=== PATIENT | female | born 1970 | race Caucasian/White ===

== ENCOUNTER 2017-02-18 10:45 | Emergency (ER) | payer OTHER ==
[2017-02-18 10:52] VITALS: RESP 18
[2017-02-18 11:38] VITALS: BP 146/86; PULSE 81; TEMP 97.2
[2017-02-18] MEDS ORDERED: DIAZEPAM 5 MG TAB PO STA (11:53)
[2017-02-18] MEDS ORDERED: HYDROcodone/APAP 10-325MG 1 EACH TAB PO ONE (11:53)
--- NOTE | 2017-02-18 12:04 | ED ---
General Adult HPI - General Chief complaint: Back Pain/Injury Stated complaint: back pain Source: patient Mode of arrival: wheelchair Limitations: no limitations - History of Present Illness Initial comments: 46 year old female presenting for evaluation of left lower back pain. She states that 2 days ago she was lifting a coffee table and while lifting and twisting states she felt a "pull" in her back and had pain that radiated down the lateral posterior aspect of her leg to her foot and ankle. She states that the pain in her back is constant and that only with certain positions or movements will the pain radiate to her foot. She is still able to ambulate but states due to the pain she has had decreased activity. She has attempted Motrin 800s for pain relief without any improvement. She denies any saddle anesthesia, lower extremity weakness, bowel or bladder dysfunction that is abnormal for her, or midline back pain. She states she does have baseline urinary irregularities but this has been ongoing for a couple years and she attributes it to her fibromyalgia. - Related Data Home Medications Medication Instructions Recorded Confirmed Multivitamins, Thera [Multivitamin 1 tab PO DAILY 02/23/15 02/18/17 (formulary)] Ibuprofen [Motrin] 800 mg PO BID 10/13/15 02/18/17 ALPRAZolam [Xanax] 1 mg PO HS 02/18/17 02/18/17 Atorvastatin [Lipitor] 10 mg PO HS 02/18/17 02/18/17 Biotin 10,000 mcg PO DAILY 02/18/17 02/18/17 Cyanocobalamin (Vitamin B-12) 1,000 mcg PO DAILY 02/18/17 02/18/17 [Vitamin B-12] FLUoxetine HCL [FLUoxetine HCL] 40 mg PO DAILY 02/18/17 02/18/17 Garcinia Cambogia 1 tab PO BID 02/18/17 02/18/17 Phentermine HCl [Adipex-P] 37.5 mg PO QAM 02/18/17 02/18/17 Phenylephrine HCl [Sudafed PE] 10 mg PO Q6H PRN 02/18/17 02/18/17 Previous Rx's Medication Instructions Recorded Diazepam [Valium] 5 mg PO BID #6 tab 02/18/17 HYDROcodone/APAP 5-325MG [Leslie 1 - 2 tab PO Q6HR PRN #14 tab 02/18/17 5-325] Allergies Allergy/AdvReac Type Severity Reaction Status Date / Time No Known Allergies Allergy Verified 02/18/17 10:52 Review of Systems ROS Statement: Those systems with pertinent positive or pertinent negative responses have been documented in the HPI. ROS Other: All systems not noted in ROS Statement are negative. Constitutional: Denies: fever, chills Eyes: Denies: eye pain, eye discharge ENT: Denies: ear pain, throat pain Respiratory: Denies: cough, dyspnea Cardiovascular: Denies: chest pain, palpitations Endocrine: Denies: fatigue, polydipsia, polyuria Gastrointestinal: Denies: abdominal pain, nausea, vomiting, diarrhea Genitourinary: Denies: urgency, dysuria Musculoskeletal: Reports: back pain. Denies: arthralgia, myalgia Skin: Denies: rash, lesions Neurological: Reports: other (Pain radiating from her left lower back down to her foot). Denies: headache, weakness, numbness, paresthesias, confusion Psychiatric: Denies: anxiety, depression Hematological/Lymphatic: Denies: easy bleeding, easy bruising Past Medical History Past Medical History: Cancer, Diabetes Mellitus, Fibromyalgia, GERD/Reflux, Hyperlipidemia, Thyroid Disorder Additional Past Medical History / Comment(s): CERVICAL CA (1996), HX OF DIVERTICULITIS, OCCASIONAL DIARRHEA, OCCASIONAL HEARTBURN., PT STATES UNSURE OF THYROID DISORDER. History of Any Multi-Drug Resistant Organisms: None Reported Past Surgical History: Bariatric Surgery, Section, Cholecystectomy, Hysterectomy, Tubal Ligation, Uterine Ablation Additional Past Surgical History / Comment(s): LAP BAND 2000 & REMOVED 2001. Past Anesthesia/Blood Transfusion Reactions: Motion Sickness Past Psychological History: Anxiety, Depression Smoking Status: Never smoker Past Alcohol Use History: Rare Past Drug Use History: None Reported - Past Family History Father Family Medical History: Cancer, Coronary Artery Disease (CAD), CVA/TIA, Myocardial Infarction ([place]) Additional Family Medical History / Comment(s): Bone ca Mother Family Medical History: Coronary Artery Disease (CAD), CVA/TIA, Hypertension Sister(s) Family Medical History: Fibromyalgia Additional Family Medical History / Comment(s): MS General Exam Limitations: no limitations General appearance: alert, in no apparent distress Head exam: Present: atraumatic, normocephalic, normal inspection Eye exam: Present: normal appearance, PERRL, EOMI. Absent: scleral icterus, conjunctival injection, periorbital swelling ENT exam: Present: normal exam, mucous membranes moist Neck exam: Present: normal inspection. Absent: tenderness, meningismus, lymphadenopathy Respiratory exam: Present: normal lung sounds bilaterally. Absent: respiratory distress, wheezes, rales, rhonchi, stridor Cardiovascular Exam: Present: regular rate, normal rhythm, normal heart sounds. Absent: systolic murmur, diastolic murmur, rubs, gallop, clicks GI/Abdominal exam: Present: soft, normal bowel sounds. Absent: distended, tenderness, guarding, rebound, rigid Rectal exam: Present: deferred Extremities exam: Present: normal inspection, full ROM, normal capillary refill. Absent: tenderness, pedal edema, joint swelling, calf tenderness Back exam: Present: tenderness, muscle spasm, paraspinal tenderness. Absent: normal inspection, vertebral tenderness, rash noted Neurological exam: Present: alert, oriented X3, CN II-XII intact, reflexes normal, other (Lower extremity reflexes intact including patellar and achilles. First dorsal webspace sensation intact.). Absent: motor sensory deficit Psychiatric exam: Present: normal affect, normal mood Skin exam: Present: warm, dry, intact, normal color. Absent: rash Course Vital Signs 02/18/17 02/18/17 10:49 11:38 Temperature 97.1 F L 97.2 F L Pulse Rate 86 81 Respiratory 18 18 Rate Blood Pressure 130/67 146/86 O2 Sat by Pulse 96 99 Oximetry Medical Decision Making - Medical Decision Making 46-year-old female presented for evaluation of back pain that occurred while lifting and twisting a coffee table 2 days ago. She states the back pain is constant and with certain movements and positions will radiate down the posterior lateral aspect of her left leg down to the left foot. She denies any lower extremity weakness, saddle anesthesia, midline back tenderness , or bowel/bladder irregularities that deviate from her baseline. On physical examination she is neurovascularly intact with a positive straight-leg test on the left. Cranial nerves II through XII intact without focal neurologic deficits. Patient does have paraspinal muscle spasm in the left lower back. Although this is likely a lumbar radiculopathy from disc herniation there is also concerned that this could be paraspinal muscle spasm. We'll treat with Valium and Leslie here in the ED and discharged with prescriptions for each. The patient states she has Motrin 800 at home and was instructed to take this every 6-8 hours as instructed. She was further advised to make an appointment with her primary care physician for next Tuesday but to return to this facility over the weekend if her symptoms should worsen or persist. The patient acknowledged an understanding of this information and agreed with this plan of care. Disposition Clinical Impression: Back pain, Lumbar back pain with radiculopathy affecting left lower extremity Disposition: HOME SELF-CARE Condition: Stable Instructions: Acute Low Back Pain (ED) Additional Instructions: Please use medication as discussed. Please follow up with family doctor if symptoms have not improved over the next two days. Please return to the emergency room if your symptoms increase or worsen or for any other concerns. Prescriptions: Diazepam [Valium] 5 mg PO BID #6 tab HYDROcodone/APAP 5-325MG [Leslie 5-325] 1 - 2 tab PO Q6HR PRN #14 tab PRN Reason: Analgesia Time of Disposition: 12:03
== END 2017-02-18 12:22 | disposition home or self-care (01) ==
LOC: EC 10:45
DX: M54.16 Radiculopathy, lumbar region (principal); M62.830 Muscle spasm of back; E11.9 Type 2 diabetes mellitus without complications; M79.7 Fibromyalgia; E78.5 Hyperlipidemia, unspecified; F32.9 Major depressive disorder, single episode, unspecified; F41.9 Anxiety disorder, unspecified; Z79.899 Other long term (current) drug therapy
CPT/HCPCS: 99283

== ENCOUNTER → 2017-02-23 | Outpatient (CLI) | payer OTHER ==
--- NOTE | 2017-02-23 14:35 | XR ---
EXAMINATION TYPE: XR lumbar spine 2 or 3V DATE OF EXAM: 02/23/2017 1:45 PM COMPARISON: 08/25/2011 HISTORY: 46-year-old female low back pain, radiculopathy TECHNIQUE: 3 views FINDINGS: 5 lumbar type vertebral bodies. There is mild endplate spondylosis throughout the lumbar spine with s uggestion of disc bulges at multiple levels. Vertebral body heights are preserved and alignment is ma intained. The mild spondylotic change appears to have slightly progressed from 2010. IMPRESSION: Mild multilevel degenerative disc disease and endplate spondylosis. No vertebral compression collapse or malalignment.
== END ==
LOC: RADXRMAIN 13:29
PROVIDERS: ATTEND Family Medicine
DX: M51.16 Intervertebral disc disorders with radiculopathy, lumbar region (principal); M47.26 Other spondylosis with radiculopathy, lumbar region
CPT/HCPCS: 72100

== ENCOUNTER 2017-06-02 17:50 | Emergency (ER) | payer OTHER ==
[2017-06-02] MEDS ORDERED: KETOROLAC 30 MG/ML 1 ML VIAL IVP STA (19:15)
[2017-06-02] MEDS ORDERED: ORPHENADRINE 30 MG/ML 2 ML VIAL IM STA (19:15)
[2017-06-02] MEDS ORDERED: SODIUM CHLORIDE 0.9% 500 ML IV ONE (19:16)
[2017-06-02] MEDS ORDERED: METOCLOPRAMIDE 5 MG/ML 2 ML VIAL IVP STA (19:16)
--- NOTE | 2017-06-02 19:27 | ED ---
Headache HPI - General Chief Complaint: Headache Stated Complaint: headache Time Seen by Provider: 06/02/17 19:08 Source: patient, RN notes reviewed Mode of arrival: ambulatory Limitations: no limitations - History of Present Illness Initial Comments: 46-year-old female presents emergency Department chief complaint headache 1 month. Patient states that she has had headaches like this in the past and states that she had a nerve block for occipital neurology. Patient states on the left side of her head and radiates up to her forehead. Patient states that having seems to make it worse. Patient states that she seen her primary care physician twice for this. Patient states she's had CTs in the past and states that she does not want an hour at this time. Patient denies any change in vision. States that she's had some blurred vision in the past. Denies any focal weakness denies chest pain, shortness breath, fever, chills, neck stiffness. She states she does have some pain down her left side of her neck and shoulder region. - Related Data Home Medications Medication Instructions Recorded Confirmed Multivitamins, Thera [Multivitamin 1 tab PO DAILY 02/23/15 02/18/17 (formulary)] Ibuprofen [Motrin] 800 mg PO BID 10/13/15 02/18/17 ALPRAZolam [Xanax] 1 mg PO HS 02/18/17 02/18/17 Atorvastatin [Lipitor] 10 mg PO HS 02/18/17 02/18/17 Biotin 10,000 mcg PO DAILY 02/18/17 02/18/17 Cyanocobalamin (Vitamin B-12) 1,000 mcg PO DAILY 02/18/17 02/18/17 [Vitamin B-12] FLUoxetine HCL [FLUoxetine HCL] 40 mg PO DAILY 02/18/17 02/18/17 Garcinia Cambogia 1 tab PO BID 02/18/17 02/18/17 Phentermine HCl [Adipex-P] 37.5 mg PO QAM 02/18/17 02/18/17 Phenylephrine HCl [Sudafed PE] 10 mg PO Q6H PRN 02/18/17 02/18/17 Previous Rx's Medication Instructions Recorded Diazepam [Valium] 5 mg PO BID #6 tab 02/18/17 HYDROcodone/APAP 5-325MG [Mills 1 - 2 tab PO Q6HR PRN #14 tab 02/18/17 5-325] Butalb/APAP/Caff 50-325-40Mg 1 tab PO Q4H PRN #10 tablet 06/02/17 [Fioricet 50-325-40] Cyclobenzaprine [Flexeril] 10 mg PO TID PRN #15 tab 06/02/17 Allergies Allergy/AdvReac Type Severity Reaction Status Date / Time No Known Allergies Allergy Verified 06/02/17 19:01 Review of Systems ROS Statement: Those systems with pertinent positive or pertinent negative responses have been documented in the HPI. ROS Other: All systems not noted in ROS Statement are negative. Past Medical History Past Medical History: Cancer, Diabetes Mellitus, Fibromyalgia, GERD/Reflux, Hyperlipidemia, Thyroid Disorder Additional Past Medical History / Comment(s): CERVICAL CA (1996), HX OF DIVERTICULITIS, OCCASIONAL DIARRHEA, OCCASIONAL HEARTBURN., PT STATES UNSURE OF THYROID DISORDER. History of Any Multi-Drug Resistant Organisms: None Reported Past Surgical History: Bariatric Surgery, Section, Cholecystectomy, Hysterectomy, Tubal Ligation, Uterine Ablation Additional Past Surgical History / Comment(s): LAP BAND 2000 & REMOVED 2001. Past Anesthesia/Blood Transfusion Reactions: Motion Sickness Past Psychological History: Anxiety, Depression Smoking Status: Never smoker Past Alcohol Use History: Rare Past Drug Use History: None Reported - Past Family History Father Family Medical History: Cancer, Coronary Artery Disease (CAD), CVA/TIA, Myocardial Infarction ([place]) Additional Family Medical History / Comment(s): Bone ca Mother Family Medical History: Coronary Artery Disease (CAD), CVA/TIA, Hypertension Sister(s) Family Medical History: Fibromyalgia Additional Family Medical History / Comment(s): MS General Exam Limitations: no limitations General appearance: alert, in no apparent distress Head exam: Present: atraumatic, normocephalic, normal inspection Eye exam: Present: normal appearance, PERRL, EOMI. Absent: scleral icterus, conjunctival injection, periorbital swelling ENT exam: Present: normal exam, normal oropharynx, mucous membranes moist, TM's normal bilaterally, normal external ear exam Neck exam: Present: normal inspection, tenderness (Mild tenderness along the left trapezius, upper cervical paraspinal region.), full ROM. Absent: meningismus, lymphadenopathy Respiratory exam: Present: normal lung sounds bilaterally. Absent: respiratory distress, wheezes, rales, rhonchi, stridor Cardiovascular Exam: Present: regular rate, normal rhythm, normal heart sounds. Absent: systolic murmur, diastolic murmur, rubs, gallop, clicks Neurological exam: Present: alert, oriented X3, CN II-XII intact, reflexes normal. Absent: motor sensory deficit Skin exam: Present: warm, dry, intact, normal color. Absent: rash Course Vital Signs 06/02/17 06/02/17 06/02/17 18:59 19:45 21:04 Temperature 98 F 97.0 F L Pulse Rate 89 80 75 Respiratory 20 16 16 Rate Blood Pressure 137/82 130/63 107/52 O2 Sat by Pulse 98 98 97 Oximetry Medical Decision Making - Medical Decision Making 46-year-old female presented emergency department for headache previously states her headache is improvement with resolved though feels improved. Patient was offered CT though she declined. She states she's had this in the past. Patient will be referred to neurologist for possible occipital block. Patient will be given medications to help with her symptoms return parameters were discussed. Disposition Clinical Impression: Cervico-occipital neuralgia, Headache Disposition: HOME SELF-CARE Condition: Stable Instructions: Acute Headache (ED) Additional Instructions: Please return to the Emergency Department if symptoms worsen or any other concerns. Prescriptions: Butalb/APAP/Caff 50-325-40Mg [Fioricet 50-325-40] 1 tab PO Q4H PRN #10 tablet PRN Reason: Headache Cyclobenzaprine [Flexeril] 10 mg PO TID PRN #15 tab PRN Reason: Muscle Spasm Referrals: Bigg Benjamin DO [Primary Care Provider] - 1-2 days Time of Disposition: 21:11
[2017-06-02 19:48] VITALS: RESP 16
[2017-06-02] MEDS ORDERED: DIAZEPAM 5 MG/ML 2 ML SYRINGE IVP STA (20:12)
[2017-06-02] MEDS ORDERED: BUTALB/APAP/CAFF 50-325-40MG TAB PO STA (20:13)
[2017-06-02 21:06] VITALS: BP 107/52; PULSE 75; TEMP 97
== END 2017-06-02 21:21 | disposition home or self-care (01) ==
LOC: EC 17:50
DX: M54.81 Occipital neuralgia (principal); M79.7 Fibromyalgia; E78.5 Hyperlipidemia, unspecified; F41.9 Anxiety disorder, unspecified; F32.9 Major depressive disorder, single episode, unspecified; Z79.1 Long term (current) use of non-steroidal anti-inflammatories (NSAID); Z79.899 Other long term (current) drug therapy
CPT/HCPCS: 99284; 96374; 96375 ×2; 96361 ×2; 96372; J2360; J2765; J3360; J1885

== ENCOUNTER → 2017-10-28 | Outpatient (CLI) | payer OTHER ==
[2017-10-28 14:01] LABS: HGB 13.2 gm/dL (11.4-16.0); MCV 81.8 fL (80.0-100.0); Mean Platelet Volume 8.5; Platelet Count 216 k/uL (150-450); RDW 15.4 % (11.5-15.5); WBC 6.1 k/uL (3.8-10.6)
[2017-10-28 14:14] LABS: Appearance,Urine Cloudy (Clear); Bacteria,Urine Moderate /hpf; Bilirubin,Urine Negative (Negative); Blood,Urine Negative (Negative); Color,Urine Yellow; Glucose,Urine (UA) Negative (Negative); Hyaline Casts,Urine 3 /lpf (0-2); Ketones,Urine Negative (Negative); Leukocyte Esterase,Urine Negative (Negative); Mucus,Urine Rare /hpf; Nitrite,Urine Negative (Negative); Protein,Urine Negative (Negative); RBC,Urine 5 /hpf (0-5); Specific Gravity,Urine 1.019 (1.001-1.035); Squamous Epithelial Cell,Urine 14 /hpf (0-4); Urobilinogen,Urine <2.0 mg/dL (<2.0); WBC,Urine 2 /hpf (0-5)
[2017-10-28 14:43] LABS: ALT 77 U/L (9-52); AST 44 U/L (14-36); Albumin 4.6 g/dL (3.5-5.0); Alkaline Phosphatase 113 U/L (38-126); Anion Gap 10 mmol/L; Blood Urea Nitrogen 13 mg/dL (7-17); C Reactive Protein 5.7 mg/L (<10.0); Calcium 10.3 mg/dL (8.4-10.2); Carbon Dioxide 25 mmol/L (22-30); Chloride 104 mmol/L (98-107); Creatine Kinase 120 U/L (30-135); Glucose 114 mg/dL (74-99); Magnesium 1.7 mg/dL (1.6-2.3); Potassium 4.3 mmol/L (3.5-5.1); Sodium 139 mmol/L (137-145); Total Bilirubin 0.3 mg/dL (0.2-1.3); Total Protein 7.8 g/dL (6.3-8.2)
[2017-10-28 17:39] LABS: Erythrocyte Sedimentation Rate 13 mm/hr (0-20)
[2017-10-28 19:42] LABS: Vitamin D 25 Hydroxy 28.1 ng/mL (30.0-100.0)
[2017-10-28 21:20] LABS: DNA Double-Stranded NEGATIVE (NEGATIVE); RNP <0.2 AI
[2017-10-28 21:21] LABS: Cyclic Citrullinated Pep IgG NEGATIVE (NEGATIVE); Scleroderma SC-70 Ab <0.2 AI
[2017-10-28 21:38] LABS: Hemoglobin A1C 6.8 % (4.0-6.0)
[2017-10-30 07:51] LABS: Histone Antibody 0.3 Units (0.0-0.9)
[2017-11-01 04:32] LABS: Vitamin B1 49 ug/L (38-122)
[2017-11-01 06:40] LABS: Vitamin A 67 ug/dL (38-106); Vitamin E (Alpha Tocopherol) 1291 ug/dL (500-1800)
[2017-11-01 07:45] LABS: Vitamin B6 14 ug/L (5-50)
[2017-11-04 04:39] LABS: Vitamin K 606 pg/mL (80-1160)
[2017-11-04 12:12] LABS: Nicotinuric Acid None Detected
== END | disposition home or self-care (01) ==
LOC: LABWHC1 13:15
PROVIDERS: ATTEND Psychiatry & Neurology Pain Medicine
DX: M25.50 Pain in unspecified joint (principal)
CPT/HCPCS: 36415; 80053; 81001; 82306; 82550; 83036; 83516; 83519; 83735; 84207; 84425; 84446; 84590; 84591; 84597; 85027; 85652; 86038; 86140; 86200; 86225; 86235

== ENCOUNTER → 2017-11-08 | Outpatient (CLI) | payer OTHER ==
--- NOTE | 2017-11-08 12:46 | MR ---
PRE AND POSTCONTRAST ENHANCED MRI OF THE BRAIN: CLINICAL HISTORY: R51 Headache / M54.2 Cervicalgia CONTRAST: Gadavist 9 mL COMPARISON: 04/04/2013 Multiplanar and multispin-echo imaging of the brain was performed both before and after the administr ation of contrast. The ventricles, basal cisterns and sulci overlying the cerebral convexities are within normal limits. There is no evidence for midline shift or mass effect. Acute intracranial hemorrhage or extra-axial collection is not evident. 2 tiny areas of stable focal increased signal right cerebral hemisphere. Following contrast administration, there is no evidence for pathologic enhancement or enhancing mass. The paranasal sinuses and mastoid air cells are well-aerated. IMPRESSION: 1. No significant abnormality appreciated. EXAMINATION TYPE: MR brain wo/w cspine wo DATE OF EXAM: 11/08/2017 12:08 PM COMPARISON: NONE HISTORY: Headache / Cervicalgia Multiplanar MultiSpin echo imaging of the cervical spine was performed. Comparison: none C2-C3: No evidence for degenerative disc disease. No disc bulge/herniation or protrusion. No Canal stenosis. Foramina are patent bilaterally. C3-C4: No evidence for degenerative disc disease. No disc bulge/herniation or protrusion. No Canal stenosis. Foramina are patent bilaterally. C4-C5: Mild decreased signal and loss of height compatible with disc desiccation. Posterior disc bulg e with encapsulating spur resulting in disc endplate complex. Mild effacement ventral thecal sac. No evidence for herniation or central stenosis. Visualized foramina are patent. C5-C6: [id number] decreased signal and loss of height compatible with disc desiccation. Posteri or disc bulge with encapsulating spur resulting in mild to moderate effacement of the ventral thecal sac and mild central stenosis. There is evidence of left foraminal encroachment. Early compressive my elopathy difficult to exclude. C6-C7: [id number] decreased signal and loss of height compatible with disc desiccation. Posteri or disc bulge with encapsulating spur resulting in mild effacement of the ventral thecal sac and bor derline central stenosis. Mild left foraminal encroachment. C7-T1: No evidence for degenerative disc disease. No disc bulge/herniation or protrusion. No Canal stenosis. Foramina are patent bilaterally. Cervical segments are intact. There is normal alignment. Moderate ventral spondylosis identified. Cr aniovertebral junction relationships are within normal limits. IMPRESSION: 1. Multilevel degenerative disc disease. 2. Posterior disc bulge with encapsulating spur extending from C4-5 through C6-7 with mild stenosis i dentified at C5-6 and borderline stenosis at C6-7. Early compressive myelopathy difficult to exclude.
== END | disposition home or self-care (01) ==
LOC: RADMRIMAIN 11:03
PROVIDERS: ATTEND Psychiatry & Neurology Pain Medicine
DX: M48.02 Spinal stenosis, cervical region (principal); M50.221 Other cervical disc displacement at C4-C5 level; R51 Headache
CPT/HCPCS: 70553; 72141; A9581

== ENCOUNTER 2017-11-11 17:27 | Observation (INO) | payer OTHER ==
[2017-11-11] MEDS ORDERED: SODIUM CHLORIDE 0.9% 1,000 ML IV STA (17:43)
[2017-11-11 17:53] LABS: Basophils % (A) 0 %; Eosinophils # (A) 0.1 k/uL (0-0.7); Eosinophils % (A) 1 %; HCT 39.7 % (34.0-46.0); HGB 13.3 gm/dL (11.4-16.0); Lymphocytes # (A) 3.3 k/uL (1.0-4.8); Lymphocytes % (A) 33 %; MCHC 33.4 g/dL (31.0-37.0); MCV 80.6 fL (80.0-100.0); Mean Platelet Volume 8.2; Monocytes # (A) 0.9 k/uL (0-1.0); Monocytes % (A) 9 %; Neutrophils # (A) 5.5 k/uL (1.3-7.7); Neutrophils % (A) 54 %; Platelet Count 206 k/uL (150-450); RBC 4.92 m/uL (3.80-5.40); RDW 15.3 % (11.5-15.5); WBC 10.2 k/uL (3.8-10.6)
--- NOTE | 2017-11-11 18:00 | ED ---
General Adult HPI - General Chief complaint: Neuro Symptoms/Deficit Stated complaint: med reaction Time Seen by Provider: 11/11/17 17:29 Source: patient, RN notes reviewed, old records reviewed Mode of arrival: EMS Limitations: no limitations - History of Present Illness Initial comments: This is a 47-year-old female ER for evaluation of weakness. Patient as well as 6 days of weakness pain. Not feeling well. Patient has history of recent diagnosis of fibromyalgia, recent addition of new medications. Patient also complaining of right-sided numbness and tingling, T1 to mouth and tongue. No travel history no sick contacts. Patient does have history of diabetes. No high blood pressure no smoking. - Related Data Home Medications Medication Instructions Recorded Confirmed Multivitamins, Thera [Multivitamin 1 tab PO DAILY 02/23/15 11/11/17 (formulary)] Ibuprofen [Motrin] 800 mg PO BID 10/13/15 11/11/17 ALPRAZolam [Xanax] 1 mg PO HS 02/18/17 11/11/17 Biotin 10,000 mcg PO DAILY 02/18/17 11/11/17 Cyanocobalamin (Vitamin B-12) 1,000 mcg PO DAILY 02/18/17 11/11/17 [Vitamin B-12] FLUoxetine HCL [FLUoxetine HCL] 80 mg PO HS 02/18/17 11/11/17 Acetaminophen/Diphenhydramine 1 tab PO HS 11/11/17 11/11/17 [Tylenol PM 500-25mg] DULoxetine HCL [Cymbalta] 30 mg PO DAILY 11/11/17 11/11/17 Primidone [Mysoline] 50 mg PO DAILY 11/11/17 11/11/17 metFORMIN HCL [Glucophage] 500 mg PO BID 11/11/17 11/11/17 tiZANidine [Zanaflex] 4 mg PO HS 11/11/17 11/11/17 Previous Rx's Medication Instructions Recorded Aspirin EC [Ecotrin Low Dose] 81 mg PO DAILY #30 tablet. 11/12/17 Atorvastatin [Lipitor] 40 mg PO HS #30 tablet 11/12/17 Allergies Allergy/AdvReac Type Severity Reaction Status Date / Time No Known Allergies Allergy Verified 11/11/17 17:52 Review of Systems ROS Statement: Those systems with pertinent positive or pertinent negative responses have been documented in the HPI. ROS Other: All systems not noted in ROS Statement are negative. Past Medical History Past Medical History: Cancer, Diabetes Mellitus, Fibromyalgia, GERD/Reflux, Hyperlipidemia, Thyroid Disorder Additional Past Medical History / Comment(s): CERVICAL CA (1996), HX OF DIVERTICULITIS, OCCASIONAL DIARRHEA, OCCASIONAL HEARTBURN., PT STATES UNSURE OF THYROID DISORDER. History of Any Multi-Drug Resistant Organisms: None Reported Past Surgical History: Bariatric Surgery, Section, Cholecystectomy, Hysterectomy, Tubal Ligation, Uterine Ablation Additional Past Surgical History / Comment(s): LAP BAND 2000 & REMOVED 2001. Past Anesthesia/Blood Transfusion Reactions: Motion Sickness Past Psychological History: Anxiety, Depression Smoking Status: Never smoker Past Alcohol Use History: Rare Past Drug Use History: None Reported - Past Family History Father Family Medical History: Cancer, Coronary Artery Disease (CAD), CVA/TIA, Myocardial Infarction ([place]) Additional Family Medical History / Comment(s): Bone ca Mother Family Medical History: Coronary Artery Disease (CAD), CVA/TIA, Hypertension Sister(s) Family Medical History: Fibromyalgia Additional Family Medical History / Comment(s): MS General Exam - General Exam Comments Initial Comments: NIH of 1 Limitations: no limitations General appearance: alert, in no apparent distress Head exam: Present: atraumatic, normocephalic, normal inspection Eye exam: Present: normal appearance, PERRL, EOMI. Absent: scleral icterus, conjunctival injection, periorbital swelling ENT exam: Present: normal exam, mucous membranes moist Neck exam: Present: normal inspection. Absent: tenderness, meningismus, lymphadenopathy Respiratory exam: Present: normal lung sounds bilaterally. Absent: respiratory distress, wheezes, rales, rhonchi, stridor Cardiovascular Exam: Present: regular rate, normal rhythm, normal heart sounds. Absent: systolic murmur, diastolic murmur, rubs, gallop, clicks GI/Abdominal exam: Present: soft, normal bowel sounds. Absent: distended, tenderness, guarding, rebound, rigid Extremities exam: Present: normal inspection, full ROM, normal capillary refill. Absent: tenderness, pedal edema, joint swelling, calf tenderness Back exam: Present: normal inspection Neurological exam: Present: alert, oriented X3, CN II-XII intact Psychiatric exam: Present: normal affect, normal mood Skin exam: Present: warm, dry, intact, normal color. Absent: rash Course Vital Signs 11/11/17 11/11/17 11/11/17 17:30 18:25 19:05 Temperature 97.7 F 97.8 F Pulse Rate 94 87 Pulse Rate [ 83 Left Radial] Respiratory 16 16 20 Rate Blood Pressure 144/70 132/70 Blood Pressure 125/69 [Left Arm] O2 Sat by Pulse 98 96 98 Oximetry 11/11/17 20:14 Temperature Pulse Rate 90 Pulse Rate [ Left Radial] Respiratory 18 Rate Blood Pressure 128/66 Blood Pressure [Left Arm] O2 Sat by Pulse 95 Oximetry - Reevaluation(s) Reevaluation #1: Medical records thoroughly reviewed EKG Findings - EKG Comments: EKG Findings:: EKG shows normal sinus rhythm rate of 93, IA 142, QRS 70, QTC 489 Medical Decision Making - Medical Decision Making 47 female at ER for evaluation, discussed at length with patient regarding symptoms, patient does have recent concurrent neurological evaluation only symptoms are new, unable to diagnose whether patient is medication related symptoms or paresthesias from other issue. Patient does not for comfortable being discharged home and will admit for continued neurological evaluation - Lab Data Result diagrams: 11/12/17 05:29 11/12/17 05:29 Lab Results 11/11/17 11/11/17 11/11/17 Range/Units 17:38 17:38 17:38 WBC 10.2 (3.8-10.6) k/uL RBC 4.92 (3.80-5.40) m/uL Hgb 13.3 (11.4-16.0) gm/dL Hct 39.7 (34.0-46.0) % MCV 80.6 (80.0-100.0) fL MCH 27.0 (25.0-35.0) pg MCHC 33.4 (31.0-37.0) g/dL RDW 15.3 (11.5-15.5) % Plt Count 206 (150-450) k/uL Neutrophils % 54 % Lymphocytes % 33 % Monocytes % 9 % Eosinophils % 1 % Basophils % 0 % Neutrophils # 5.5 (1.3-7.7) k/uL Lymphocytes # 3.3 (1.0-4.8) k/uL Monocytes # 0.9 (0-1.0) k/uL Eosinophils # 0.1 (0-0.7) k/uL Basophils # 0.0 (0-0.2) k/uL PT (9.0-12.0) sec INR (<1.2) APTT (22.0-30.0) sec Phosphorus 3.5 (2.5-4.5) mg/dL Magnesium 1.9 (1.6-2.3) mg/dL Total Creatine Kinase 152 H (30-135) U/L CK-MB (CK-2) <0.2 (0.0-2.4) ng/mL CK-MB (CK-2) Rel Index Troponin I (0.000-0.034) ng/mL TSH 0.273 L (0.465-4.680) mIU/L 11/11/17 11/11/17 Range/Units 17:38 17:38 WBC (3.8-10.6) k/uL RBC (3.80-5.40) m/uL Hgb (11.4-16.0) gm/dL Hct (34.0-46.0) % MCV (80.0-100.0) fL MCH (25.0-35.0) pg MCHC (31.0-37.0) g/dL RDW (11.5-15.5) % Plt Count (150-450) k/uL Neutrophils % % Lymphocytes % % Monocytes % % Eosinophils % % Basophils % % Neutrophils # (1.3-7.7) k/uL Lymphocytes # (1.0-4.8) k/uL Monocytes # (0-1.0) k/uL Eosinophils # (0-0.7) k/uL Basophils # (0-0.2) k/uL PT 10.0 (9.0-12.0) sec INR 1.0 (<1.2) APTT 24.5 (22.0-30.0) sec Phosphorus (2.5-4.5) mg/dL Magnesium (1.6-2.3) mg/dL Total Creatine Kinase (30-135) U/L CK-MB (CK-2) (0.0-2.4) ng/mL CK-MB (CK-2) Rel Index Troponin I <0.012 (0.000-0.034) ng/mL TSH (0.465-4.680) mIU/L - Radiology Data Radiology results: report reviewed (CT brain is negative for acute disease), image reviewed Disposition Clinical Impression: Transient cerebral ischemia, Right hand paresthesia, Paresthesia of right arm Disposition: ADMITTED IP TO THIS HOSP Condition: Undetermined
[2017-11-11 18:10] LABS: Magnesium 1.9 mg/dL (1.6-2.3); Phosphorus 3.5 mg/dL (2.5-4.5)
[2017-11-11 18:12] LABS: Creatine Kinase 152 U/L (30-135)
[2017-11-11 18:19] LABS: Partial Thromboplastin Time 24.5 sec (22.0-30.0)
[2017-11-11 18:22] LABS: Creatine Kinase MB <0.2 ng/mL (0.0-2.4)
--- NOTE | 2017-11-11 18:46 | CT ---
EXAMINATION: CT brain wo con DATE AND TIME: 11/11/2017 6:37 PM ORDERING PROVIDER: Jim Priest DO CLINICAL INDICATION: weakness TECHNIQUE: Standard departmental protocol. DLP 1239 mGy-cm. COMPARISON: 01/26/2013 DESCRIPTION: The calvarium is intact. There is no intracranial hemorrhage. There is no mass or mass e ffect. There is no definite new attenuation defect. Remainder of the intra-axial and extra-axial comp artment examination is unremarkable. The paranasal sinuses, middle ear cavities, and mastoid sinus ai r cells are clear. The orbits are intact. IMPRESSION: NO ACUTE PROCESS.
[2017-11-11] MEDS ORDERED: ASPIRIN 325 MG TAB PO STA (19:05)
[2017-11-11] MEDS: SODIUM CHLORIDE 0.9% 1,000 ML IV SCH (19:56)
[2017-11-11 20:15] VITALS: RESP 18
[2017-11-11 21:09] LABS: Glucose,Whole Blood 115 mg/dL (75-99)
[2017-11-11] MEDS ORDERED: TEMAZEPAM 15 MG CAP PO PRN (23:05)
[2017-11-12] MEDS ORDERED: HYDROcodone/APAP 5-325MG 1 EACH TAB PO PRN (00:41)
[2017-11-12] MEDS ORDERED: ALPRAZolam 0.5 MG TAB PO SCH ×2 (00:48→21:00)
[2017-11-12 06:01] LABS: Basophils % (A) 1 %; Eosinophils # (A) 0.1 k/uL (0-0.7); Eosinophils % (A) 1 %; HCT 38.6 % (34.0-46.0); HGB 12.5 gm/dL (11.4-16.0); Lymphocytes # (A) 3.7 k/uL (1.0-4.8); Lymphocytes % (A) 42 %; MCH 26.5 pg (25.0-35.0); MCHC 32.3 g/dL (31.0-37.0); MCV 82.1 fL (80.0-100.0); Mean Platelet Volume 8.5; Monocytes # (A) 0.6 k/uL (0-1.0); Monocytes % (A) 7 %; Neutrophils # (A) 4.1 k/uL (1.3-7.7); Neutrophils % (A) 47 %; Platelet Count 191 k/uL (150-450); RDW 15.3 % (11.5-15.5); WBC 8.8 k/uL (3.8-10.6)
[2017-11-12] MEDS: SODIUM CHLORIDE 0.9% 1,000 ML IV SCH ×2 (06:07→07:07)
[2017-11-12 06:26] LABS: Anion Gap 10 mmol/L; Blood Urea Nitrogen 15 mg/dL (7-17); Calcium 9.4 mg/dL (8.4-10.2); Carbon Dioxide 28 mmol/L (22-30); Chloride 101 mmol/L (98-107); Cholesterol 164 mg/dL (<200); Glucose 104 mg/dL (74-99); HDL Cholesterol 52 mg/dL (40-60); LDL Cholesterol,Calculated 81 mg/dL (0-99); Potassium 4.5 mmol/L (3.5-5.1); Sodium 139 mmol/L (137-145); Triglycerides 153 mg/dL (<150)
[2017-11-12] MEDS: INSULIN ASPART 100 UNIT/ML 1 ML 10 ML VIAL SQ SCH ×2 (07:07→12:35)
[2017-11-12] MEDS ORDERED: metFORMIN 500 MG TAB PO SCH (07:30)
[2017-11-12 08:43] LABS: Glucose,Whole Blood 93 mg/dL (75-99)
[2017-11-12] MEDS ORDERED: PRIMIDONE 50 MG TAB PO SCH (09:00)
[2017-11-12] MEDS ORDERED: NON-FORMULARY DRUG (Biotin [Biotin] 10,000 MCG) PO SCH (09:00)
[2017-11-12] MEDS ORDERED: MULTIVITAMINS, THERA 1 EACH TAB PO SCH (09:00)
[2017-11-12] MEDS ORDERED: DULoxetine HCL 30 MG CAPSULE.DR PO SCH (09:00)
[2017-11-12] MEDS ORDERED: CYANOCOBALAMIN 500 MCG TAB PO SCH (09:00)
[2017-11-12] MEDS ORDERED: HEPARIN SODIUM,PORCINE 5,000 UNIT/ML 1 ML VIAL SQ SCH (09:00)
--- NOTE | 2017-11-12 09:02 | HP ---
HISTORY AND PHYSICAL CHIEF COMPLAINTS: Numbness and paresthesia of the left side of the body, left side of the face. HISTORY OF PRESENT ILLNESS: This 47-year-old woman with a past medical history of multiple medical problems including history of recent and fibromyalgia, diabetes, GERD, hypertension, pneumonia, being followed by Dr. Benjamin in the outpatient setting, was complaining of numbness of the right side of the body for the last 6 or 7 days. With tingling, numbness increasing, the patient came to [facility] and was admitted for further evaluation and treatment. There is no history of fever, rigors or chills. No headache, loss of conscious or seizures. The initial brain CT scan showed no acute process. PAST MEDICAL HISTORY: History of fibromyalgia, history of diabetes, GERD, history of hyperlipidemia, history of pneumonia, history of bariatric surgery. MEDICATIONS: Prior to admission include home medications are: 2. Zanaflex 4 mg q.h.s. 3. Glucophage 500 mg p.o. b.i.d. 4. Mysoline 50 mg. 5. Multivitamins one p.o. daily. 6. Motrin 800 mg p.o. b.i.d. 7. Fluoxetine 80 mg daily. 8. Cymbalta 30 mg daily. 9. Vitamin B12 1000 mcg. 10.Biotin 49329 mcg p.o. daily. 11.Lipitor 10 mg q.h.s. 12.Tylenol p.m. 1 tab p.o. q.h.s. 13.Xanax 1 mg p.o. q.h.s. ALLERGIES: None. FAMILY HISTORY: History of cancer, CAD, CVA, TIA, myocardial infarction, bone cancer in the family. SOCIAL HISTORY: History of alcohol. No history of smoking. REVIEW OF SYSTEMS: ENT: No diminished hearing or vision. CARDIOVASCULAR: No angina or palpitations. Respiration: No cough or hemoptysis. GI no nausea or vomiting. : No dysuria. NERVOUS SYSTEM: As mentioned: Musculoskeletal mentioned earlier. Hematology/ Oncology: No history of anemia. Endocrine: No history of hypothyroidism. Constitutional: As mentioned earlier. Dermatology: Negative. Rheumatology: Negative. Psychiatric : As mentioned earlier. PHYSICAL EXAMINATION: The patient is alert and oriented times three. Pulse 83, blood pressure 120/60, respiration 20, temperature 97.8, pulse ox 98% on room air. HEENT: Conjunctivae normal. NECK: No jugular venous distention. Cardiovascular : S1, S2. Respiratory: Breath sounds diminished in the bases. A few scattered rhonchi. No crackles. ABDOMEN: Soft and nontender. No mass palpable. Legs no edema. No swelling. Nervous system: Higher functions as mentioned earlier. Cranial nerves 2 thru 12 grossly intact. Lymphatics: No lymph nodes palpable in the neck, axillae or groin. No signs of cerebellar dysfunction. SKIN: No ulcer, rash, bleeding. Joints no active deforming arthropathy. LABS: TSH is 0.273. Troponins are less than 0.012. The glucose 115. ASSESSMENT: 1. Left-sided numbness and tingling, possible acute transient ischemic attack. 2. History of migraine. 3. Low TSH. 4. Diabetes type 2. 5. Fibromyalgia. 6. Gastroesophageal reflux disease. 7. Hyperlipidemia. 8. History of pneumonia. 9. History of cervical cancer. 10.History of bariatric surgery. 11.History of anxiety, depression. RECOMMENDATIONS AND DISCUSSION: This 47-year-old woman who presented with multiple complex medical issues, we will monitor the patient closely, continue the current medications, management and symptomatic treatment. Otherwise antiplatelet agents. Neurology consultation. Full neurovascular workup. I would resume the home medications. Otherwise prognosis guarded because of the multiple complex medical issues and further recommendations to follow. Discussed with the patient who agrees. Recommend close follow up with Dr. Benjamin and Neurology in the outpatient setting. MMODL / IJN: [id number] / MTDD
[2017-11-12] MEDS ORDERED: ASPIRIN 325 MG TAB PO SCH (12:00)
[2017-11-12 12:09] LABS: Glucose,Whole Blood 142 mg/dL (75-99)
--- NOTE | 2017-11-12 12:22 | P.DS ---
Providers Date of admission: 11/11/17 19:07 Attending physician: Steven Martinez Consults: 11/11/17 19:06 Consult Physician Routine Consulting Provider: Kenroy Rene Consult Reason/Comments: tia,known Do you want consulting provider notified?: Yes Primary care physician: Bigg Benjamin [facility] Course: 47-year-old female admitted for pallor seizures in the right side of the body appears to have had a stroke involving the ventral posterior lateral nucleus of thalamus on the left side, clinically. Patient will be started on aspirin 81 mg and a statin and patient will be discharged today if echocardiogram and carotid Doppler did doesn't show any significant abnormality neurology will evaluate the patient as well. Patient's pallor seizures improved on the right side still has some residual symptoms. PHYSICAL EXAMINATION: GENERAL: The patient is alert and oriented x3, not in any acute distress. Well developed, well nourished. HEENT: Pupils are round and equally reacting to light. EOMI. No scleral icterus. No conjunctival pallor. Normocephalic, atraumatic. No pharyngeal erythema. No thyromegaly. CARDIOVASCULAR: S1 and S2 present. No murmurs, rubs, or gallops. PULMONARY: Chest is clear to auscultation, no wheezing or crackles. ABDOMEN: Soft, nontender, nondistended, normoactive bowel sounds. No palpable organomegaly. MUSCULOSKELETAL: No joint swelling or deformity. EXTREMITIES: No cyanosis, clubbing, or pedal edema. NEUROLOGICAL: Gross neurological examination did not reveal any focal deficits except Paresthesias in the right side SKIN: No rashes. 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 -Type 2 diabetes mellitus -Fibromyalgia Patient Condition at Discharge: Undetermined Plan - Discharge Summary Discharge Rx Participant: No New Discharge Prescriptions: New Aspirin EC [Ecotrin Low Dose] 81 mg PO DAILY #30 tablet. Atorvastatin [Lipitor] 40 mg PO HS #30 tablet Discontinued Atorvastatin [Lipitor] 10 mg PO HS No Action Multivitamins, Thera [Multivitamin (formulary)] 1 tab PO DAILY Ibuprofen [Motrin] 800 mg PO BID ALPRAZolam [Xanax] 1 mg PO HS FLUoxetine HCL [FLUoxetine HCL] 80 mg PO HS Cyanocobalamin (Vitamin B-12) [Vitamin B-12] 1,000 mcg PO DAILY Biotin 10,000 mcg PO DAILY metFORMIN HCL [Glucophage] 500 mg PO BID Primidone [Mysoline] 50 mg PO DAILY DULoxetine HCL [Cymbalta] 30 mg PO DAILY Acetaminophen/Diphenhydramine [Tylenol PM 500-25mg] 1 tab PO HS tiZANidine [Zanaflex] 4 mg PO HS Discharge Medication List Multivitamins, Thera [Multivitamin (formulary)] 1 tab PO DAILY 02/23/15 [History ] Ibuprofen [Motrin] 800 mg PO BID 10/13/15 [History] ALPRAZolam [Xanax] 1 mg PO HS 02/18/17 [History] Biotin 10,000 mcg PO DAILY 02/18/17 [History] Cyanocobalamin (Vitamin B-12) [Vitamin B-12] 1,000 mcg PO DAILY 02/18/17 [ History] FLUoxetine HCL [FLUoxetine HCL] 80 mg PO HS 02/18/17 [History] Acetaminophen/Diphenhydramine [Tylenol PM 500-25mg] 1 tab PO HS 11/11/17 [ History] DULoxetine HCL [Cymbalta] 30 mg PO DAILY 11/11/17 [History] Primidone [Mysoline] 50 mg PO DAILY 11/11/17 [History] metFORMIN HCL [Glucophage] 500 mg PO BID 11/11/17 [History] tiZANidine [Zanaflex] 4 mg PO HS 11/11/17 [History] Aspirin EC [Ecotrin Low Dose] 81 mg PO DAILY #30 tablet. 11/12/17 [Rx] Atorvastatin [Lipitor] 40 mg PO HS #30 tablet 11/12/17 [Rx] Follow up Appointment(s)/Referral(s): Bigg Benjamin DO [Primary Care Provider] - 3 Days Kenroy Rene MD [STAFF PHYSICIAN] - 1 Week Discharge Disposition: HOME SELF-CARE
--- NOTE | 2017-11-12 13:23 | ECHOF ---
Referral Reason:TIA MEASUREMENTS -------- HEIGHT: 157.5 cm WEIGHT: 90.7 kg BP: RVIDd: 2.5 cm (< 3.3) IVSd: 1.2 cm (0.6 - 1.1) LVIDd: 4.2 cm (3.9 - 5.3) LVPWd: 1.3 cm (0.6 - 1.1) IVSs: 1.5 cm LVIDs: 3.1 cm LVPWs: 1.3 cm LA Diam: 3.3 cm (2.7 - 3.8) LAESV Index (A-L): 17.59 ml/m Ao Diam: 2.7 cm (2.0 - 3.7) AV Cusp: 1.7 cm (1.5 - 2.6) LA Diam: 3.6 cm (2.7 - 3.8) MV EXCURSION: 18.048 mm (> 18.000) MV EF SLOPE: 97 mm/s (70 - 150) EPSS: 0.7 cm MV E Navin: 1.03 m/s MV DecT: 218 ms MV A Navin: 0.84 m/s MV E/A Ratio: 1.22 RAP: 5.00 mmHg RVSP: 22.74 mmHg FINDINGS -------- Sinus rhythm. This was a technically good study. The left ventricular size is normal. There is mild concentric left ventricular hypertrophy. Overa ll left ventricular systolic function is low-normal with, an EF between 50 - 55 %. The right ventricle is normal in size. Normal LA size by volume 22+/-6 ml/m2. The right atrial size is normal. There is mild aortic valve sclerosis. There is no evidence of aortic regurgitation. Mild mitral regurgitation is present. Mild tricuspid regurgitation present. There is no evidence of pulmonary hypertension. The right v entricular systolic pressure, as measured by Doppler, is 22.74mmHg. There is no pulmonic regurgitation present. The aortic root size is normal. There is no pericardial effusion. CONCLUSIONS -------- 1. The left ventricular size is normal. 2. There is mild concentric left ventricular hypertrophy. 3. Overall left ventricular systolic function is low-normal with, an EF between 50 - 55 %. 4. There is mild aortic valve sclerosis. 5. Mild mitral regurgitation is present. 6. Mild tricuspid regurgitation present. 7. There is no evidence of pulmonary hypertension. 8. The right ventricular systolic pressure, as measured by Doppler, is 22.74mmHg. 9. There is no pulmonic regurgitation present. 10. The aortic root size is normal. 11. There is no pericardial effusion. LEAD NITRATE PROCESSOR: Jenniffer Figueroa RDCS
[2017-11-12 14:16] LABS: Hemoglobin A1C 6.7 % (4.0-6.0)
--- NOTE | 2017-11-12 14:17 | MR ---
EXAMINATION TYPE: MR brain wo con DATE OF EXAM: 11/12/2017 COMPARISON: MRI brain from [address] brain from yesterday. HISTORY: Numbness in mouth, tongue, rt arm on admission yesterday. Weakness and fatigue. TECHNIQUE: Multiplanar, multisequence imaging of the brain and brainstem is performed without IV cont rast. FINDINGS: Diffusion weighted images demonstrate no evidence of a recent infarct or other diffusion abnormality. There is no worrisome extraaxial fluid collection . The ventricular system and cisternal spaces are normal in size and appearance. The brain volume is age appropriate. There are few scattered foci T2 hyperintensity redemonstrated throughout the white bilaterally. Approximately 2-5 scattered lesions a re redemonstrated. Midline structures demonstrate normal morphology. The craniocervical junction appears within normal limits. Normal vascular flow voids are present. The visualized sinuses are clear and the globes are i ntact. IMPRESSION: No evidence of a recent infarct. Minimal nonspecific white matter changes redemonstrated otherwise unremarkable study.
--- NOTE | 2017-11-12 14:56 | US ---
EXAMINATION TYPE: US carotid duplex BILAT DATE OF EXAM: 11/12/2017 COMPARISON: NONE CLINICAL HISTORY: TIA. weakness and fatigue EXAM MEASUREMENTS: RIGHT: Peak Systolic Velocity (PSV) cm/sec ----- Right CCA: 64.8 ----- Right ICA: 80.5 ----- Right ECA: 75.3 ICA/CCA ratio: 1.2 RIGHT: End Diastole cm/sec ----- Right CCA: 22.1 ----- Right ICA: 35.2 ----- Right ECA: 16.8 LEFT: Peak Systolic Velocity (PSV) cm/sec ----- Left CCA: 80.5 ----- Left ICA: 101.8 ----- Left ECA: 74.7 ICA/CCA ratio: 1.3 LEFT: End Diastole cm/sec ----- Left CCA: 36.0 ----- Left ICA: 52.4 ----- Left ECA: 13.7 VERTEBRALS (direction of flow): Right Vertebral: Antegrade Left Vertebral: Antegrade Rhythm: Normal Grayscale images show mild plaque bilaterally. Velocity measurements remain within normal limits bila terally. IMPRESSION: No hemodynamically significant stenosis in either internal carotid artery.
--- NOTE | 2017-11-12 15:30 | P.CNNES ---
History of Present Illness Consult date: 11/12/17 Requesting physician: Jim Priest Reason for Consult: TIA, paresthesias the skin Chief complaint: Right-sided numbness tingling and weakness History of Present Illness: Neurology is consulting on a 47-year-old female for weakness and right-sided weakness with numbness and tingling in the upper and lower extremities. She is known to our practice and was being worked up for possible fibromyalgia. She was recently started on Cymbalta, 7-10 days. She presented to the ED for evaluation of the stated symptoms. Patient is actively being managed by primary care provider hyperlipidemia and hypertension. Patient denies any history of prior TIA or CVA. On contact, the patient is resting in bed comfortably, no acute distress and is alert and oriented 3. Review of Systems Systems not noted in HPI or negative Past Medical History Past Medical History: Cancer, Diabetes Mellitus, Fibromyalgia, GERD/Reflux, Hyperlipidemia, Thyroid Disorder Additional Past Medical History / Comment(s): CERVICAL CA (1996), HX OF DIVERTICULITIS, OCCASIONAL DIARRHEA, OCCASIONAL HEARTBURN., PT STATES UNSURE OF THYROID DISORDER. History of Any Multi-Drug Resistant Organisms: None Reported Past Surgical History: Bariatric Surgery, Section, Cholecystectomy, Hysterectomy, Tubal Ligation, Uterine Ablation Additional Past Surgical History / Comment(s): LAP BAND 2000 & REMOVED 2001. Past Anesthesia/Blood Transfusion Reactions: Motion Sickness Past Psychological History: Anxiety, Depression Smoking Status: Never smoker Past Alcohol Use History: Rare Past Drug Use History: None Reported - Past Family History Father Family Medical History: Cancer, Coronary Artery Disease (CAD), CVA/TIA, Myocardial Infarction ([place]) Additional Family Medical History / Comment(s): Bone ca Mother Family Medical History: Coronary Artery Disease (CAD), CVA/TIA, Hypertension Sister(s) Family Medical History: Fibromyalgia Additional Family Medical History / Comment(s): MS Medications and Allergies Home Medications Medication Instructions Recorded Confirmed Type Multivitamins, Thera [Multivitamin 1 tab PO DAILY 02/23/15 11/11/17 History (formulary)] Ibuprofen [Motrin] 800 mg PO BID 10/13/15 11/11/17 History ALPRAZolam [Xanax] 1 mg PO HS 02/18/17 11/11/17 History Biotin 10,000 mcg PO DAILY 02/18/17 11/11/17 History Cyanocobalamin (Vitamin B-12) 1,000 mcg PO DAILY 02/18/17 11/11/17 History [Vitamin B-12] FLUoxetine HCL [FLUoxetine HCL] 80 mg PO HS 02/18/17 11/11/17 History Acetaminophen/Diphenhydramine 1 tab PO HS 11/11/17 11/11/17 History [Tylenol PM 500-25mg] DULoxetine HCL [Cymbalta] 30 mg PO DAILY 11/11/17 11/11/17 History Primidone [Mysoline] 50 mg PO DAILY 11/11/17 11/11/17 History metFORMIN HCL [Glucophage] 500 mg PO BID 11/11/17 11/11/17 History tiZANidine [Zanaflex] 4 mg PO HS 11/11/17 11/11/17 History Aspirin EC [Ecotrin Low Dose] 81 mg PO DAILY #30 tablet. 11/12/17 Rx Atorvastatin [Lipitor] 40 mg PO HS #30 tablet 11/12/17 Rx Allergies Allergy/AdvReac Type Severity Reaction Status Date / Time No Known Allergies Allergy Verified 11/11/17 17:52 Physical Examination - Vital Signs Vital Signs: Vital Signs Temp Pulse Pulse Resp BP BP Pulse Ox 11/12/17 12:00 96.7 F L 86 18 110/57 99 11/12/17 08:32 97.0 F L 79 18 125/79 98 11/11/17 20:14 90 18 128/66 95 11/11/17 19:05 97.8 F 83 20 125/69 98 11/11/17 18:25 87 16 132/70 96 11/11/17 17:30 97.7 F 94 16 144/70 98 Intake and Output 11/12/17 11/12/17 11/12/17 06:59 14:59 22:59 Intake Total 800 Balance 800 Intake: Intake, IV Titration 800 Amount Sodium Chloride 0.9% 1, 800 000 ml @ 100 mls/hr IV . Q10H [facility] Rx#:[id number] Other: # Voids 1 4 Weight 92.5 kg Gen. appearance: Alert, in no apparent distress Head: Atraumatic normocephalic, normal inspection Eyes: Well appearance, PERRL, EOMI. absent: Scleral icterus, conjunctival injection, nystagmus, periorbital swelling. Ear nose and throat: Normal exam, mucous membranes moist Neck: Normal inspection. Absent tenderness, lymphadenopathy Respiratory: No increased work of breathing. Cardiovascular: Regular rate, normal rhythm, normal heart sounds. Absent systolic murmur, diastolic murmur, rubs, gallops, clicks GIabdominal: Normal bowel sounds, non distended, no tenderness, no guarding, no rebound, no rigidity. Extremities: All range of motion, normal capillary refill, no tenderness, pedal edema, joint swelling, calf tenderness Neurological: Alert and oriented 3, cranial nerves II through XII intact, no unilateral lateralizing weakness, sensation of heaviness in the right upper and lower extremities that is intermittent but persistent, no seizure activity noted on physical exam, no pronator drift and no nystagmus. Psychological: Mood and affect appropriate setting Results CT brain: Negative Carotid Doppler: No hemodynamically significant stenosis EEG: Taken MRI brain without contrast: Ordered - Laboratory Findings CBC and BMP: 11/12/17 05:29 11/12/17 05:29 Abnormal Lab Findings: Abnormal Labs 11/11/17 11/11/17 11/11/17 17:38 17:38 21:07 Glucose POC Glucose (mg/dL) 115 H Total Creatine Kinase 152 H Triglycerides TSH 0.273 L 11/12/17 11/12/17 05:29 11:46 Glucose 104 H POC Glucose (mg/dL) 142 H Total Creatine Kinase Triglycerides 153 H TSH Assessment and Plan (1) Paresthesia of right arm Current Visit: Yes Status: Acute Code(s): R20.2 - PARESTHESIA OF SKIN SNOMED Code(s): 48013933 (2) Right hand paresthesia Current Visit: Yes Status: Acute Code(s): R20.2 - PARESTHESIA OF SKIN SNOMED Code(s): 580415450 (3) Transient cerebral ischemia Current Visit: Yes Status: Acute Code(s): G45.9 - TRANSIENT CEREBRAL ISCHEMIC ATTACK, UNSPECIFIED SNOMED Code(s): 370358752 Plan: Patient is known to our practice and is currently being worked up for fibromyalgia. She does not have a definitive diagnosis at this time of fibromyalgia. Patient was started on Cymbalta approximately a week to 10 days ago during her new patient visit. Given the new onset of the symptoms, I am going to discontinue the Cymbalta at this time. We will continue further workup for possible TIA as well. As previously noted the patient's carotid Doppler noted no hemodynamically significant stenosis, CT of the brain was negative. I have ordered an EEG as well as an MRI of the brain to further investigate the etiology. Continue Lipitor and aspirin as previously prescribed. At this time, continue neurological checks every shift. Status: Neurology will continue to follow and provide updates as needed or warranted. Kirit Sarkar, [employer]-C Neurology For Dr Kenroy Rene MD I discussed the patients history, physical exam, diagnostic testing, lab work and imaging with Dr Rene prior to implementing the plan above. He agrees with the plan as implemented prior to implementation.
[2017-11-12 16:18] VITALS: BP 139/83; PULSE 85; TEMP 97
[2017-11-12] MEDS ORDERED: diphenhydrAMINE 25 MG CAP PO SCH (21:00)
[2017-11-12] MEDS ORDERED: ATORVASTATIN 10 MG TAB PO SCH (21:00)
[2017-11-12] MEDS ORDERED: FLUoxetine HCL 20 MG CAP PO SCH (21:00)
[2017-11-12] MEDS ORDERED: tiZANidine 4 MG TAB PO SCH (21:00)
[2017-11-12] MEDS ORDERED: ACETAMINOPHEN TAB 500 MG TAB PO SCH (21:00)
--- NOTE | 2017-12-12 22:45 | EEG ---
ELECTROENCEPHALOGRAM REPORT DATE OF SERVICE: 11/12/2017. REASON FOR TESTING: Transient ischemic attack. PROCEDURE: This EEG was performed using a 21 channel digital electroencephalograph, following international 10-20 system. DESCRIPTION OF THE RECORDING: From the beginning of the tracing, with patient's eyes closed, the background rhythm was mostly consisting of 9-10 Hz alpha frequency in the posterior occipital leads. No obvious asymmetry is seen. Hyperventilation was performed with a minimal buildup of amplitude seen. No pathological waves were elicited. Photic stimulation was performed with a good driving response seen. Again, no pathological waves were elicited. Rare movement artifacts are seen. The patient remains awake throughout the tracing. No epileptiform discharges were seen. Her EKG lead showed a regular rate and rhythm. INTERPRETATION: This awake EEG can be considered within normal limits. There was no asymmetry seen. No epileptiform discharges were noticed. The absence of epileptiform discharges does not rule out the diagnosis of epilepsy, therefore clinical correlation is recommended. MMAVELINOL / IJN: [id number] /
== END 2017-11-12 16:55 | disposition home or self-care (01) ==
LOC: EC 17:27 → 6SEL 19:07
PROVIDERS: ADMIT Hospitalist; ATTEND Hospitalist
DX: G45.9 Transient cerebral ischemic attack, unspecified (principal); R20.2 Paresthesia of skin; R20.0 Anesthesia of skin; R53.1 Weakness; E11.9 Type 2 diabetes mellitus without complications; E07.9 Disorder of thyroid, unspecified; F32.9 Major depressive disorder, single episode, unspecified; F41.9 Anxiety disorder, unspecified; M79.7 Fibromyalgia; K21.9 Gastro-esophageal reflux disease without esophagitis; E78.5 Hyperlipidemia, unspecified; I10 Essential (primary) hypertension; Z82.3 Family history of stroke; Z85.41 Personal history of malignant neoplasm of cervix uteri; Z90.710 Acquired absence of both cervix and uterus; Z98.51 Tubal ligation status; Z82.49 Family history of ischemic heart disease and other diseases of the circulatory system; Z79.84 Long term (current) use of oral hypoglycemic drugs; Z79.1 Long term (current) use of non-steroidal anti-inflammatories (NSAID); Z79.899 Other long term (current) drug therapy; Z80.8 Family history of malignant neoplasm of other organs or systems; Z87.01 Personal history of pneumonia (recurrent)
CPT/HCPCS: 96372; 96360; 99285; 36415; 95819; 93005; 93306; 84439; 80061; 80048; 82550; 82553; 83735; 84100; 84443; 84484; 85025 ×2; 85610; 85730; 83036; 93880; 70450; 70551; G0378 ×2; J1644; 96361

== ENCOUNTER 2018-01-18 17:44 | Emergency (ER) | payer OTHER ==
[2018-01-18 18:07] VITALS: BP 124/72; PULSE 91; RESP 20; TEMP 97.5
--- NOTE | 2018-01-18 18:15 | ED ---
General Adult HPI - General Chief complaint: Extremity Injury, Lower Stated complaint: Ankle injury Time Seen by Provider: 01/18/18 18:03 Source: patient, RN notes reviewed Mode of arrival: ambulatory Limitations: no limitations - History of Present Illness Initial comments: Patient for 47-year-old female presented to the emergency room today with a chief complaint of an injury to the right ankle that occurred 3 hours ago. 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 She states she was stepping on a chloe when he was moving quickly and she is unsure if she rolled the ankle. She states that increased pain to the lateral aspect into the right knee. Patient states she has been able to ambulate. She denies any other complaints or symptoms. Patient denies any recent fever, chills , shortness of breath, chest pain, back pain, abdominal pain, nausea or vomiting , numbness or tingling, headaches or visual changes, or any other complaints. - Related Data Home Medications Medication Instructions Recorded Confirmed Multivitamins, Thera [Multivitamin 1 tab PO DAILY 02/23/15 11/11/17 (formulary)] Ibuprofen [Motrin] 800 mg PO BID 10/13/15 11/11/17 ALPRAZolam [Xanax] 1 mg PO HS 02/18/17 11/11/17 Biotin 10,000 mcg PO DAILY 02/18/17 11/11/17 Cyanocobalamin (Vitamin B-12) 1,000 mcg PO DAILY 02/18/17 11/11/17 [Vitamin B-12] FLUoxetine HCL [FLUoxetine HCL] 80 mg PO HS 02/18/17 11/11/17 Acetaminophen/Diphenhydramine 1 tab PO HS 11/11/17 11/11/17 [Tylenol PM 500-25mg] DULoxetine HCL [Cymbalta] 30 mg PO DAILY 11/11/17 11/11/17 Primidone [Mysoline] 50 mg PO DAILY 11/11/17 11/11/17 metFORMIN HCL [Glucophage] 500 mg PO BID 11/11/17 11/11/17 tiZANidine [Zanaflex] 4 mg PO HS 11/11/17 11/11/17 Previous Rx's Medication Instructions Recorded Aspirin EC [Ecotrin Low Dose] 81 mg PO DAILY #30 tablet. 11/12/17 Atorvastatin [Lipitor] 40 mg PO HS #30 tablet 11/12/17 Ibuprofen [Motrin] 600 mg PO Q6HR PRN #40 day 01/18/18 Allergies Allergy/AdvReac Type Severity Reaction Status Date / Time No Known Allergies Allergy Verified 01/18/18 18:03 Review of Systems ROS Statement: Those systems with pertinent positive or pertinent negative responses have been documented in the HPI. ROS Other: All systems not noted in ROS Statement are negative. Past Medical History Past Medical History: Cancer, Diabetes Mellitus, Fibromyalgia, GERD/Reflux, Hyperlipidemia, Thyroid Disorder Additional Past Medical History / Comment(s): CERVICAL CA (1996), HX OF DIVERTICULITIS, OCCASIONAL DIARRHEA, OCCASIONAL HEARTBURN., PT STATES UNSURE OF THYROID DISORDER. History of Any Multi-Drug Resistant Organisms: None Reported Past Surgical History: Bariatric Surgery, Section, Cholecystectomy, Hysterectomy, Tubal Ligation, Uterine Ablation Additional Past Surgical History / Comment(s): LAP BAND 2000 & REMOVED 2001. Past Anesthesia/Blood Transfusion Reactions: Motion Sickness Past Psychological History: Anxiety, Depression Smoking Status: Never smoker Past Alcohol Use History: Rare Past Drug Use History: None Reported - Past Family History Father Family Medical History: Cancer, Coronary Artery Disease (CAD), CVA/TIA, Myocardial Infarction ([place]) Additional Family Medical History / Comment(s): Bone ca Mother Family Medical History: Coronary Artery Disease (CAD), CVA/TIA, Hypertension Sister(s) Family Medical History: Fibromyalgia Additional Family Medical History / Comment(s): MS General Exam - General Exam Comments Initial Comments: General: The patient is awake and alert, in no distress, and does not appear acutely ill. Neck: The neck is supple, there is no tenderness or JVD. Musculoskeletal: Patient has normal brans the right ankle. Mild swelling over the lateral aspect. Patient shows good range motional both plantar dorsiflexion. Mild tenderness over the fibular head. Mild tenderness over lateral malleolus. No tenderness over the medial. Tender in the ATFL area. Mild tenderness in the distal third metatarsal. Sensations intact. Pulses equal bilaterally 2+. Neurological: A&O x 3. CN II-XII intact, There are no obvious motor or sensory deficits. Coordination appears grossly intact. Speech is normal. Skin: Skin is warm and dry and no rashes or lesions are noted. Psychiatric: Normal mood and affect. Limitations: no limitations Course Vital Signs 01/18/18 18:03 Temperature 97.5 F L Pulse Rate 91 Respiratory 20 Rate Blood Pressure 124/72 O2 Sat by Pulse 94 L Oximetry Medical Decision Making - Medical Decision Making X-rays reviewed and does show distal tibia fracture. Results were discussed with the patient. Patient has been splinted in a posterior short leg OCL splint. Neurovascular rechecked and intact. Patient states she has an appointment with [facility] tomorrow morning she is also seeing Dr. Wolf in the past. Advised following up with orthopedics for further evaluation and splint in place until that time. Advised icing and elevating. Patient advised to use crutches nonweightbearing. Disposition Clinical Impression: Ankle fracture, right Disposition: HOME SELF-CARE Condition: Good Instructions: Ankle Fracture (ED) Additional Instructions: Please use Tylenol/ibuprofen for pain. Please ice elevate the affected areas 4 times daily for 20 minutes a time. Please use crutches nonweightbearing. Please leave splint in place until follow-up with orthopedics. Please return to emergency room if the symptoms increase or worsen or for any other concerns. Prescriptions: Ibuprofen [Motrin] 600 mg PO Q6HR PRN #40 day PRN Reason: Pain Referrals: Bigg Benjamin DO [Primary Care Provider] - 1-2 days Time of Disposition: 19:04
--- NOTE | 2018-01-18 18:36 | XR ---
PROCEDURE: XR tibia fibula RT, 2 views DATE AND TIME: 01/18/2018 6:32 PM REFERRING PHYSICIAN: Jerry Jarrell CLINICAL INDICATION: [facility], Pain TECHNIQUE: Department protocol. COMPARISON: None FINDINGS: There is no fracture or malalignment. The soft tissues are unremarkable. IMPRESSION: NO ACUTE PROCESS.
--- NOTE | 2018-01-18 18:43 | XR ---
PROCEDURE: XR foot complete RT, 3 views DATE AND TIME: 01/18/2018 6:32 PM REFERRING PHYSICIAN: Jerry Jarrell CLINICAL INDICATION: PH[facility], Pain TECHNIQUE: Department protocol. COMPARISON: 03/31/2012 FINDINGS: There is no fracture or malalignment. The soft tissues are unremarkable. IMPRESSION: NO ACUTE PROCESS.
--- NOTE | 2018-01-18 18:45 | XR ---
PROCEDURE: XR ankle complete RT DATE AND TIME: 01/18/2018 6:32 PM REFERRING PHYSICIAN: Jerry Jarrell CLINICAL INDICATION: PH[facility], Pain after fall TECHNIQUE: Department protocol. COMPARISON: None FINDINGS: There is an evident 2 mm diastatic fracture of the distalmost tibia laterally. This can be further ch aracterized with CT or MRI. The mortise is intact. No other fracture or malalignment. The soft tissues are unremarkable. IMPRESSION: Distal tibial fracture laterally.
== END 2018-01-18 19:13 | disposition home or self-care (01) ==
LOC: EC 17:44
DX: S82.301A Unspecified fracture of lower end of right tibia, initial encounter for closed fracture (principal); M25.561 Pain in right knee; E11.9 Type 2 diabetes mellitus without complications; M79.7 Fibromyalgia; F41.9 Anxiety disorder, unspecified; F32.9 Major depressive disorder, single episode, unspecified; Z85.41 Personal history of malignant neoplasm of cervix uteri; Z98.84 Bariatric surgery status; Z79.1 Long term (current) use of non-steroidal anti-inflammatories (NSAID); Z79.899 Other long term (current) drug therapy; X50.1XXA Overexertion from prolonged static or awkward postures, initial encounter; Y92.69 Other specified industrial and construction area as the place of occurrence of the external cause; Y99.0 Civilian activity done for income or pay
CPT/HCPCS: 29515; 99283

== ENCOUNTER 2018-01-19 07:24 | Emergency (ER) | payer OTHER ==
[2018-01-19 07:30] VITALS: BP 133/86; PULSE 94; RESP 18; TEMP 97.1
[2018-01-19] MEDS ORDERED: HYDROcodone/APAP 5-325MG 1 EACH TAB PO STA (08:12)
--- NOTE | 2018-01-19 08:19 | ED ---
Lower Extremity Injury HPI - General Chief Complaint: Extremity Injury, Lower Stated Complaint: Broken ankle Time Seen by Provider: 01/19/18 08:05 Source: patient, RN notes reviewed Mode of arrival: wheelchair Limitations: no limitations - History of Present Illness Initial Comments: This a 47-year-old female presents emergency department for recheck of her right ankle fracture. Patient was seen here last night diagnosed with a right ankle fracture she is scheduled see her Workmen's Comp. today to be referred to orthopedics. She states the pain is uncontrolled with Motrin. She states she cannot tolerate the pain. She also has felt some paresthesias to her toes. Patient denies walking on it after splinting. She was advised to keep it elevated. She denies any discoloration to her toes. - Related Data Home Medications Medication Instructions Recorded Confirmed Multivitamins, Thera [Multivitamin 1 tab PO DAILY 02/23/15 11/11/17 (formulary)] Ibuprofen [Motrin] 800 mg PO BID 10/13/15 11/11/17 ALPRAZolam [Xanax] 1 mg PO HS 02/18/17 11/11/17 Biotin 10,000 mcg PO DAILY 02/18/17 11/11/17 FLUoxetine HCL [FLUoxetine HCL] 80 mg PO HS 02/18/17 11/11/17 Acetaminophen/Diphenhydramine 1 tab PO HS 11/11/17 11/11/17 [Tylenol PM 500-25mg] Primidone [Mysoline] 50 mg PO DAILY 11/11/17 11/11/17 metFORMIN HCL [Glucophage] 500 mg PO BID 11/11/17 11/11/17 tiZANidine [Zanaflex] 4 mg PO HS 11/11/17 11/11/17 Ergocalciferol (Vitamin D2) 50,000 unit PO SAVAGE 01/19/18 01/19/18 [Vitamin D2] Gabapentin [Neurontin] 300 mg PO DAILY 01/19/18 01/19/18 Lactobacillus Acidophilus 1 tab PO DAILY 01/19/18 01/19/18 [Acidophilus] Vitamin B Complex 1 cap PO DAILY 01/19/18 01/19/18 Previous Rx's Medication Instructions Recorded Aspirin EC [Ecotrin Low Dose] 81 mg PO DAILY #30 tablet. 11/12/17 Atorvastatin [Lipitor] 40 mg PO HS #30 tablet 11/12/17 Hydrocodone/Acetaminophen [[place] 1 tab PO Q6HR PRN #15 tab 01/19/18 5-325] Allergies Allergy/AdvReac Type Severity Reaction Status Date / Time No Known Allergies Allergy Verified 01/19/18 08:17 Review of Systems ROS Statement: Those systems with pertinent positive or pertinent negative responses have been documented in the HPI. ROS Other: All systems not noted in ROS Statement are negative. Past Medical History Past Medical History: Cancer, Diabetes Mellitus, Fibromyalgia, GERD/Reflux, Hyperlipidemia, Thyroid Disorder Additional Past Medical History / Comment(s): CERVICAL CA (1996), HX OF DIVERTICULITIS, OCCASIONAL DIARRHEA, OCCASIONAL HEARTBURN., PT STATES UNSURE OF THYROID DISORDER. History of Any Multi-Drug Resistant Organisms: None Reported Past Surgical History: Bariatric Surgery, Section, Cholecystectomy, Hysterectomy, Tubal Ligation, Uterine Ablation Additional Past Surgical History / Comment(s): LAP BAND 2000 & REMOVED 2001. Past Anesthesia/Blood Transfusion Reactions: Motion Sickness Past Psychological History: Anxiety, Depression Smoking Status: Never smoker Past Alcohol Use History: Rare Past Drug Use History: None Reported - Past Family History Father Family Medical History: Cancer, Coronary Artery Disease (CAD), CVA/TIA, Myocardial Infarction ([place]) Additional Family Medical History / Comment(s): Bone ca Mother Family Medical History: Coronary Artery Disease (CAD), CVA/TIA, Hypertension Sister(s) Family Medical History: Fibromyalgia Additional Family Medical History / Comment(s): MS General Exam Limitations: no limitations General appearance: alert, in no apparent distress Respiratory exam: Present: normal lung sounds bilaterally. Absent: respiratory distress, wheezes, rales, rhonchi, stridor Cardiovascular Exam: Present: regular rate, normal rhythm, normal heart sounds. Absent: systolic murmur, diastolic murmur, rubs, gallop, clicks Extremities exam: Present: other (Right leg there was a splint noted the splint was removed patient has neurovascular intact, pedal pulses equal bilaterally Refill of all digits within normal limits less than 2 seconds., Equal color equal warmth) Skin exam: Present: warm, dry, intact, normal color. Absent: rash Course Vital Signs 01/19/18 07:26 Temperature 97.1 F L Pulse Rate 94 Respiratory 18 Rate Blood Pressure 133/86 O2 Sat by Pulse 98 Oximetry Procedures - Orthopedic Splinting/Casting Injury #1 Side: right Lower Extremity Injury Location: ankle Lower Extremity Immobilizer: posterior splint, synthetic pre-padded splint Additional Comments: Neurovascular intact before and after procedure Medical Decision Making - Medical Decision Making 47-year-old female presented for recheck of her splint. The splint was removed there is no evidence of compartment syndrome she is neurovascular intact. Patient was resplinted patient states that she feels symptoms have improved. Patient was given norco in the Emergency department. Patient will see Workmen' s Comp to today. Disposition Clinical Impression: Ankle fracture, right, Aftercare for cast or splint check or change Disposition: HOME SELF-CARE Condition: Stable Instructions: Ankle Fracture (ED) Additional Instructions: Please return to the Emergency Department if symptoms worsen or any other concerns. Prescriptions: Hydrocodone/Acetaminophen [[place] 5-325] 1 tab PO Q6HR PRN #15 tab PRN Reason: Pain Referrals: Bigg Benjamin DO [Primary Care Provider] - 1-2 days Time of Disposition: 08:19
== END 2018-01-19 08:20 | disposition home or self-care (01) ==
LOC: EC 07:24
DX: Z47.89 Encounter for other orthopedic aftercare (principal); S82.891D Other fracture of right lower leg, subsequent encounter for closed fracture with routine healing; E11.9 Type 2 diabetes mellitus without complications; M79.7 Fibromyalgia; F41.9 Anxiety disorder, unspecified; F32.9 Major depressive disorder, single episode, unspecified; Z85.41 Personal history of malignant neoplasm of cervix uteri; Z79.1 Long term (current) use of non-steroidal anti-inflammatories (NSAID); Z79.899 Other long term (current) drug therapy; Z79.84 Long term (current) use of oral hypoglycemic drugs
CPT/HCPCS: 29515; 99282

== ENCOUNTER → 2018-01-25 | Outpatient (CLI) | payer OTHER ==
--- NOTE | 2018-01-25 11:09 | CT ---
EXAMINATION TYPE: CT ankle RT wo con DATE OF EXAM: 01/25/2018 COMPARISON: Right ankle x-ray January 18, 2018 HISTORY: Patient complains of right ankle pain after fall. CT DLP: 255 mGycm Automated exposure control for dose reduction was used. FINDINGS: Correlating with recent x-ray there appears to be ossific projection felt to reflect prominent osteop hyte from the anterior aspect of the lateral malleolus seen best axial image 36 near articulation wit h distal tibia on sagittal image 20. No acute fracture or dislocation is clearly evident. Ankle morti se symmetry is preserved. There is os trigonum posterior to the talus. There are moderate to large size superior and inferior c alcaneal spurs redemonstrated. Normal sinus tarsi fat is seen. There is additional accessory ossicle near cuboid bone. Hindfoot and midfoot articulations otherwise are maintained. There is no significant soft tissue swelling. No worr isome focal fluid collection is seen. There is some thickening of the peroneal tendons at level of th e talocalcaneal joint axial image 44, correlate for tendinosis. IMPRESSION: NO ACUTE FRACTURE OR DISLOCATION IS EVIDENT.
== END | disposition home or self-care (01) ==
LOC: RADCTMAIN 08:58
PROVIDERS: ATTEND Orthopaedic Surgery
DX: M25.571 Pain in right ankle and joints of right foot (principal)

== ENCOUNTER → 2018-03-23 | Outpatient (CLI) | payer OTHER ==
--- NOTE | 2018-03-23 13:08 | XR ---
EXAMINATION TYPE: XR lumbar spine 2 or 3V DATE OF EXAM: 03/23/2018 CLINICAL HISTORY: pain TECHNIQUE: Three views of the lumbar spine are submitted. COMPARISON: None. FINDINGS: There are 5 lumbar type vertebral bodies identified. The lumbar spine shows satisfactory alignment w ithout evidence of acute fracture or dislocation. Vertebral body heights are within normal limits. Moderate degenerative narrowing and spondylosis. Facet joint arthropathy is seen. The overlying soft tissue appears unremarkable. IMPRESSION: No acute fracture or dislocation is seen in the lumbar spine. ICD 10 NO FRACTURE, INITIAL EVALUATION
== END | disposition home or self-care (01) ==
LOC: RADXRMAIN 12:50
PROVIDERS: ATTEND Emergency Medicine
DX: S39.012A Strain of muscle, fascia and tendon of lower back, initial encounter (principal)
CPT/HCPCS: 72100

== ENCOUNTER → 2018-03-24 | Outpatient (CLI) | payer OTHER ==
--- NOTE | 2018-03-24 11:41 | CT ---
EXAMINATION TYPE: CT lumbar spine wo con DATE OF EXAM: 03/24/2018 11:26 AM COMPARISON: NONE HISTORY: Low back pain/strain CT DLP: 1231.0 mGycm Automated exposure control for dose reduction was used. Unenhanced CT of the lumbar spine was performed. Bone and soft tissue window settings are submitted as well as coronal and sagittal reconstructions. There are hypertrophic spurs at all levels anteriorly. Alignment is anatomic. No spondylolisthesis or spondylolysis. No compression deformities. Previous cholecystectomy clips in the right upper quadran t noted. Surgical clips in the epigastric region. L1-L2: Normal disc space height. No disc herniation protrusion or central stenosis. No facet joint arthropathy. No evidence for foraminal encroachment. L2-L3: Normal disc space height. No disc herniation protrusion or central stenosis. No facet joint arthropathy. No evidence for foraminal encroachment. L3-L4: There is left paracentral and lateral disc bulging. Mild left-sided foraminal encroachment. L4-L5: Circumferential disc bulging. Mild effacement of thecal sac. Neural foramina are patent. L5-S1: Normal disc space height. No disc herniation protrusion or central stenosis. No facet joint arthropathy. No evidence for foraminal encroachment. IMPRESSION: 1. Left paracentral and lateral broad-based disc bulging or protrusion L3-L4 with mild left foraminal encroachment. Recommend MRI follow-up. 2. Circumferential disc bulging L4-L5 with mild effacement of thecal sac but no foraminal encroachmen t.
== END | disposition home or self-care (01) ==
LOC: RADCTMAIN 11:07
PROVIDERS: ATTEND Emergency Medicine
DX: M51.26 Other intervertebral disc displacement, lumbar region (principal); S39.012D Strain of muscle, fascia and tendon of lower back, subsequent encounter
CPT/HCPCS: 72131

== ENCOUNTER → 2018-05-08 | Outpatient (CLI) | payer OTHER ==
[2018-05-08 16:15] VITALS: BP 133/86; PULSE 86; TEMP 98.2; BMI 36.6
--- NOTE | 2018-05-08 16:46 | P.HPBAR ---
Bariatric H&P - History & Physicial H&P Date: 05/08/18 History & Physicial: Visit/CC: initial clinic visit Patient initial contact: Initial weight: Initial weight in pounds: Height: 5 ft 2 in Initial BMI: Last weight: Current weight: 90.764 kg Current weight in pounds: 200.10 Current BMI: 36.6 [place] body weight (based on NIH guidelines): 49.895 kg Excess body weight loss: The patient is a 47 year-old F who presents for Bariatric Assessment. Presents for presurgical consultation procedure gastrectomy. She has had lifetime problems obesity. Her BMI is 37. She's had a previous lap band in the past. Past Medical History Past Medical History: Cancer, Diabetes Mellitus, Fibromyalgia, GERD/Reflux, Hyperlipidemia, Thyroid Disorder Additional Past Medical History / Comment(s): CERVICAL CA (1996), HX OF DIVERTICULITIS, OCCASIONAL DIARRHEA, OCCASIONAL HEARTBURN., PT STATES UNSURE OF THYROID DISORDER. History of Any Multi-Drug Resistant Organisms: None Reported Past Surgical History: Bariatric Surgery, Section, Cholecystectomy, Hysterectomy, Tubal Ligation, Uterine Ablation Additional Past Surgical History / Comment(s): LAP BAND 2000 & REMOVED 2001. Past Anesthesia/Blood Transfusion Reactions: Motion Sickness Past Psychological History: Anxiety, Depression Smoking Status: Never smoker Past Alcohol Use History: Rare Past Drug Use History: None Reported - Past Family History Father Family Medical History: Cancer, Coronary Artery Disease (CAD), CVA/TIA, Myocardial Infarction ([place]) Additional Family Medical History / Comment(s): Bone ca Mother Family Medical History: Coronary Artery Disease (CAD), CVA/TIA, Hypertension Sister(s) Family Medical History: Fibromyalgia Additional Family Medical History / Comment(s): MS Surgical - Exam Vital Signs Temp Pulse BP 98.2 F 86 133/86 05/08/18 16:00 05/08/18 16:00 05/08/18 16:00 - General well developed, no distress - Eyes PERRL - ENT normal pinna - Neck no masses - Respiratory normal expansion - Cardiovascular Rhythm: regular - Abdomen Abdomen: soft, non tender Bariatric Assessment & Plan Plan: I held a discussion with patient regarding sleeve gastric. We went over the risks and benefits of procedure. We discussed the possibilities of gastric staple line disruption, bleeding or scarring. The patient will be scheduled for her psychiatric evaluation. Once her paperwork is completed she will undergo preauthorization for gastric sleeve surgery. Bariatric Checklist Checklist: Plan: Checklist: EGD: 1. Hiatal hernia: 2. H. Pylori: HgbA1c: Vitamin D: Smoking: Never smoker Primary care physician referral: dr rogers Psychiatry clearance: Cardiology clearance: Sleep study: Diet journal: VTE risk score: VTE risk level: Rehab needs at discharge:
== END | disposition home or self-care (01) ==
LOC: BARWHC3 14:19
PROVIDERS: ATTEND Surgery
DX: Z01.818 Encounter for other preprocedural examination (principal); E66.9 Obesity, unspecified; F41.9 Anxiety disorder, unspecified; F32.9 Major depressive disorder, single episode, unspecified; Z68.37 Body mass index [BMI] 37.0-37.9, adult; Z90.49 Acquired absence of other specified parts of digestive tract; Z90.710 Acquired absence of both cervix and uterus; Z98.890 Other specified postprocedural states; Z98.84 Bariatric surgery status
CPT/HCPCS: 99211

== ENCOUNTER 2018-05-26 10:22 | Day surgery (SDC) | payer OTHER ==
[2018-05-24 11:49] VITALS: BMI 36.6
[2018-05-26 10:44] VITALS: RESP 18; TEMP 97.8
[2018-05-26] MEDS: LACTATED RINGERS 1,000 ML IV SCH ×2 (10:57→12:34)
[2018-05-26 11:19] LABS: Glucose,Whole Blood 113 mg/dL (75-99)
[2018-05-26] MEDS ORDERED: fentaNYL (PF) 50 MCG/ML 2 ML AMP ONE (12:35)
[2018-05-26] MEDS ORDERED: PROPOFOL 10 MG/ML 20 ML VIAL IV ONE (12:35)
[2018-05-26] MEDS ORDERED: MIDAZOLAM 2 MG/2 ML VIAL ONE (12:35)
--- NOTE | 2018-05-26 12:37 | P.GSHP ---
History of Present Illness H&P Date: 05/26/18 Chief Complaint: GERD A 47-year-old female who presents today for EGD. Patient has a previous history of lap band surgery. She has complaints of GERD. Past Medical History Past Medical History: Cancer, CVA/TIA, Diabetes Mellitus, Fibromyalgia, GERD/ Reflux, Hyperlipidemia, Pneumonia, Thyroid Disorder Additional Past Medical History / Comment(s): Recent sinus infection, finishing antibiotic today. 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 Current bladder incontinence and difficulty fully empyting bladder. CERVICAL CA (1996), HX OF DIVERTICULITIS, OCCASIONAL DIARRHEA AND HEARTBURN, PT STATES UNSURE OF THYROID DISORDER. Back, neck, shoulder and bilateral hip pain. Hx Pneumonia in 1999. Thinks she has sleep anea but has had no testing done. History of Any Multi-Drug Resistant Organisms: None Reported Past Surgical History: Bariatric Surgery, Section, Cholecystectomy, Hysterectomy, Tubal Ligation, Uterine Ablation Additional Past Surgical History / Comment(s): LAP BAND 2000 & REMOVED 2001. Past Anesthesia/Blood Transfusion Reactions: Motion Sickness Past Psychological History: Anxiety, Depression Smoking Status: Never smoker Past Alcohol Use History: Rare Past Drug Use History: None Reported - Past Family History Father Family Medical History: Cancer, Coronary Artery Disease (CAD), CVA/TIA, Myocardial Infarction ([place]) Additional Family Medical History / Comment(s): Bone ca Mother Family Medical History: Coronary Artery Disease (CAD), CVA/TIA, Hypertension Sister(s) Family Medical History: Fibromyalgia Additional Family Medical History / Comment(s): MS Medications and Allergies Home Medications Medication Instructions Recorded Confirmed Type Multivitamins, Thera [Multivitamin 1 tab PO DAILY 02/23/15 05/26/18 History (formulary)] Ibuprofen [Motrin] 800 mg PO Q8H PRN 10/13/15 05/26/18 History ALPRAZolam [Xanax] 1 mg PO HS 02/18/17 05/26/18 History FLUoxetine HCL 80 mg PO HS 02/18/17 05/26/18 History Acetaminophen/Diphenhydramine 1 tab PO HS 11/11/17 05/26/18 History [Tylenol PM 500-25mg] Primidone [Mysoline] 50 mg PO HS 11/11/17 05/26/18 History metFORMIN HCL [Glucophage] 500 mg PO BID 11/11/17 05/26/18 History tiZANidine [Zanaflex] 4 mg PO HS 11/11/17 05/26/18 History Aspirin EC [Ecotrin Low Dose] 81 mg PO DAILY #30 tablet. 11/12/17 05/26/18 Rx Atorvastatin [Lipitor] 40 mg PO HS #30 tablet 11/12/17 05/26/18 Rx Ergocalciferol (Vitamin D2) 50,000 unit PO SAVAGE 01/19/18 05/26/18 History [Vitamin D2] Gabapentin [Neurontin] 300 mg PO DAILY 01/19/18 05/26/18 History Vitamin B Complex 1 cap PO DAILY 01/19/18 05/26/18 History Azithromycin 150 mg PO DAILY 05/24/18 05/26/18 History Allergies Allergy/AdvReac Type Severity Reaction Status Date / Time No Known Allergies Allergy Verified 05/26/18 10:33 Surgical - Exam Vital Signs Temp Pulse Resp BP Pulse Ox 97.8 F 88 18 140/84 96 05/26/18 10:43 05/26/18 10:43 05/26/18 10:43 05/26/18 10:43 05/26/18 10:43 - General well developed, no distress - ENT normal pinna, normal nares - Respiratory normal expansion - Cardiovascular Rhythm: regular - Abdomen Abdomen: soft, non tender Results - Labs Abnormal Lab Results - Last 24 Hours (Table) 05/26/18 Range/Units 11:17 POC Glucose (mg/dL) 113 H (75-99) mg/dL Assessment and Plan Assessment: GERD. We'll perform EGD.
--- NOTE | 2018-05-26 12:46 | P.OP ---
Date of Procedure: 05/26/18 Preoperative Diagnosis: GERD Postoperative Diagnosis: Antral gastritis Mild esophagitis No evidence of hiatal hernia Procedure(s) Performed: EGD Anesthesia: MAC Surgeon: Tenzin Mcdowell Pathology: other (Antrum, esophagus) Condition: stable Disposition: PACU Description of Procedure: The patient's placed on the endoscopy table in the lateral position. She received IV sedation. The gastroscope placed oropharynx and passed into the esophagus into the stomach. Scope was then placed through the pylorus. First and second portion of the duodenum appeared normal. Scope was then brought back the antrum this appeared mildly inflamed. A biopsies performed. The scope was then retroflexed and the remainder stomach appeared normal. There is no significant hiatal hernia. Scope was then brought back to the level of the distal esophagus and this was minimal inflamed a biopsies performed. The proximal esophagus appeared normal. Scope was withdrawn from patient.
[2018-05-26 13:12] VITALS: BP 123/76; PULSE 74
== END 2018-05-26 13:31 | disposition home or self-care (01) ==
LOC: ORWHC2ENDO 10:22
PROVIDERS: ATTEND Surgery
DX: K21.0 Gastro-esophageal reflux disease with esophagitis (principal); K29.50 Unspecified chronic gastritis without bleeding; E78.5 Hyperlipidemia, unspecified; E11.9 Type 2 diabetes mellitus without complications; E07.9 Disorder of thyroid, unspecified; M79.7 Fibromyalgia; F39 Unspecified mood [affective] disorder; F41.9 Anxiety disorder, unspecified; F32.9 Major depressive disorder, single episode, unspecified; Z79.84 Long term (current) use of oral hypoglycemic drugs; Z79.82 Long term (current) use of aspirin; Z79.899 Other long term (current) drug therapy; Z85.41 Personal history of malignant neoplasm of cervix uteri; Z86.73 Personal history of transient ischemic attack (TIA), and cerebral infarction without residual deficits; Z98.84 Bariatric surgery status; Z90.710 Acquired absence of both cervix and uterus; Z98.51 Tubal ligation status; Z80.8 Family history of malignant neoplasm of other organs or systems; Z82.49 Family history of ischemic heart disease and other diseases of the circulatory system
CPT/HCPCS: 43239; 88305; J2250; J3010; J2704

== ENCOUNTER → 2018-06-05 | Outpatient (CLI) | payer OTHER ==
[2018-06-05 14:27] VITALS: BP 114/69; PULSE 86; RESP 20; TEMP 98
[2018-06-05 14:37] VITALS: BMI 37.6
--- NOTE | 2018-06-05 17:11 | P.HPBAR ---
Bariatric H&P - History & Physicial H&P Date: 06/05/18 History & Physicial: Visit/CC: post EGD Patient initial contact: Initial weight: 90.718 kg Initial weight in pounds: 200.00 Height: 5 ft 2 in Initial BMI: 36.6 Last weight: Current weight: 93.349 kg Current weight in pounds: 205.80 Current BMI: 37.6 [place] body weight (based on NIH guidelines): 49.895 kg Excess body weight loss: The patient is a 47 year-old F who presents for Bariatric Assessment. Patient presents today for presurgical consultation. She underwent recent EGD. She's had evidence of gastritis. She's had some mild GERD. Past Medical History Past Medical History: Cancer, CVA/TIA, Diabetes Mellitus, Fibromyalgia, GERD/ Reflux, Hyperlipidemia, Pneumonia, Thyroid Disorder Additional Past Medical History / Comment(s): Recent sinus infection, finishing antibiotic today. 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 Current bladder incontinence and difficulty fully empyting bladder. CERVICAL CA (1996), HX OF DIVERTICULITIS, OCCASIONAL DIARRHEA AND HEARTBURN, PT STATES UNSURE OF THYROID DISORDER. Back, neck, shoulder and bilateral hip pain. Hx Pneumonia in 1999. Thinks she has sleep anea but has had no testing done. History of Any Multi-Drug Resistant Organisms: None Reported Past Surgical History: Bariatric Surgery, Section, Cholecystectomy, Hysterectomy, Tubal Ligation, Uterine Ablation Additional Past Surgical History / Comment(s): LAP BAND 2000 & REMOVED 2001. Past Anesthesia/Blood Transfusion Reactions: Motion Sickness Smoking Status: Never smoker - Past Family History Father Family Medical History: Cancer, Coronary Artery Disease (CAD), CVA/TIA, Myocardial Infarction ([place]) Additional Family Medical History / Comment(s): Bone ca Mother Family Medical History: Coronary Artery Disease (CAD), CVA/TIA, Hypertension Sister(s) Family Medical History: Fibromyalgia Additional Family Medical History / Comment(s): MS Surgical - Exam Vital Signs Temp Pulse Resp BP 98 F 86 20 114/69 06/05/18 14:25 06/05/18 14:25 06/05/18 14:25 06/05/18 14:25 - General well developed, no distress - Eyes PERRL - Abdomen Abdomen: soft, non tender Bariatric Assessment & Plan Plan: Morbid obesity with BMI 38. GERD. Patient will follow-up in 2 months. We will attempt to authorize her for sleeve gastrectomy once her insurance requirements have been met. Bariatric Checklist Checklist: Plan: Checklist: EGD: 1. Hiatal hernia: 2. H. Pylori: HgbA1c: Vitamin D: Smoking: Never smoker Primary care physician referral: dr rogers Psychiatry clearance: Cardiology clearance: Sleep study: Diet journal: VTE risk score: VTE risk level: Rehab needs at discharge:
== END | disposition home or self-care (01) ==
LOC: BARWHC3 14:07
PROVIDERS: ATTEND Surgery
DX: Z01.818 Encounter for other preprocedural examination (principal); E66.01 Morbid (severe) obesity due to excess calories; K29.70 Gastritis, unspecified, without bleeding; K21.9 Gastro-esophageal reflux disease without esophagitis; J32.9 Chronic sinusitis, unspecified; R32 Unspecified urinary incontinence; Z98.84 Bariatric surgery status; Z90.49 Acquired absence of other specified parts of digestive tract; Z90.710 Acquired absence of both cervix and uterus; Z98.51 Tubal ligation status; Z79.2 Long term (current) use of antibiotics; Z68.38 Body mass index [BMI] 38.0-38.9, adult; Z86.73 Personal history of transient ischemic attack (TIA), and cerebral infarction without residual deficits
CPT/HCPCS: 99211

== ENCOUNTER → 2018-06-13 | Outpatient (CLI) | payer OTHER ==
[2018-06-13 16:40] LABS: Iron Saturation 24.52 (12.00-45.00)
[2018-06-13 16:49] LABS: Vitamin D 25 Hydroxy 30.3 ng/mL (30.0-100.0)
[2018-06-13 16:50] LABS: Folate, Serum >24.0 ng/mL
[2018-06-14 13:11] LABS: Vitamin B1 61 ug/L (38-122)
== END | disposition home or self-care (01) ==
LOC: LABWHC1 08:24
PROVIDERS: ATTEND Psychiatry & Neurology Pain Medicine
DX: R53.83 Other fatigue (principal)
CPT/HCPCS: 36415; 82306; 82607; 82728; 82746; 83540; 83550; 84207; 84425; 84439; 84443; 84466; 84481; 84591

== ENCOUNTER → 2018-08-01 | Outpatient (CLI) | payer OTHER | END | disposition home or self-care (01) | LOC: LABWHC1 12:32 | PROVIDERS: ATTEND Psychiatry & Neurology Pain Medicine | DX: Z01.818 Encounter for other preprocedural examination (principal) | CPT/HCPCS: 36415; 93005 ==

== ENCOUNTER → 2018-10-02 | Outpatient (CLI) | payer OTHER ==
[2018-10-02 14:08] VITALS: BP 130/81; PULSE 96; TEMP 97.5; BMI 39.6
--- NOTE | 2018-10-06 14:38 | P.HPBAR ---
Bariatric H&P - History & Physicial H&P Date: 10/02/18 History & Physicial: Visit/CC: sleeve consult Patient initial contact: Initial weight: 90.718 kg Initial weight in pounds: 200.00 Height: 5 ft 2 in Initial BMI: 36.6 Last weight: Current weight: 98.293 kg Current weight in pounds: 216.70 Current BMI: 39.6 [place] body weight (based on NIH guidelines): 49.895 kg Excess body weight loss: The patient is a 48 year-old F who presents for Bariatric Assessment. Patient presents today for presurgical consultation for gastric sleeve. She has a previous history of LAP-BAND surgery. Patient had her band removed due to complications with dysphagia. Her current BMI is 40. Past Medical History Past Medical History: Cancer, CVA/TIA, Diabetes Mellitus, Fibromyalgia, GERD/ Reflux, Hyperlipidemia, Pneumonia, Thyroid Disorder Additional Past Medical History / Comment(s): Recent sinus infection, finishing antibiotic today. 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 Current bladder incontinence and difficulty fully empyting bladder. CERVICAL CA (1996), HX OF DIVERTICULITIS, OCCASIONAL DIARRHEA AND HEARTBURN, PT STATES UNSURE OF THYROID DISORDER. Back, neck, shoulder and bilateral hip pain. Hx Pneumonia in 1999. Thinks she has sleep anea but has had no testing done. History of Any Multi-Drug Resistant Organisms: None Reported Past Surgical History: Bariatric Surgery, Section, Cholecystectomy, Hysterectomy, Tubal Ligation, Uterine Ablation Additional Past Surgical History / Comment(s): LAP BAND 2000 & REMOVED 2001. Past Anesthesia/Blood Transfusion Reactions: Motion Sickness Smoking Status: Never smoker - Past Family History Father Family Medical History: Cancer, Coronary Artery Disease (CAD), CVA/TIA, Myocardial Infarction ([place]) Additional Family Medical History / Comment(s): Bone ca Mother Family Medical History: Coronary Artery Disease (CAD), CVA/TIA, Hypertension Sister(s) Family Medical History: Fibromyalgia Additional Family Medical History / Comment(s): MS Surgical - Exam Vital Signs Temp Pulse BP 97.5 F L 96 130/81 10/02/18 14:06 10/02/18 14:06 10/02/18 14:06 - General well developed, no distress - Eyes PERRL - ENT normal pinna - Neck no masses - Respiratory normal expansion - Cardiovascular Rhythm: regular - Abdomen Abdomen: soft, non tender Bariatric Assessment & Plan Plan: Morbid obesity. Patient will be scheduled for sleeve gastrectomy once her insurance authorization requirements have been met. Bariatric Checklist Checklist: Plan: Checklist: EGD: 1. Hiatal hernia: 2. H. Pylori: HgbA1c: Vitamin D: Smoking: Never smoker Primary care physician referral: dr Bigg Benjamin Psychiatry clearance: Cardiology clearance: Sleep study: Diet journal: VTE risk score: VTE risk level: Rehab needs at discharge:
== END | disposition home or self-care (01) ==
LOC: BARWHC3 13:40
PROVIDERS: ATTEND Surgery
DX: Z01.818 Encounter for other preprocedural examination (principal); E66.01 Morbid (severe) obesity due to excess calories; K21.9 Gastro-esophageal reflux disease without esophagitis; E78.5 Hyperlipidemia, unspecified; M79.7 Fibromyalgia; Z86.73 Personal history of transient ischemic attack (TIA), and cerebral infarction without residual deficits; Z98.84 Bariatric surgery status; Z90.89 Acquired absence of other organs; Z90.710 Acquired absence of both cervix and uterus; Z98.51 Tubal ligation status; Z98.890 Other specified postprocedural states; Z68.39 Body mass index [BMI] 39.0-39.9, adult; Z85.41 Personal history of malignant neoplasm of cervix uteri
CPT/HCPCS: 99211

== ENCOUNTER → 2018-11-06 | Outpatient (CLI) | payer OTHER ==
[2018-11-06 13:34] VITALS: BP 129/85; PULSE 95; TEMP 97.4; BMI 38.9
--- NOTE | 2018-11-06 14:40 | P.HPBAR ---
Bariatric H&P - History & Physicial H&P Date: 11/06/18 History & Physicial: Visit/CC: presurgical sleeve consult Patient initial contact: Initial weight: 90.718 kg Initial weight in pounds: 200.00 Height: 5 ft 2 in Initial BMI: 36.6 Last weight: Current weight: 96.706 kg Current weight in pounds: 213.20 Current BMI: 38.9 [place] body weight (based on NIH guidelines): 49.895 kg Excess body weight loss: The patient is a 48 year-old F who presents for Bariatric Assessment. Patient presents today for presurgical sleeve consultation. She is attempting to be authorized for gastric sleeve surgery. Apparently she has not met her insurance requirements. She has had a lap band in the past. Past Medical History Past Medical History: Cancer, CVA/TIA, Diabetes Mellitus, Fibromyalgia, GERD/ Reflux, Hyperlipidemia, Pneumonia, Thyroid Disorder Additional Past Medical History / Comment(s): Recent sinus infection, finishing antibiotic today. 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 Current bladder incontinence and difficulty fully empyting bladder. CERVICAL CA (1996), HX OF DIVERTICULITIS, OCCASIONAL DIARRHEA AND HEARTBURN, PT STATES UNSURE OF THYROID DISORDER. Back, neck, shoulder and bilateral hip pain. Hx Pneumonia in 1999. Thinks she has sleep anea but has had no testing done. History of Any Multi-Drug Resistant Organisms: None Reported Past Surgical History: Bariatric Surgery, Section, Cholecystectomy, Hysterectomy, Tubal Ligation, Uterine Ablation Additional Past Surgical History / Comment(s): LAP BAND 2000 & REMOVED 2001. Past Anesthesia/Blood Transfusion Reactions: Motion Sickness Past Psychological History: Anxiety, Depression Smoking Status: Never smoker Past Alcohol Use History: Rare Past Drug Use History: None Reported - Past Family History Father Family Medical History: Cancer, Coronary Artery Disease (CAD), CVA/TIA, Myocardial Infarction ([place]) Additional Family Medical History / Comment(s): Bone ca Mother Family Medical History: Coronary Artery Disease (CAD), CVA/TIA, Hypertension Sister(s) Family Medical History: Fibromyalgia Additional Family Medical History / Comment(s): MS Surgical - Exam Vital Signs Temp Pulse BP 97.4 F L 95 129/85 11/06/18 13:27 11/06/18 13:27 11/06/18 13:27 - General well developed, well nourished, no distress - Eyes PERRL - ENT normal pinna - Neck no masses - Respiratory normal expansion - Cardiovascular Rhythm: regular - Abdomen Abdomen: soft, non tender Bariatric Assessment & Plan Plan: Morbid obesity BMI 39. Patient will follow-up in 4 weeks. We will attempt arthritis or for gastric sleeve surgery. Bariatric Checklist Checklist: Plan: Checklist: EGD: 1. Hiatal hernia: 2. H. Pylori: HgbA1c: Vitamin D: Smoking: Never smoker Primary care physician referral: dr Bigg Benjamin Psychiatry clearance: Cardiology clearance: Sleep study: Diet journal: VTE risk score: VTE risk level: Rehab needs at discharge:
== END | disposition home or self-care (01) ==
LOC: BARWHC3 12:45
PROVIDERS: ATTEND Surgery
DX: E66.01 Morbid (severe) obesity due to excess calories (principal); Z68.39 Body mass index [BMI] 39.0-39.9, adult
CPT/HCPCS: 99211

== ENCOUNTER 2018-11-24 17:52 | Emergency (ER) | payer OTHER ==
[2018-11-24 18:05] VITALS: TEMP 98.1
--- NOTE | 2018-11-24 18:59 | XR ---
EXAMINATION TYPE: XR chest 2V DATE OF EXAM: 11/24/2018 COMPARISON: 08/01/2013 HISTORY: Cough and pain TECHNIQUE: Frontal and lateral views of the chest are obtained. FINDINGS: There is no focal air space opacity, pleural effusion, or pneumothorax seen. The cardiac silhouette size is within normal limits. The osseous structures are intact. Mild multilevel degener ative changes of the thoracic spine are seen. Cholecystectomy clips are noted. Mild acromioclavicular arthropathy is seen. IMPRESSION: No acute cardiopulmonary process.
--- NOTE | 2018-11-24 19:19 | ED ---
URI HPI - General Chief Complaint: Upper Respiratory Infection Stated Complaint: POSS BRONCHITIS OR PNEUMONIA Time Seen by Provider: 11/24/18 18:11 Source: patient, RN notes reviewed Mode of arrival: ambulatory Limitations: no limitations - History of Present Illness Initial Comments: This a 40-year-old female presents emergency Department with chief complaint of cough. Patient states she's had persistent worsening cough last 3 days. Patient reports subjective fever, body aches. Patient states that she's had mild sinus congestion which is not out of the usual for her. Denies any sore throat, difficulty swallowing. Patient denies history of smoking or COPD. Patient denies chest pain, nausea vomiting diarrhea constipation. She has tried some [id number] cough and cold medications no relief. - Related Data Home Medications Medication Instructions Recorded Confirmed Multivitamins, Thera [Multivitamin 1 tab PO DAILY 02/23/15 11/24/18 (formulary)] Ibuprofen [Motrin] 800 mg PO Q8H PRN 10/13/15 11/24/18 ALPRAZolam [Xanax] 0.5 - 1 mg PO HS 02/18/17 11/24/18 FLUoxetine HCL 80 mg PO HS 02/18/17 11/24/18 Acetaminophen/Diphenhydramine 1 tab PO HS 11/11/17 11/24/18 [Tylenol PM 500-25mg] Primidone [Mysoline] 50 mg PO DAILY 11/11/17 11/24/18 metFORMIN HCL [Glucophage] 500 mg PO BID 11/11/17 11/24/18 Gabapentin [Neurontin] 300 mg PO BID 01/19/18 11/24/18 Biotin 10,000 mcg PO DAILY 11/24/18 11/24/18 Cholecalciferol [Vitamin D3] 1,000 unit PO BID 11/24/18 11/24/18 Ketorolac [Toradol] 10 mg PO TID 11/24/18 11/24/18 Meclizine HCl 12.5 mg PO TID PRN 11/24/18 11/24/18 Previous Rx's Medication Instructions Recorded Atorvastatin [Lipitor] 40 mg PO HS #30 tablet 11/12/17 Azithromycin [Zithromax Z-pack] 0 mg PO DIRECTED #1 pack 11/24/18 predniSONE 50 mg PO DAILY #5 tab 11/24/18 Allergies Allergy/AdvReac Type Severity Reaction Status Date / Time No Known Allergies Allergy Verified 11/24/18 18:47 Review of Systems ROS Statement: Those systems with pertinent positive or pertinent negative responses have been documented in the HPI. ROS Other: All systems not noted in ROS Statement are negative. Past Medical History Past Medical History: Cancer, CVA/TIA, Diabetes Mellitus, Fibromyalgia, GERD/ Reflux, Hyperlipidemia, Pneumonia, Thyroid Disorder Additional Past Medical History / Comment(s): Recent sinus infection, finishing antibiotic today. 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 Current bladder incontinence and difficulty fully empyting bladder. CERVICAL CA (1996), HX OF DIVERTICULITIS, OCCASIONAL DIARRHEA AND HEARTBURN, PT STATES UNSURE OF THYROID DISORDER. Back, neck, shoulder and bilateral hip pain. Hx Pneumonia in 1999. Thinks she has sleep anea but has had no testing done. History of Any Multi-Drug Resistant Organisms: None Reported Past Surgical History: Bariatric Surgery, Section, Cholecystectomy, Hysterectomy, Tubal Ligation, Uterine Ablation Additional Past Surgical History / Comment(s): LAP BAND 2000 & REMOVED 2001. Past Anesthesia/Blood Transfusion Reactions: Motion Sickness Past Psychological History: Anxiety, Depression Smoking Status: Never smoker Past Alcohol Use History: Rare Past Drug Use History: None Reported - Past Family History Father Family Medical History: Cancer, Coronary Artery Disease (CAD), CVA/TIA, Myocardial Infarction ([place]) Additional Family Medical History / Comment(s): Bone ca Mother Family Medical History: Coronary Artery Disease (CAD), CVA/TIA, Hypertension Sister(s) Family Medical History: Fibromyalgia Additional Family Medical History / Comment(s): MS General Exam Limitations: no limitations General appearance: alert, in no apparent distress Head exam: Present: atraumatic, normocephalic, normal inspection Eye exam: Present: normal appearance, PERRL, EOMI. Absent: scleral icterus, conjunctival injection, periorbital swelling ENT exam: Present: normal exam, mucous membranes moist Neck exam: Present: normal inspection. Absent: tenderness, meningismus, lymphadenopathy Respiratory exam: Present: normal lung sounds bilaterally. Absent: respiratory distress, wheezes, rales, rhonchi, stridor Cardiovascular Exam: Present: regular rate, normal rhythm, normal heart sounds. Absent: systolic murmur, diastolic murmur, rubs, gallop, clicks GI/Abdominal exam: Present: soft, normal bowel sounds. Absent: distended, tenderness, guarding, rebound, rigid Back exam: Absent: CVA tenderness (R), CVA tenderness (L) Neurological exam: Present: alert, oriented X3, CN II-XII intact Skin exam: Present: warm, dry, intact, normal color. Absent: rash Course Vital Signs 11/24/18 18:03 Temperature 98.1 F Pulse Rate 94 Respiratory 20 Rate Blood Pressure 127/84 O2 Sat by Pulse 96 Oximetry Medical Decision Making - Medical Decision Making 40-year-old female presented from for cough congestion. Patient had influenza testing chest x-ray unremarkable. Patient be discharged for acute bronchitis. Return parameters were discussed. - Lab Data Lab Results 11/24/18 Range/Units 18:51 Influenza Type A RNA Not Detected (Not Detectd) Influenza Type B (PCR) Not Detected (Not Detectd) Disposition Clinical Impression: Bronchitis Disposition: HOME SELF-CARE Condition: Stable Instructions (If sedation given, give patient instructions): Acute Bronchitis ( ED) Additional Instructions: Please return to the Emergency Department if symptoms worsen or any other concerns. Prescriptions: Azithromycin [Zithromax Z-pack] 0 mg PO DIRECTED #1 pack predniSONE 50 mg PO DAILY #5 tab Is patient prescribed a controlled substance at d/c from ED?: No Referrals: Bigg Benjamin DO [Primary Care Provider] - 1-2 days Time of Disposition: 19:55
[2018-11-24 20:23] VITALS: BP 126/99; PULSE 99; RESP 16
== END 2018-11-24 20:22 | disposition home or self-care (01) ==
LOC: EC 17:52
DX: J20.9 Acute bronchitis, unspecified (principal); E11.9 Type 2 diabetes mellitus without complications; M79.7 Fibromyalgia; F41.9 Anxiety disorder, unspecified; F32.9 Major depressive disorder, single episode, unspecified; Z87.01 Personal history of pneumonia (recurrent); Z87.09 Personal history of other diseases of the respiratory system; Z86.73 Personal history of transient ischemic attack (TIA), and cerebral infarction without residual deficits; Z85.41 Personal history of malignant neoplasm of cervix uteri; Z79.84 Long term (current) use of oral hypoglycemic drugs; Z79.1 Long term (current) use of non-steroidal anti-inflammatories (NSAID); Z79.899 Other long term (current) drug therapy
CPT/HCPCS: 71046; 87502; 99283

== ENCOUNTER → 2018-12-18 | Outpatient (CLI) | payer OTHER ==
[2018-12-18 13:37] VITALS: BP 136/85; PULSE 80; RESP 16; TEMP 97.5; BMI 36.6
--- NOTE | 2018-12-18 14:51 | P.HPBAR ---
Bariatric H&P - History & Physicial H&P Date: 12/18/18 History & Physicial: Visit/CC: pre-surg Patient initial contact: Initial weight: 90.718 kg Initial weight in pounds: 200.00 Height: 5 ft 4 in Initial BMI: 34.3 Last weight: Current weight: 96.785 kg Current weight in pounds: 213.38 Current BMI: 36.6 [place] body weight (based on NIH guidelines): 54.431 kg Excess body weight loss: The patient is a 48 year-old F who presents for Bariatric Assessment. Patient presents today for presurgical consultation. Her weight is remain stable. Her BMI is 37. Past Medical History Past Medical History: Cancer, CVA/TIA, Diabetes Mellitus, Fibromyalgia, GERD/ Reflux, Hyperlipidemia, Pneumonia, Thyroid Disorder Additional Past Medical History / Comment(s): Recent sinus infection, finishing antibiotic today. 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 Current bladder incontinence and difficulty fully empyting bladder. CERVICAL CA (1996), HX OF DIVERTICULITIS, OCCASIONAL DIARRHEA AND HEARTBURN, PT STATES UNSURE OF THYROID DISORDER. Back, neck, shoulder and bilateral hip pain. Hx Pneumonia in 1999. Thinks she has sleep anea but has had no testing done. History of Any Multi-Drug Resistant Organisms: None Reported Past Surgical History: Bariatric Surgery, Section, Cholecystectomy, Hysterectomy, Tubal Ligation, Uterine Ablation Additional Past Surgical History / Comment(s): LAP BAND 2000 & REMOVED 2001. Past Anesthesia/Blood Transfusion Reactions: Motion Sickness Past Psychological History: Anxiety, Depression Smoking Status: Never smoker Past Alcohol Use History: Rare Past Drug Use History: None Reported - Past Family History Father Family Medical History: Cancer, Coronary Artery Disease (CAD), CVA/TIA, Myocardial Infarction ([place]) Additional Family Medical History / Comment(s): Bone ca Mother Family Medical History: Coronary Artery Disease (CAD), CVA/TIA, Hypertension Sister(s) Family Medical History: Fibromyalgia Additional Family Medical History / Comment(s): MS Surgical - Exam Vital Signs Temp Pulse Resp BP 97.5 F L 80 16 136/85 12/18/18 13:33 12/18/18 13:33 12/18/18 13:33 12/18/18 13:33 - General well developed, well nourished, no distress - Eyes PERRL - ENT normal pinna - Neck no masses - Respiratory normal expansion - Cardiovascular Rhythm: regular - Abdomen Abdomen: soft, non tender Bariatric Assessment & Plan Plan: Morbid obesity with BMI of 37. Patient will be scheduled for sleeve gastrectomy once her insurance authorization criteria met. She will follow-up in 4 weeks. Bariatric Checklist Checklist: Plan: Checklist: EGD: 1. Hiatal hernia: 2. H. Pylori: HgbA1c: Vitamin D: Smoking: Never smoker Primary care physician referral: dr Bigg Benjamin Psychiatry clearance: Cardiology clearance: Sleep study: Diet journal: VTE risk score: VTE risk level: Rehab needs at discharge:
== END ==
LOC: BARWHC3 12:42
PROVIDERS: ATTEND Surgery
DX: Z48.815 Encounter for surgical aftercare following surgery on the digestive system (principal); E66.01 Morbid (severe) obesity due to excess calories; Z98.84 Bariatric surgery status; Z68.37 Body mass index [BMI] 37.0-37.9, adult
CPT/HCPCS: 99211

== ENCOUNTER → 2018-12-25 | Outpatient (CLI) | payer OTHER ==
[2018-12-25 09:46] VITALS: BMI 38.4
== END | disposition home or self-care (01) ==
LOC: BARWHC3 09:03
PROVIDERS: ATTEND Surgery
DX: E66.01 Morbid (severe) obesity due to excess calories (principal); Z68.38 Body mass index [BMI] 38.0-38.9, adult
CPT/HCPCS: 97804

== ENCOUNTER → 2019-01-11 | Outpatient (CLI) | payer OTHER | END | disposition home or self-care (01) | LOC: LABWHC1 11:52 | PROVIDERS: ATTEND Psychiatry & Neurology Pain Medicine | DX: Z01.818 Encounter for other preprocedural examination (principal) | CPT/HCPCS: 36415; 93005 ==

== ENCOUNTER → 2019-04-05 | Outpatient (CLI) | payer OTHER ==
--- NOTE | 2019-04-05 19:56 | CONS ---
CONSULTATION DATE OF SERVICE: 04/05/2019. 48-year-old lady has been evaluated in [facility] for possible obstructive sleep apnea-hypopnea syndrome. HISTORY OF PRESENT ILLNESS/SLEEP WAKE EVALUATION: SLEEP SCHEDULE: Patient usual sleep schedule on working days from 8:30 or 9 p.m. to 4:00 or 5 am and on weekends from 10 p.m. to 6 a.m. FALLING ASLEEP: Sometimes he has problem with falling asleep. Has TV set in bedroom. DURING SLEEP: Sleeps in different position with snoring and witnessed episodes of stopped breathing during the sleep. She wakes up from sleep once or 2 times with nocturia. She grinding teeth. DURING THE DAY/SLEEP WAKE EVALUATION: In the morning, she wakes up tired. Has episodes of depression and anxiety. [place] Sleepiness Scale is 5. PAST MEDICAL HISTORY: Positive for diabetes mellitus, back pain, hip problems, anxiety, hyperlipidemia, fibromyalgia. PAST SURGICAL HISTORY: Cholecystectomy 2006, partial hysterectomy 2009, lap band surgery and reversing lap band in 2000. MEDICATIONS: Metformin, fluoxetine, ibuprofen, Alprazolam, atorvastatin, Primidone, Gabapentin, acetaminophen at nighttime. SOCIAL HISTORY: Negative for smoking. Alcohol consumption occasional. FAMILY HISTORY: Hypertension, heart problems, epilepsy, stroke, asthma, sinus headaches, pneumonia, headaches, cancer, thyroid problems, anemia, mental illness, restless legs. REVIEW OF SYSTEMS: Recently hot flashes. Awakenings from sleep, sometimes tiredness during the day. PHYSICAL EXAM: lady without distress. BP 113/78, HR 84, RR 16, height 5 feet 2-1/4 inches, weight 204.2, body mass index 37, temperature 98.0, oxygen saturation on room air 95%. Oropharynx extremely low position of soft palate. Mallampati 4. Slight restriction of nasal breathing. Neck 15-3/4 inches in circumference. Neck Supple, no JVD. Thyroid is not palpable. LUNGS Clear to percussion and to auscultation. Good air exchange. No wheezing or rhonchi. HEART S1, S2 regular. No murmurs, gallops, or rubs. ABDOMEN: Slightly obese. Soft and nontender. Bowel sounds are present. No organomegaly appreciated. EXTREMITIES No clubbing or cyanosis. 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 Cranial nerves 2 to 7 intact. There is no fasciculation or atrophy. noted. No focal deficits observed. IMPRESSION: 1. Snoring, witnessed episodes of stopped breathing during the sleep, extremely low position of soft palate. Awakenings from sleep with nocturia. Obstructive sleep apnea-hypopnea syndrome. 2. Mild obesity, body mass index 37. 3. History of diabetes mellitus. 4. Back pain. 5. Hip pain. 6. History of anxiety. 7. Hyperlipidemia. 8. History of fibromyalgia. 9. Status post cholecystectomy 2006. 10.Status post partial hysterectomy 2009. 11.Status post lap band surgery and reversing lap band in 2000. 12.Perimenopausal hot flashes. 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 PLAN: 1. Polysomnography for evaluation of patient's breathing during sleep. 2. CPAP/BiPAP titration if sleep study confirms obstructive sleep apnea-hypopnea syndrome. 3. Preferable position during sleep on the side. 4. No driving if patient feels any sleepiness. 5. I will see patient for follow up visit to explain results of testing and following plan. 6. Psychological techniques for treatment of insomnia should include stimulus control, paradoxical intention, worry time, no watching TV in bedroom, no watching clock in bedroom. Thank you very much for referring this patient for consultation. Sincerely, Choco Sauceda MD, PhD, FAASM Diplomat of [employer] [place] [place] Principal Military Analyst of [facility] [place] VANNESSA / MICHAEL: [id number] /
== END ==
LOC: SLEEP 11:26
PROVIDERS: ATTEND Internal Medicine
DX: G47.33 Obstructive sleep apnea (adult) (pediatric) (principal); E66.9 Obesity, unspecified; E11.9 Type 2 diabetes mellitus without complications; M54.9 Dorsalgia, unspecified; M25.559 Pain in unspecified hip; F41.9 Anxiety disorder, unspecified; E78.5 Hyperlipidemia, unspecified; M79.7 Fibromyalgia; Z90.49 Acquired absence of other specified parts of digestive tract; Z90.710 Acquired absence of both cervix and uterus; Z98.84 Bariatric surgery status; N95.1 Menopausal and female climacteric states; Z79.84 Long term (current) use of oral hypoglycemic drugs; Z79.899 Other long term (current) drug therapy; Z79.1 Long term (current) use of non-steroidal anti-inflammatories (NSAID); Z68.37 Body mass index [BMI] 37.0-37.9, adult
CPT/HCPCS: 99211

== ENCOUNTER → 2019-04-16 | Outpatient (CLI) | payer OTHER ==
[2019-04-16 13:38] VITALS: BP 149/98; PULSE 105; TEMP 97.7; BMI 36.8
--- NOTE | 2019-05-04 13:50 | P.HPBAR ---
Bariatric H&P - History & Physicial H&P Date: 04/16/19 History & Physicial: Visit/CC: review/sign consent for sleeve Patient initial contact: Initial weight: 90.718 kg Initial weight in pounds: 200.00 Height: 5 ft 2 in Initial BMI: 36.6 Last weight: Current weight: 91.535 kg Current weight in pounds: 201.80 Current BMI: 36.8 [place] body weight (based on NIH guidelines): 49.895 kg Excess body weight loss: The patient is a 48 year-old F who presents for Bariatric Assessment. Patient presents for presurgical consultation. Her BMI is 37. She has an excellent understanding of the sleeve gastrectomy. Past Medical History Past Medical History: Cancer, CVA/TIA, Diabetes Mellitus, Fibromyalgia, GERD/Reflux, Hyperlipidemia, Pneumonia, Thyroid Disorder Additional Past Medical History / Comment(s): Recent sinus infection, finishing antibiotic today. 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 Current bladder incontinence and difficulty fully empyting bladder. CERVICAL CA (1996), HX OF DIVERTICULITIS, OCCASIONAL DIARRHEA AND HEARTBURN, PT STATES UNSURE OF THYROID DISORDER. Back, neck, shoulder and bilateral hip pain. Hx Pneumonia in 1999. Thinks she has sleep anea but has had no testing done. History of Any Multi-Drug Resistant Organisms: None Reported Past Surgical History: Bariatric Surgery, Section, Cholecystectomy, Hysterectomy, Tubal Ligation, Uterine Ablation Additional Past Surgical History / Comment(s): LAP BAND 2000 & REMOVED 2001. Past Anesthesia/Blood Transfusion Reactions: Motion Sickness Past Psychological History: Anxiety, Depression Smoking Status: Never smoker Past Alcohol Use History: Rare Past Drug Use History: None Reported - Past Family History Father Family Medical History: Cancer, Coronary Artery Disease (CAD), CVA/TIA, Myocardial Infarction ([place]) Additional Family Medical History / Comment(s): Bone ca Mother Family Medical History: Coronary Artery Disease (CAD), CVA/TIA, Hypertension Sister(s) Family Medical History: Fibromyalgia Additional Family Medical History / Comment(s): MS Surgical - Exam Vital Signs Temp Pulse BP 97.7 F 105 H 149/98 04/16/19 13:22 04/16/19 13:22 04/16/19 13:22 - General well developed, well nourished, no distress - Abdomen Abdomen: soft, non tender Bariatric Assessment & Plan Plan: Morbid obesity, BMI 37. Patient will be scheduled for sleeve gastrectomy. Bariatric Checklist Checklist: Plan: Checklist: EGD: 1. Hiatal hernia: 2. H. Pylori: HgbA1c: Vitamin D: Smoking: Never smoker Primary care physician referral: dr Bigg Benjamin Psychiatry clearance: Cardiology clearance: Sleep study: Diet journal: VTE risk score: VTE risk level: Rehab needs at discharge:
== END | disposition home or self-care (01) ==
LOC: BARWHC3 13:05
PROVIDERS: ATTEND Surgery
DX: E66.01 Morbid (severe) obesity due to excess calories (principal); Z68.37 Body mass index [BMI] 37.0-37.9, adult
CPT/HCPCS: 99211

== ENCOUNTER → 2019-05-16 | Outpatient (CLI) | payer OTHER ==
--- NOTE | 2019-05-16 10:58 | XR ---
EXAMINATION TYPE: XR shoulder complete RT DATE OF EXAM: 05/16/2019 COMPARISON: NONE HISTORY: 38-year-old female right shoulder pain after injury TECHNIQUE: 3 views FINDINGS: Moderate marginal spurring with degenerative joint space narrowing at the AC joint when the patient a bducts the arm. Subacromial space is preserved. No acute fracture, subluxation, or dislocation. IMPRESSION: Moderate AC joint OA. No acute osseous abnormality seen.
== END | disposition home or self-care (01) ==
LOC: RADXRMAIN 10:10
PROVIDERS: ATTEND Family Medicine
DX: M19.011 Primary osteoarthritis, right shoulder (principal)

== ENCOUNTER → 2019-05-21 | Outpatient (CLI) | payer OTHER ==
[2019-05-21 14:38] VITALS: BP 112/83; PULSE 87; TEMP 98.2; BMI 37.6
--- NOTE | 2019-05-21 15:05 | P.HPBAR ---
Bariatric H&P - History & Physicial H&P Date: 05/21/19 History & Physicial: Visit/CC: presurgical visit sleeve gastrectomy Patient initial contact: Initial weight: 90.718 kg Initial weight in pounds: 200.00 Height: 5 ft 2 in Initial BMI: 36.6 Last weight: Current weight: 93.44 kg Current weight in pounds: 206.00 Current BMI: 37.6 [place] body weight (based on NIH guidelines): 49.895 kg Excess body weight loss: The patient is a 48 year-old F who presents for Bariatric Assessment. Patient presents today for presurgical consultation. She is scheduled for a gastric sleeve and 2 weeks. She has a very good understanding of the sleeve gastrectomy. Her BMI is 38. She's had a previous history of LAP-BAND removal. I discussed the risks of surgery including adhesions in the risk of conversion to the open procedure and injury to the stomach liver spleen and issues gastric staple line such as bleeding perforation obstruction. Past Medical History Past Medical History: Cancer, CVA/TIA, Diabetes Mellitus, Fibromyalgia, GERD/Reflux, Hyperlipidemia, Pneumonia, Thyroid Disorder Additional Past Medical History / Comment(s): Recent sinus infection, finishing antibiotic today. 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 Current bladder incontinence and difficulty fully empyting bladder. CERVICAL CA (1996), HX OF DIVERTICULITIS, OCCASIONAL DIARRHEA AND HEARTBURN, PT STATES UNSURE OF THYROID DISORDER. Back, neck, shoulder and bilateral hip pain. Hx Pneumonia in 1999. Thinks she has sleep anea but has had no testing done. History of Any Multi-Drug Resistant Organisms: None Reported Past Surgical History: Bariatric Surgery, Section, Cholecystectomy, Hysterectomy, Tubal Ligation, Uterine Ablation Additional Past Surgical History / Comment(s): LAP BAND 2000 & REMOVED 2001. Past Anesthesia/Blood Transfusion Reactions: Motion Sickness Past Psychological History: Anxiety, Depression Smoking Status: Never smoker Past Alcohol Use History: Rare Past Drug Use History: None Reported - Past Family History Father Family Medical History: Cancer, Coronary Artery Disease (CAD), CVA/TIA, Myocardial Infarction ([place]) Additional Family Medical History / Comment(s): Bone ca Mother Family Medical History: Coronary Artery Disease (CAD), CVA/TIA, Hypertension Sister(s) Family Medical History: Fibromyalgia Additional Family Medical History / Comment(s): MS Surgical - Exam Vital Signs Temp Pulse BP 98.2 F 87 112/83 05/21/19 14:33 05/21/19 14:33 05/21/19 14:33 - General well developed, well nourished, no distress - Eyes PERRL - ENT normal pinna - Neck no masses - Respiratory normal expansion - Cardiovascular Rhythm: regular - Abdomen Abdomen: soft, non tender Bariatric Assessment & Plan Plan: Obesity with BMI of 38. Patient will undergo sleeve gastrectomy in 2 weeks.. All of her questions were answered in the office. Bariatric Checklist Checklist: Plan: Checklist: EGD: 1. Hiatal hernia: 2. H. Pylori: HgbA1c: Vitamin D: Smoking: Never smoker Primary care physician referral: dr Bigg Benjamin Psychiatry clearance: Cardiology clearance: Sleep study: Diet journal: VTE risk score: VTE risk level: Rehab needs at discharge:
== END | disposition home or self-care (01) ==
LOC: BARWHC3 13:08
PROVIDERS: ATTEND Surgery
DX: E66.9 Obesity, unspecified (principal); Z68.38 Body mass index [BMI] 38.0-38.9, adult; Z98.84 Bariatric surgery status; Z90.49 Acquired absence of other specified parts of digestive tract
CPT/HCPCS: 99211

== ENCOUNTER → 2019-05-25 | Outpatient (CLI) | payer OTHER ==
[2019-05-25 13:15] LABS: ALT 71 U/L (9-52); AST 48 U/L (14-36); African American GFR (CKD) >90 (>60 ml/min/1.73 sqM); Albumin 4.7 g/dL (3.5-5.0); Alkaline Phosphatase 123 U/L (38-126); Anion Gap 11 mmol/L; Blood Urea Nitrogen 14 mg/dL (7-17); Calcium 10.1 mg/dL (8.4-10.2); Carbon Dioxide 30 mmol/L (22-30); Chloride 102 mmol/L (98-107); Glucose 118 mg/dL (74-99); Non-African American GFR(CKD) >90 (>60 ml/min/1.73 sqM); Potassium 4.3 mmol/L (3.5-5.1); Sodium 143 mmol/L (137-145); Total Bilirubin 0.4 mg/dL (0.2-1.3); Total Protein 7.8 g/dL (6.3-8.2)
[2019-05-25 13:18] LABS: Basophils % (A) 1 %; Eosinophils # (A) 0.2 k/uL (0-0.7); Eosinophils % (A) 2 %; HCT 39.8 % (34.0-46.0); HGB 13.1 gm/dL (11.4-16.0); Lymphocytes # (A) 2.7 k/uL (1.0-4.8); Lymphocytes % (A) 40 %; MCH 26.9 pg (25.0-35.0); MCHC 32.8 g/dL (31.0-37.0); MCV 82.2 fL (80.0-100.0); Monocytes # (A) 0.5 k/uL (0-1.0); Monocytes % (A) 7 %; Neutrophils # (A) 3.1 k/uL (1.3-7.7); Neutrophils % (A) 47 %; Platelet Count 201 k/uL (150-450); RBC 4.85 m/uL (3.80-5.40); RDW 14.7 % (11.5-15.5); WBC 6.6 k/uL (3.8-10.6)
== END | disposition home or self-care (01) ==
LOC: LABPAT 12:35
PROVIDERS: ATTEND Surgery
DX: Z01.812 Encounter for preprocedural laboratory examination (principal)
CPT/HCPCS: 36415; 80053; 85025; 93005

== ENCOUNTER 2019-06-05 09:29 | Inpatient (IN) | payer OTHER ==
[~2019-06-05 09:29] MED LIST: DEXAMETHASONE SOD PHOSPHATE 10 MG/ML 1 ML VIAL IV ONE; ENOXAPARIN 40 MG/0.4 ML SYRINGE SQ ONE; LIDOCAINE 1% 20 ML VIAL (10MG/ML) FOR IV START INTRADERMA PRN; MIDAZOLAM 2 MG/2 ML VIAL IV PRN; SCOPOLAMINE 1.5MG/72HR PATCH TRANSDERM ONE
[2019-06-05] MEDS: LACTATED RINGERS 1,000 ML IV SCH (10:20)
[2019-06-05] MEDS: ONDANSETRON 4 MG/2 ML VIAL IVP ONE ×2 (10:20→14:41)
[2019-06-05 10:21] LABS: Glucose,Whole Blood 142 mg/dL (75-99)
--- NOTE | 2019-06-05 12:00 | P.GSHP ---
History of Present Illness H&P Date: 06/05/19 Chief Complaint: Morbid obesity, BMI 38 This a 48-year-old female who presents today for laparoscopic sleeve gastrectomy. Her BMI is 38. Patient has previous history of LAP-BAND surgery. She had her LAP-BAND removed many years ago. Past Medical History Past Medical History: Cancer, CVA/TIA, Diabetes Mellitus, Fibromyalgia, GERD/Reflux, Hyperlipidemia, Pneumonia, Sleep Apnea/CPAP/BIPAP Additional Past Medical History / Comment(s): TIA Oct 2017- no residual effects. Current bladder incontinence and difficulty fully empyting bladder. CERVICAL CA (1996), HX OF DIVERTICULITIS, Back, neck, shoulder and bilateral hip pain. migraines, History of Any Multi-Drug Resistant Organisms: None Reported Past Surgical History: Bariatric Surgery, Section, Cholecystectomy, Hysterectomy, Tubal Ligation, Uterine Ablation Additional Past Surgical History / Comment(s): LAP BAND 2000 & REMOVED 2001. Past Anesthesia/Blood Transfusion Reactions: Motion Sickness Smoking Status: Never smoker - Past Family History Father Family Medical History: Cancer, Coronary Artery Disease (CAD), CVA/TIA, Myocardial Infarction ([place]) Additional Family Medical History / Comment(s): Bone ca Mother Family Medical History: Coronary Artery Disease (CAD), CVA/TIA, Hypertension Sister(s) Family Medical History: Fibromyalgia Additional Family Medical History / Comment(s): MS Medications and Allergies Home Medications Medication Instructions Recorded Confirmed Type Multivitamins, Thera [Multivitamin 1 tab PO DAILY 02/23/15 06/05/19 History (formulary)] Ibuprofen [Motrin] 800 mg PO Q8H PRN 10/13/15 06/05/19 History ALPRAZolam [Xanax] 0.5 - 1 mg PO HS 02/18/17 06/05/19 History FLUoxetine HCL 80 mg PO HS 02/18/17 06/05/19 History Acetaminophen/Diphenhydramine 1 tab PO HS 11/11/17 06/05/19 History [Tylenol PM 500-25mg] Primidone [Mysoline] 50 mg PO HS 11/11/17 06/05/19 History metFORMIN HCL [Glucophage] 500 mg PO BID 11/11/17 06/05/19 History Atorvastatin [Lipitor] 40 mg PO HS #30 tablet 11/12/17 06/05/19 Rx Gabapentin [Neurontin] 300 mg PO HS 01/19/18 06/05/19 History Biotin 10,000 mcg PO DAILY 11/24/18 06/05/19 History Cholecalciferol [Vitamin D3] 1,000 unit PO BID 11/24/18 06/05/19 History Allergies Allergy/AdvReac Type Severity Reaction Status Date / Time No Known Allergies Allergy Verified 06/05/19 10:07 Surgical - Exam Vital Signs Temp Pulse Resp BP Pulse Ox 97.4 F L 82 16 103/62 96 06/05/19 10:09 06/05/19 10:09 06/05/19 10:09 06/05/19 10:09 06/05/19 10:09 - General well developed, well nourished, no distress - Eyes PERRL - ENT normal pinna - Neck no masses - Respiratory normal expansion - Cardiovascular Rhythm: regular - Abdomen Abdomen: soft, non tender Results - Labs Abnormal Lab Results - Last 24 Hours (Table) 06/05/19 Range/Units 10:19 POC Glucose (mg/dL) 142 H (75-99) mg/dL Assessment and Plan Assessment: Morbid obesity, BMI 38. Patient will undergo laparoscopic sleeve gastrectomy. Patient is aware the risks of surgery due to the adhesions. She is also aware of risk of gastric staple line disruption, bleeding or scarring.
[2019-06-05] MEDS ORDERED: PROPOFOL 10 MG/ML 20 ML VIAL IV ONE (12:28)
[2019-06-05] MEDS ORDERED: KETOROLAC 30 MG/ML 1 ML VIAL ONE (12:28)
[2019-06-05] MEDS ORDERED: MIDAZOLAM 2 MG/2 ML VIAL ONE (12:28)
[2019-06-05] MEDS ORDERED: ESMOLOL 100 MG/10 ML VIAL ONE (12:28)
[2019-06-05] MEDS ORDERED: LIDOCAINE 1% INJ 10MG/ML (20 ML MDV) ONE (12:28)
[2019-06-05] MEDS ORDERED: fentaNYL (PF) 50 MCG/ML 2 ML AMP ONE (12:28)
[2019-06-05] MEDS ORDERED: NEOSTIGMINE 1 MG/ML 10 ML VIAL ONE (12:28)
[2019-06-05] MEDS ORDERED: ROCURONIUM BROMIDE 10 MG/ML 10 ML VIAL IV ONE (12:28)
[2019-06-05] MEDS ORDERED: GLYCOPYRROLATE 0.2 MG/ML 2 ML VIAL ONE (12:28)
[2019-06-05] MEDS ORDERED: BUPIVACAIN-EPI 0.25%-1:200,000 30 ML VIAL SQ ONE (13:05)
[2019-06-05] MEDS ORDERED: LACTATED RINGERS 1,000 ML IV ONE ×3 (13:15→14:50)
[2019-06-05] MEDS ORDERED: HYDROmorphone 1 MG/ML 1 ML SYRINGE IVP PRN (13:58)
[2019-06-05] MEDS ORDERED: diphenhydrAMINE 50 MG/ML 1 ML VIAL IVP PRN (13:58)
[2019-06-05] MEDS ORDERED: NALOXONE 0.4 MG/ML 1 ML VIAL IV PRN (13:58)
--- NOTE | 2019-06-05 13:58 | P.OP ---
Date of Procedure: 06/05/19 Preoperative Diagnosis: Morbid obesity, BMI 38 Postoperative Diagnosis: Morbid obesity, BMI 38 Adhesions Procedure(s) Performed: Laparoscopic sleeve gastrectomy Laparoscopic lysis of adhesions Anesthesia: LYNNE Surgeon: Tenzin Mcdowell Estimated Blood Loss (ml): 10 Pathology: other (Gastric remnant) Condition: stable Disposition: PACU Description of Procedure: The patient was placed on the operating room table in the supine position. She received general anesthesia and then was placed in dorsal lithotomy position. Her abdomen was prepped and draped in sterile fashion. The skin incision sites were anesthetized 1% local Xylocaine. And then the skin was incised with an 11 blade in the left lateral position. Using a blade less trocar under direct visualization the peritoneal cavity was entered. The abdomen was insufflated and then a 5 mm laparoscope was placed into the peritoneal cavity. A 5 mm trocar was placed in the right epigastric, and right lateral position. A 15 mm trocar was placed in the supra-umbilical position and another 5 mm trocar was placed in the left lateral position. The left lateral lobe of the liver was retracted. The stomach was visualized. There adhesions from the patient's previous LAP-BAND device. The lysed using the Harmonic scissors and sharp dissection. Present 15 minutes of operative time used to lyse adhesions. The greater curvature of the stomach was then dissected using the Harmonic scissors. The dissection occurred approximately 5 cm from the pylorus to the level of the left grace. There was no hiatal hernia seen. At this point a 40- Arabic bougie dilator was placed the oropharynx and passed into the esophagus and into the stomach by the MANAGER TELEMETRY. The sleeve gastrectomy was performed by using the powered echelon stapler with a seam guard buttress material. Sequential firings of the stapler were performed. The gastric remnant was then brought out through the 15 mm trocar site. The dilator was withdrawn. And a orogastric tube was replaced into the stomach. The stomach was insufflated with 200 mL of methylene blue normal saline. There was no evidence of extravasation. The abdomen was irrigated there is no bleeding seen. The Tyson-Jami device was used to close the 15 mm trocar with 0 Vicryl. Skin was closed with interrupted 3-0 Monocryl sutures once the trochars withdrawn. Dermabond dressing was applied. Patient was sent to recovery in stable condition.
[2019-06-05 14:33] LABS: Glucose,Whole Blood 238 mg/dL (75-99)
[2019-06-05] MEDS ORDERED: PROMETHAZINE INJ 25 MG/ML 1 ML VIAL IVPB ONE (14:52)
[2019-06-05] MEDS: HYDROmorphone 0.5 MG/0.5 ML SYRINGE IVP PRN ×2 (15:15→15:55)
[2019-06-05] MEDS ORDERED: INSULIN ASPART (NovoLOG) 100 UNIT/ML VIAL SQ ONE (15:25)
[2019-06-05 16:35] VITALS: BMI 36.9
[2019-06-05] MEDS: ALBUTEROL NEBULIZED 2.5 MG/3 ML INHALATION SCH ×2 (17:09→20:18)
[2019-06-05] MEDS: 0.9% NACL WITH KCL 20 MEQ/L 1,000 ML IV SCH (17:47)
[2019-06-05] MEDS: KETOROLAC 30 MG/ML 1 ML VIAL IVP SCH (17:52)
[2019-06-05] MEDS: INSULIN ASPART (NovoLOG) 100 UNIT/ML VIAL SQ SCH (18:33)
[2019-06-06] MEDS: 0.9% NACL WITH KCL 20 MEQ/L 1,000 ML IV SCH ×2 (00:40→08:20)
[2019-06-06] MEDS: INSULIN ASPART (NovoLOG) 100 UNIT/ML VIAL SQ SCH ×5 (00:40→20:39)
[2019-06-06] MEDS: KETOROLAC 30 MG/ML 1 ML VIAL IVP SCH ×5 (00:41→23:19)
[2019-06-06 00:47] LABS: Glucose,Whole Blood 173 mg/dL (75-99)
[2019-06-06] MEDS: ENOXAPARIN 40 MG/0.4 ML SYRINGE SQ SCH ×2 (01:00→15:46)
[2019-06-06] MEDS: HYOSCYAMINE ORAL DROPS 1.875 MG/15 ML BOTTLE PO PRN ×3 (01:00→15:46)
[2019-06-06] MEDS: SIMETHICONE 40 MG/0.6 ML DROPS 2,000 MG/30 ML BOTTLE PO PRN ×3 (01:01→15:46)
[2019-06-06] MEDS: LACTATED RINGERS 1,000 ML IV SCH (05:30)
[2019-06-06 06:08] LABS: Glucose,Whole Blood 143 mg/dL (75-99)
[2019-06-06 07:13] LABS: Basophils % (A) 0 %; Eosinophils % (A) 0 %; HCT 31.6 % (34.0-46.0); HGB 10.3 gm/dL (11.4-16.0); Lymphocytes # (A) 1.8 k/uL (1.0-4.8); Lymphocytes % (A) 20 %; MCH 26.9 pg (25.0-35.0); MCHC 32.5 g/dL (31.0-37.0); MCV 82.8 fL (80.0-100.0); Mean Platelet Volume 7.9; Monocytes # (A) 0.7 k/uL (0-1.0); Monocytes % (A) 8 %; Neutrophils # (A) 6.2 k/uL (1.3-7.7); Neutrophils % (A) 70 %; Platelet Count 206 k/uL (150-450); RBC 3.81 m/uL (3.80-5.40); RDW 15.2 % (11.5-15.5); WBC 8.9 k/uL (3.8-10.6)
[2019-06-06 07:24] LABS: African American GFR (CKD) >90 (>60 ml/min/1.73 sqM); Anion Gap 9 mmol/L; Blood Urea Nitrogen 12 mg/dL (7-17); Calcium 9.1 mg/dL (8.4-10.2); Carbon Dioxide 26 mmol/L (22-30); Chloride 103 mmol/L (98-107); Magnesium 1.7 mg/dL (1.6-2.3); Phosphorus 4.2 mg/dL (2.5-4.5); Potassium 4.4 mmol/L (3.5-5.1); Sodium 138 mmol/L (137-145)
[2019-06-06] MEDS: PANTOPRAZOLE 40 MG/10 ML VIAL IV SCH (08:20)
[2019-06-06] MEDS: ALBUTEROL NEBULIZED 2.5 MG/3 ML INHALATION SCH ×4 (08:24→20:28)
[2019-06-06] MEDS ORDERED: METOCLOPRAMIDE 5 MG/ML 2 ML VIAL IVP STA (09:27)
[2019-06-06] MEDS ORDERED: ONDANSETRON 4 MG/2 ML VIAL IVP PRN (09:27)
[2019-06-06] MEDS ORDERED: ACETAMINOPHEN TAB 325 MG TAB PO PRN (09:34)
[2019-06-06] MEDS ORDERED: HYDROcodone/APAP 5-325MG 1 EACH TAB PO PRN (09:35)
[2019-06-06] MEDS ORDERED: 0.9% NACL WITH KCL 20 MEQ/L 1,000 ML IV SCH (09:45)
[2019-06-06] MEDS: 1: MVI, ADULT NO.4 WITH VIT K 10 ML, THIAMINE 100 MG, FOLIC ACID 1 MG, POTASSIUM CHLORID IV SCH ×18 (11:00→22:15)
--- NOTE | 2019-06-06 11:16 | [place] ---
EXAMINATION TYPE: [place] UGI DATE OF EXAM: 06/06/2019 COMPARISON: None HISTORY: Post gastric sleeve TECHNIQUE: A single contrast UGI study is performed. FINDINGS: Contrast passes from the distal esophagus through the gastric sleeve with moderate hesitanc y. No extravasation of contrast is evident. No free air is noted during this examination. Overhead radiographs were obtained which are unremarkable. IMPRESSIONS: 1. Normal post gastric sleeve without obstruction or hesitancy. No extravasation.
[2019-06-06 11:27] LABS: Glucose,Whole Blood 162 mg/dL (75-99)
--- NOTE | 2019-06-06 11:27 | P.CONS ---
History of Present Illness - Reason for Consult Consult date: 06/06/19 Medical management diabetes mellitus, hyperlipidemia, sleep apnea, anxiety, Requesting physician: Tenzin Mcdowell - Chief Complaint Gastroesophageal reflux disease - History of Present Illness This a 48-year-old female with past medical history of cancer, CVA/TIA, diabetes mellitus, fibromyalgia, gastroesophageal reflux disease, hyperlipidemia, sleep apnea, anxiety, depression, prior lap band removed years ago and multiple other medical issues, status post laparoscopic sleeve gastrectomy. Tolerated procedure well. Complains of nausea, bloating. No emesis. No flatus, no bowel movement. Passed esophogram, bariatric clear liquid diet initiated. Blood sugars controlled. Vital signs stable, mild tachycardia. Afebrile, normal WBC. Review of Systems ROS Statement: Those systems with pertinent positive or pertinent negative responses have been documented in the HPI. ROS Other: All systems not noted in ROS Statement are negative. Past Medical History Past Medical History: Cancer, CVA/TIA, Diabetes Mellitus, Fibromyalgia, GERD/Reflux, Hyperlipidemia, Pneumonia, Sleep Apnea/CPAP/BIPAP Additional Past Medical History / Comment(s): TIA Oct 2017- no residual effects. Current bladder incontinence and difficulty fully empyting bladder. CERVICAL CA (1996), HX OF DIVERTICULITIS, Back, neck, shoulder and bilateral hip pain. migr aines, History of Any Multi-Drug Resistant Organisms: None Reported Past Surgical History: Bariatric Surgery, Section, Cholecystectomy, Hysterectomy, Tubal Ligation, Uterine Ablation Additional Past Surgical History / Comment(s): LAP BAND 2000 & REMOVED 2001., gastric sleeve 06/05/2019 Past Anesthesia/Blood Transfusion Reactions: Motion Sickness Past Psychological History: Anxiety, Depression Smoking Status: Never smoker Past Alcohol Use History: Rare Past Drug Use History: None Reported - Past Family History Father Family Medical History: Cancer, Coronary Artery Disease (CAD), CVA/TIA, Myocardial Infarction ([place]) Additional Family Medical History / Comment(s): Bone ca Mother Family Medical History: Coronary Artery Disease (CAD), CVA/TIA, Hypertension Sister(s) Family Medical History: Fibromyalgia Additional Family Medical History / Comment(s): MS Medications and Allergies Home Medications Medication Instructions Recorded Confirmed Type Multivitamins, Thera [Multivitamin 1 tab PO DAILY 02/23/15 06/05/19 History (formulary)] Ibuprofen [Motrin] 800 mg PO Q8H PRN 10/13/15 06/05/19 History ALPRAZolam [Xanax] 0.5 - 1 mg PO HS 02/18/17 06/05/19 History FLUoxetine HCL 80 mg PO HS 02/18/17 06/05/19 History Acetaminophen/Diphenhydramine 1 tab PO HS 11/11/17 06/05/19 History [Tylenol PM 500-25mg] Primidone [Mysoline] 50 mg PO HS 11/11/17 06/05/19 History metFORMIN HCL [Glucophage] 500 mg PO BID 11/11/17 06/05/19 History Atorvastatin [Lipitor] 40 mg PO HS #30 tablet 11/12/17 06/05/19 Rx Gabapentin [Neurontin] 300 mg PO HS 01/19/18 06/05/19 History Biotin 10,000 mcg PO DAILY 11/24/18 06/05/19 History Cholecalciferol [Vitamin D3] 1,000 unit PO BID 11/24/18 06/05/19 History Allergies Allergy/AdvReac Type Severity Reaction Status Date / Time No Known Allergies Allergy Verified 06/05/19 15:52 Physical Exam Vitals: Vital Signs Temp Pulse Pulse Pulse Resp BP Pulse Ox 06/06/19 08:36 104 H 06/06/19 08:24 100 06/06/19 07:00 98.7 F 104 H 16 125/85 98 06/06/19 01:30 93 L 06/06/19 00:37 98.3 F 89 18 124/85 97 06/05/19 18:47 97.4 F L 90 18 145/80 98 06/05/19 18:36 91 151/89 06/05/19 18:35 87 153/93 06/05/19 18:34 90 149/87 06/05/19 17:35 98 154/82 06/05/19 17:05 87 155/93 06/05/19 17:04 96 06/05/19 16:50 87 148/90 94 L 06/05/19 16:35 98.1 F 88 16 149/86 94 L 06/05/19 16:05 88 16 158/79 97 06/05/19 15:45 89 16 161/80 95 06/05/19 15:15 88 16 156/82 96 06/05/19 15:00 89 16 152/79 97 06/05/19 14:46 88 16 151/80 99 06/05/19 14:32 93 16 138/74 97 06/05/19 14:20 98.3 F 102 H 18 148/75 99 06/05/19 10:09 97.4 F L 82 16 103/62 96 Intake and Output 06/05/19 06/06/19 06/06/19 22:59 06:59 14:59 Intake Total 600 1500 Output Total 50 Balance 550 1500 Intake: IV 600 Intake, IV Titration 1500 Amount 0.9% NaCl with KCl 20 Meq 1500 /l 1,000 ml @ 150 mls/hr IV .Q6H40M STACY Rx#: [id number] Output: Urine 50 Other: Voiding Method Toilet # Voids 1 3 PHYSICAL EXAM: VITAL SIGNS: As above GENERAL: Sitting up in bed, no acute distress HEENT: Conjunctivae normal. eyes normal. NECK: No JVD. No thyroid enlargement. No LNs CARDIOVASCULAR: S1, S2 regular.. No murmur RESPIRATION: Breath sounds diminished in the bases. No rhonchi or crackles. No bronchial breathing. ABDOMEN: Soft, nontender . Status post surgery .No guarding.Bowel sounds heard. LEGS: No edema. no swelling PSYCHIATRY: Alert and oriented X3, mood and affect normal. NERVOUS SYSTEM: Cranial N 2-12 grossly normal. Moves all 4 limbs. Diffuse weakness, No focal deficits. Strength and sensation grossly intact.. Skin: no lesions, no rash Lymphatic system. No LN neck axilla or groin. Results CBC & Chem 7: 06/06/19 06:32 06/06/19 06:32 Labs: Abnormal Lab Results - Last 24 Hours (Table) 06/05/19 06/05/19 06/06/19 Range/Units 10:19 14:31 00:36 Hgb (11.4-16.0) gm/dL Hct (34.0-46.0) % POC Glucose (mg/dL) 142 H 238 H 173 H (75-99) mg/dL 06/06/19 06/06/19 Range/Units 05:55 06:32 Hgb 10.3 L (11.4-16.0) gm/dL Hct 31.6 L (34.0-46.0) % POC Glucose (mg/dL) 143 H (75-99) mg/dL Assessment and Plan Assessment: -Obesity, BMI 38, status post laparoscopic sleeve gastrectomy, in a patient with history of lap band removed years ago. -Gastroesophageal reflux disease -Diabetes mellitus -Anxiety -Depression -Fibromyalgia -Hyperlipidemia -Sleep apnea -History of cancer -History of CVA/TIA Plan: Continue on current medication regime ,monitoring and symptomatic treat ment. Passed esophogram. Home meds have been reviewed and resumed. Reglan added to med regime. Blood sugars stable, close monitoring of Accu-Cheks. Increase ambulation as tolerated. Follow closely with surgery. Thank you Dr. Mcdowell for allowing us to participate in the care of this pleasant young lady. The impression and plan of care has been dictated as directed. : I performed a history and examination of this patient, discussed the same with the dictator. I agree with the dictator's note ,documented as a scribe. Any additional findings or plans will be noted.
--- NOTE | 2019-06-06 13:37 | P.PN ---
Subjective Progress Note Date: 06/06/19 CHIEF COMPLAINT: Morbid obesity HISTORY OF PRESENT ILLNESS: 48-year-old female who underwent laparoscopic sleeve gastrectomy. POD #1. Patient examined this morning at the bedside. She complains of pain 7/10. Tolerating ice chips. Mild nausea. Esophagram completed this morning negative for leak or obstruction. Patient states she feels weak and shaky. PHYSICAL EXAM: VITAL SIGNS: Reviewed. GENERAL: Well-developed in no acute distress. HEENT: No sclera icterus. Extraocular movements grossly intact. Moist buccal mucosa. Head is atraumatic, normocephalic. ABDOMEN: Soft. Nondistended. Appropriate surgical tenderness. Laparoscopic surgical incision sites clean dry and intact without drainage or signs of infection. NEUROLOGIC: Alert and oriented. Cranial nerves II through XII grossly intact. ASSESSMENT: 1. Morbid obesity, status post laparoscopic sleeve gastrectomy PLAN: 1. Begin bariatric clear liquid diet. No straws or carbonated beverages. 2. Zofran as needed for nausea. Reglan 10 mg 1 dose 3. Encouraged ambulation in hallway to relieve gas pains. Continue simethico ne. 4. Pain control 5. Incentive spirometry 6. Anticipate discharge home tomorrow Nurse practitioner note has been reviewed by physician. Signing provider agrees with the documented findings, assessment, and plan of care. Objective - Vital Signs Vital signs: Vital Signs Temp 98.7 F 06/06/19 07:00 Pulse 96 06/06/19 11:47 Resp 16 06/06/19 08:25 BP 125/85 06/06/19 07:00 Pulse Ox 93 L 06/06/19 11:37 Intake & Output 06/05/19 06/06/19 06/06/19 18:59 06:59 18:59 Intake Total 2650 1500 340 Output Total 100 Balance 2550 1500 340 Intake: IV 2650 Intake, IV Titration 1500 Amount 0.9% NaCl with KCl 20 Meq 1500 /l 1,000 ml @ 150 mls/hr IV .Q6H40M STACY Rx#: [id number] Oral 340 Output: Urine 50 Estimated Blood Loss 50 Other: Voiding Method Toilet Toilet # Voids 3 - Labs CBC & Chem 7: 06/06/19 06:32 06/06/19 06:32 Labs: Abnormal Lab Results - Last 24 Hours (Table) 06/05/19 06/06/1906/06/19 Range/Units 14:31 00:36 05:55 Hgb (11.4-16.0) gm/dL Hct (34.0-46.0) % POC Glucose (mg/dL) 238 H 173 H 143 H (75-99) mg/dL 06/06/19 06/06/19 Range/Units 06:32 11:16 Hgb 10.3 L (11.4-16.0) gm/dL Hct 31.6 L (34.0-46.0) % POC Glucose (mg/dL) 162 H (75-99) mg/dL
[2019-06-06] MEDS: MAGNESIUM SULFATE-D5W PMX 1 GM in DEXTROSE/WATER 1 100ML.BAG IVPB SCH ×2 (15:52→17:13)
[2019-06-06 16:44] LABS: Glucose,Whole Blood 154 mg/dL (75-99)
[2019-06-06 20:22] LABS: Glucose,Whole Blood 133 mg/dL (75-99)
[2019-06-06] MEDS ORDERED: GABAPENTIN 300 MG CAP PO SCH (21:00)
[2019-06-06] MEDS ORDERED: PRIMIDONE 50 MG TAB PO SCH (21:00)
[2019-06-06] MEDS ORDERED: ALPRAZolam 0.5 MG TAB PO SCH (21:00)
[2019-06-06] MEDS ORDERED: FLUoxetine HCL 20 MG CAP PO SCH (21:00)
[2019-06-06] MEDS ORDERED: ATORVASTATIN 40 MG TAB PO SCH (21:00)
[2019-06-07] MEDS: ENOXAPARIN 40 MG/0.4 ML SYRINGE SQ SCH (00:55)
[2019-06-07 02:37] VITALS: TEMP 99.9
[2019-06-07] MEDS: LACTATED RINGERS 1,000 ML IV SCH (05:47)
[2019-06-07] MEDS: 1: MVI, ADULT NO.4 WITH VIT K 10 ML, THIAMINE 100 MG, FOLIC ACID 1 MG, POTASSIUM CHLORID IV SCH ×12 (05:47→08:57)
[2019-06-07] MEDS: KETOROLAC 30 MG/ML 1 ML VIAL IVP SCH (05:48)
[2019-06-07 07:40] LABS: Glucose,Whole Blood 153 mg/dL (75-99)
[2019-06-07] MEDS: ALBUTEROL NEBULIZED 2.5 MG/3 ML INHALATION SCH ×2 (07:57→10:42)
[2019-06-07] MEDS: PANTOPRAZOLE 40 MG/10 ML VIAL IV SCH (07:58)
[2019-06-07] MEDS: SIMETHICONE 40 MG/0.6 ML DROPS 2,000 MG/30 ML BOTTLE PO PRN (07:59)
[2019-06-07] MEDS: INSULIN ASPART (NovoLOG) 100 UNIT/ML VIAL SQ SCH ×2 (07:59→12:38)
[2019-06-07] MEDS: HYOSCYAMINE ORAL DROPS 1.875 MG/15 ML BOTTLE PO PRN (07:59)
[2019-06-07 08:27] VITALS: BP 98/59; PULSE 97; RESP 15
[2019-06-07] MEDS ORDERED: MULTIVITAMINS, THERA 1 EACH TAB PO SCH (09:00)
[2019-06-07 11:48] LABS: Glucose,Whole Blood 170 mg/dL (75-99)
--- NOTE | 2019-06-07 13:00 | XR ---
EXAMINATION TYPE: XR chest 2V DATE OF EXAM: 06/07/2019 COMPARISON: Chest x-ray November 24, 2018. HISTORY: Cough and fever. TECHNIQUE: Frontal and lateral views of the chest are obtained. FINDINGS: There is patchy left basilar opacity. Right lung is clear. No large pleural effusion or p neumothorax. The cardiac silhouette size remains within normal limits. Multilevel spurring in thoraci c spine. Cholecystectomy clips are redemonstrated. IMPRESSION: New patchy left basilar acute infiltrate and/or atelectasis.
--- NOTE | 2019-06-07 13:15 | P.DS ---
Providers Date of admission: 06/05/19 09:29 Expected date of discharge: 06/07/19 Attending physician: Tenzin Mcdowell Consults: 06/05/19 13:58 Consult Physician Routine Consulting Provider: Bigg Benjamin Consult Reason/Comments: Medical management Do you want consulting provider notified?: Yes Primary care physician: Bigg Benjamin Hospital Course: 48-year-old female who underwent laparoscopic sleeve gastrectomy. Esophagram completed postoperatively negative for leak or obstruction. patient is tolerating diet. Denies nausea or vomiting. Pain is controlled on oral med ications. Vital signs are stable. She is stable for discharge home today. Please see EMR for further hospital course details. Discharge Diagnosis: 1. Morbid obesity, status post laparoscopic sleeve gastrectomy Nurse practitioner note has been reviewed by physician. Signing provider agrees with the documented findings, assessment, and plan of care. Plan - Discharge Summary Discharge Rx Participant: Yes New Discharge Prescriptions: New Sucralfate [Carafate] 1 gm PO BID #500 ml Bisacodyl [Dulcolax] 5 mg PO DAILY PRN #10 tablet. PRN Reason: Constipation Simethicone 40 mg/0.6 ml Drops [Mylicon Drops] 40 mg PO PCHS PRN #30 ml PRN Reason: gas Hydrocodone/Acetaminophen [[place] 5-325] 1 tab PO Q4HR PRN 3 Days #18 tab PRN Reason: Pain Omeprazole 40 mg PO DAILY #30 cap Ondansetron Odt [Zofran Odt] 4 mg PO Q8HR PRN #9 tab PRN Reason: Nausea Continue Multivitamins, Thera [Multivitamin (formulary)] 1 tab PO DAILY ALPRAZolam [Xanax] 0.5 - 1 mg PO HS FLUoxetine HCL 80 mg PO HS metFORMIN HCL [Glucophage] 500 mg PO BID Primidone [Mysoline] 50 mg PO HS Acetaminophen/Diphenhydramine [Tylenol PM 500-25mg] 1 tab PO HS Atorvastatin [Lipitor] 40 mg PO HS #30 tablet Gabapentin [Neurontin] 300 mg PO HS Cholecalciferol [Vitamin D3] 1,000 unit PO BID Biotin 10,000 mcg PO DAILY Discontinued Ibuprofen [Motrin] 800 mg PO Q8H PRN PRN Reason: Pain Discharge Medication List Multivitamins, Thera [Multivitamin (formulary)] 1 tab PO DAILY 02/23/15 [History] ALPRAZolam [Xanax] 0.5 - 1 mg PO HS 02/18/17 [History] FLUoxetine HCL 80 mg PO HS 02/18/17 [History] Acetaminophen/Diphenhydramine [Tylenol PM 500-25mg] 1 tab PO HS 11/11/17 [History] Primidone [Mysoline] 50 mg PO HS 11/11/17 [History] metFORMIN HCL [Glucophage] 500 mg PO BID 11/11/17 [History] Atorvastatin [Lipitor] 40 mg PO HS #30 tablet 11/12/17 [Rx] Gabapentin [Neurontin] 300 mg PO HS 01/19/18 [History] Biotin 10,000 mcg PO DAILY 11/24/18 [History] Cholecalciferol [Vitamin D3] 1,000 unit PO BID 11/24/18 [History] Bisacodyl [Dulcolax] 5 mg PO DAILY PRN #10 tablet. 06/07/19 [Rx] Hydrocodone/Acetaminophen [[place] 5-325] 1 tab PO Q4HR PRN 3 Days #18 tab 06/07/19 [Rx] Omeprazole 40 mg PO DAILY #30 cap 06/07/19 [Rx] Ondansetron Odt [Zofran Odt] 4 mg PO Q8HR PRN #9 tab 06/07/19 [Rx] Simethicone 40 mg/0.6 ml Drops [Mylicon Drops] 40 mg PO PCHS PRN #30 ml 06/07/19 [Rx] Sucralfate [Carafate] 1 gm PO BID #500 ml 06/07/19 [Rx] Follow up Appointment(s)/Referral(s): Bigg Benajmin DO [Primary Care Provider] - 06/14/19 10:20 am [facility] [NON-STAFF] - 06/11/19 1:00 pm Patient Instructions/Handouts: Nutrition after Bariatric Surgery (DC), Laparoscopic Sleeve Gastrectomy (DC) Activity/Diet/Wound Care/Special Instructions: No driving while taking [place] No lifting over 10 pounds You may shower. No soaking or tub baths Very light activity until you are reevaluated at your follow up appointment with your surgeon
[2019-06-07 13:29] LABS: Appearance,Urine Clear (Clear); Bilirubin,Urine Negative (Negative); Blood,Urine Negative (Negative); Color,Urine Yellow; Glucose,Urine (UA) Negative (Negative); Ketones,Urine Negative (Negative); Leukocyte Esterase,Urine Negative (Negative); Nitrite,Urine Negative (Negative); Protein,Urine Negative (Negative); Specific Gravity,Urine 1.017 (1.001-1.035); Urobilinogen,Urine <2.0 mg/dL (<2.0)
--- NOTE | 2019-06-08 15:58 | P.PN ---
Subjective Progress Note Date: 06/07/19 This a 48-year-old female with past medical history of cancer, CVA/TIA, diabetes mellitus, fibromyalgia, gastroesophageal reflux disease, hyperlipidemia, sleep apnea, anxiety, depression, prior lap band removed years ago and multiple other medical issues, status post laparoscopic sleeve gastrectomy. Tolerated procedure well. Complains of nausea, bloating. No emesis. No flatus, no bowel movement. Passed esophogram, bariatric clear liquid diet initiated. Blood sugars controlled. Vital signs stable, mild tachycardia. Afebrile, normal WBC. 06/07/2019 tolerating diet, no nausea, no vomiting. Pain controlled. Vital signs stable. Mild asymptomatic fever, T-max 99.9. Chest x-ray and UA ordered. Ambulating, tolerating exertion well. Denies lightheadedness dizziness or focal deficits. Denies chest pain, palpitations or shortness of breath. Denies cough. Patient eager for discharge. Objective - Vital Signs Vital signs: Vital Signs Temp 99.9 F H 06/07/19 07:00 Pulse 97 06/07/19 07:00 Resp 15 06/07/19 07:00 BP 98/59 06/07/19 07:00 Pulse Ox 92 L 06/07/19 07:00 Intake & Output 06/06/19 06/07/19 06/07/19 18:59 06:59 18:59 Intake Total 1989 1021.2 Balance 1989 1021.2 Intake: Intake, IV Titration 1100 1021.2 Amount 0.9% NaCl with KCl 20 Meq 600 /l 1,000 ml @ 150 mls/hr IV .Q6H40M STACY Rx#: [id number] Magnesium Sulfate-D5w Pmx 100 1 gm In Dextrose/Water 1 100ml.bag @ 100 mls/hr IVPB Q1H STACY Rx#: [id number] Mvi, Adult No.4 with Vit 400 1021.2 K 10 ml Thiamine 100 mg Folic Acid 1 mg Potassium Chloride 20 meq In Sodium Chloride 0.9% 1, 000 ml @ 100 mls/hr IV . BY DURATION STACY Rx#: [id number] Oral 890 Other: Voiding Method Toilet Toilet # Voids 3 - Exam VITAL SIGNS: As above GENERAL: Sitting up in bed, no acute distress HEENT: Conjunctivae normal. eyes normal. NECK: No JVD. No thyroid enlargement. No LNs CARDIOVASCULAR: S1, S2 regular.. No murmur RESPIRATION: Breath sounds diminished in the bases. No rhonchi or crackles. No wheezing ,No bronchial breathing. ABDOMEN: Soft, nontender . Status post surgery .No guarding.Bowel sounds heard. LEGS: No edema. no swelling PSYCHIATRY: Alert and oriented X3, mood and affect normal. NERVOUS SYSTEM: Cranial N 2-12 grossly normal. Moves all 4 limbs. Diffuse weakness, No focal deficits. Strength and sensation grossly intact.. Skin: no lesions, no rash Lymphatic system. No LN neck axilla or groin. - Labs CBC & Chem 7: 06/06/19 06:32 06/06/19 06:32 Labs: Abnormal Lab Results - Last 24 Hours (Table) 06/06/19 06/06/19 06/06/19 Range/Units 11:16 16:43 20:19 POC Glucose (mg/dL) 162 H 154 H 133 H (75-99) mg/dL 06/07/19 Range/Units 07:08 POC Glucose (mg/dL) 153 H (75-99) mg/dL Assessment and Plan Assessment: -Obesity, BMI 38, status post laparoscopic sleeve gastrectomy, in a patient with history of lap band removed years ago. -Gastroesophageal reflux disease -Diabetes mellitus -Anxiety -Depression -Fibromyalgia -Hyperlipidemia -Sleep apnea -History of cancer -History of CVA/TIA -Atelectasis Plan: Continue on current medication regime ,monitoring and symptomatic treatment. Mild fever, asymptomatic. Chest x-ray, UA ordered. Aggressive pulmonary toileting with patient instructed to maintain incentive spirometry every hour while awake 10 minimally 2 weeks outpatient .significant clinical improvement. Discharge planning in progress for today as per surgery. Fax final urine culture results to PCP . Follow-up with PCP in one week .Thank you Dr. Mcdowell for allowing us to participate in the care of this pleasant young lady. The impression and plan of care has been dictated as directed. : I performed a history and examination of this patient, discussed the same with the dictator. I agree with the dictator's note ,documented as a scribe. Any additional findings or plans will be noted.
== END 2019-06-07 13:17 | disposition home or self-care (01) | DRG 621 ==
LOC: 2ORMAIN 09:29 → 4SSUR 15:51
PROVIDERS: ADMIT Surgery; ATTEND Surgery
PROC: 0DB64Z3 Excision of Stomach, Percutaneous Endoscopic Approach, Vertical (ICD-10-PCS; principal; 2019-06-05 11:40)
DX: E66.01 Morbid (severe) obesity due to excess calories (principal); Z68.37 Body mass index [BMI] 37.0-37.9, adult; E11.9 Type 2 diabetes mellitus without complications; E78.5 Hyperlipidemia, unspecified; R32 Unspecified urinary incontinence; R33.9 Retention of urine, unspecified; K66.0 Peritoneal adhesions (postprocedural) (postinfection); F32.9 Major depressive disorder, single episode, unspecified; F41.9 Anxiety disorder, unspecified; M79.7 Fibromyalgia; G43.909 Migraine, unspecified, not intractable, without status migrainosus; K21.9 Gastro-esophageal reflux disease without esophagitis; M25.551 Pain in right hip; M25.552 Pain in left hip; G47.30 Sleep apnea, unspecified; Z79.84 Long term (current) use of oral hypoglycemic drugs; Z79.899 Other long term (current) drug therapy; Z85.41 Personal history of malignant neoplasm of cervix uteri; Z90.710 Acquired absence of both cervix and uterus; Z90.49 Acquired absence of other specified parts of digestive tract; Z98.51 Tubal ligation status; Z86.73 Personal history of transient ischemic attack (TIA), and cerebral infarction without residual deficits; Z87.19 Personal history of other diseases of the digestive system; Z87.01 Personal history of pneumonia (recurrent); Z82.49 Family history of ischemic heart disease and other diseases of the circulatory system; Z82.3 Family history of stroke; Z82.69 Family history of other diseases of the musculoskeletal system and connective tissue; Z80.8 Family history of malignant neoplasm of other organs or systems; Z82.0 Family history of epilepsy and other diseases of the nervous system
CPT/HCPCS: 71046; 74240; 80051; 81003; 82310; 82565; 83735; 84100; 84520; 85025; 88307; 94640; 94760; 94762

== ENCOUNTER → 2019-06-11 | Outpatient (CLI) | payer OTHER ==
[2019-06-11 13:57] VITALS: BP 126/85; PULSE 77; RESP 16; TEMP 97.9; BMI 35.6
--- NOTE | 2019-06-11 15:57 | P.HPBAR ---
Bariatric H&P - History & Physicial H&P Date: 06/11/19 History & Physicial: Visit/CC: POST SURG Patient initial contact: Initial weight: 90.718 kg Initial weight in pounds: 200.00 Height: 5 ft 2 in Initial BMI: 36.6 Last weight: Current weight: 88.451 kg Current weight in pounds: 195.00 Current BMI: 35.6 [place] body weight (based on NIH guidelines): 49.895 kg Excess body weight loss: 5.5% The patient is a 48 year-old F who presents for Bariatric Assessment. Patient status post sleeve gastrectomy. He is doing quite well. She has no complaints. She's had some minimal incisional pain and GERD. Past Medical History Past Medical History: Cancer, CVA/TIA, Diabetes Mellitus, Fibromyalgia, GERD/Reflux, Hyperlipidemia, Pneumonia, Thyroid Disorder Additional Past Medical History / Comment(s): Recent sinus infection, finishing antibiotic today. 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 Current bladder incontinence and difficulty fully empyting bladder. CERVICAL CA (1996), HX OF DIVERTICULITIS, OCCASIONAL DIARRHEA AND HEARTBURN, PT STATES UNSURE OF THYROID DISORDER. Back, neck, shoulder and bilateral hip pain. Hx Pneumonia in 1999. Thinks she has sleep anea but has had no testing done. History of Any Multi-Drug Resistant Organisms: None Reported Past Surgical History: Bariatric Surgery, Section, Cholecystectomy, Hysterectomy, Tubal Ligation, Uterine Ablation Additional Past Surgical History / Comment(s): LAP BAND 2000 & REMOVED 2001., gastric sleeve 06/05/2019 Past Anesthesia/Blood Transfusion Reactions: Motion Sickness Past Psychological History: Anxiety, Depression Smoking Status: Never smoker Past Alcohol Use History: Rare Past Drug Use History: None Reported - Past Family History Father Family Medical History: Cancer, Coronary Artery Disease (CAD), CVA/TIA, Myocardial Infarction ([place]) Additional Family Medical History / Comment(s): Bone ca Mother Family Medical History: Coronary Artery Disease (CAD), CVA/TIA, Hypertension Sister(s) Family Medical History: Fibromyalgia Additional Family Medical History / Comment(s): MS Surgical - Exam Vital Signs Temp Pulse Resp BP 97.9 F 77 16 126/85 06/11/19 13:53 06/11/19 13:53 06/11/19 13:53 06/11/19 13:53 - General well developed, well nourished, no distress - Abdomen Abdomen: soft, non tender Bariatric Assessment & Plan Plan: Status post sleeve gastrectomy. Patient still quite well. Her incision sites are clean and intact. She'll follow-up in 2 weeks. Bariatric Checklist Checklist: Plan: Checklist: EGD: 1. Hiatal hernia: 2. H. Pylori: HgbA1c: Vitamin D: Smoking: Never smoker Primary care physician referral: dr Bigg Benjamin Psychiatry clearance: Cardiology clearance: Sleep study: Diet journal: VTE risk score: VTE risk level: Rehab needs at discharge:
== END | disposition home or self-care (01) ==
LOC: BARWHC3 13:28
PROVIDERS: ATTEND Surgery
DX: Z48.815 Encounter for surgical aftercare following surgery on the digestive system (principal); E66.01 Morbid (severe) obesity due to excess calories; Z68.35 Body mass index [BMI] 35.0-35.9, adult; Z90.3 Acquired absence of stomach [part of]; Z98.84 Bariatric surgery status
CPT/HCPCS: 97803; G0463; 99211

== ENCOUNTER → 2019-06-13 | Outpatient (CLI) | payer OTHER ==
[2019-06-13] MEDS: SODIUM CHLORIDE 0.9% 1,000 ML IV SCH ×2 (10:55→12:05)
[2019-06-13 11:00] VITALS: BP 120/81; PULSE 80; RESP 16; TEMP 97.8
== END | disposition home or self-care (01) ==
LOC: PROCWHC3 10:35
PROVIDERS: ATTEND Surgery
DX: E86.0 Dehydration (principal)
CPT/HCPCS: 96360; 96361

== ENCOUNTER → 2019-06-20 | Outpatient (CLI) | payer OTHER ==
[2019-06-20 11:27] LABS: HCT 35.8 % (34.0-46.0); HGB 11.4 gm/dL (11.4-16.0); Hypochromasia Slight; MCH 25.9 pg (25.0-35.0); MCHC 31.8 g/dL (31.0-37.0); MCV 81.6 fL (80.0-100.0); Mean Platelet Volume 9.4; Platelet Count 306 k/uL (150-450); Poikilocytosis Slight; RBC 4.39 m/uL (3.80-5.40); RDW 15.6 % (11.5-15.5); WBC 8.2 k/uL (3.8-10.6)
[2019-06-20 12:40] LABS: Appearance,Urine Clear (Clear); Bilirubin,Urine Negative (Negative); Blood,Urine Negative (Negative); Color,Urine Yellow; Glucose,Urine (UA) Negative (Negative); Ketones,Urine Negative (Negative); Leukocyte Esterase,Urine Negative (Negative); Nitrite,Urine Negative (Negative); PH, Urine 6.5 (5.0-8.0); Protein,Urine Trace (Negative); Specific Gravity,Urine 1.034 (1.001-1.035)
[2019-06-20 17:06] LABS: Albumin 4.4 g/dL (3.80-4.90); Albumin/Globulin Ratio 1.91 (1.60-3.17); Anion Gap 8.7 mmol/L (4.00-12.00); BUN/Creat Ratio 22.5 Ratio (12.00-20.00); Calcium 9.6 mg/dL (8.7-10.3); Carbon Dioxide 29.3 mmol/L (21.6-31.8); Globulin 2.3 g/dL (1.6-3.3); Potassium 3.7 mmol/L (3.5-5.5); Total Bilirubin 0.4 mg/dL (0.3-1.2); Total Protein 6.7 g/dL (6.2-8.2)
== END ==
LOC: LABWHC1 10:30
PROVIDERS: ATTEND Surgery
DX: R82.90 Unspecified abnormal findings in urine (principal)
CPT/HCPCS: 36415; 80053; 81003; 85027

== ENCOUNTER → 2019-06-20 | Outpatient (CLI) | payer OTHER ==
[~2019-06-20] MED LIST changes: -DEXAMETHASONE SOD PHOSPHATE 10 MG/ML 1 ML VIAL IV ONE; -ENOXAPARIN 40 MG/0.4 ML SYRINGE SQ ONE; -LIDOCAINE 1% 20 ML VIAL (10MG/ML) FOR IV START INTRADERMA PRN; -MIDAZOLAM 2 MG/2 ML VIAL IV PRN; -SCOPOLAMINE 1.5MG/72HR PATCH TRANSDERM ONE; +SODIUM CHLORIDE 0.9% 1,000 ML IV ONE
[2019-06-20 11:58] VITALS: BP 111/58; PULSE 75; RESP 16; TEMP 97.7
== END | disposition home or self-care (01) ==
LOC: PROCWHC3 11:32
PROVIDERS: ATTEND Surgery
DX: E86.0 Dehydration (principal)
CPT/HCPCS: 96360

== ENCOUNTER → 2019-06-25 | Outpatient (CLI) | payer OTHER ==
[2019-06-25 15:07] VITALS: BP 119/83; PULSE 83; RESP 16; TEMP 97.8; BMI 34.4
--- NOTE | 2019-06-25 16:34 | P.HPBAR ---
Bariatric H&P - History & Physicial H&P Date: 06/25/19 History & Physicial: Visit/CC: Post surg Patient initial contact: Initial weight: 90.718 kg Initial weight in pounds: 200.00 Height: 5 ft 2 in Initial BMI: 36.6 Last weight: Current weight: 85.275 kg Current weight in pounds: 188.00 Current BMI: 34.4 [place] body weight (based on NIH guidelines): 49.895 kg Excess body weight loss: 13.3% The patient is a 48 year-old F who presents for Bariatric Assessment. Patient presents today for sleeve gastric a fall. She's had some minimal complaints of some vague abdominal pain and some minor GERD. Overall she feels well. Past Medical History Past Medical History: Cancer, CVA/TIA, Diabetes Mellitus, Fibromyalgia, GERD/Reflux, Hyperlipidemia, Pneumonia, Thyroid Disorder Additional Past Medical History / Comment(s): Recent sinus infection, finishing antibiotic today. 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 Current bladder incontinence and difficulty fully empyting bladder. CERVICAL CA (1996), HX OF DIVERTICULITIS, OCCASIONAL DIARRHEA AND HEARTBURN, PT STATES UNSURE OF THYROID DISORDER. Back, neck, shoulder and bilateral hip pain. Hx Pneumonia in 1999. Thinks she has sleep anea but has had no testing done. History of Any Multi-Drug Resistant Organisms: None Reported Past Surgical History: Bariatric Surgery, Section, Cholecystectomy, Hysterectomy, Tubal Ligation, Uterine Ablation Additional Past Surgical History / Comment(s): LAP BAND 2000 & REMOVED 2001., gastric sleeve 06/05/2019 Past Anesthesia/Blood Transfusion Reactions: Motion Sickness Past Psychological History: Anxiety, Depression Smoking Status: Never smoker Past Alcohol Use History: Rare Past Drug Use History: None Reported - Past Family History Father Family Medical History: Cancer, Coronary Artery Disease (CAD), CVA/TIA, Myocardial Infarction ([place]) Additional Family Medical History / Comment(s): Bone ca Mother Family Medical History: Coronary Artery Disease (CAD), CVA/TIA, Hypertension Sister(s) Family Medical History: Fibromyalgia Additional Family Medical History / Comment(s): MS Surgical - Exam Vital Signs Temp Pulse Resp BP 97.8 F 83 16 119/83 06/25/19 15:04 06/25/19 15:04 06/25/19 15:04 06/25/19 15:04 - General well developed, well nourished, no distress - Eyes PERRL - Abdomen Abdomen: soft, non tender Bariatric Assessment & Plan Plan: Status post sleeve gastrectomy. Patient's creatinine is minimal observed. She'll follow-up in 4 weeks. Bariatric Checklist Checklist: Plan: Checklist: EGD: 1. Hiatal hernia: 2. H. Pylori: HgbA1c: Vitamin D: Smoking: Never smoker Primary care physician referral: DR. MACIEL Psychiatry clearance: Cardiology clearance: Sleep study: Diet journal: VTE risk score: VTE risk level: Rehab needs at discharge:
== END | disposition home or self-care (01) ==
LOC: BARWHC3 14:01
PROVIDERS: ATTEND Surgery
DX: Z48.815 Encounter for surgical aftercare following surgery on the digestive system (principal); K21.9 Gastro-esophageal reflux disease without esophagitis; E66.01 Morbid (severe) obesity due to excess calories; Z68.34 Body mass index [BMI] 34.0-34.9, adult; Z98.84 Bariatric surgery status; Z98.51 Tubal ligation status; Z90.49 Acquired absence of other specified parts of digestive tract; Z90.710 Acquired absence of both cervix and uterus; Z98.890 Other specified postprocedural states
CPT/HCPCS: 97803; G0463; 99211

== ENCOUNTER → 2019-07-12 | Outpatient (CLI) | payer OTHER ==
--- NOTE | 2019-07-12 12:15 | SFUN ---
SLEEP CENTER FOLLOW UP NOTE DATE OF SERVICE: 07/12/2019 This 48-year-old lady has been followed in sleep center for treatment of obstructive sleep apnea-hypopnea syndrome. During the diagnostic sleep study, which was done on is 04/10/2019, it was documented severe sleep apnea with apnea-hypopnea index 32.5 and oxygen desaturation to 76.7%. Subsequently, patient had CPAP titration during titration her respiration fully normalized to apnea-hypopnea index of 0. The patient received his CPAP unit, started to use it, but with the CPAP she experiencing pressure in the sinuses. CPAP pressure is 9 and at that pressure apnea-hypopnea index was 0 during the titration. Patient lost by our reading 20 pounds and by patient information about 36 pounds since we did the sleep studies. According to patient in a few nights when she did not use her CPAP equipment, she slept well and did not snore. I checked his CPAP unit for the last month she used it every night 29 out of 30 nights for more than 4 hours with average usage is 6.8 hours. CPAP pressure is 9 cm of water. Leak is 14 L/minutes. Apnea-hypopnea index 0.9, which is absolutely normal. MEDICATIONS: Metformin, fluoxetine, ibuprofen, alprazolam, atorvastatin, Primidone, Gabapentin, acetaminophen. PHYSICAL EXAMINATION: During physical exam, the patient in no distress. VITAL SIGNS: BP 115/78, HR 82, RR 16, weight 184, temp 97.8, oxygen saturation at room air 96%. HEENT: PERRLA, EOMI. Oropharynx low position of soft palate, Mallampati 3. NECK: Supple, no JVD. Thyroid is not palpable. LUNGS: Clear to percussion and to auscultation. Good air exchange. No wheezing or rhonchi. HEART: S1, S2 regular. No murmurs, gallops, or rubs. ABDOMEN: Soft and nontender. Bowel sounds are present. No organomegaly appreciated. EXTREMITIES: No clubbing or cyanosis. 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 Cranial nerves 2 to 7 intact. There is no fasciculation or atrophy. noted. No focal deficits observed. IMPRESSION: 1. Severe obstructive sleep apnea-hypopnea syndrome by results of sleep study 3 months ago. The patient demonstrated good compliance with treatment. Respiration is normal on treatment with CPAP. She experiencing a feeling of pressure in her sinuses. 2. Patient lost about 30 pounds since the sleep study. Feels that she sleeps better after that even without machine. No snoring without machine according to patient presently. 3. Diabetes mellitus. 4. Back problems. 5. Hip problems. 6. History of anxiety. 7. Hyperlipidemia. 8. History of fibromyalgia. 9. Status post cholecystectomy. 10.Status post lap band surgery in 2000. 11.Gastric sleeve at the present time, which was done on June 05, 2019. 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 PLAN: 1. I will decrease pressure in CPAP unit down to 6 cm of water. 2. We will repeat polysomnogram for evaluation of patient's breathing during sleep at the present time after she lost weight. 3. Presently, patient should continue to use her CPAP equipment every night for the whole night. 4. Precautions related to driving. No driving if feeling any sleepiness. Patient is aware about civil and criminal liability for unsafe driving. 5. I discussed all the test issues with the patient because she is a high school professional. 6. Continue losing weight. 7. Follow-up visit after sleep study will be done to discuss results of the sleep study and also to check patient condition while she is on treatment with CPAP with decreased pressure and to check apnea-hypopnea index on that pressure. Thank you very much for allowing me to participate in management of your patient. Sincerely, Choco Sauceda MD, PhD, FAASM Diplomat of [place] [employer] [place] [employer] of [facility] [place] MMODL / FATOUN: [id number] /
== END ==
LOC: SLEEP 10:56
PROVIDERS: ATTEND Internal Medicine
DX: G47.33 Obstructive sleep apnea (adult) (pediatric) (principal); E11.9 Type 2 diabetes mellitus without complications; E78.5 Hyperlipidemia, unspecified; R29.898 Other symptoms and signs involving the musculoskeletal system; Z87.39 Personal history of other diseases of the musculoskeletal system and connective tissue; Z90.49 Acquired absence of other specified parts of digestive tract; Z86.59 Personal history of other mental and behavioral disorders; Z98.84 Bariatric surgery status; Z99.89 Dependence on other enabling machines and devices; Z79.899 Other long term (current) drug therapy; Z79.1 Long term (current) use of non-steroidal anti-inflammatories (NSAID); Z79.84 Long term (current) use of oral hypoglycemic drugs

== ENCOUNTER → 2019-07-23 | Outpatient (CLI) | payer OTHER ==
[2019-07-23 14:03] VITALS: BP 127/85; PULSE 91; TEMP 97.7; BMI 32.9
--- NOTE | 2019-07-23 17:11 | P.HPBAR ---
Bariatric H&P - History & Physicial H&P Date: 07/23/19 History & Physicial: Visit/CC: 6 week sleeve f/u Patient initial contact: Initial weight: 90.718 kg Initial weight in pounds: 200.00 Height: 5 ft 2 in Initial BMI: 36.6 Last weight: Current weight: 81.647 kg Current weight in pounds: 180.00 Current BMI: 32.9 [place] body weight (based on NIH guidelines): 49.895 kg Excess body weight loss: 22.2% The patient is a 48 year-old F who presents for Bariatric Assessment. Patient presents today for sleeve gastric follow-up. She's doing quite well. She's had some minimal GERD. She's had excellent weight loss. Past Medical History Past Medical History: Cancer, CVA/TIA, Diabetes Mellitus, Fibromyalgia, GERD/Reflux, Hyperlipidemia, Pneumonia, Thyroid Disorder Additional Past Medical History / Comment(s): Recent sinus infection, finishing antibiotic today. 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 Current bladder incontinence and difficulty fully empyting bladder. CERVICAL CA (1996), HX OF DIVERTICULITIS, OCCASIONAL DIARRHEA AND HEARTBURN, PT STATES UNSURE OF THYROID DISORDER. Back, neck, shoulder and bilateral hip pain. Hx Pneumonia in 1999. Thinks she has sleep anea but has had no testing done. History of Any Multi-Drug Resistant Organisms: None Reported Past Surgical History: Bariatric Surgery, Section, Cholecystectomy, Hysterectomy, Tubal Ligation, Uterine Ablation Additional Past Surgical History / Comment(s): LAP BAND 2000 & REMOVED 2001., gastric sleeve 06/05/2019 Past Anesthesia/Blood Transfusion Reactions: Motion Sickness Past Psychological History: Anxiety, Depression Smoking Status: Never smoker Past Alcohol Use History: Rare Past Drug Use History: None Reported - Past Family History Father Family Medical History: Cancer, Coronary Artery Disease (CAD), CVA/TIA, Myocardial Infarction ([place]) Additional Family Medical History / Comment(s): Bone ca Mother Family Medical History: Coronary Artery Disease (CAD), CVA/TIA, Hypertension Sister(s) Family Medical History: Fibromyalgia Additional Family Medical History / Comment(s): MS Surgical - Exam Vital Signs Temp Pulse BP 97.7 F 91 127/85 07/23/19 13:36 07/23/19 13:36 07/23/19 13:36 - General well developed, well nourished, no distress - Eyes PERRL - Abdomen Abdomen: soft, non tender Bariatric Assessment & Plan Plan: Status post sleeve gastrectomy. Patient is doing quite well. Her crit is minimal will be observed. She'll follow-up in weeks. Bariatric Checklist Checklist: Plan: Checklist: EGD: 1. Hiatal hernia: 2. H. Pylori: HgbA1c: Vitamin D: Smoking: Never smoker Primary care physician referral: DR. MACIEL Psychiatry clearance: Cardiology clearance: Sleep study: Diet journal: VTE risk score: VTE risk level: Rehab needs at discharge:
== END ==
LOC: BARWHC3 12:44
PROVIDERS: ATTEND Surgery
DX: Z48.815 Encounter for surgical aftercare following surgery on the digestive system (principal); K21.9 Gastro-esophageal reflux disease without esophagitis; Z98.84 Bariatric surgery status; Z90.49 Acquired absence of other specified parts of digestive tract
CPT/HCPCS: 99211

== ENCOUNTER → 2019-08-20 | Outpatient (CLI) | payer OTHER ==
[2019-08-20 14:48] VITALS: BMI 32.3
[2019-08-20 14:52] VITALS: BP 116/75; TEMP 97.7
--- NOTE | 2019-08-20 15:51 | P.HPBAR ---
Bariatric H&P - History & Physicial H&P Date: 08/20/19 History & Physicial: Visit/CC: sleeve follow up Patient initial contact: Initial weight: 90.718 kg Initial weight in pounds: 200.00 Height: 5 ft 2 in Initial BMI: 36.6 Last weight: Current weight: 80.286 kg Current weight in pounds: 177.00 Current BMI: 32.3 [place] body weight (based on NIH guidelines): 49.895 kg Excess body weight loss: 25.5% The patient is a 48 year-old F who presents for Bariatric Assessment. Patient presents today for sleeve gastrectomy fall. She is less 3 pounds her last visit. She has minimal GERD. She denies any significant dysphagia. Past Medical History Past Medical History: Cancer, CVA/TIA, Diabetes Mellitus, Fibromyalgia, GERD/Reflux, Hyperlipidemia, Pneumonia, Thyroid Disorder Additional Past Medical History / Comment(s): Recent sinus infection, finishing antibiotic today. 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 Current bladder incontinence and difficulty fully empyting bladder. CERVICAL CA (1996), HX OF DIVERTICULITIS, OCCASIONAL DIARRHEA AND HEARTBURN, PT STATES UNSURE OF THYROID DISORDER. Back, neck, shoulder and bilateral hip pain. Hx Pneumonia in 1999. Thinks she has sleep anea but has had no testing done. History of Any Multi-Drug Resistant Organisms: None Reported Past Surgical History: Bariatric Surgery, Section, Cholecystectomy, Hysterectomy, Tubal Ligation, Uterine Ablation Additional Past Surgical History / Comment(s): LAP BAND 2000 & REMOVED 2001., gastric sleeve 06/05/2019 Past Anesthesia/Blood Transfusion Reactions: Motion Sickness Past Psychological History: Anxiety, Depression Smoking Status: Never smoker Past Alcohol Use History: Rare Past Drug Use History: None Reported - Past Family History Father Family Medical History: Cancer, Coronary Artery Disease (CAD), CVA/TIA, Myocardial Infarction ([place]) Additional Family Medical History / Comment(s): Bone ca Mother Family Medical History: Coronary Artery Disease (CAD), CVA/TIA, Hypertension Sister(s) Family Medical History: Fibromyalgia Additional Family Medical History / Comment(s): MS Surgical - Exam Vital Signs Temp BP 97.7 F 116/75 08/20/19 14:47 08/20/19 14:47 - General well developed, well nourished, no distress - Eyes PERRL - Abdomen Abdomen: soft, non tender Bariatric Assessment & Plan Plan: Status post sleeve gastrectomy. Patient is doing quite well. She'll follow-up in 4 weeks. Her GERD is minimal only observed. Bariatric Checklist Checklist: Plan: Checklist: EGD: 1. Hiatal hernia: 2. H. Pylori: HgbA1c: Vitamin D: Smoking: Never smoker Primary care physician referral: DR. MACIEL Psychiatry clearance: Cardiology clearance: Sleep study: Diet journal: VTE risk score: VTE risk level: Rehab needs at discharge:
== END | disposition home or self-care (01) ==
LOC: BARWHC3 12:41
PROVIDERS: ATTEND Surgery
DX: Z48.815 Encounter for surgical aftercare following surgery on the digestive system (principal); E66.01 Morbid (severe) obesity due to excess calories; K21.9 Gastro-esophageal reflux disease without esophagitis; Z68.32 Body mass index [BMI] 32.0-32.9, adult; Z98.84 Bariatric surgery status; Z90.49 Acquired absence of other specified parts of digestive tract; Z98.51 Tubal ligation status; Z90.710 Acquired absence of both cervix and uterus; Z98.890 Other specified postprocedural states
CPT/HCPCS: 97803; G0463; 99211

== ENCOUNTER → 2019-09-17 | Outpatient (CLI) | payer OTHER ==
[2019-09-17 13:13] VITALS: BP 116/59; PULSE 77; TEMP 98.2; BMI 31.4
--- NOTE | 2019-11-04 13:00 | P.HPBAR ---
Bariatric H&P - History & Physicial H&P Date: 09/17/19 History & Physicial: Visit/CC: four month follow up Patient initial contact: Initial weight: 90.718 kg Initial weight in pounds: 200.00 Height: 5 ft 2 in Initial BMI: 36.6 Last weight: Current weight: 78.018 kg Current weight in pounds: 172.00 Current BMI: 31.4 [place] body weight (based on NIH guidelines): 49.895 kg Excess body weight loss: 31.1% The patient is a 49 year-old F who presents for Bariatric Assessment. Patient presents today for sleeve gastric and follow-up. She is doing quite well. Her weight loss and excellent. She has some mild points of GERD. Past Medical History Past Medical History: Cancer, CVA/TIA, Diabetes Mellitus, Fibromyalgia, GERD/Reflux, Hyperlipidemia, Pneumonia, Thyroid Disorder Additional Past Medical History / Comment(s): Recent sinus infection, finishing antibiotic today. 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 Current bladder incontinence and difficulty fully empyting bladder. CERVICAL CA (1996), HX OF DIVERTICULITIS, OCCASIONAL DIARRHEA AND HEARTBURN, PT STATES UNSURE OF THYROID DISORDER. Back, neck, shoulder and bilateral hip pain. Hx Pneumonia in 1999. Thinks she has sleep anea but has had no testing done. History of Any Multi-Drug Resistant Organisms: None Reported Past Surgical History: Bariatric Surgery, Section, Cholecystectomy, Hysterectomy, Tubal Ligation, Uterine Ablation Additional Past Surgical History / Comment(s): LAP BAND 2000 & REMOVED 2001., gastric sleeve 06/05/2019 Past Anesthesia/Blood Transfusion Reactions: Motion Sickness Past Psychological History: Anxiety, Depression Smoking Status: Never smoker Past Alcohol Use History: Rare Past Drug Use History: None Reported - Past Family History Father Family Medical History: Cancer, Coronary Artery Disease (CAD), CVA/TIA, Myocardial Infarction ([place]) Additional Family Medical History / Comment(s): Bone ca Mother Family Medical History: Coronary Artery Disease (CAD), CVA/TIA, Hypertension Sister(s) Family Medical History: Fibromyalgia Additional Family Medical History / Comment(s): MS Surgical - Exam Vital Signs Temp Pulse BP 98.2 F 77 116/59 09/17/19 13:03 09/17/19 13:03 09/17/19 13:03 - General well developed, well nourished, no distress - Eyes PERRL - Abdomen Abdomen: soft, non tender Bariatric Assessment & Plan Plan: Status post sleeve itching. Patient's girth is minimal old observed. She'll follow-up in 4 weeks. Bariatric Checklist Checklist: Plan: Checklist: EGD: 1. Hiatal hernia: 2. H. Pylori: HgbA1c: Vitamin D: Smoking: Never smoker Primary care physician referral: DR. MACIEL Psychiatry clearance: Cardiology clearance: Sleep study: Diet journal: VTE risk score: VTE risk level: Rehab needs at discharge:
== END | disposition home or self-care (01) ==
LOC: BARWHC3 12:37
PROVIDERS: ATTEND Surgery
DX: Z48.815 Encounter for surgical aftercare following surgery on the digestive system (principal); K95.89 Other complications of other bariatric procedure; L29.8 Other pruritus; Z98.84 Bariatric surgery status; Z90.49 Acquired absence of other specified parts of digestive tract
CPT/HCPCS: 99211

== ENCOUNTER → 2019-10-04 | Outpatient (CLI) | payer OTHER ==
--- NOTE | 2019-10-04 11:36 | SFUN ---
SLEEP CENTER FOLLOW UP NOTE DATE OF SERVICE: 10/04/2019 A 49-year-old lady who had been followed in sleep center for treatment of obstructive sleep apnea-hypopnea syndrome. Recently, we repeated polysomnogram for re-evaluation of patient's breathing during the sleep because she lost around 20 pounds of weight. Previously, patient had severe sleep apnea with apnea-hypopnea index around 32. During recent test, apnea-hypopnea index decreased to 13.6 with oxygen desaturation to 80.9%, and total oxygen level was below normal for 1.6 minutes. Patient continued to use her CPAP equipment every night for the whole night and the test was done without any stop using CPAP equipment. [place] Sleepiness Scale today is 3. Patient continued to use her CPAP equipment every night. Patient is 49-year-old, had history of partial hysterectomy, presently has episodes of hot flashes. MEDICATIONS: Metformin, fluoxetine, ibuprofen, alprazolam, atorvastatin, primidone, gabapentin acetaminophen. PHYSICAL EXAMINATION: During physical exam, patient in no distress. VITAL SIGNS: BP 117/77, HR 65, RR 16, weight 171.6, which is 13 pounds less than during the previous visit, temperature 97.8, oxygen saturation on room air 98%. HEENT: PERRLA, EOMI. The oropharynx low position of soft palate, Mallampati 3-4. NECK: Supple, no JVD. Thyroid is not palpable. LUNGS: Clear to percussion and to auscultation. Good air exchange. No wheezing or rhonchi. HEART: S1, S2 regular. No murmurs, gallops, or rubs. ABDOMEN: Soft and nontender. Bowel sounds are present. No organomegaly appreciated. EXTREMITIES: No clubbing or cyanosis. NECK SKEWER: Awake, alert, and oriented X3. Cranial nerves 2 to 7 intact. There is no fasciculation or atrophy. noted. No focal deficits observed. IMPRESSION: 1. Obstructive sleep apnea-hypopnea syndrome. Patient continued to use CPAP equipment, benefitting from treatment. 2. Diabetes mellitus. 3. Back problems. 4. Hip problems. 5. History of anxiety. 6. Hyperlipidemia. 7. History of fibromyalgia. 8. Status post cholecystectomy. 9. Status post lap band surgery in 2000. 10.Gastric sleeve at the present time. 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 PLAN: 1. Patient will continue to use CPAP equipment every night for the whole night. 2. Patient probably in perimenopause now menopause may increase the risk of obstructive sleep apnea for females. 3. Test was done without any an interruption of using CPAP equipment, which also may be the reason for some under estimation of abnormalities of respiration. 4. Precautions related to driving. No driving if feeling any sleepiness. Patient is aware about civil and criminal liability for unsafe driving. 5. I will maintain prescriptions for all necessary CPAP supplies including mask, tube, filters. Thank you very much for allowing me to participate in management of your patient. Sincerely, Choco Sauceda MD, PhD, FAASM Diplomat of [place] [employer] [place] [employer] Liner of [facility] [place] MMODL / FATOUN: [id number] /
== END | disposition home or self-care (01) ==
LOC: SLEEP 10:03
PROVIDERS: ATTEND Internal Medicine
DX: G47.33 Obstructive sleep apnea (adult) (pediatric) (principal); E11.9 Type 2 diabetes mellitus without complications; M53.9 Dorsopathy, unspecified; M25.859 Other specified joint disorders, unspecified hip; M25.9 Joint disorder, unspecified; E78.5 Hyperlipidemia, unspecified; Z90.49 Acquired absence of other specified parts of digestive tract; Z99.89 Dependence on other enabling machines and devices; Z86.59 Personal history of other mental and behavioral disorders; Z87.39 Personal history of other diseases of the musculoskeletal system and connective tissue; Z98.84 Bariatric surgery status

== ENCOUNTER → 2019-11-26 | Outpatient (CLI) | payer OTHER ==
[2019-11-26 13:18] VITALS: BP 121/69; PULSE 67; RESP 16; TEMP 97.4; BMI 29.8
--- NOTE | 2019-12-03 15:54 | P.HPBAR ---
Bariatric H&P - History & Physicial H&P Date: 11/26/19 History & Physicial: Visit/CC: f/u Patient initial contact: Initial weight: 90.718 kg Initial weight in pounds: 200.00 Height: 5 ft 2 in Initial BMI: 36.6 Last weight: Current weight: 73.936 kg Current weight in pounds: 163.00 Current BMI: 29.8 [place] body weight (based on NIH guidelines): 49.895 kg Excess body weight loss: 41.1% The patient is a 49 year-old F who presents for Bariatric Assessment. Patient presents today for sleeve gastrectomy follow-up. She is doing quite well. She's had no complaints. She's had some mild GERD. Past Medical History Past Medical History: Cancer, CVA/TIA, Diabetes Mellitus, Fibromyalgia, GERD/Reflux, Hyperlipidemia, Pneumonia, Thyroid Disorder Additional Past Medical History / Comment(s): Recent sinus infection, finishing antibiotic today. 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 Current bladder incontinence and difficulty fully empyting bladder. CERVICAL CA (1996), HX OF DIVERTICULITIS, OCCASIONAL DIARRHEA AND HEARTBURN, PT STATES UNSURE OF THYROID DISORDER. Back, neck, shoulder and bilateral hip pain. Hx Pneumonia in 1999. Thinks she has sleep anea but has had no testing done. History of Any Multi-Drug Resistant Organisms: None Reported Past Surgical History: Bariatric Surgery, Section, Cholecystectomy, Hysterectomy, Tubal Ligation, Uterine Ablation Additional Past Surgical History / Comment(s): LAP BAND 2000 & REMOVED 2001., gastric sleeve 06/05/2019 Past Anesthesia/Blood Transfusion Reactions: Motion Sickness Past Psychological History: Anxiety, Depression Smoking Status: Never smoker Past Alcohol Use History: Rare Past Drug Use History: None Reported - Past Family History Father Family Medical History: Cancer, Coronary Artery Disease (CAD), CVA/TIA, Myocardial Infarction ([place]) Additional Family Medical History / Comment(s): Bone ca Mother Family Medical History: Coronary Artery Disease (CAD), CVA/TIA, Hypertension Sister(s) Family Medical History: Fibromyalgia Additional Family Medical History / Comment(s): MS Surgical - Exam Vital Signs Temp Pulse Resp BP 97.4 F L 67 16 121/69 11/26/19 13:16 11/26/19 13:16 11/26/19 13:16 11/26/19 13:16 - General well developed, well nourished, no distress - Eyes PERRL - ENT normal pinna - Neck no masses - Respiratory normal expansion - Cardiovascular Rhythm: regular - Abdomen Abdomen: soft, non tender Bariatric Assessment & Plan Plan: Status post sleeve gastrectomy. Patient still quite well. She'll follow-up in 4 weeks. Bariatric Checklist Checklist: Plan: Checklist: EGD: 1. Hiatal hernia: 2. H. Pylori: HgbA1c: Vitamin D: Smoking: Never smoker Primary care physician referral: DR. MACIEL Psychiatry clearance: Cardiology clearance: Sleep study: Diet journal: VTE risk score: VTE risk level: Rehab needs at discharge:
== END | disposition home or self-care (01) ==
LOC: BARWHC3 12:43
PROVIDERS: ATTEND Surgery
DX: Z48.815 Encounter for surgical aftercare following surgery on the digestive system (principal); Z98.84 Bariatric surgery status; Z90.49 Acquired absence of other specified parts of digestive tract
CPT/HCPCS: 99211

== ENCOUNTER 2019-12-20 10:12 | Emergency (ER) | payer OTHER ==
[2019-12-20 10:17] VITALS: RESP 16; TEMP 97.8
[2019-12-20] MEDS ORDERED: KETOROLAC 30 MG/ML 1 ML VIAL IVP STA (11:01)
--- NOTE | 2019-12-20 11:09 | XR ---
EXAMINATION TYPE: XR chest 2V DATE OF EXAM: 12/20/2019 COMPARISON: 06/07/2019 TECHNIQUE: PA and lateral views submitted. HISTORY: Chest pain FINDINGS: The lungs are clear and there is no pneumothorax, pleural effusion, or focal pneumonia. Heart size within normal limits. No overt failure. Arthropathy of the shoulders. Surgical clips in the abdomen. Degenerative change of the spine. IMPRESSION: 1. No acute process.
[2019-12-20 11:12] LABS: Basophils % (A) 0 %; Eosinophils # (A) 0.1 k/uL (0-0.7); Eosinophils % (A) 2 %; HCT 37.1 % (34.0-46.0); HGB 12.2 gm/dL (11.4-16.0); Lymphocytes # (A) 2.2 k/uL (1.0-4.8); Lymphocytes % (A) 41 %; MCH 27.8 pg (25.0-35.0); MCHC 32.8 g/dL (31.0-37.0); MCV 84.9 fL (80.0-100.0); Mean Platelet Volume 9.5; Monocytes # (A) 0.3 k/uL (0-1.0); Monocytes % (A) 6 %; Neutrophils # (A) 2.6 k/uL (1.3-7.7); Neutrophils % (A) 49 %; Platelet Count 142 k/uL (150-450); RBC 4.37 m/uL (3.80-5.40); RDW 14.7 % (11.5-15.5); WBC 5.3 k/uL (3.8-10.6)
[2019-12-20 11:15] LABS: ALT 30 U/L (4-34); AST 35 U/L (14-36); African American GFR (CKD) >90 (>60 ml/min/1.73 sqM); Albumin 3.4 g/dL (3.5-5.0); Alkaline Phosphatase 69 U/L (38-126); Anion Gap 7 mmol/L; Blood Urea Nitrogen 15 mg/dL (7-17); Calcium 8.8 mg/dL (8.4-10.2); Carbon Dioxide 25 mmol/L (22-30); Chloride 107 mmol/L (98-107); Creatine Kinase 126 U/L (30-135); Glucose 166 mg/dL (74-99); Magnesium 1.8 mg/dL (1.6-2.3); Non-African American GFR(CKD) >90 (>60 ml/min/1.73 sqM); Potassium 3.8 mmol/L (3.5-5.1); Sodium 139 mmol/L (137-145); Total Bilirubin 0.2 mg/dL (0.2-1.3); Total Protein 5.7 g/dL (6.3-8.2)
[2019-12-20 11:25] LABS: Partial Thromboplastin Time 23.3 sec (22.0-30.0); Prothrombin Time 10.5 sec (9.0-12.0)
[2019-12-20 11:49] LABS: Anisocytosis (M) Present
--- NOTE | 2019-12-20 12:00 | ED ---
Chest Pain HPI - General Chief Complaint: Chest Pain Stated Complaint: chest pain Time Seen by Provider: 12/20/19 10:30 Source: patient, RN notes reviewed Mode of arrival: ambulatory Limitations: no limitations - History of Present Illness Initial Comments: This is a 49-year-old female who states she has chest pain mostly in the right side sharp in nature started this morning she states been somewhat dull for last week week and a half but he got sharp this morning very severe. Increases with movement is deep breathing. Not associated with any shortness breath fevers chills nausea vomiting sweats she has had a history of TIA in the past with no residual no known history of heart or lung disease. 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 She is not recall any particular incident. MD Complaint: chest pain - Related Data Home Medications Medication Instructions Recorded Confirmed ALPRAZolam [Xanax] 0.5 - 1 mg PO HS 02/18/17 11/26/19 Gabapentin [Neurontin] 300 mg PO HS 01/19/18 11/26/19 Calcium Citrate 400 mg PO TID 08/21/19 11/26/19 Multivitamins, Thera [Multivitamin 1 tab PO DAILY 08/21/19 11/26/19 (formulary)] FLUoxetine HCL [PROzac] 20 mg PO DAILY 11/26/19 11/26/19 Previous Rx's Medication Instructions Recorded Omeprazole 40 mg PO DAILY #30 cap 06/07/19 Allergies Allergy/AdvReac Type Severity Reaction Status Date / Time No Known Allergies Allergy Verified 12/20/19 10:17 Review of Systems ROS Statement: Those systems with pertinent positive or pertinent negative responses have been documented in the HPI. ROS Other: All systems not noted in ROS Statement are negative. EKG Findings - EKG Results: EKG: interpreted by ERMD, WNL, sinus rhythm, normal axis, normal QRS, normal ST/T, no acute changes (Normal sinus rhythm of 70 ID interval 146 QRS duration 78 QT since QTC 460/[address]-T wave changes) Past Medical History Past Medical History: Cancer, CVA/TIA, Diabetes Mellitus, Fibromyalgia, GERD/Reflux, Hyperlipidemia, Pneumonia, Thyroid Disorder Additional Past Medical History / Comment(s): Recent sinus infection, finishing antibiotic today. 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 Current bladder incontinence and difficulty fully empyting bladder. CERVICAL CA (1996), HX OF DIVERTICULITIS, OCCASIONAL DIARRHEA AND HEARTBURN, PT STATES UNSURE OF THYROID DISORDER. Back, neck, shoulder and bilateral hip pain. Hx Pneumonia in 1999. Thinks she has sleep anea but has had no testing done. History of Any Multi-Drug Resistant Organisms: None Reported Past Surgical History: Bariatric Surgery, Section, Cholecystectomy, Hysterectomy, Tubal Ligation, Uterine Ablation Additional Past Surgical History / Comment(s): LAP BAND 2000 & REMOVED 2001., gastric sleeve 06/05/2019 Past Anesthesia/Blood Transfusion Reactions: Motion Sickness Past Psychological History: Anxiety, Depression Smoking Status: Never smoker Past Alcohol Use History: Rare Past Drug Use History: None Reported - Past Family History Father Family Medical History: Cancer, Coronary Artery Disease (CAD), CVA/TIA, Myocardial Infarction ([place]) Additional Family Medical History / Comment(s): Bone ca Mother Family Medical History: Coronary Artery Disease (CAD), CVA/TIA, Hypertension Sister(s) Family Medical History: Fibromyalgia Additional Family Medical History / Comment(s): MS General Exam - General Exam Comments Initial Comments: This is a well-developed well-nourished awake alert oriented 3 female Limitations: no limitations General appearance: alert, in no apparent distress Head exam: Present: atraumatic, normocephalic, normal inspection Eye exam: Present: normal appearance, PERRL, EOMI. Absent: scleral icterus, conjunctival injection, periorbital swelling ENT exam: Present: normal exam, mucous membranes moist Neck exam: Present: normal inspection, full ROM, other (No stridor JVD or bruits). Absent: tenderness, meningismus, lymphadenopathy Respiratory exam: Present: normal lung sounds bilaterally, chest wall tenderness (Reviews full tenderness palpation on the right costal chondral and costosternal margins. No step-off or crepitation this does reproduce the pain on palpation). Absent: respiratory distress, wheezes, rales, rhonchi, stridor Cardiovascular Exam: Present: regular rate, normal rhythm, normal heart sounds. Absent: systolic murmur, diastolic murmur, rubs, gallop, clicks GI/Abdominal exam: Present: soft, normal bowel sounds. Absent: distended, tenderness, guarding, rebound, rigid Extremities exam: Present: normal inspection, full ROM, normal capillary refill. Absent: tenderness, pedal edema, joint swelling, calf tenderness Back exam: Present: normal inspection Neurological exam: Present: alert, oriented X3, CN II-XII intact Psychiatric exam: Present: normal affect, normal mood Skin exam: Present: warm, dry, intact, normal color. 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 Patient is feeling improved after the medication was given. The presentation is consistent with costochondritis/chest wall pain I did a long discussion with her and her family member was present. Patient be discharged she does use ibuprofen at home already continue with this and apply warm compresses as needed she is to follow- up with her doctor and return when necessary Disposition Clinical Impression: Costochondritis, Chest wall syndrome Disposition: HOME SELF-CARE Condition: Good Instructions (If sedation given, give patient instructions): Costochondritis (ED) Is patient prescribed a controlled substance at d/c from ED?: No Referrals: Bigg Benjamin DO [Primary Care Provider] - 1-2 days
[2019-12-20 12:28] VITALS: BP 125/78; PULSE 63
== END 2019-12-20 12:38 | disposition home or self-care (01) ==
LOC: EC 10:12
DX: M94.0 Chondrocostal junction syndrome [Tietze] (principal); F41.9 Anxiety disorder, unspecified; F32.9 Major depressive disorder, single episode, unspecified; E11.9 Type 2 diabetes mellitus without complications; M79.7 Fibromyalgia; Z79.899 Other long term (current) drug therapy; Z85.41 Personal history of malignant neoplasm of cervix uteri; Z86.73 Personal history of transient ischemic attack (TIA), and cerebral infarction without residual deficits; Z82.49 Family history of ischemic heart disease and other diseases of the circulatory system
CPT/HCPCS: 36415; 93005; 80053; 82550; 83690; 83735; 84484; 85025; 85610; 85730; 71046; 99284; 96374; J1885

== ENCOUNTER → 2019-12-24 | Outpatient (CLI) | payer OTHER ==
[2019-12-24 15:54] VITALS: BP 121/69; PULSE 67; RESP 16; TEMP 97.4; BMI 30.2
--- NOTE | 2019-12-25 12:48 | P.HPBAR ---
Bariatric H&P - History & Physicial H&P Date: 12/24/19 History & Physicial: Visit/CC: sleeve f/u Patient initial contact: Initial weight: 90.718 kg Initial weight in pounds: 200.00 Height: 5 ft 2 in Initial BMI: 36.6 Last weight: Current weight: 74.843 kg Current weight in pounds: 165.00 Current BMI: 30.2 [place] body weight (based on NIH guidelines): 49.895 kg Excess body weight loss: 38.8% The patient is a 49 year-old F who presents for Bariatric Assessment. Patient resents today for sleeve yesterday follow-up. She's had some elements of GERD. She denies any dysphagia. She has she had a weight gain. Past Medical History Past Medical History: Cancer, CVA/TIA, Diabetes Mellitus, Fibromyalgia, GERD/Reflux, Hyperlipidemia, Pneumonia, Thyroid Disorder Additional Past Medical History / Comment(s): Recent sinus infection, finishing antibiotic today. 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 Current bladder incontinence and difficulty fully empyting bladder. CERVICAL CA (1996), HX OF DIVERTICULITIS, OCCASIONAL DIARRHEA AND HEARTBURN, PT STATES UNSURE OF THYROID DISORDER. Back, neck, shoulder and bilateral hip pain. Hx Pneumonia in 1999. Thinks she has sleep anea but has had no testing done. History of Any Multi-Drug Resistant Organisms: None Reported Past Surgical History: Bariatric Surgery, Section, Cholecystectomy, Hysterectomy, Tubal Ligation, Uterine Ablation Additional Past Surgical History / Comment(s): LAP BAND 2000 & REMOVED 2001., gastric sleeve 06/05/2019 Past Anesthesia/Blood Transfusion Reactions: Motion Sickness Past Psychological History: Anxiety, Depression Smoking Status: Never smoker Past Alcohol Use History: Rare Past Drug Use History: None Reported - Past Family History Father Family Medical History: Cancer, Coronary Artery Disease (CAD), CVA/TIA, Myocardial Infarction ([place]) Additional Family Medical History / Comment(s): Bone ca Mother Family Medical History: Coronary Artery Disease (CAD), CVA/TIA, Hypertension Sister(s) Family Medical History: Fibromyalgia Additional Family Medical History / Comment(s): MS Surgical - Exam Vital Signs Temp Pulse Resp BP 97.4 F L 67 16 121/69 12/24/19 15:51 12/24/19 15:51 12/24/19 15:51 12/24/19 15:51 - General well developed, well nourished - Eyes PERRL - Abdomen Abdomen: soft, non tender Bariatric Assessment & Plan Plan: Resolving morbid obesity. Her BMI is 30. Patient is minimal WAS repaired she'll follow-up in 4 weeks. Bariatric Checklist Checklist: Plan: Checklist: EGD: 1. Hiatal hernia: 2. H. Pylori: HgbA1c: Vitamin D: Smoking: Never smoker Primary care physician referral: DR. MACIEL Psychiatry clearance: Cardiology clearance: Sleep study: Diet journal: VTE risk score: VTE risk level: Rehab needs at discharge:
== END | disposition home or self-care (01) ==
LOC: BARWHC3 12:57
PROVIDERS: ATTEND Surgery
DX: Z48.815 Encounter for surgical aftercare following surgery on the digestive system (principal); Z98.84 Bariatric surgery status
CPT/HCPCS: 99211

== ENCOUNTER → 2020-03-03 | Outpatient (CLI) | payer OTHER ==
[2020-03-03 14:12] VITALS: BP 108/79; PULSE 79; TEMP 98.1; BMI 29.4
--- NOTE | 2020-03-03 14:21 | P.HPBAR ---
Bariatric H&P - History & Physicial H&P Date: 03/03/20 History & Physicial: Visit/CC: nine month follow up Patient initial contact: Initial weight: 90.718 kg Initial weight in pounds: 200.00 Height: 5 ft 2 in Initial BMI: 36.6 Last weight: Current weight: 73.028 kg Current weight in pounds: 161.00 Current BMI: 29.4 [place] body weight (based on NIH guidelines): 49.895 kg Excess body weight loss: 43.3% The patient is a 49 year-old F who presents for Bariatric Assessment. Patient presents today for sleeve gastrectomy fall. She has complaints of left lower quadrant pain. She's had some minimal GERD. She states her pain has been left lower quadrant approximately 1 week. He reminds her of her diverticulitis. Past Medical History Past Medical History: Cancer, CVA/TIA, Diabetes Mellitus, Fibromyalgia, GERD/Reflux, Hyperlipidemia, Pneumonia, Thyroid Disorder Additional Past Medical History / Comment(s): Recent sinus infection, finishing antibiotic today. 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 Current bladder in continence and difficulty fully empyting bladder. CERVICAL CA (1996), HX OF DIVERTICULITIS, OCCASIONAL DIARRHEA AND HEARTBURN, PT STATES UNSURE OF THYROID DISORDER. Back, neck, shoulder and bilateral hip pain. Hx Pneumonia in 1999. Thinks she has sleep anea but has had no testing done. History of Any Multi-Drug Resistant Organisms: None Reported Past Surgical History: Bariatric Surgery, Section, Cholecystectomy, Hysterectomy, Tubal Ligation, Uterine Ablation Additional Past Surgical History / Comment(s): LAP BAND 2000 & REMOVED 2001., gastric sleeve 06/05/2019 Past Anesthesia/Blood Transfusion Reactions: Motion Sickness Smoking Status: Never smoker - Past Family History Father Family Medical History: Cancer, Coronary Artery Disease (CAD), CVA/TIA, Myocardial Infarction ([place]) Additional Family Medical History / Comment(s): Bone ca Mother Family Medical History: Coronary Artery Disease (CAD), CVA/TIA, Hypertension Sister(s) Family Medical History: Fibromyalgia Additional Family Medical History / Comment(s): MS Surgical - Exam Vital Signs Temp Pulse BP 98.1 F 79 108/79 03/03/20 14:09 03/03/20 14:09 03/03/20 14:09 - General well developed, well nourished, no distress - Eyes PERRL - ENT normal pinna - Neck no masses - Respiratory normal expansion - Cardiovascular Rhythm: regular - Abdomen Moderate left-sided abdominal pain and left lower quadrant. Abdomen: soft Bariatric Assessment & Plan Plan: Left lower quadrant pain suggestive of diverticulitis. Patient be placed on Levaquin 500 milligrams by mouth daily. She'll follow-up in my office in 2 days. Patient is minimal will be observed. She'll follow-up in the bariatric clinic in 4 weeks. Bariatric Checklist Checklist: Plan: Checklist: EGD: 1. Hiatal hernia: 2. H. Pylori: HgbA1c: Vitamin D: Smoking: Never smoker Primary care physician referral: DR. MACIEL Psychiatry clearance: Cardiology clearance: Sleep study: Diet journal: VTE risk score: VTE risk level: Rehab needs at discharge:
== END | disposition home or self-care (01) ==
LOC: BARWHC3 13:30
PROVIDERS: ATTEND Surgery
DX: Z48.815 Encounter for surgical aftercare following surgery on the digestive system (principal); R10.32 Left lower quadrant pain; Z98.84 Bariatric surgery status; Z79.2 Long term (current) use of antibiotics
CPT/HCPCS: 97803; G0463; 99211

== ENCOUNTER → 2020-03-13 | Outpatient (CLI) | payer OTHER ==
[2020-03-13 10:43] LABS: HCT 37.9 % (34.0-46.0); HGB 11.9 gm/dL (11.4-16.0); MCH 26.6 pg (25.0-35.0); MCHC 31.4 g/dL (31.0-37.0); MCV 84.6 fL (80.0-100.0); Platelet Count 149 k/uL (150-450); RBC 4.48 m/uL (3.80-5.40); RDW 14.1 % (11.5-15.5); WBC 4.8 k/uL (3.8-10.6)
[2020-03-13 19:32] LABS: ALT 28 U/L (8-44); AST 31 U/L (13-35); African American GFR (CKD) 117.9 (60.0-200.0); Albumin/Globulin Ratio 2.16 (1.60-3.17); Alkaline Phosphatase 111 U/L (41-126); BUN/Creat Ratio 14.29 Ratio (12.00-20.00); Calcium 9.2 mg/dL (8.7-10.3); Carbon Dioxide 28.2 mmol/L (21.6-31.8); Chloride 105 mmol/L (96-109); Globulin 1.9 g/dL (1.6-3.3); Glucose 105 mg/dL (70-110); Non-African American GFR(CKD) 101.7 (60.0-200.0); Potassium 3.5 mmol/L (3.5-5.5); Sodium 142 mmol/L (135-145); Total Bilirubin 0.5 mg/dL (0.2-1.2)
[2020-03-13 19:48] LABS: Folate, Serum >24.0 ng/mL
[2020-03-13 20:37] LABS: Vitamin B12 >4000.0 pg/mL (211-911)
[2020-03-13 20:45] LABS: Anti-DNA, DS unit <1.0 IU/mL; Anti-Smith Ab Interp NEGATIVE (NEGATIVE); Cyclic Citrull Pep IgG Unit <0.5 U/mL; Cyclic Citrullinated Pep IgG NEGATIVE (NEGATIVE); DNA Double-Stranded NEGATIVE (NEGATIVE); JO-1 IgG Antibody <0.2 AI; Scleroderma SC-70 Ab <0.2 AI
[2020-03-14 15:48] LABS: Vitamin D, 1, 25-Dihydroxy 59 pg/mL (20 - 79)
== END | disposition home or self-care (01) ==
LOC: LABWHC1 09:38
PROVIDERS: ATTEND Psychiatry & Neurology Pain Medicine
DX: M25.50 Pain in unspecified joint (principal); R53.83 Other fatigue; R90.82 White matter disease, unspecified; E66.01 Morbid (severe) obesity due to excess calories; E44.0 Moderate protein-calorie malnutrition; E55.9 Vitamin D deficiency, unspecified
CPT/HCPCS: 36415; 80053; 82306; 82607; 82652; 82746; 83516; 84425; 84439; 84443; 84481; 85027; 86038; 86200; 86225; 86235

== ENCOUNTER → 2020-04-21 | Outpatient (CLI) | payer OTHER ==
--- NOTE | 2020-04-21 13:53 | P.HPBAR ---
Bariatric H&P - History & Physicial H&P Date: 04/21/20 History & Physicial: Visit/CC: Patient initial contact: Initial weight: 90.718 kg Initial weight in pounds: Height: Initial BMI: Last weight: 161 Current weight: 159 Current weight in pounds: Current BMI: [place] body weight (based on NIH guidelines): Excess body weight loss: The patient is a 49 year-old F who presents for Bariatric Assessment. Patient rents today for sleeve gastrectomy follow-up.. She's had complaints of diarrhea and some minimal GERD. Past Medical History Past Medical History: Cancer, CVA/TIA, Diabetes Mellitus, Fibromyalgia, GERD/Reflux, Hyperlipidemia, Pneumonia, Thyroid Disorder Additional Past Medical History / Comment(s): Recent sinus infection, finishing antibiotic today. 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 Current bladder incontinence and difficulty fully empyting bladder. CERVICAL CA (1996), HX OF DIVERTICULITIS, OCCASIONAL DIARRHEA AND HEARTBURN, PT STATES UNSURE OF THYROID DISORDER. Back, neck, shoulder and bilateral hip pain. Hx Pneumonia in 1999. Thinks she has sleep anea but has had no testing done. History of Any Multi-Drug Resistant Organisms: None Reported Past Surgical History: Bariatric Surgery, Section, Cholecystectomy, Hysterectomy, Tubal Ligation, Uterine Ablation Additional Past Surgical History / Comment(s): LAP BAND 2000 & REMOVED 2001., gastric sleeve 06/05/2019 Past Anesthesia/Blood Transfusion Reactions: Motion Sickness Smoking Status: Never smoker - Past Family History Father Family Medical History: Cancer, Coronary Artery Disease (CAD), CVA/TIA, Myocardial Infarction ([place]) Additional Family Medical History / Comment(s): Bone ca Mother Family Medical History: Coronary Artery Disease (CAD), CVA/TIA, Hypertension Sister(s) Family Medical History: Fibromyalgia Additional Family Medical History / Comment(s): MS Surgical - Exam - General well developed, well nourished, no distress - Eyes PERRL - ENT normal pinna - Neck no masses - Respiratory normal expansion - Cardiovascular Rhythm: regular - Abdomen Abdomen: soft, non tender Bariatric Assessment & Plan Plan: Status post sleeve yesterday. Patient is minimal will be observed. Patient will follow-up in 4 weeks. If her diarrhea persists. We will perform colonoscopy that time. Bariatric Checklist Checklist: Plan: Checklist: EGD: 1. Hiatal hernia: 2. H. Pylori: HgbA1c: Vitamin D: Smoking: Never smoker Primary care physician referral: DR. MACIEL Psychiatry clearance: Cardiology clearance: Sleep study: Diet journal: VTE risk score: VTE risk level: Rehab needs at discharge:
[2020-04-21 13:56] VITALS: PULSE 71; RESP 16; TEMP 98.4; BMI 29.1
== END | disposition home or self-care (01) ==
LOC: BARWHC3 13:36
PROVIDERS: ATTEND Surgery
DX: Z48.815 Encounter for surgical aftercare following surgery on the digestive system (principal); K21.9 Gastro-esophageal reflux disease without esophagitis; R19.7 Diarrhea, unspecified; Z98.84 Bariatric surgery status; Z90.49 Acquired absence of other specified parts of digestive tract; Z90.710 Acquired absence of both cervix and uterus; Z98.51 Tubal ligation status; Z98.890 Other specified postprocedural states
CPT/HCPCS: 99211

== ENCOUNTER 2020-10-02 14:39 | Observation (INO) | payer OTHER ==
[2020-10-02] MEDS ORDERED: ASPIRIN 81 MG PO STA (14:54)
[2020-10-02] MEDS ORDERED: NITROGLYCERIN SL TABS 0.4 MG TAB SUBLINGUAL STA ×3 (14:54)
--- NOTE | 2020-10-02 14:57 | ED ---
General Adult HPI - General Chief complaint: Chest Pain Stated complaint: Chest Pain Time Seen by Provider: 10/02/20 14:48 Source: patient, family, RN notes reviewed Mode of arrival: wheelchair Limitations: no limitations - History of Present Illness Initial comments: Patient is a pleasant 50-year-old female presenting to the emergency department chest discomfort. Patient had symptoms this morning that resolved. Symptoms returned around an hour and a half ago. Discomfort feels a pressure with some radiation to the shoulder and neck. Patient does have some associated dyspnea, nausea, and diaphoresis. No history of similar symptoms previously. Discomfort is currently rated 5/10. No leg pain or leg swelling. - Related Data Home Medications Medication Instructions Recorded Confirmed ALPRAZolam [Xanax] 0.5 - 1 mg PO HS 02/18/17 04/22/20 Gabapentin [Neurontin] 300 mg PO HS 01/19/18 04/22/20 Calcium Citrate 400 mg PO TID 08/21/19 04/22/20 Multivitamins, Thera [Multivitamin 1 tab PO DAILY 08/21/19 04/22/20 (formulary)] FLUoxetine HCL [PROzac] 20 mg PO DAILY 11/26/19 04/22/20 Biotin 5 mg PO DAILY 04/22/20 04/22/20 Cyanocobalamin (Vitamin B-12) 10,000 mg PO DAILY 04/22/20 04/22/20 [Vitamin B-12] Primidone [Mysoline] 50 mg PO BID 04/22/20 04/22/20 Previous Rx's Medication Instructions Recorded Omeprazole 40 mg PO DAILY #30 cap 06/07/19 Allergies Allergy/AdvReac Type Severity Reaction Status Date / Time No Known Allergies Allergy Verified 10/02/20 14:42 Review of Systems ROS Statement: Those systems with pertinent positive or pertinent negative responses have been documented in the HPI. ROS Other: All systems not noted in ROS Statement are negative. Constitutional: Denies: fever Eyes: Denies: eye pain ENT: Denies: ear pain Respiratory: Reports: as per HPI. Denies: cough Cardiovascular: Reports: as per HPI, chest pain Endocrine: Denies: fatigue Gastrointestinal: Reports: nausea. Denies: abdominal pain Genitourinary: Denies: dysuria Musculoskeletal: Denies: back pain Skin: Denies: rash Neurological: Denies: weakness Past Medical History Past Medical History: Cancer, CVA/TIA, Fibromyalgia, GERD/Reflux, Hyperl ipidemia, Pneumonia, Thyroid Disorder Additional Past Medical History / Comment(s): Recent sinus infection, finishing antibiotic today. 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 Current bladder incontinence and difficulty fully empyting bladder. CERVICAL CA (1996), HX OF DIVERTICULITIS, OCCASIONAL DIARRHEA AND HEARTBURN, PT STATES UNSURE OF THYROID DISORDER. Back, neck, shoulder and bilateral hip pain. Hx Pneumonia in 1999. Thinks she has sleep anea but has had no testing done. History of Any Multi-Drug Resistant Organisms: None Reported Past Surgical History: Bariatric Surgery, Section, Cholecystectomy, Hysterectomy, Tubal Ligation, Uterine Ablation Additional Past Surgical History / Comment(s): LAP BAND 2000 & REMOVED 2001., gastric sleeve 06/05/2019 Past Anesthesia/Blood Transfusion Reactions: Motion Sickness Past Psychological History: Anxiety, Depression Smoking Status: Never smoker Past Alcohol Use History: None Reported, Rare Past Drug Use History: None Reported - Past Family History Father Family Medical History: Cancer, Coronary Artery Disease (CAD), CVA/TIA, Myocardial Infarction ([place]) Additional Family Medical History / Comment(s): Bone ca Mother Family Medical History: Coronary Artery Disease (CAD), CVA/TIA, Hypertension Sister(s) Family Medical History: Fibromyalgia Additional Family Medical History / Comment(s): MS General Exam Limitations: no limitations General appearance: alert, in no apparent distress Head exam: Present: normocephalic Eye exam: Present: normal appearance Respiratory exam: Present: normal lung sounds bilaterally. Absent: chest wall tenderness Cardiovascular Exam: Present: regular rate, normal rhythm Expanded Peripheral pulses: 2+: Radial (R), Radial (L), Posterior Tibialis (R), Posterior Tibialis (L) GI/Abdominal exam: Present: soft. Absent: tenderness Extremities exam: Present: normal inspection. Absent: pedal edema, calf tenderness Neurological exam: Present: alert Psychiatric exam: Present: normal affect, normal mood Skin exam: Present: normal color Course Vital Signs 10/02/20 10/02/20 14:42 15:38 Temperature 97.8 F Pulse Rate 83 71 Respiratory 16 18 Rate Blood Pressure 145/83 132/77 O2 Sat by Pulse 99 98 Oximetry EKG Findings - EKG Comments: EKG Findings:: Normal sinus rhythm 74. [place] 142. QRS 76. QT 408. QTC or 52. Normal axis. LVH criteria. No acute ST change. Medical Decision Making - Medical Decision Making Patient reevaluated and resting comfortably in bed. Patient and family updated on results and plan. Dr. Benjamin has been paged for admission of his patient. - Lab Data Result diagrams: 10/02/20 15:10 10/02/20 15:10 Lab Results 10/02/20 10/02/20 10/02/20 Range/Units 15:10 15:10 15:10 WBC 4.3 (3.8-10.6) k/uL RBC 4.73 (3.80-5.40) m/uL Hgb 13.3 (11.4-16.0) gm/dL Hct 38.4 (34.0-46.0) % MCV 81.3 (80.0-100.0) fL MCH 28.2 (25.0-35.0) pg MCHC 34.6 (31.0-37.0) g/dL RDW 13.7 (11.5-15.5) % Plt Count 167 (150-450) k/uL MPV 8.3 Neutrophils % 43 % Lymphocytes % 46 % Monocytes % 7 % Eosinophils % 2 % Basophils % 1 % Neutrophils # 1.8 (1.3-7.7) k/uL Lymphocytes # 2.0 (1.0-4.8) k/uL Monocytes # 0.3 (0-1.0) k/uL Eosinophils # 0.1 (0-0.7) k/uL Basophils # 0.0 (0-0.2) k/uL PT 11.0 (9.0-12.0) sec INR 1.1 (<1.2) APTT 26.0 (22.0-30.0) sec D-Dimer 0.19 (<0.60) mg/L FEU Sodium 140 (137-145) mmol/L Potassium 3.6 (3.5-5.1) mmol/L Chloride 106 (98-107) mmol/L Carbon Dioxide 26 (22-30) mmol/L Anion Gap 8 mmol/L BUN 9 (7-17) mg/dL Creatinine 0.57 (0.52-1.04) mg/dL Est GFR (CKD-EPI)AfAm >90 (>60 ml/min/1.73 sqM) Est GFR (CKD-EPI)NonAf >90 (>60 ml/min/1.73 sqM) Glucose 124 H (74-99) mg/dL Calcium 9.4 (8.4-10.2) mg/dL Magnesium 1.8 (1.6-2.3) mg/dL Total Bilirubin 0.4 (0.2-1.3) mg/dL AST 32 (14-36) U/L ALT 21 (4-34) U/L Alkaline Phosphatase 78 (38-126) U/L Troponin I (0.000-0.034) ng/mL Total Protein 6.8 (6.3-8.2) g/dL Albumin 4.3 (3.5-5.0) g/dL 10/02/20 Range/Units 15:10 WBC (3.8-10.6) k/uL RBC (3.80-5.40) m/uL Hgb (11.4-16.0) gm/dL Hct (34.0-46.0) % MCV (80.0-100.0) fL MCH (25.0-35.0) pg MCHC (31.0-37.0) g/dL RDW (11.5-15.5) % Plt Count (150-450) k/uL MPV Neutrophils % % Lymphocytes % % Monocytes % % Eosinophils % % Basophils % % Neutrophils # (1.3-7.7) k/uL Lymphocytes # (1.0-4.8) k/uL Monocytes # (0-1.0) k/uL Eosinophils # (0-0.7) k/uL Basophils # (0-0.2) k/uL PT (9.0-12.0) sec INR (<1.2) APTT (22.0-30.0) sec D-Dimer (<0.60) mg/L FEU Sodium (137-145) mmol/L Potassium (3.5-5.1) mmol/L Chloride (98-107) mmol/L Carbon Dioxide (22-30) mmol/L Anion Gap mmol/L BUN (7-17) mg/dL Creatinine (0.52-1.04) mg/dL Est GFR (CKD-EPI)AfAm (>60 ml/min/1.73 sqM) Est GFR (CKD-EPI)NonAf (>60 ml/min/1.73 sqM) Glucose (74-99) mg/dL Calcium (8.4-10.2) mg/dL Magnesium (1.6-2.3) mg/dL Total Bilirubin (0.2-1.3) mg/dL AST (14-36) U/L ALT (4-34) U/L Alkaline Phosphatase (38-126) U/L Troponin I <0.012 (0.000-0.034) ng/mL Total Protein (6.3-8.2) g/dL Albumin (3.5-5.0) g/dL - Radiology Data Radiology results: image reviewed (Chest x-ray shows no acute process) Disposition Clinical Impression: Chest pain Disposition: ADMITTED IP TO THIS HOSP Is patient prescribed a controlled substance at d/c from ED?: No Referrals: Bigg Benjamin DO [Primary Care Provider] - 1-2 days Decision Time: 15:52
[2020-10-02 15:19] LABS: Basophils % (A) 1 %; Eosinophils # (A) 0.1 k/uL (0-0.7); Eosinophils % (A) 2 %; HCT 38.4 % (34.0-46.0); HGB 13.3 gm/dL (11.4-16.0); Lymphocytes % (A) 46 %; MCH 28.2 pg (25.0-35.0); MCHC 34.6 g/dL (31.0-37.0); MCV 81.3 fL (80.0-100.0); Mean Platelet Volume 8.3; Monocytes # (A) 0.3 k/uL (0-1.0); Monocytes % (A) 7 %; Neutrophils # (A) 1.8 k/uL (1.3-7.7); Neutrophils % (A) 43 %; Platelet Count 167 k/uL (150-450); RBC 4.73 m/uL (3.80-5.40); RDW 13.7 % (11.5-15.5); WBC 4.3 k/uL (3.8-10.6)
--- NOTE | 2020-10-02 15:22 | XR ---
EXAMINATION TYPE: XR chest 2V DATE OF EXAM: 10/02/2020 COMPARISON: 12/20/2019 INDICATION: Chest pain TECHNIQUE: Frontal and lateral views of the chest are obtained. FINDINGS: The heart size is normal. The pulmonary vasculature is normal. The lungs are clear. IMPRESSION: 1. No acute pulmonary process.
[2020-10-02 15:28] LABS: ALT 21 U/L (4-34); AST 32 U/L (14-36); African American GFR (CKD) >90 (>60 ml/min/1.73 sqM); Albumin 4.3 g/dL (3.5-5.0); Alkaline Phosphatase 78 U/L (38-126); Anion Gap 8 mmol/L; Blood Urea Nitrogen 9 mg/dL (7-17); Calcium 9.4 mg/dL (8.4-10.2); Carbon Dioxide 26 mmol/L (22-30); Chloride 106 mmol/L (98-107); Glucose 124 mg/dL (74-99); Magnesium 1.8 mg/dL (1.6-2.3); Non-African American GFR(CKD) >90 (>60 ml/min/1.73 sqM); Potassium 3.6 mmol/L (3.5-5.1); Sodium 140 mmol/L (137-145); Total Bilirubin 0.4 mg/dL (0.2-1.3); Total Protein 6.8 g/dL (6.3-8.2)
[2020-10-02 15:31] LABS: D-Dimer 0.19 mg/L FEU (<0.60); INR 1.1 (<1.2)
[2020-10-02] MEDS ORDERED: NITROGLYCERIN SL TABS 0.4 MG TAB SUBLINGUAL PRN (15:52)
[2020-10-02] MEDS: NITROGLYCERIN OINT 1 INCH/GM PACKET TOPICAL SCH (18:36)
[2020-10-02] MEDS ORDERED: PRIMIDONE 50 MG TAB PO PRN (18:50)
[2020-10-02] MEDS: ATORVASTATIN 40 MG TAB PO SCH (20:32)
[2020-10-02] MEDS: IBUPROFEN 800 MG TAB PO PRN (20:32)
[2020-10-02] MEDS: PANTOPRAZOLE 40 MG TABLET PO SCH (20:33)
[2020-10-02] MEDS: GABAPENTIN 300 MG CAP PO SCH (20:33)
[2020-10-02] MEDS: FLUoxetine HCL 20 MG CAP PO SCH (20:33)
[2020-10-02] MEDS: ALPRAZolam 1 MG TAB PO SCH (20:33)
[2020-10-03] MEDS: NITROGLYCERIN OINT 1 INCH/GM PACKET TOPICAL SCH ×2 (00:37→05:24)
[2020-10-03 02:26] LABS: Cholesterol 151 mg/dL (<200); HDL Cholesterol 81 mg/dL (40-60); LDL Cholesterol,Calculated 60 mg/dL (0-99); Triglycerides 49 mg/dL (<150)
[2020-10-03 08:04] VITALS: RESP 16
[2020-10-03] MEDS ORDERED: ASPIRIN 325 MG TAB PO SCH (09:00)
--- NOTE | 2020-10-03 10:07 | P.CRDCN ---
History of Present Illness History of present illness: HISTORY OF PRESENTING ILLNESS This is a pleasant 50-year-old female past medical history significant for TIA, fibromyalgia, gastric sleeve 2019 which resolved her hypertension and diabetes mellitus. She denies prior history of coronary artery disease and does not follow with a barn boss for any reason. She has significant family history of premature coronary artery disease. Mother father and her sister had a myocardial infarction at the age of 42 We have been asked to see in consultation for chest pain. 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 Yesterday morning while she was at work she had an acute onset of chest discomfort that radiated to the left shoulder and left jaw. She described the discomfort in her shoulder as feeling like an air bubble in her jaw felt very achy. This was associated with shortness of breath, nausea, diaphoresis and dizziness. She went to sit down at work to see if the symptoms would subside however they did not improve. She was driven home by a coworker and slept from 10 until 1:00. When she woke up initially she felt okay and then shortly thereafter she had a recurrence of her symptoms. Her daughter brought her to the emergency department where she was having ongoing chest discomfort. She states that she was walking into the emergency department she felt as though she may pass out. She was given aspirin and sublingual nitroglycerin. Her symptoms did subside. She is seen and examined sitting up in bed in no acute distress. She has had no further symptoms of chest discomfort however intermittently through the night s he feels an ache in her jaw. EKG on arrival revealed sinus mechanism heart rate of 74 with no acute ischemic changes noted. Telemetry tracings have been unremarkable for an acute arrhythmia. Chest x-ray negative for an acute cardiopulmonary process. Laboratory data reviewed, CBC unremarkable, d-dimer negative, sodium 140, potassium 3.6, creatinine 0.57, magnesium 1.8, cardiac enzymes negative 3, NT proBNP 158, LDL 60 and HDL 81. Current daily cardiac medications include atorvastatin 40 mg daily. REVIEW OF SYSTEMS At the time of my exam: CONSTITUTIONAL: Denies fever or chills. CARDIOVASCULAR: Denies chest pain, shortness of breath, orthopnea, PND or palpitations. RESPIRATORY: Denies cough. GASTROINTESTINAL: Denies abdominal pain, diarrhea, constipation, nausea or vomiting. MUSCULOSKELETAL: Complains of intermittent left jaw ache. NEUROLOGIC: Denies numbness, tingling or weakness. ENDOCRINE: Denies fatigue, weight change, polydipsia or polyurina. GENITOURINARY: Denies burning, hematuria or urgency with micturation. HEMATOLOGIC: Denies history of anemia or bleeding. PHYSICAL EXAMINATION Blood pressure 138/83 heart rate 62 afebrile and maintaining oxygen saturation on room air. CONSTITUTIONAL: No apparent distress. HEENT: Head is normocephalic. Pupils are equal, round. Sclerae anicteric. Mucous membranes of the mouth are moist. No JVD. No carotid bruit. CHEST EXAMINATION: Lungs are clear to auscultation. No chest wall tenderness is noted on palpation or with deep breathing. HEART EXAMINATION: Regular rate and rhythm. S1, S2 heard. No murmurs, gallops or rub. ABDOMEN: Soft, nontender. Positive bowel sounds. EXTREMITIES: 2+ peripheral pulses, no lower extremity edema and no calf tenderness. NEUROLOGIC EXAMINATION: Patient is awake, alert and oriented x3. ASSESSMENT Chest pain Dyslipidemia, well controlled on current regimen History of TIA Fibromyalgia Gastric sleeve 2019 Family history of premature coronary artery disease PLAN An acute coronary event ruled out. Obtain 2-D echocardiogram and Doppler study to assess cardiac structure and function. Discussed with the patient the option of proceeding with stress test versus cardiac catheterization. Given the fact that she has done significant risk factor modification and is no longer treated for diabetes or hypertension with a well-controlled lipid panel she would prefer to undergo stress testing. This is a reasonable decision. We will pursue Cardiolite exercise stress test. If any reversibility or abnormality is noted we will consider cardiac catheterization. Thank you kindly for this consultation. Nurse Practitioner note has been reviewed, I agree with a documented findings and plan of care. Patient was seen and examined. Past Medical History Past Medical History: Cancer, CVA/TIA, Fibromyalgia, GERD/Reflux, Hyperlipidemia, Pneumonia, Thyroid Disorder Additional Past Medical History / Comment(s): sinus infection TIA Oct 2017, no residual effects. CERVICAL CA (1996), HX OF DIVERTICULITIS, OCCASIONAL DIARRHEA AND HEARTBURN, PT STATES UNSURE OF THYROID DISORDER. Back, neck, shoulder and bilateral hip pain. Hx Pneumonia in 1999. Thinks she has sleep anea but has had no testing done. History of Any Multi-Drug Resistant Organisms: None Reported Past Surgical History: Bariatric Surgery, Section, Cholecystectomy, Hysterectomy, Tubal Ligation, Uterine Ablation Additional Past Surgical History / Comment(s): LAP BAND 2001 & REMOVED 2001., gastric sleeve 06/05/2019 Past Anesthesia/Blood Transfusion Reactions: Motion Sickness Past Psychological History: Anxiety, Depression Smoking Status: Never smoker Past Alcohol Use History: None Reported, Rare Past Drug Use History: None Reported - Past Family History Father Family Medical History: Cancer, Coronary Artery Disease (CAD), CVA/TIA, Myocardial Infarction ([place]) Additional Family Medical History / Comment(s): Bone ca Mother Family Medical History: Myocardial Infarction ([place]), Thyroid Disorder Sister(s) Family Medical History: Fibromyalgia Additional Family Medical History / Comment(s): MS Medications and Allergies Home Medications Medication Instructions Recorded Confirmed Type ALPRAZolam [Xanax] 1 mg PO HS 02/18/17 10/02/20 History Gabapentin [Neurontin] 300 mg PO HS 01/19/18 10/02/20 History Multivitamins, Thera [Multivitamin 1 tab PO DAILY 08/21/19 10/02/20 History (formulary)] Biotin 5 mg PO DAILY 04/22/20 10/02/20 History Primidone [Mysoline] 50 mg PO HS 04/22/20 10/02/20 History Atorvastatin [Lipitor] 40 mg PO HS 10/02/20 10/02/20 History Calcium Citrate/Vitamin D3 1 tab PO DAILY 10/02/20 10/02/20 History [Citracal + D Maximum Caplet] FLUoxetine HCL 80 mg PO HS 10/02/20 10/02/20 History Ibuprofen [Motrin] 800 mg PO TID PRN 10/02/20 10/02/20 History Omeprazole 40 mg PO HS 10/02/20 10/02/20 History Phenylephrine HCl [Sudafed PE] 10 mg PO Q6H PRN 10/02/20 10/02/20 History Primidone [Mysoline] 50 mg PO DAILY PRN 10/02/20 10/02/20 History tiZANidine [Zanaflex] 4 mg PO BID PRN 10/02/20 10/02/20 History Allergies Allergy/AdvReac Type Severity Reaction Status Date / Time No Known Allergies Allergy Verified 10/02/20 16:07 Physical Exam Vitals: Vital Signs Temp Pulse Pulse Resp BP BP Pulse Ox 10/03/20 07:51 96.7 F L 62 16 138/83 99 10/03/20 03:00 97.7 F 64 18 124/73 97 10/02/20 21:00 96.8 F L 69 16 137/70 97 10/02/20 17:10 98.4 F 59 L 16 161/89 98 10/02/20 16:48 97.8 F 66 18 133/72 99 10/02/20 16:00 66 18 133/72 99 10/02/20 15:38 71 18 132/77 98 10/02/20 14:42 97.8 F 83 16 145/83 99 Intake and Output 10/02/20 10/03/20 10/03/20 22:59 06:59 14:59 Intake Total 200 Balance 200 Intake: Oral 200 Other: # Voids 2 1 Weight 68.946 kg Results 10/02/20 15:10 10/02/20 15:10 Cardiac Enzymes 10/02/20 10/02/20 10/02/20 Range/Units 15:10 15:10 17:42 AST 32 (14-36) U/L Troponin I <0.012 <0.012 (0.000-0.034) ng/mL 10/02/20 Range/Units 21:13 AST (14-36) U/L Troponin I <0.012 (0.000-0.034) ng/mL Coagulation 10/02/20 Range/Units 15:10 PT 11.0 (9.0-12.0) sec APTT 26.0 (22.0-30.0) sec Lipids 10/02/20 Range/Units 15:10 Triglycerides 49 (<150) mg/dL Cholesterol 151 (<200) mg/dL HDL Cholesterol 81 H (40-60) mg/dL CBC 10/02/20 Range/Units 15:10 WBC 4.3 (3.8-10.6) k/uL RBC 4.73 (3.80-5.40) m/uL Hgb 13.3 (11.4-16.0) gm/dL Hct 38.4 (34.0-46.0) % Plt Count 167 (150-450) k/uL Comprehensive Metabolic Panel 10/02/20 Range/Units 15:10 Sodium 140 (137-145) mmol/L Potassium 3.6 (3.5-5.1) mmol/L Chloride 106 (98-107) mmol/L Carbon Dioxide 26 (22-30) mmol/L BUN 9 (7-17) mg/dL Creatinine 0.57 (0.52-1.04) mg/dL Glucose 124 H (74-99) mg/dL Calcium 9.4 (8.4-10.2) mg/dL AST 32 (14-36) U/L ALT 21 (4-34) U/L Alkaline Phosphatase 78 (38-126) U/L Total Protein 6.8 (6.3-8.2) g/dL Albumin 4.3 (3.5-5.0) g/dL Current Medications Generic Name Dose Route Start Last Admin Trade Name Freq PRN Reason Stop Dose Admin Alprazolam 1 mg 10/02/20 21:00 10/02/20 20:33 Alprazolam 1 Mg Tab PO 1 mg HS STACY Administration Aspirin 325 mg 10/03/20 09:00 10/03/20 09:10 Aspirin 325 Mg Tab PO 325 mg DAILY STACY Administration Atorvastatin Calcium 40 mg 10/02/20 21:00 10/02/20 20:32 Atorvastatin 40 Mg Tab PO 40 mg HS STACY Administration Fluoxetine HCl 80 mg 10/02/20 21:00 10/02/20 20:33 Fluoxetine Hcl 20 Mg Cap PO 80 mg HS STACY Administration Gabapentin 300 mg 10/02/20 21:00 10/02/20 20:33 Gabapentin 300 Mg Cap PO 300 mg HS STACY Administration Ibuprofen 800 mg 10/02/20 18:50 10/02/20 20:32 Ibuprofen 800 Mg Tab PO 800 mg TID PRN Administration Pain Nitroglycerin 0.4 mg 10/02/20 15:52 Nitroglycerin Sl Tabs 0.4 Mg Tab SUBLINGUAL Q5M PRN Chest Pain Pantoprazole Sodium 40 mg 10/02/20 21:00 10/02/20 20:33 Pantoprazole 40 Mg Tablet PO 40 mg HS STACY Administration Primidone 50 mg 10/02/20 18:50 Primidone 50 Mg Tab PO DAILY PRN tremors Sodium Chloride 10 ml 10/02/20 21:00 10/03/20 09:10 Sodium Chloride 0.9% Flush 10 Ml Syringe IV 10 ml BID STACY Administration Intake and Output 10/02/20 10/03/20 10/03/20 22:59 06:59 14:59 Intake Total 200 Balance 200 Intake: Oral 200 Other: # Voids 2 1 Weight 68.946 kg 10/02/20 15:10 10/02/20 15:10
--- NOTE | 2020-10-03 11:48 | P.HPIM ---
History of Present Illness H&P Date: 10/03/20 Chief Complaint: Chest pain This is a 50-year-old female with past medical history of CVA/TIA, fibromyalgia, gastroesophageal reflux disease, hyperlipidemia, hypothyroidism, anxiety, depression, panic attacks, gastric sleeve in 2018 with subsequent loss of 75 pounds, strong family history of CAD, both parents and sister in her 40s, and multiple other medical issues presented to the ER with complaints of chest pain. 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 Denies fever or chills, no cough or congestion. Reports some nausea,no vomiting or diarrhea. Denies abdominal pain. Denies excessive caffeine intake. Proceeded to break room and sat down for [address] hours[address] Symptoms persisted.Cowork[address] drive patient home where she slept for 3 hours. Upon awakening symptoms persisted and she presented to the ER. Reports similar presentations with prior panic attacks. Received aspirin, nitroglycerin and symptoms subsided with no reoccurrence. Not reproducible. EKG reported normal sinus rhythm. Troponins negative 3. Hematology, coagulation and chemistry unremarkable.Chest x-ray reported no acute pulmonary process. Vital signs stable, maintaining O2 sats in the 90s on room air afebrile, normal WBC. Review of Systems ROS Statement: Those systems with pertinent positive or pertinent negative responses have been documented in the HPI. ROS Other: All systems not noted in ROS Statement are negative. Past Medical History Past Medical History: Cancer, CVA/TIA, Fibromyalgia, GERD/Reflux, Hyperlipidemia, Pneumonia, Thyroid Disorder Additional Past Medical History / Comment(s): sinus infection TIA Oct 2017, no residual effects. CERVICAL CA (1996), HX OF DIVERTICULITIS, OCCASIONAL DIARRHEA AND HEARTBURN, PT STATES UNSURE OF THYROID DISORDER. Back, neck, shoulder and bilateral hip pain. Hx Pneumonia in 1999. Thinks she has sleep anea but has had no testing done. History of Any Multi-Drug Resistant Organisms: None Reported Past Surgical History: Bariatric Surgery, Section, Cholecystectomy, Hysterectomy, Tubal Ligation, Uterine Ablation Additional Past Surgical History / Comment(s): LAP BAND 2000 & REMOVED 2001., gastric sleeve 06/05/2019 Past Anesthesia/Blood Transfusion Reactions: Motion Sickness Past Psychological History: Anxiety, Depression Smoking Status: Never smoker Past Alcohol Use History: None Reported, Rare Past Drug Use History: None Reported - Past Family History Father Family Medical History: Cancer, Coronary Artery Disease (CAD), CVA/TIA, Myocardial Infarction ([place]) Additional Family Medical History / Comment(s): Bone ca Mother Family Medical History: Myocardial Infarction ([place]), Thyroid Disorder Sister(s) Family Medical History: Fibromyalgia Additional Family Medical History / Comment(s): MS Medications and Allergies Home Medications Medication Instructions Recorded Confirmed Type ALPRAZolam [Xanax] 1 mg PO HS 02/18/17 10/02/20 History Gabapentin [Neurontin] 300 mg PO HS 01/19/18 10/02/20 History Multivitamins, Thera [Multivitamin 1 tab PO DAILY 08/21/19 10/02/20 History (formulary)] Biotin 5 mg PO DAILY 04/22/20 10/02/20 History Primidone [Mysoline] 50 mg PO HS 04/22/20 10/02/20 History Atorvastatin [Lipitor] 40 mg PO HS 10/02/20 10/02/20 History Calcium Citrate/Vitamin D3 1 tab PO DAILY 10/02/20 10/02/20 History [Citracal + D Maximum Caplet] FLUoxetine HCL 80 mg PO HS 10/02/20 10/02/20 History Ibuprofen [Motrin] 800 mg PO TID PRN 10/02/20 10/02/20 History Omeprazole 40 mg PO HS 10/02/20 10/02/20 History Phenylephrine HCl [Sudafed PE] 10 mg PO Q6H PRN 10/02/20 10/02/20 History Primidone [Mysoline] 50 mg PO DAILY PRN 10/02/20 10/02/20 History tiZANidine [Zanaflex] 4 mg PO BID PRN 10/02/20 10/02/20 History Allergies Allergy/AdvReac Type Severity Reaction Status Date / Time No Known Allergies Allergy Verified 10/02/20 16:07 Physical Exam Vitals: Vital Signs Temp Pulse Pulse Resp BP BP Pulse Ox 10/03/20 07:51 96.7 F L 62 16 138/83 99 10/03/20 03:00 97.7 F 64 18 124/73 97 10/02/20 21:00 96.8 F L 69 16 137/70 97 10/02/20 17:10 98.4 F 59 L 16 161/89 98 10/02/20 16:48 97.8 F 66 18 133/72 99 10/02/20 16:00 66 18 133/72 99 10/02/20 15:38 71 18 132/77 98 10/02/20 14:42 97.8 F 83 16 145/83 99 Intake and Output 10/02/20 10/03/20 10/03/20 22:59 06:59 14:59 Intake Total 200 Balance 200 Intake: Oral 200 Other: # Voids 2 1 Weight 68.946 kg PHYSICAL EXAM: VITAL SIGNS: As above GENERAL: Sitting up in bed, no acute distress HEENT: Conjunctivae normal. eyes normal. NECK: No JVD. No thyroid enlargement. No LNs CARDIOVASCULAR: S1, S2 regular..No murmur RESPIRATION: Breath sounds diminished in the bases. No rhonchi or crackles. No bronchial breathing. ABDOMEN: Soft, nontender . No guarding. no masses palpable. No ascites, No hepatosplenomegaly.Bowel sounds heard. LEGS: No edema. no swelling PSYCHIATRY: Alert and oriented X3, mood and affect normal. NERVOUS SYSTEM: Cranial N 2-12 grossly normal. Moves all 4 limbs. No focal deficits. Strength and sensation grossly intact.. Skin: Warm and dry, no rash Lymphatic system. No LN neck axilla. Results CBC & Chem 7: 10/02/20 15:10 10/02/20 15:10 Labs: Abnormal Lab Results - Last 24 Hours (Table) 10/02/20 10/02/20 Range/Units 15:10 15:10 Glucose 124 H (74-99) mg/dL HDL Cholesterol 81 H (40-60) mg/dL Thrombosis Risk Factor Assmnt - Choose All That Apply Any of the Below Risk Factors Present?: Yes Each Factor Represents 1 point: Age 41-60 years, Obesity (BMI >25) Other Risk Factors: No Other congenital or acquired thrombophilia - If yes, enter type in comment: No Thrombosis Risk Factor Assessment Total Risk Factor Score: 2 Thrombosis Risk Factor Assessment Level: Low Risk Assessment and Plan Assessment: Acute chest pain, stress test pending Family history of premature CAD Dyslipidemia Gastroesophageal reflux disease Hypothyroidism History of CVA,TIA History of gastric sleeve 2019 with 75 pound weight loss Fibromyalgia History of Anxiety, depression, panic attacks Plan: Continue on current medication regime ,monitoring and symptomatic treatment. Evaluated by cardiology, 2-D echo, Cardiolite stress test ordered. Pending stress test results, cardiology clearance, patient could possibly be discharged home later today. The impression and plan of care has been dictated as directed. : I performed a history and examination of this patient, discussed the same with the dictator. I agree with the dictator's note ,documented as a scribe. Any additional findings or plans will be noted.
--- NOTE | 2020-10-03 12:00 | ECHOF ---
Referral Reason:cp sob MEASUREMENTS -------- HEIGHT: 157.5 cm WEIGHT: 68.9 kg BP: IVSd: 1.1 cm (0.6 - 1.1) LVIDd: 4.9 cm (3.9 - 5.3) LVPWd: 1.2 cm (0.6 - 1.1) IVSs: 1.8 cm LVIDs: 3.1 cm LVPWs: 1.7 cm LAESV Index (A-L): 28.96 ml/m Ao Diam: 2.7 cm (2.0 - 3.7) AV Cusp: 1.9 cm (1.5 - 2.6) LA Diam: 3.1 cm (2.7 - 3.8) MV EXCURSION: 17.701 mm (> 18.000) MV EF SLOPE: 87 mm/s (70 - 150) EPSS: 1.0 cm MV E Navin: 1.15 m/s MV DecT: 225 ms MV A Navin: 0.83 m/s MV E/A Ratio: 1.38 RAP: 5.00 mmHg RVSP: 31.05 mmHg TAPSE: 18.39 mm FINDINGS -------- This was a technically good study. The left ventricular size is normal. There is mild concentric left ventricular hypertrophy. Overa ll left ventricular systolic function is normal with, an EF between 55 - 60 %. Diastolic filling pa ttern is indeterminate. The right ventricle is normal in size. The left atrial size is normal. Normal LA size by volume 22+/-6 ml/m2. The right atrial size is normal. The aortic valve is trileaflet and appears structurally normal. The mitral valve is normal. Mild mitral regurgitation is present. The tricuspid valve appears structurally normal. Mild tricuspid regurgitation present. Right vent ricular systolic pressure is normal at < 35 mmHg. There is no pulmonic regurgitation present. The aortic root size is normal. Normal inferior vena cava with normal inspiratory collapse consistent with estimated right atrial pre ssure of 5 mmHg. There is no pericardial effusion. CONCLUSIONS -------- 1. The left ventricular size is normal. 2. There is mild concentric left ventricular hypertrophy. 3. Overall left ventricular systolic function is normal with, an EF between 55 - 60 %. 4. Diastolic filling pattern is indeterminate. 5. Mild mitral regurgitation is present. 6. Mild tricuspid regurgitation present. 7. There is no pericardial effusion. BEHAVIORAL SPECIALIST: Doris Alves RDCS
--- NOTE | 2020-10-03 12:08 | NM ---
EXAMINATION TYPE: NM stress cardiolite complete DATE OF EXAM: 10/03/2020 COMPARISON: NONE HISTORY: Precordial chest pain TECHNIQUE: After the intravenous administration of 10.3 mCi Tc 99m Sestamibi - Rest images obtained 50 minutes post injection. The patient exercised using a WHITNEY protocol and 1 minute prior to peak exercise was injected with 26.9 mCi Tc 99m Sestamibi - Stress images obtained 5 minutes post injectio n. FINDINGS: Targeted heart rate was achieved during performance of the study. Review of stress and rest SPECT alana ges decreased perfusion involving the anterior wall as well as the lateral wall on stress images. Str ess-induced ischemia is not excluded. Gated analysis shows normal wall motion with an estimated left ventricular ejection fraction of 52 %. IMPRESSION: I cannot exclude stress-induced ischemia involving the anterior wall as well as the lateral wall. Cor relate clinically.
[2020-10-03] MEDS ORDERED: SODIUM CHLORIDE 0.9% 1,000 ML in EMPTY BAG 1 BAG IV ONE (12:18)
--- NOTE | 2020-10-03 12:30 | P.STRESS ---
- Stress Test Note Stress Test Results/Findings: Exam Performed: NM stress cardiolite complete Exam Date: 10/03/20 Reason for Exam: CP Height: 5 ft 2 in Weight: 68.95 kg Protocol: CARDIOLITE STRESS TEST Stage: 3 Duration of Exercise: 9:00 Resting Heart Rate: 58 Resting Blood Pressure: 143/95 Maximum Achieved Heart Rate: 150 Maximum Achieved Blood Pressure: 187/88 85% PMHR: 145 100% PMHR: 170 METS: 10.3 Technologist Comment: Stress Test Results/Findings: Patient underwent exercise stress Cardiolite with a [place] protocol treadmill stress test. Patient exercised into Stage 3 for a total of 9 minutes reaching a total of and 10.3 METS. Patient's maximum heart rate was 150 which represented 88% age-predicted maximum heart rate. Stress EKG findings: At baseline patient's EKG showed normal sinus rhythm, normal axis, no significant ST or T-wave abnormalities. At peak exercise, EKG showed occasional PVCs, mild nonspecific 0.[address] depressions inferiorly. Conclusions: 1. Normal EKG response to exercise without evidence of inducible ischemia. 2. Good exercise capacity. 3. Cardiolite portion to be reported separately.
--- NOTE | 2020-10-03 12:33 | P.PN ---
Progress Note - Text Stress test results reviewed with the patient. Recommend proceeding with cardiac catheterization for definitive diagnosis. I have discussed the risks, benefits and alternative therapies for the above-mentioned procedure and for both sedation/analgesia as well as necessary blood product administration, if indicated, as they pertain to this patient. The patient has indicated understanding and acceptance of the risks and procedures discussed. Questions have been answered appropriately and she is agreeable to move forward with the above stated procedure.
[2020-10-03] MEDS ORDERED: LIDOCAINE 1% INJ 10MG/ML (20 ML MDV) ONE (12:37)
[2020-10-03] MEDS ORDERED: VERAPAMIL 2.5 MG/ML 2 ML AMP ONE (12:37)
[2020-10-03] MEDS ORDERED: SODIUM CHLORIDE 0.9% 1,000 ML IV ONE (12:55)
[2020-10-03] MEDS: MIDAZOLAM 2 MG/2 ML VIAL IVP ONE ×2 (13:03→13:07)
[2020-10-03] MEDS ORDERED: fentaNYL (PF) 50 MCG/ML 2 ML AMP ONE (13:03)
[2020-10-03] MEDS ORDERED: fentaNYL (PF) 50 MCG/ML 2 ML AMP IVP ONE (13:03)
[2020-10-03] MEDS ORDERED: LIDOCAINE 1% INJ 10MG/ML (20 ML MDV) SQ ONE (13:04)
[2020-10-03] MEDS ORDERED: VERAPAMIL SYRINGE (5 MG/10 ML) INTRAARTER ONE (13:07)
[2020-10-03] MEDS ORDERED: HEPARIN SODIUM 1,000 UN/ML (10ML VL) IV ONE (13:09)
[2020-10-03] MEDS ORDERED: HEPARIN SODIUM 1,000 UN/ML (10ML VL) ONE (13:09)
[2020-10-03] MEDS ORDERED: NITROGLYCERIN 1000MCG/10ML SYRINGE INTRACORON ONE (13:18)
[2020-10-03] MEDS ORDERED: CLOPIDOGREL 75 MG TAB ONE (13:26)
[2020-10-03] MEDS ORDERED: CLOPIDOGREL 75 MG TAB PO ONE (13:27)
[2020-10-03] MEDS ORDERED: IOPAMIDOL-370 125ML BTL INJ ONE (13:28)
[2020-10-03] MEDS ORDERED: RX INFO: IV CONTRAST WAS GIVEN 1 EACH MISC MISCELLANE PRN (13:44)
[2020-10-03] MEDS: LORATADINE 10 MG TAB PO SCH (14:37)
[2020-10-03] MEDS: METOPROLOL SUCCINATE (ER) 25 MG TAB.ER.24H PO SCH (14:37)
--- NOTE | 2020-10-03 16:22 | P.CARDCATH ---
Description of Procedure: PROCEDURES PERFORMED: Left heart catheterization, bilateral coronary angiography INDICATION: Unstable angina, abnormal stress test HISTORY: Patient is a pleasant 50 year old female with history of previous diabetes and hypertension (since improved s/p gastric bypass), hyperlipidemia, who presented with classic feeling of chest pain, jaw pain, SOB, nausea, diaphoresis which occurred approximately 1 hour after taking Sudafed/ phenylephrine for her headache. She does have a strong family history of CAD and had a Cardiolite stress test where she went 9 minutes however had an abnormal nuclear portion with possible anterior and lateral ischemia. Therefore heart catheterization was recommended. CONSENT:I have discussed the risks, benefits and alternative therapies for the above-mentioned procedure and for both sedation/analgesia as well as necessary blood product administration, if indicated, as they pertain to this patient. The patient has indicated understanding and acceptance of the risks and procedures discussed. PROCEDURE: After the risks, benefits and alternatives of the above mentioned procedure explained in detail with the patient, informed consent was obtained. Patient was taken to the catheterization lab and prepped and draped in usual fashion. 1% lidocaine was used to anesthetize the right radial artery. A 6- [place] sheath was placed in the right radial artery using modified Seldinger technique. Left coronary angiography was performed with a 5-[place] JL 3.5 catheter and right coronary angiography was performed with a 5-[place] JR5 catheter in various views. Intracoronary nitroglycerin was given into the FL 3.5 without any change in the diagonal lesion. The 5-[place] FR 5 catheter was inserted into the left ventricle and pressure measurements were obtained. The right radial sheath was removed and a TR band was placed with hemostasis achieved. The patient tolerated the procedure well. Patient was transported back to the post catheterization holding area in stable condition. Conscious Sedation: Patient was monitored under the direct supervision of vision of myself for conscious sedation using Versed and fentanyl for a total duration of [] minutes HEMODYNAMICS: Ao: 167/84 LV: 163/6, LVEDP 12mmHg SELECTIVE CORONARY ARTERIOGRAPHY: LEFT MAIN: The left main is a large caliber vessel which bifurcates into the LAD and circumflex. There is no significant stenosis. LEFT ANTERIOR DESCENDING CORONARY ARTERY: LAD is a large caliber vessel which wraps around to the apex. There is a proximal LAD 30% stenosis. Diagonal 1 is a small caliber vessel measuring approximately 1.75-2.0mm. There is an ostial 60-70% diagonal 1 stenosis which has somewhat of an ulcerated plaque appearance. LEFT CIRCUMFLEX CORONARY ARTERY: Left circumflex is a moderate caliber vessel. The circumflex gives off a moderate caliber OM1 and then becomes a small caliber vessel giving off a small caliber OM2. There is a 50% stenosis of the mid circumflex, after giving off OM1. RIGHT CORONARY ARTERY: The right coronary artery is a moderate caliber vessel which gives off a PDA and PLV branch and is the dominant vessel. There is a mid 40% RCA stenosis. FINAL IMPRESSION: 1. CAD as described above including RCA 40%, circumflex 50%, LAD 30% and ostial diagonal 60-70% stenosis. 2. Ulcerated plaque appearance of diagonal 1 branch with suspected acute coronary syndrome, unstable angina with typical symptoms on presentation. May have been precipitated by phenylephrine use. 3. Normal left sided filling pressures. PLAN: 1. Aggressive risk factor modification per most recent ACC/AHA guidelines. 2. Would treat patient as acute coronary syndrome with 12 months of dual antiplatelets. Patient performed well on exercise stress test without any angina up to 9 minutes and would treat 60-70% diagonal stenosis medically. Suspect plaque rupture with partial recanalization. Plauqe rupture may have been precipitated by phenylephrine use and would recommend avoidance of phenylephrine in the future.
[2020-10-03] MEDS: ATORVASTATIN 40 MG TAB PO SCH (21:00)
[2020-10-03] MEDS: ALPRAZolam 1 MG TAB PO SCH (21:00)
[2020-10-03] MEDS: FLUoxetine HCL 20 MG CAP PO SCH (21:00)
[2020-10-03] MEDS: PANTOPRAZOLE 40 MG TABLET PO SCH (21:01)
[2020-10-03] MEDS: GABAPENTIN 300 MG CAP PO SCH (21:01)
[2020-10-03] MEDS: IBUPROFEN 800 MG TAB PO PRN (21:01)
[2020-10-04] MEDS: LORATADINE 10 MG TAB PO SCH (08:31)
[2020-10-04] MEDS: METOPROLOL SUCCINATE (ER) 25 MG TAB.ER.24H PO SCH (08:31)
[2020-10-04 08:37] VITALS: TEMP 98
[2020-10-04] MEDS ORDERED: ASPIRIN 81 MG PO SCH (09:00)
[2020-10-04] MEDS ORDERED: CLOPIDOGREL 75 MG TAB PO SCH (09:00)
[2020-10-04] MEDS ORDERED: ISOSORBIDE MONONITRATE ER 30 MG TAB.ER.24H PO SCH (10:30)
[2020-10-04 11:59] VITALS: BP 139/76; PULSE 70
--- NOTE | 2020-10-04 12:26 | P.PN ---
Subjective Progress Note Date: 10/04/20 The patient is a 50-year-old female with past medical history diabetes, hypertension, dyslipidemia, and obesity status post gastric bypass, who presented to the hospital with new onset of chest discomfort, jaw pain and shortness of breath. She subsequently underwent stress testing which came out to be abnormal. Yesterday she underwent left heart catheterization with Dr. Gold. She was found to have moderate disease in her RCA, left circumflex, and LAD. Ostial diagonal branch had a 60-70% stenosis. Ulcerated plaque noted in the diagonal branch with suspected acute coronary syndrome. The patient was interviewed and examined this morning. She states she has not had any additional symptoms of chest discomfort, jaw pain, or shortness of breath. She states she has gotten up and ambulated around her room. She also denies any palpitations, dizziness, or lightheadedness. GENERAL: Well-appearing, well-nourished and in no acute distress. NECK: Supple without JVD or thyromegaly. LUNGS: Breath sounds clear to auscultation bilaterally. Respiration equal and unlabored. No wheezes, rales or rhonchi. HEART: Regular rate and rhythm without murmurs, rubs or gallops. S1 and S2 heard. EXTREMITIES: Normal range of motion, no edema. No clubbing or cyanosis. Peripheral pulses intact and strong. Right radial Site is clean, dry, and intact. +2 radial pulse. Vitals: Blood pressure 139/76, pulse rate 70, respiratory rate 16, SpO2 97% on room air No recent laboratory data. Assessment: #1 acute coronary syndrome, involving the diagonal branch #2 multivessel coronary artery disease #3 hypertension #4 dyslipidemia, LDL goal less than 50 #5 diabetes mellitus Plan: Maximize medical treatment including dual antiplatelet therapy, beta blockers, and statin therapy Increase atorvastatin 80 mg daily Start isosorbide 30 mg daily Recommend heart healthy diet Patient may be discharged from the cardiac standpoint and follow up with primary script editor in 1-2 weeks Objective - Vital Signs Vital signs: Vital Signs Temp 98.0 F 10/04/20 08:36 Pulse 70 10/04/20 10:00 Resp 16 10/04/20 10:00 BP 139/76 10/04/20 10:00 Pulse Ox 97 10/04/20 10:00 Intake & Output 10/03/20 10/04/20 10/04/20 18:59 06:59 18:59 Intake Total 865 480 Balance 865 480 Weight 68.95 kg Intake: IV 175 Intake, IV Titration 210 Amount Sodium Chloride 0.9% 1, 210 000 ml In Empty Bag 1 bag @ 1 ML/KG/HR 68.95 mls/ hr IV .[id number] ONE Rx#: [id number] Oral 480 480 Other: Voiding Method Toilet Toilet # Voids 2 1 1 - Labs CBC & Chem 7: 10/02/20 15:10 10/02/20 15:10
--- NOTE | 2020-10-04 13:17 | P.DS ---
Providers Date of admission: 10/03/20 13:33 Attending physician: Bigg Benjamin Consults: 10/02/20 15:53 Consult Physician Urgent Consulting Provider: Diego Benson Consult Reason/Comments: cp Do you want consulting provider notified?: Yes Primary care physician: Bigg Benjamin [facility] Course: 50-year-old pleasant female came in with compensative chest pain found to have positive stress test underwent cardiac catheterization which showed RCA stenosis of 40% circumflex 50% LAD 30% and ostial LAD diagonal 60-70%. There is an ulcerated plaque in the diagonal branch 1. Cardiology is recommending aggressive medical therapy and avoidance of medications like phenylephrine. Patient will be discharged today and patient will continue with dual antiplatelet therapy for about any or as recommended by cardiology. Patient is otherwise clinically doing well. Denied any chest pain at this time. PHYSICAL EXAMINATION: GENERAL: The patient is alert and oriented x3, not in any acute distress. Well developed, well nourished. HEENT: Pupils are round and equally reacting to light. EOMI. No scleral icterus. No conjunctival pallor. Normocephalic, atraumatic. No pharyngeal erythema. No thyromegaly. CARDIOVASCULAR: S1 and S2 present. No murmurs, rubs, or gallops. PULMONARY: Chest is clear to auscultation, no wheezing or crackles. ABDOMEN: Soft, nontender, nondistended, normoactive bowel sounds. No palpable organomegaly. MUSCULOSKELETAL: No joint swelling or deformity. EXTREMITIES: No cyanosis, clubbing, or pedal edema. NEUROLOGICAL: Gross neurological examination did not reveal any focal deficits. SKIN: No rashes. Assessment medical problems hospice physician course please refer to H&P from Dr. Benjamin from yesterday Plan - Discharge Summary New Discharge Prescriptions: New Aspirin 81 mg PO DAILY #30 chew Isosorbide Mononitrate ER [Imdur] 30 mg PO DAILY #30 tab.er.24h Nitroglycerin Sl Tabs [Nitrostat] 0.4 mg SUBLINGUAL Q5M PRN #30 tab PRN Reason: Chest Pain Clopidogrel [Plavix] 75 mg PO DAILY #30 tab Metoprolol Succinate (ER) [Toprol XL] 25 mg PO DAILY #30 tab.er.24h Continue ALPRAZolam [Xanax] 1 mg PO HS Gabapentin [Neurontin] 300 mg PO HS Multivitamins, Thera [Multivitamin (formulary)] 1 tab PO DAILY Biotin 5 mg PO DAILY Primidone [Mysoline] 50 mg PO HS tiZANidine [Zanaflex] 4 mg PO BID PRN PRN Reason: Muscle Spasm Primidone [Mysoline] 50 mg PO DAILY PRN PRN Reason: tremors Omeprazole 40 mg PO HS Calcium Citrate/Vitamin D3 [Citracal + D Maximum Caplet] 1 tab PO DAILY Atorvastatin [Lipitor] 40 mg PO HS FLUoxetine HCL 80 mg PO HS Ibuprofen [Motrin] 800 mg PO TID PRN PRN Reason: Pain Discontinued Phenylephrine HCl [Sudafed PE] 10 mg PO Q6H PRN PRN Reason: Congestion Discharge Medication List ALPRAZolam [Xanax] 1 mg PO HS 02/18/17 [History] Gabapentin [Neurontin] 300 mg PO HS 01/19/18 [History] Multivitamins, Thera [Multivitamin (formulary)] 1 tab PO DAILY 08/21/19 [History] Biotin 5 mg PO DAILY 04/22/20 [History] Primidone [Mysoline] 50 mg PO HS 04/22/20 [History] Atorvastatin [Lipitor] 40 mg PO HS 10/02/20 [History] Calcium Citrate/Vitamin D3 [Citracal + D Maximum Caplet] 1 tab PO DAILY 10/02/20 [History] FLUoxetine HCL 80 mg PO HS 10/02/20 [History] Ibuprofen [Motrin] 800 mg PO TID PRN 10/02/20 [History] Omeprazole 40 mg PO HS 10/02/20 [History] Primidone [Mysoline] 50 mg PO DAILY PRN 10/02/20 [History] tiZANidine [Zanaflex] 4 mg PO BID PRN 10/02/20 [History] Aspirin 81 mg PO DAILY #30 chew 10/04/20 [Rx] Clopidogrel [Plavix] 75 mg PO DAILY #30 tab 10/04/20 [Rx] Isosorbide Mononitrate ER [Imdur] 30 mg PO DAILY #30 tab.er.24h 10/04/20 [Rx] Metoprolol Succinate (ER) [Toprol XL] 25 mg PO DAILY #30 tab.er.24h 10/04/20 [Rx] Nitroglycerin Sl Tabs [Nitrostat] 0.4 mg SUBLINGUAL Q5M PRN #30 tab 10/04/20 [Rx] Follow up Appointment(s)/Referral(s): Gallito Gold DO [STAFF PHYSICIAN] - 2 Weeks Bigg Benjamin DO [Primary Care Provider] - 3 Days Discharge Disposition: HOME SELF-CARE
[2020-10-05] MEDS ORDERED: ATORVASTATIN 80 MG TAB PO SCH (09:00)
== END 2020-10-04 14:50 | disposition home or self-care (01) ==
LOC: EC 14:39 → 1SOBS 15:53 → OBSVTOIN 10-03 13:33 → INTOOBSV 10-03 13:33 → UNDODISIN 10-04 14:50
PROVIDERS: ADMIT Family Medicine; ATTEND Family Medicine
DX: I25.110 Atherosclerotic heart disease of native coronary artery with unstable angina pectoris (principal); I10 Essential (primary) hypertension; E78.5 Hyperlipidemia, unspecified; Z86.73 Personal history of transient ischemic attack (TIA), and cerebral infarction without residual deficits; E11.8 Type 2 diabetes mellitus with unspecified complications; E66.9 Obesity, unspecified; Z68.27 Body mass index [BMI] 27.0-27.9, adult; K21.9 Gastro-esophageal reflux disease without esophagitis; J32.9 Chronic sinusitis, unspecified; M79.7 Fibromyalgia; Z98.84 Bariatric surgery status; F41.0 Panic disorder [episodic paroxysmal anxiety]; Z87.01 Personal history of pneumonia (recurrent); E03.9 Hypothyroidism, unspecified; F41.9 Anxiety disorder, unspecified; F32.9 Major depressive disorder, single episode, unspecified; R32 Unspecified urinary incontinence; Z85.41 Personal history of malignant neoplasm of cervix uteri; Z87.19 Personal history of other diseases of the digestive system; M54.9 Dorsalgia, unspecified; M54.2 Cervicalgia; M25.519 Pain in unspecified shoulder; M25.552 Pain in left hip; M25.551 Pain in right hip; Z98.891 History of uterine scar from previous surgery; Z90.49 Acquired absence of other specified parts of digestive tract; Z90.710 Acquired absence of both cervix and uterus; Z98.51 Tubal ligation status; Z98.890 Other specified postprocedural states; Z82.49 Family history of ischemic heart disease and other diseases of the circulatory system; Z80.8 Family history of malignant neoplasm of other organs or systems; Z82.0 Family history of epilepsy and other diseases of the nervous system; Z79.899 Other long term (current) drug therapy
CPT/HCPCS: 93005 ×2; 99285; 36415; 93017; 93306; 93458; 85379; 83880; 80061; 80053; 83735; 84484; 85025; 85610; 85730; 71046; 78452; G0378 ×3; C1769; C1894; A9500; J2250; J2001; J3010; J1644; Q9967

== ENCOUNTER → 2020-10-22 | Outpatient (CLI) | payer OTHER ==
--- NOTE | 2020-10-22 21:29 | CT ---
EXAMINATION TYPE: CT abdomen pelvis w con DATE OF EXAM: 10/22/2020 COMPARISON: 07/23/2016 INDICATION: Pelvic pain, history of diverticulitis, changes in bowel habits, and dysuria. DLP: 592.2 mGycm, Automated exposure control for dose reduction was used. CONTRAST: 100 mL of Isovue M300. Study performed with Oral Contrast TECHNIQUE: Axial images were obtained from above the diaphragm to the pubic rami in the axial plane a t 5 mm thick sections. Reconstructed images are reviewed on the computer in the coronal plane. FINDINGS: Limited CT sections are obtained the lung bases. The lung bases are clear. CT ABDOMEN: Liver: Normal Spleen: Normal Pancreas: Normal Adrenal glands: The adrenal glands are normal. Gallbladder: Surgically absent Kidneys: No masses are evident. No hydronephrosis is present. No cysts are present. Delayed images were obtained through the kidneys, which remain unremarkable. Aorta: Normal Inferior vena cava: Normal. CT PELVIS: Loops of bowel within the abdomen and pelvis are normal. There are loops of bowel which are incom pletely distended or lack oral contrast limiting their evaluation. Appendix: Visualized. No dilated tubular structures or inflammatory changes are evident. Urinary bladder: Normal. Genitourinary structures: Uterus is not identified. Adnexal regions are normal. Osseous structures: No suspicious lytic or sclerotic lesions. Sacroiliac joint degenerative changes a re present. IMPRESSIONS: 1. No suspicious acute diverticulitis. 2. Diverticulosis to the sigmoid colon.
== END | disposition home or self-care (01) ==
LOC: RADCTMAIN 12:50
PROVIDERS: ATTEND Surgery
DX: K57.30 Diverticulosis of large intestine without perforation or abscess without bleeding (principal)
CPT/HCPCS: 74177; Q9967 ×2

== ENCOUNTER 2021-04-22 | Emergency (ER) | payer OTHER | END 2021-04-22 12:08 | disposition home or self-care (01) | CPT/HCPCS: 36415; 74177; 80053; 81003; 82150; 83605; 83690; 85025; 85610; 85730; 96374; 96375; 99284 ==

== ENCOUNTER 2021-04-22 12:31 | Observation (INO) | payer OTHER ==
[2021-04-22] MEDS ORDERED: NITROGLYCERIN SL TABS 0.4 MG TAB SUBLINGUAL STA (13:01)
[2021-04-22] MEDS ORDERED: ASPIRIN 81 MG PO STA (13:01)
--- NOTE | 2021-04-22 13:06 | ED ---
General Adult HPI - General Chief complaint: Chest Pain Stated complaint: Chest Pain/Revisit Time Seen by Provider: 04/22/21 12:46 Source: patient Mode of arrival: wheelchair Limitations: no limitations - History of Present Illness Initial comments: Dictation was produced using [employer] dictation software. please excuse any grammatical, word or spelling errors. Chief Complaint: 50-year-old female presents with chest pain History of Present Illness: 50-year-old female she has past medical history coronary artery disease. Patient states she has also coronary artery blockages estimated around 50% blockage. She does not have any coronary artery stents. Patient was just here in emergency department for abdominal pain. She was found to have diverticulitis patient turn around because as soon as she left she began having chest pain. She states the pressure. Denies any radiation of symptoms. No diaphoresis. No nausea. The ROS documented in this emergency department record has been reviewed and confirmed by me. Those systems with pertinent positive or negative responses have been documented in the HPI. All other systems are other negative and/or noncontributory. PHYSICAL EXAM: General Impression: Alert and oriented x3, not in acute distress HEENT: Normocephalic atraumatic, extra-ocular movements intact, pupils equal and reactive to light bilaterally, mucous membranes moist. Cardiovascular: Heart regular rate and rhythm Chest: Able to complete full sentences, no retractions, no tachypnea Abdomen: abdomen soft, non-tender, non-distended, no organomegaly Musculoskeletal: Pulses present and equal in all extremities, no peripheral edema Motor: no focal deficits noted Neurological: CN II-XII grossly intact, no focal motor or sensory deficits noted Skin: Intact with no visualized rashes Psych: Anxious, hysterical ED course: 50-year-old female presents to the emergency department for chest pain. She has known coronary artery disease. No signs upon arrival are within acceptable limits. EKG does not show any signs of myocardial ischemia or infarction. Chart review shows that patient had cardiac cath in September of last year showing multiple coronary artery disease vessels. Laboratory evaluation obtained. CBC, coag panel, metabolic panel is unremarkable. Troponin is negative. Chest x-ray is nonacute. Patient reevaluated after given nitro and aspirin feeling improved. Given patient's history of coronary artery disease patient will be admitted for serial troponins, cardiac monitoring and cardiology consultation. She is agreeable to plan. Patient be admitted to Dr. Raza her PCP. EKG interpretation: Ventricular rate 72, normal sinus rhythm,. Interval 144, QRS 74, QTC 459. No RI prolongation, no QTC prolongation, no ST or T-wave changes noted. EKG compared to 10/02/2020 showing no changes. Overall, this EKG is unremarkable - Related Data Home Medications Medication Instructions Recorded Confirmed ALPRAZolam [Xanax] 1 mg PO HS PRN 02/18/17 04/22/21 Multivitamins, Thera [Multivitamin 1 tab PO DAILY 08/21/19 04/22/21 (formulary)] Atorvastatin [Lipitor] 40 mg PO HS 10/02/20 04/22/21 FLUoxetine HCL 80 mg PO DAILY 10/02/20 04/22/21 Omeprazole 40 mg PO HS 10/02/20 04/22/21 Primidone [Mysoline] 50 mg PO BID 10/02/20 04/22/21 Biotin 10,000 mcg PO DAILY 04/22/21 04/22/21 Cetirizine HCl [Zyrtec] 10 mg PO DAILY 04/22/21 04/22/21 traMADol HCl [Ultram] 50 mg PO TID PRN 04/22/21 04/22/21 Previous Rx's Medication Instructions Recorded Aspirin 81 mg PO DAILY #30 chew 10/04/20 Clopidogrel [Plavix] 75 mg PO DAILY #30 tab 10/04/20 Isosorbide Mononitrate ER [Imdur] 30 mg PO DAILY #30 tab.er.24h 10/04/20 Metoprolol Succinate (ER) [Toprol 25 mg PO DAILY #30 tab.er.24h 10/04/20 XL] Nitroglycerin Sl Tabs [Nitrostat] 0.4 mg SUBLINGUAL Q5M PRN #30 tab 10/04/20 Amoxicillin/Potassium Clav 1 tab PO BID 7 Days #14 tab 04/22/21 [Augmentin 875-125 Tablet] Allergies Allergy/AdvReac Type Severity Reaction Status Date / Time No Known Allergies Allergy Verified 04/22/21 13:11 Review of Systems ROS Statement: Those systems with pertinent positive or pertinent negative responses have been documented in the HPI. ROS Other: All systems not noted in ROS Statement are negative. Past Medical History Past Medical History: Cancer, CVA/TIA, Fibromyalgia, GERD/Reflux, Hyperlipidemia, Pneumonia, Thyroid Disorder Additional Past Medical History / Comment(s): sinus infection TIA Oct 2017, no residual effects. CERVICAL CA (1996), HX OF DIVERTICULITIS, OCCASIONAL DIARRHEA AND HEARTBURN, PT STATES UNSURE OF THYROID DISORDER. Back, neck, shoulder and bilateral hip pain. Hx Pneumonia in 1999. Thinks she has sleep anea but has had no testing done. History of Any Multi-Drug Resistant Organisms: None Reported Past Surgical History: Bariatric Surgery, Section, Cholecystectomy, Hysterectomy, Tubal Ligation, Uterine Ablation Additional Past Surgical History / Comment(s): LAP BAND 2000 & REMOVED 2001., gastric sleeve 06/05/2019 Past Anesthesia/Blood Transfusion Reactions: Motion Sickness Past Psychological History: Anxiety, Depression Smoking Status: Never smoker Past Alcohol Use History: None Reported Past Drug Use History: None Reported - Past Family History Father Family Medical History: Cancer, Coronary Artery Disease (CAD), CVA/TIA, Myocardial Infarction ([place]) Additional Family Medical History / Comment(s): Bone ca Mother Family Medical History: Myocardial Infarction ([place]), Thyroid Disorder Sister(s) Family Medical History: Fibromyalgia Additional Family Medical History / Comment(s): MS General Exam Limitations: no limitations Course Vital Signs 04/22/21 04/22/21 04/22/21 12:39 13:00 13:10 Temperature 97.6 F Pulse Rate 83 80 Respiratory 22 16 Rate Blood Pressure 142/72 150/93 110/98 O2 Sat by Pulse 98 98 Oximetry Medical Decision Making - Lab Data Result diagrams: 04/22/21 13:04 04/22/21 13:03 Lab Results 04/22/21 04/22/21 04/22/21 Range/Units 13:03 13:03 13:04 WBC 10.7 H (3.8-10.6) k/uL RBC 4.99 (3.80-5.40) m/uL Hgb 13.7 (11.4-16.0) gm/dL Hct 41.4 (34.0-46.0) % MCV 82.9 (80.0-100.0) fL MCH 27.4 (25.0-35.0) pg MCHC 33.0 (31.0-37.0) g/dL RDW 14.0 (11.5-15.5) % Plt Count 170 (150-450) k/uL MPV 9.5 Neutrophils % 58 % Lymphocytes % 33 % Monocytes % 6 % Eosinophils % 1 % Basophils % 1 % Neutrophils # 6.2 (1.3-7.7) k/uL Lymphocytes # 3.6 (1.0-4.8) k/uL Monocytes # 0.6 (0-1.0) k/uL Eosinophils # 0.1 (0-0.7) k/uL Basophils # 0.1 (0-0.2) k/uL PT (9.0-12.0) sec INR (<1.2) APTT (22.0-30.0) sec Sodium 139 (137-145) mmol/L Potassium 3.9 (3.5-5.1) mmol/L Chloride 103 (98-107) mmol/L Carbon Dioxide 24 (22-30) mmol/L Anion Gap 12 mmol/L BUN 10 (7-17) mg/dL Creatinine 0.56 (0.52-1.04) mg/dL Est GFR (CKD-EPI)AfAm >90 (>60 ml/min/1.73 sqM) Est GFR (CKD-EPI)NonAf >90 (>60 ml/min/1.73 sqM) Glucose 114 H (74-99) mg/dL Calcium 9.6 (8.4-10.2) mg/dL Magnesium 1.8 (1.6-2.3) mg/dL Total Bilirubin 0.4 (0.2-1.3) mg/dL AST 103 H (14-36) U/L ALT 38 H (4-34) U/L Alkaline Phosphatase 129 H (38-126) U/L Troponin I <0.012 (0.000-0.034) ng/mL Total Protein 7.0 (6.3-8.2) g/dL Albumin 4.4 (3.5-5.0) g/dL 04/22/21 Range/Units 13:04 WBC (3.8-10.6) k/uL RBC (3.80-5.40) m/uL Hgb (11.4-16.0) gm/dL Hct (34.0-46.0) % MCV (80.0-100.0) fL MCH (25.0-35.0) pg MCHC (31.0-37.0) g/dL RDW (11.5-15.5) % Plt Count (150-450) k/uL MPV Neutrophils % % Lymphocytes % % Monocytes % % Eosinophils % % Basophils % % Neutrophils # (1.3-7.7) k/uL Lymphocytes # (1.0-4.8) k/uL Monocytes # (0-1.0) k/uL Eosinophils # (0-0.7) k/uL Basophils # (0-0.2) k/uL PT 10.4 (9.0-12.0) sec INR 1.0 (<1.2) APTT 21.5 L (22.0-30.0) sec Sodium (137-145) mmol/L Potassium (3.5-5.1) mmol/L Chloride (98-107) mmol/L Carbon Dioxide (22-30) mmol/L Anion Gap mmol/L BUN (7-17) mg/dL Creatinine (0.52-1.04) mg/dL Est GFR (CKD-EPI)AfAm (>60 ml/min/1.73 sqM) Est GFR (CKD-EPI)NonAf (>60 ml/min/1.73 sqM) Glucose (74-99) mg/dL Calcium (8.4-10.2) mg/dL Magnesium (1.6-2.3) mg/dL Total Bilirubin (0.2-1.3) mg/dL AST (14-36) U/L ALT (4-34) U/L Alkaline Phosphatase (38-126) U/L Troponin I (0.000-0.034) ng/mL Total Protein (6.3-8.2) g/dL Albumin (3.5-5.0) g/dL Disposition Clinical Impression: Chest pain Disposition: ADMITTED IP TO THIS HOSP Condition: Fair Referrals: Johnathan Raza MD [Primary Care Provider] - 1-2 days
[2021-04-22 13:09] VITALS: RESP 16
[2021-04-22 13:41] LABS: ALT 38 U/L (4-34); AST 103 U/L (14-36); African American GFR (CKD) >90 (>60 ml/min/1.73 sqM); Albumin 4.4 g/dL (3.5-5.0); Alkaline Phosphatase 129 U/L (38-126); Anion Gap 12 mmol/L; Blood Urea Nitrogen 10 mg/dL (7-17); Calcium 9.6 mg/dL (8.4-10.2); Carbon Dioxide 24 mmol/L (22-30); Chloride 103 mmol/L (98-107); Glucose 114 mg/dL (74-99); Magnesium 1.8 mg/dL (1.6-2.3); Non-African American GFR(CKD) >90 (>60 ml/min/1.73 sqM); Potassium 3.9 mmol/L (3.5-5.1); Sodium 139 mmol/L (137-145); Total Bilirubin 0.4 mg/dL (0.2-1.3)
[2021-04-22 13:42] LABS: Prothrombin Time 10.4 sec (9.0-12.0)
[2021-04-22 13:43] LABS: Partial Thromboplastin Time 21.5 sec (22.0-30.0)
--- NOTE | 2021-04-22 13:49 | XR ---
EXAMINATION TYPE: XR chest 2V DATE OF EXAM: 04/22/2021 COMPARISON: NONE HISTORY: Shortness of breath TECHNIQUE: Frontal and lateral views of the chest are obtained. FINDINGS: Scattered senescent parenchymal changes noted. Hyperinflation compatible with COPD. No evidence for infiltrate. No evidence for atelectasis. Heart size is stable. Mediastinal structures are stable and grossly unremarkable. No evidence for hilar prominence. Degenerative changes dorsal spine. IMPRESSION: 1. No evidence for acute pulmonary disease.
[2021-04-22 13:58] LABS: Basophils # (A) 0.1 k/uL (0-0.2); Basophils % (A) 1 %; Eosinophils # (A) 0.1 k/uL (0-0.7); Eosinophils % (A) 1 %; HCT 41.4 % (34.0-46.0); HGB 13.7 gm/dL (11.4-16.0); Lymphocytes # (A) 3.6 k/uL (1.0-4.8); Lymphocytes % (A) 33 %; MCH 27.4 pg (25.0-35.0); MCV 82.9 fL (80.0-100.0); Mean Platelet Volume 9.5; Monocytes # (A) 0.6 k/uL (0-1.0); Monocytes % (A) 6 %; Neutrophils # (A) 6.2 k/uL (1.3-7.7); Neutrophils % (A) 58 %; Platelet Count 170 k/uL (150-450); RBC 4.99 m/uL (3.80-5.40); WBC 10.7 k/uL (3.8-10.6)
[2021-04-22] MEDS ORDERED: NITROGLYCERIN SL TABS 0.4 MG TAB SUBLINGUAL PRN (14:05)
[2021-04-22] MEDS ORDERED: ALPRAZolam 1 MG TAB PO PRN (18:18)
--- NOTE | 2021-04-22 18:54 | P.HPIM ---
History of Present Illness H&P Date: 04/22/21 Chief Complaint: Chest discomfort 50-year-old female with significant past medical history of coronary artery disease, hyperlipidemia, hypertension, mixed anxiety and depression, reflux/GERD, tremors, fibromyalgia, history of CVA/TIA, and history of myocardial infarction. Patient presented to the emergency department this a.m. with the complaint of abdominal pain, CT abdomen and pelvis was found to have mild uncomplicated acute diverticulitis of the sigmoid colon; 20 minutes after discharge from the emergency department patient developed midsternal chest pressure with associated sweatiness. Patient seen and examined at bedside. She is resting comfortably. She endorses intermittent chest pressure, epigastric pain, left lower quadrant pain upon light palpation and generalized malaise. Patient denies fever, chills, shortness of breath, nausea, or diarrhea. Review diagnostic testing from emergency department, chest x-ray no acute cardiopulmonary processes, 12-lead EKG normal sinus rhythm, CT abdomen and pelvis, found to have mild uncomplicated acute diverticulitis of the sigmoid colon. Cardiology consult at for recommendations and treatment plan regarding chest pressure with significant history of coronary artery disease and myocardial infarction. Review of Systems Constitutional: Reports chills Cardiovascular: Reports chest pain Gastrointestinal: Reports abdominal pain Genitourinary: Reports as per HPI Musculoskeletal: Reports low back pain, Reports neck pain Psychiatric: Reports anxiety Endocrine: Reports as per HPI Hematologic/Lymphatic: Reports as per HPI Allergic/Immunologic: Reports as per HPI Past Medical History Past Medical History: Cancer, CVA/TIA, Fibromyalgia, GERD/Reflux, Hyperlipidemia, Pneumonia, Thyroid Disorder Additional Past Medical History / Comment(s): sinus infection TIA Oct 2017, no residual effects. CERVICAL CA (1996), HX OF DIVERTICULITIS, OCCASIONAL DIARRHEA AND HEARTBURN, PT STATES UNSURE OF THYROID DISORDER. Back, neck, shoulder and bilateral hip pain. Hx Pneumonia in 1999. Thinks she has sleep anea but has had no testing done. History of Any Multi-Drug Resistant Organisms: None Reported Past Surgical History: Bariatric Surgery, Section, Cholecystectomy, Hysterectomy, Tubal Ligation, Uterine Ablation Additional Past Surgical History / Comment(s): LAP BAND 2000 & REMOVED 2001., gastric sleeve 06/05/2019 Past Anesthesia/Blood Transfusion Reactions: Motion Sickness Past Psychological History: Anxiety, Depression Smoking Status: Never smoker Past Alcohol Use History: None Reported Past Drug Use History: None Reported - Past Family History Father Family Medical History: Cancer, Coronary Artery Disease (CAD), CVA/TIA, Myocardial Infarction ([place]) Additional Family Medical History / Comment(s): Bone ca Mother Family Medical History: Myocardial Infarction ([place]), Thyroid Disorder Sister(s) Family Medical History: Fibromyalgia Additional Family Medical History / Comment(s): MS Medications and Allergies Home Medications and Allergies Comment(s): Medications and ALLERGIES reviewed Home Medications Medication Instructions Recorded Confirmed Type ALPRAZolam [Xanax] 1 mg PO HS PRN 02/18/17 04/22/21 History Multivitamins, Thera [Multivitamin 1 tab PO DAILY 08/21/19 04/22/21 History (formulary)] Atorvastatin [Lipitor] 40 mg PO HS 10/02/20 04/22/21 History FLUoxetine HCL 80 mg PO DAILY 10/02/20 04/22/21 History Omeprazole 40 mg PO HS 10/02/20 04/22/21 History Primidone [Mysoline] 50 mg PO BID 10/02/20 04/22/21 History Aspirin 81 mg PO DAILY #30 chew 10/04/20 04/22/21 Rx Clopidogrel [Plavix] 75 mg PO DAILY #30 tab 10/04/20 04/22/21 Rx Isosorbide Mononitrate ER [Imdur] 30 mg PO DAILY #30 tab.er.24h 10/04/20 04/22/21 Rx Metoprolol Succinate (ER) [Toprol 25 mg PO DAILY #30 tab.er.24h 10/04/20 04/22/21 Rx XL] Nitroglycerin Sl Tabs [Nitrostat] 0.4 mg SUBLINGUAL Q5M PRN #30 tab 10/04/20 04/22/21 Rx Amoxicillin/Potassium Clav 1 tab PO BID 7 Days #14 tab 04/22/21 04/22/21 Rx [Augmentin 875-125 Tablet] Biotin 10,000 mcg PO DAILY 04/22/21 04/22/21 History Cetirizine HCl [Zyrtec] 10 mg PO DAILY 04/22/21 04/22/21 History traMADol HCl [Ultram] 50 mg PO TID PRN 04/22/21 04/22/21 History Allergies Allergy/AdvReac Type Severity Reaction Status Date / Time No Known Allergies Allergy Verified 04/22/21 13:11 Physical Exam Vitals: Vital Signs Temp Pulse Pulse Resp BP BP Pulse Ox 04/22/21 15:19 98.0 F 74 16 123/73 98 04/22/21 14:21 66 16 123/79 98 04/22/21 14:10 97.9 F 80 18 105/65 97 04/22/21 13:10 110/98 04/22/21 13:00 80 16 150/93 98 04/22/21 12:39 97.6 F 83 22 142/72 98 Intake and Output 04/22/21 04/22/21 04/22/21 06:59 14:59 22:59 Other: Weight 71.214 kg - Constitutional General appearance: cooperative - EENT Eyes: EOMI, PERRLA, normal appearance ENT: normal oropharynx - Neck Neck: normal ROM Carotids: bilateral: upstroke normal - Respiratory Respiratory: bilateral: CTA (Anterior and posterior lung nails) - Cardiovascular Normal sinus rhythm Heart rate: 74 Rhythm: regular Heart sounds: normal: S1, S2 radial pulse Peripheral Pulses: bilateral: Normal dorsalis pedis Peripheral Pulses: bilateral: Normal - Gastrointestinal General gastrointestinal: tenderness Localized gastrointestinal: tender: LLQ - Integumentary Integumentary: normal turgor - Neurologic Neurologic: CNII-XII intact - Musculoskeletal Musculoskeletal: gait normal - Psychiatric Psychiatric: A&O x's 3, appropriate affect, intact judgment & insight Results CBC & Chem 7: 04/22/21 13:04 04/22/21 13:03 Labs: Abnormal Lab Results - Last 24 Hours (Table) 04/22/21 04/22/21 04/22/21 Range/Units 13:03 13:04 13:04 WBC 10.7 H (3.8-10.6) k/uL APTT 21.5 L (22.0-30.0) sec Glucose 114 H (74-99) mg/dL AST 103 H (14-36) U/L ALT 38 H (4-34) U/L Alkaline Phosphatase 129 H (38-126) U/L Chest x-ray: report reviewed CT scan - pelvis: report reviewed Thrombosis Risk Factor Assmnt - Choose All That Apply Each Factor Represents 1 point: Age 41-60 years Other Risk Factors: No Other congenital or acquired thrombophilia - If yes, enter type in comment: No Thrombosis Risk Factor Assessment Total Risk Factor Score: 1 Thrombosis Risk Factor Assessment Level: Low Risk Assessment and Plan Assessment: Chest pain Mild acute diverticulitis of the sigmoid colon Coronary artery disease Hypertension Hyperlipidemia Fibromyalgia GERD/reflux Chronic back pain Mixed anxiety and depression Essential tremors History of myocardial infarction History of cervical cancer with hysterectomy History of bariatric surgery, gastric sleeve placed 06/05/2019 History of cholecystectomy Full code Plan: Chest discomfort, continue to trend troponins; continue consultation with cardiology for recommendations and treatment plan Acute mild diverticulitis of the sigmoid colon, initiate Cipro and Flagyl for coverage Continue home medications Continue medical management Continue to monitor vital signs and diagnostic testing Further recommendations to come based on patient's clinical condition Time with Patient: Greater than 30
[2021-04-22] MEDS: PRIMIDONE 50 MG TAB PO SCH (20:30)
[2021-04-22] MEDS: traMADol 50 MG TAB PO PRN (20:30)
[2021-04-22] MEDS: metroNIDAZOLE-NS PMX 500 MG in SALINE 1 100ML.BAG IVPB SCH (20:30)
[2021-04-22] MEDS ORDERED: PANTOPRAZOLE 40 MG TABLET PO SCH (21:00)
[2021-04-22] MEDS ORDERED: ATORVASTATIN 40 MG TAB PO SCH (21:00)
[2021-04-22] MEDS: CIPROFLOXACIN/DEXTROSE PMX 400 MG in DEXTROSE/WATER 1 200ML.BAG IVPB SCH (21:44)
[2021-04-23] MEDS: metroNIDAZOLE-NS PMX 500 MG in SALINE 1 100ML.BAG IVPB SCH ×2 (01:31→08:16)
[2021-04-23] MEDS: traMADol 50 MG TAB PO PRN (03:32)
[2021-04-23 07:59] VITALS: BP 111/76; PULSE 67; TEMP 98.4
[2021-04-23] MEDS: PRIMIDONE 50 MG TAB PO SCH (08:20)
[2021-04-23] MEDS ORDERED: ASPIRIN 81 MG PO SCH (09:00)
[2021-04-23] MEDS ORDERED: ASPIRIN 325 MG TAB PO SCH (09:00)
[2021-04-23] MEDS ORDERED: ISOSORBIDE MONONITRATE ER 30 MG TAB.ER.24H PO SCH (09:00)
[2021-04-23] MEDS ORDERED: CLOPIDOGREL 75 MG TAB PO SCH (09:00)
[2021-04-23] MEDS ORDERED: MULTIVITAMINS, THERA 1 EACH TAB PO SCH (09:00)
[2021-04-23] MEDS ORDERED: LORATADINE 10 MG TAB PO SCH (09:00)
[2021-04-23] MEDS ORDERED: FLUoxetine HCL 20 MG CAP PO SCH (09:00)
[2021-04-23] MEDS ORDERED: METOPROLOL SUCCINATE (ER) 25 MG TAB.ER.24H PO SCH (09:00)
[2021-04-23] MEDS ORDERED: NON FORMULARY DRUG (Biotin [Biotin] 10,000 MCG Capsule) PO SCH (09:00)
[2021-04-23] MEDS: CIPROFLOXACIN/DEXTROSE PMX 400 MG in DEXTROSE/WATER 1 200ML.BAG IVPB SCH (09:21)
[2021-04-23 09:23] LABS: Basophils # (A) 0.02 X 10*3/uL (0.00-0.10); Basophils % (A) 0.3 %; Eosinophils # (A) 0.14 X 10*3/uL (0.04-0.35); Eosinophils % (A) 2.3 %; HCT 37.9 % (37.2-46.3); HGB 12.1 g/dL (12.0-15.0); Lymphocytes # (A) 1.99 X 10*3/uL (0.90-5.00); Lymphocytes % (A) 33.2 %; MCH 27.2 pg (27.0-32.0); MCHC 31.9 g/dL (32.0-37.0); MCV 85.2 fL (80.0-97.0); Mean Platelet Volume 12.7 fL (9.5-12.2); Monocytes # (A) 0.62 X 10*3/uL (0.20-1.00); Monocytes % (A) 10.3 %; Neutrophils # (A) 3.22 X 10*3/uL (1.80-7.70); Neutrophils % (A) 53.7 %; Platelet Count 165 X 10*3/uL (140-440); RBC 4.45 X 10*6/uL (4.10-5.20); RDW 13.8 % (11.5-14.5)
[2021-04-23 09:43] LABS: ALT 86 U/L (8-44); AST 77 U/L (13-35); African American GFR (CKD) 117.1 (60.0-200.0); Alkaline Phosphatase 147 U/L (41-126); BUN/Creat Ratio 14.29 Ratio (12.00-20.00); Calcium 8.8 mg/dL (8.7-10.3); Chloride 104 mmol/L (96-109); Chol/HDL Ratio 2.46; Cholesterol 150 mg/dL (0-200); Globulin 2.1 g/dL (1.6-3.3); Glucose 102 mg/dL (70-110); Potassium 3.9 mmol/L (3.5-5.5); Sodium 139 mmol/L (135-145); Total Bilirubin 0.4 mg/dL (0.3-1.2); Total Protein 6.1 g/dL (6.2-8.2); Triglycerides <50.0 mg/dL (0.0-149.0)
--- NOTE | 2021-04-23 13:17 | CONS ---
CONSULTATION CONSULTATION: This is a 50-year-old lady with a known history of CAD of a moderate stenosis involving a major diagonal branch, based on a cardiac cath that was performed sometime in September of 2020. She was found to have a 40% RCA, 50% circumflex and 30% LAD stenosis with a diagonal narrowing of 60-70% with ulceration and she was treated medically for this, has done well. She walked for over 9 minutes on the treadmill as well. She came into the hospital mostly with an abdominal discomfort on this hospitalization and as she was going home, she got into the car and then complained of really sharp chest pain that took her breath away and therefore she came back into the hospital. She has normal troponins, unremarkable EKG. No further recurrence of chest pain. Quality of pain seems very atypical and she is virtually asymptomatic at the time of my evaluation. Since September, after her cardiac cath, she has not had any episodes of chest pain and has seen Dr. Gold, who is her regular intellectual property counsel. At the time of my evaluation, she is asymptomatic. PAST MEDICAL HISTORY: Remarkable for an acute ischemic syndrome with no troponin elevation in September. Cardiac cath revealed moderate disease for which she was advised medical therapy. She also has gastroesophageal reflux disease, hypercholesterolemia. MEDICATIONS: Medications at home include aspirin 81 mg daily, Plavix 75 mg daily, Lipitor 40 mg daily, omeprazole 40 mg daily. She also takes some tramadol. ALLERGIES: None. REVIEW OF SYSTEMS: Unremarkable other than above mentioned facts. She also has some history of some bariatric surgery, cholecystectomy, hysterectomy, tubal ligation, uterine ablation, and fibromyalgia. PHYSICAL EXAMINATION: On examination, blood pressure is 124/70, pulse rate is 70 per minute, regular. HEENT: Unremarkable. Fundus was not examined by me. NECK: Is supple. No JVD. I do not hear a carotid bruit. There is no thyromegaly. HEART: Exam reveals S1, S2 heard normally. No rub, murmur or gallop. LUNGS: Lungs are clear. ABDOMEN: Soft, nontender. LOWER EXTREMITIES: Reveal normal pulses. No edema. CENTRAL NERVOUS SYSTEM: Normal. EKG revealed sinus mechanism, no acute changes. IMPRESSION: 1. Atypical chest pain. 2. Diverticulitis, for which she has been placed on antibiotics. 3. History of acute ischemic syndrome with moderate diagonal disease in September 2020. RECOMMENDATIONS: I am recommending a stress test to be performed, but patient is reluctant. She wishes to have it done as an outpatient. I also feel it is not absolutely necessary given her atypical presentation, negative troponins, and normal EKG. She will be discharged. Will see Dr. Gold in a week or so and stress test can be done as an outpatient if clinically she has any further symptoms. Thank you very much for the consult. MMMARCELINO / FATOUN: [id number] /
--- NOTE | 2021-04-28 06:59 | P.DS ---
Providers Date of admission: 04/22/21 14:05 Expected date of discharge: 04/23/21 Attending physician: Johnathan Raza Consults: 04/22/21 14:05 Consult Physician Urgent Consulting Provider: Portia Fenton Consult Reason/Comments: chest pain, hx of CAD Do you want consulting provider notified?: Yes Primary care physician: Johnathan Raza Hospital Course: 50-year-old female with significant past medical history of coronary artery disease, hyperlipidemia, hypertension, mixed anxiety and depression, reflux/GERD, tremors, fibromyalgia, history of CVA/TIA, and history of myocardial infarction. Patient presented to the emergency department this a.m. with the complaint of abdominal pain, CT abdomen and pelvis was found to have mild uncomplicated acute diverticulitis of the sigmoid colon; 20 minutes after discharge from the emergency department patient developed midsternal chest pressure with associated sweatiness. Patient was evaluated by cardiology for atypical chest pain, troponins negative 3, no acute abnormalities on 12-lead EKG. Cardiology recommendations for outpatient echo and stress tests. Patient will continue with Flagyl and Cipro for acute diverticulitis of the sigmoid colon. Patient to follow-up with primary care in 1 week and cardiology within 1-2 weeks Assessment: Chest pain, atypical chest pain follow-up with cardiology for stress and echo Mild acute diverticulitis of the sigmoid colon, continue Cipro and Flagyl Coronary artery disease Hypertension Hyperlipidemia Fibromyalgia GERD/reflux Chronic back pain Mixed anxiety and depression Essential tremors History of myocardial infarction History of cervical cancer with hysterectomy History of bariatric surgery, gastric sleeve placed 06/05/2019 History of cholecystectomy Health Concerns: None noted Pertinent Studies: CT of abdomen and pelvis with contrast noted acute diverticulitis of sigmoid colon Procedures: None performed during hospital stay Patient Condition at Discharge: Fair Plan - Discharge Summary Discharge Rx Participant: No New Discharge Prescriptions: New Ciprofloxacin HCl [Cipro] 500 mg PO Q12H 7 Days #14 tab metroNIDAZOLE [Flagyl] 500 mg PO TID 7 Days #21 tab Continue ALPRAZolam [Xanax] 1 mg PO HS PRN PRN Reason: Insomnia Multivitamins, Thera [Multivitamin (formulary)] 1 tab PO DAILY Primidone [Mysoline] 50 mg PO BID Omeprazole 40 mg PO HS Atorvastatin [Lipitor] 40 mg PO HS FLUoxetine HCL 80 mg PO DAILY Aspirin 81 mg PO DAILY #30 chew Isosorbide Mononitrate ER [Imdur] 30 mg PO DAILY #30 tab.er.24h Nitroglycerin Sl Tabs [Nitrostat] 0.4 mg SUBLINGUAL Q5M PRN #30 tab PRN Reason: Chest Pain Clopidogrel [Plavix] 75 mg PO DAILY #30 tab Metoprolol Succinate (ER) [Toprol XL] 25 mg PO DAILY #30 tab.er.24h Cetirizine HCl [Zyrtec] 10 mg PO DAILY traMADol HCl [Ultram] 50 mg PO TID PRN PRN Reason: Pain Biotin 10,000 mcg PO DAILY Discontinued Amoxicillin/Potassium Clav [Augmentin 875-125 Tablet] 1 tab PO BID 7 Days #14 tab Discharge Medication List ALPRAZolam [Xanax] 1 mg PO HS PRN 02/18/17 [History] Multivitamins, Thera [Multivitamin (formulary)] 1 tab PO DAILY 08/21/19 [History] Atorvastatin [Lipitor] 40 mg PO HS 10/02/20 [History] FLUoxetine HCL 80 mg PO DAILY 10/02/20 [History] Omeprazole 40 mg PO HS 10/02/20 [History] Primidone [Mysoline] 50 mg PO BID 10/02/20 [History] Aspirin 81 mg PO DAILY #30 chew 10/04/20 [Rx] Clopidogrel [Plavix] 75 mg PO DAILY #30 tab 10/04/20 [Rx] Isosorbide Mononitrate ER [Imdur] 30 mg PO DAILY #30 tab.er.24h 10/04/20 [Rx] Metoprolol Succinate (ER) [Toprol XL] 25 mg PO DAILY #30 tab.er.24h 10/04/20 [Rx] Nitroglycerin Sl Tabs [Nitrostat] 0.4 mg SUBLINGUAL Q5M PRN #30 tab 10/04/20 [Rx ] Biotin 10,000 mcg PO DAILY 04/22/21 [History] Cetirizine HCl [Zyrtec] 10 mg PO DAILY 04/22/21 [History] traMADol HCl [Ultram] 50 mg PO TID PRN 04/22/21 [History] Ciprofloxacin HCl [Cipro] 500 mg PO Q12H 7 Days #14 tab 04/23/21 [Rx] metroNIDAZOLE [Flagyl] 500 mg PO TID 7 Days #21 tab 04/23/21 [Rx] Follow up Appointment(s)/Referral(s): Johnathan Raza MD [Primary Care Provider] - 1-2 days Gallito Gold DO [STAFF PHYSICIAN] - 1 Week (Stress test outpatient) Patient Instructions/Handouts: Chest Pain (DC), Diverticulitis (DC) Discharge Disposition: HOME SELF-CARE
== END 2021-04-23 10:45 | disposition home or self-care (01) ==
LOC: EC 12:31 → 6NMEDSUR 14:05
PROVIDERS: ADMIT Family Medicine; ATTEND Family Medicine
DX: R07.89 Other chest pain (principal); K57.32 Diverticulitis of large intestine without perforation or abscess without bleeding; I25.10 Atherosclerotic heart disease of native coronary artery without angina pectoris; E78.5 Hyperlipidemia, unspecified; K21.9 Gastro-esophageal reflux disease without esophagitis; M79.7 Fibromyalgia; I10 Essential (primary) hypertension; E78.00 Pure hypercholesterolemia, unspecified; G89.29 Other chronic pain; M54.9 Dorsalgia, unspecified; G25.0 Essential tremor; I25.2 Old myocardial infarction; F41.3 Other mixed anxiety disorders; F32.9 Major depressive disorder, single episode, unspecified; Z79.82 Long term (current) use of aspirin; Z79.02 Long term (current) use of antithrombotics/antiplatelets; Z79.899 Other long term (current) drug therapy; Z86.73 Personal history of transient ischemic attack (TIA), and cerebral infarction without residual deficits; Z87.01 Personal history of pneumonia (recurrent); Z98.84 Bariatric surgery status; Z90.49 Acquired absence of other specified parts of digestive tract; Z85.41 Personal history of malignant neoplasm of cervix uteri; Z98.891 History of uterine scar from previous surgery; Z90.710 Acquired absence of both cervix and uterus; Z98.51 Tubal ligation status; Z98.890 Other specified postprocedural states; Z82.49 Family history of ischemic heart disease and other diseases of the circulatory system; Z83.49 Family history of other endocrine, nutritional and metabolic diseases; Z82.3 Family history of stroke; Z82.0 Family history of epilepsy and other diseases of the nervous system; Z82.69 Family history of other diseases of the musculoskeletal system and connective tissue; Z80.8 Family history of malignant neoplasm of other organs or systems
CPT/HCPCS: 96365; 96366; 96367; 93005 ×2; 99285; 36415; 80061; 80053 ×2; 83735; 84484; 85025 ×2; 85610; 85730; 71046; G0378 ×2; J0744 ×2

== ENCOUNTER → 2021-05-19 | Outpatient (CLI) | payer OTHER ==
--- NOTE | 2021-05-21 07:08 | NM ---
EXAMINATION TYPE: NM DatScan Brain SPECT DATE OF EXAM: 05/19/2021 COMPARISON: NONE HISTORY: Tremors. TECHNIQUE: 10 drops of Lugol's solution was administered 1 hour prior to injection as a thyroid bloc linnette agent. After the administration of 4.51 mCi I-123 Ioflupane DaTscan. Images obtained 3 hours p ost injection. SPECT images of the brain were acquired with axial and coronal reconstructions. FINDINGS: The DaTSCAN demonstrates normal uptake of tracer throughout the striata. Consequently there is no evidence of loss of the pre-synaptic dopaminergic terminals on this investigation. IMPRESSION: This normal appearance is against a diagnosis of idiopathic Parkinson?s disease (PD) or a Parkinsonian syndrome (PS) and is seen in healthy individuals and also patients with essential tremor (ET), drug induced parkinsonism, and vascular pseudo-parkinsonism.
== END | disposition home or self-care (01) ==
LOC: RADNMMAIN 10:52
PROVIDERS: ATTEND Psychiatry & Neurology Neurology
DX: G21.19 Other drug induced secondary parkinsonism (principal); G25.0 Essential tremor
CPT/HCPCS: 78803; A9584

== ENCOUNTER → 2021-10-26 | Outpatient (CLI) | payer OTHER | END | disposition home or self-care (01) | LOC: LABWHC1 11:55 | PROVIDERS: ATTEND Family Medicine | DX: Z20.822 Contact with and (suspected) exposure to COVID-19 (principal); J06.9 Acute upper respiratory infection, unspecified | CPT/HCPCS: 87502; U0003; C9803 ==

== ENCOUNTER → 2021-12-07 | Outpatient (CLI) | payer OTHER ==
[2021-12-07 13:55] VITALS: BP 125/78; PULSE 78; TEMP 98; BMI 29.8
--- NOTE | 2021-12-07 15:25 | P.HPBAR ---
Bariatric H&P - History & Physicial H&P Date: 12/07/21 History & Physicial: Visit/CC: annual follow up Patient initial contact: Initial weight: 90.718 kg Initial weight in pounds: 200.00 Height: 5 ft 2 in Initial BMI: 36.6 Last weight: Current weight: 73.936 kg Current weight in pounds: 163.00 Current BMI: 29.8 Campus body weight (based on NIH guidelines): 49.895 kg Excess body weight loss: 41.1% The patient is a 51 year-old F who presents for Bariatric Assessment. Patient resents today for [place] fall. She's been seen several years. She's had some mild GERD. She's also had trouble with panniculitis. Past Medical History Past Medical History: Cancer, CVA/TIA, Fibromyalgia, GERD/Reflux, Hyperlipidemia, Pneumonia, Thyroid Disorder Additional Past Medical History / Comment(s): sinus infection TIA Oct 2017, no residual effects. CERVICAL CA (1996), HX OF DIVERTICULITIS, OCCASIONAL DIARRHEA AND HEARTBURN, PT STATES UNSURE OF THYROID DISORDER. Back, neck, shoulder and bilateral hip pain. Hx Pneumonia in 1999. Thinks she has sleep anea but has had no testing done. History of Any Multi-Drug Resistant Organisms: None Reported Past Surgical History: Bariatric Surgery, Section, Cholecystectomy, Hysterectomy, Tubal Ligation, Uterine Ablation Additional Past Surgical History / Comment(s): LAP BAND 2000 & REMOVED 2001., g astric sleeve 06/05/2019 Past Anesthesia/Blood Transfusion Reactions: Motion Sickness Smoking Status: Never smoker - Past Family History Father Family Medical History: Cancer, Coronary Artery Disease (CAD), CVA/TIA, Myocardial Infarction ([place]) Additional Family Medical History / Comment(s): Bone ca Mother Family Medical History: Myocardial Infarction ([place]), Thyroid Disorder Sister(s) Family Medical History: Fibromyalgia Additional Family Medical History / Comment(s): MS Surgical - Exam Vital Signs Temp Pulse BP 98 F 78 125/78 12/07/21 13:53 12/07/21 13:53 12/07/21 13:53 - General well developed, well nourished, no distress - Eyes PERRL - ENT normal pinna - Neck no masses - Respiratory normal expansion - Cardiovascular Rhythm: regular - Abdomen Abdomen: soft, non tender - Integumentary Well-formed panniculus is evidence of skin irritations Bariatric Assessment & Plan Plan: Patient has done fairly well from weight loss standpoint. Her GERD is minimal and will be observed. Patient was given information on panniculectomy. She will be attempted to obtain insurance authorization for panniculectomy. She's had issues with chronic skin irritation. She'll follow-up in 1 month. Bariatric Checklist Checklist: Plan: Checklist: EGD: 1. Hiatal hernia: 2. H. Pylori: HgbA1c: Vitamin D: Smoking: Never smoker Primary care physician referral: DR. MACIEL Psychiatry clearance: Cardiology clearance: Sleep study: Diet journal: VTE risk score: VTE risk level: Rehab needs at discharge:
== END ==
LOC: BARWHC3 12:49
PROVIDERS: ATTEND Surgery
DX: Z09 Encounter for follow-up examination after completed treatment for conditions other than malignant neoplasm (principal); M79.3 Panniculitis, unspecified; K21.9 Gastro-esophageal reflux disease without esophagitis; E78.5 Hyperlipidemia, unspecified; Z86.73 Personal history of transient ischemic attack (TIA), and cerebral infarction without residual deficits; Z98.84 Bariatric surgery status
CPT/HCPCS: 99211

== ENCOUNTER 2021-12-24 06:59 | Day surgery (SDC) | payer OTHER ==
[2021-12-22 14:05] VITALS: BMI 29.2
[2021-12-24 07:27] VITALS: TEMP 97.6
[2021-12-24] MEDS ORDERED: LIDOCAINE 1% (10MG/ML) FOR IV START INTRADERMA ONE (07:30)
[2021-12-24] MEDS ORDERED: LACTATED RINGERS 1,000 ML IV ONE (07:30)
[2021-12-24 07:40] LABS: Glucose,Whole Blood 98 mg/dL (75-99)
[2021-12-24] MEDS ORDERED: LACTATED RINGERS 1,000 ML IV SCH (07:44)
[2021-12-24] MEDS ORDERED: PROPOFOL 10 MG/ML 20 ML VIAL IV ONE (07:46)
--- NOTE | 2021-12-24 08:08 | P.GSHP ---
History of Present Illness H&P Date: 12/24/21 Chief Complaint: Screening colonoscopy This is a 51-year-old female presents today for screening colonoscopy. Patient denies any significant GI complaints. Past Medical History Past Medical History: Cancer, Chest Pain / Angina, CVA/TIA, Fibromyalgia, GERD/Reflux, Hyperlipidemia, Pneumonia, Thyroid Disorder Additional Past Medical History / Comment(s): TIA Oct 2017, no residual effects. CERVICAL CA (1996). HX OF DIVERTICULITIS. Back, neck, shoulder and bilateral hip pain. Possibly some sleep apnea. Past hx of diabetes-currently just being monitored. Tremors. History of Any Multi-Drug Resistant Organisms: None Reported Past Surgical History: Bariatric Surgery, Section, Cholecystectomy, Hysterectomy, Tubal Ligation, Uterine Ablation Additional Past Surgical History / Comment(s): LAP BAND 2000 & REMOVED 2001., gastric sleeve 06/05/2019 Past Anesthesia/Blood Transfusion Reactions: Motion Sickness Past Psychological History: Anxiety, Depression Smoking Status: Never smoker Past Alcohol Use History: None Reported Past Drug Use History: None Reported - Past Family History Father Family Medical History: Cancer, Coronary Artery Disease (CAD), CVA/TIA, Myocardial Infarction ([place]) Additional Family Medical History / Comment(s): Bone ca Mother Family Medical History: Myocardial Infarction ([place]), Thyroid Disorder Sister(s) Family Medical History: Fibromyalgia Additional Family Medical History / Comment(s): MS Medications and Allergies Home Medications Medication Instructions Recorded Confirmed Type ALPRAZolam [Xanax] 1 mg PO HS PRN 02/18/17 12/24/21 History Multivitamins, Thera [Multivitamin 1 tab PO DAILY 08/21/19 12/24/21 History (formulary)] Atorvastatin [Lipitor] 40 mg PO HS 10/02/20 12/24/21 History FLUoxetine HCL 80 mg PO DAILY 10/02/20 12/24/21 History Omeprazole 40 mg PO HS 10/02/20 12/24/21 History Primidone [Mysoline] 50 mg PO BID 10/02/20 12/24/21 History Aspirin 81 mg PO DAILY #30 chew 10/04/20 12/24/21 Rx Isosorbide Mononitrate ER [Imdur] 30 mg PO DAILY #30 tab.er.24h 10/04/20 12/24/21 Rx Metoprolol Succinate (ER) [Toprol 25 mg PO DAILY #30 tab.er.24h 10/04/20 12/24/21 Rx XL] Nitroglycerin Sl Tabs [Nitrostat] 0.4 mg SUBLINGUAL Q5M PRN #30 tab 10/04/20 12/24/21 Rx Biotin 10,000 mcg PO DAILY 04/22/21 12/24/21 History Cetirizine HCl [Zyrtec] 10 mg PO DAILY 04/22/21 12/24/21 History traMADol HCl [Ultram] 50 mg PO TID PRN 04/22/21 12/24/21 History Allergies Allergy/AdvReac Type Severity Reaction Status Date / Time No Known Allergies Allergy Verified 12/24/21 07:28 Surgical - Exam Vital Signs Temp Pulse Resp BP Pulse Ox 97.6 F 62 16 114/61 96 12/24/21 07:26 12/24/21 07:26 12/24/21 07:26 12/24/21 07:26 12/24/21 07:26 - General well developed, well nourished, no distress - Eyes PERRL - ENT normal pinna - Neck no masses - Respiratory normal expansion - Cardiovascular Rhythm: regular - Abdomen Abdomen: soft, non tender Assessment and Plan Assessment: We'll perform screening colonoscopy
--- NOTE | 2021-12-24 08:09 | P.OP ---
Date of Procedure: 12/24/21 Preoperative Diagnosis: Screening colonoscopy Postoperative Diagnosis: Normal colonoscopy Procedure(s) Performed: Colonoscopy Anesthesia: MAC Surgeon: Tenzin Mcdowell Pathology: none sent Condition: stable Disposition: PACU Description of Procedure: Patient's placed on the endoscopy table in the lateral position. She received IV sedation. Digital rectal exam was performed which revealed no abnormalities. The flexible colonoscope was then placed patient anus passed throughout the entire colon. Ileocecal valve was visualized. There was a large amount liquid stool in the cecum which limited the view of the cecum. No significant findings were seen. The cecum, ascending and transverse colon appeared normal. The descending and sigmoid colon appeared normal. Scope was brought back the rectum this appeared normal. Scope withdrawn for patient
[2021-12-24 08:32] VITALS: RESP 16
[2021-12-24 08:45] VITALS: BP 135/75; PULSE 59
== END 2021-12-24 09:02 | disposition home or self-care (01) ==
LOC: ORWHC2ENDO 06:59
PROVIDERS: ATTEND Surgery
DX: Z12.11 Encounter for screening for malignant neoplasm of colon (principal); I20.9 Angina pectoris, unspecified; M79.7 Fibromyalgia; K21.9 Gastro-esophageal reflux disease without esophagitis; E78.5 Hyperlipidemia, unspecified; E07.9 Disorder of thyroid, unspecified; I25.2 Old myocardial infarction; G47.33 Obstructive sleep apnea (adult) (pediatric); E11.9 Type 2 diabetes mellitus without complications; M25.552 Pain in left hip; M25.551 Pain in right hip; M54.9 Dorsalgia, unspecified; M54.2 Cervicalgia; M25.519 Pain in unspecified shoulder; F41.9 Anxiety disorder, unspecified; F32.A Depression, unspecified; Z86.73 Personal history of transient ischemic attack (TIA), and cerebral infarction without residual deficits; Z87.01 Personal history of pneumonia (recurrent); Z85.41 Personal history of malignant neoplasm of cervix uteri; Z98.84 Bariatric surgery status; Z98.890 Other specified postprocedural states; Z87.19 Personal history of other diseases of the digestive system; Z98.891 History of uterine scar from previous surgery; Z90.49 Acquired absence of other specified parts of digestive tract; Z90.710 Acquired absence of both cervix and uterus; Z98.51 Tubal ligation status; Z86.39 Personal history of other endocrine, nutritional and metabolic disease; Z79.899 Other long term (current) drug therapy; Z82.49 Family history of ischemic heart disease and other diseases of the circulatory system; Z82.3 Family history of stroke
CPT/HCPCS: J2704; G0121; 45378

== ENCOUNTER 2022-01-21 16:48 | Observation (INO) | payer OTHER ==
[2022-01-21 16:59] LABS: Glucose,Whole Blood 148 mg/dL (75-99)
[2022-01-21 17:12] LABS: Basophils % (A) 0 %; Eosinophils # (A) 0.1 k/uL (0-0.7); Eosinophils % (A) 2 %; HCT 37.3 % (34.0-46.0); HGB 12.5 gm/dL (11.4-16.0); Lymphocytes # (A) 2.3 k/uL (1.0-4.8); Lymphocytes % (A) 41 %; MCH 28.1 pg (25.0-35.0); MCHC 33.5 g/dL (31.0-37.0); MCV 83.7 fL (80.0-100.0); Mean Platelet Volume 8.5; Monocytes # (A) 0.5 k/uL (0-1.0); Monocytes % (A) 8 %; Neutrophils # (A) 2.6 k/uL (1.3-7.7); Neutrophils % (A) 47 %; Platelet Count 179 k/uL (150-450); RBC 4.45 m/uL (3.80-5.40); RDW 14.5 % (11.5-15.5); WBC 5.6 k/uL (3.8-10.6)
--- NOTE | 2022-01-21 17:12 | ED ---
General Adult HPI - General Chief complaint: Neuro Symptoms/Deficit Stated complaint: stroke symptoms Time Seen by Provider: 01/21/22 16:48 Source: patient Mode of arrival: EMS Limitations: no limitations - History of Present Illness Initial comments: 51-year-old female past history of TIA, hyperlipidemia, NM presents to the emergency department with possible strokelike symptoms. States around 3 PM she had sudden onset of speech difficulties as well as numbness and tingling in the right side of her face and right arm. She does have a history of a TIA in 2018 without residual deficits. She denies any weakness in the right upper and lower extremity. Head trauma. No visual changes. Patient is not on any blood thinners. No chest pain. No other alleviating, precipitating modifying factors - Related Data Home Medications Medication Instructions Recorded Confirmed ALPRAZolam [Xanax] 1 mg PO HS PRN 02/18/17 01/21/22 Multivitamins, Thera [Multivitamin 1 tab PO DAILY 08/21/19 01/21/22 (formulary)] Atorvastatin [Lipitor] 40 mg PO HS 10/02/20 01/21/22 FLUoxetine HCL 80 mg PO DAILY 10/02/20 01/21/22 Omeprazole 40 mg PO HS PRN 10/02/20 01/21/22 Primidone [Mysoline] 50 mg PO BID 10/02/20 01/21/22 Biotin 10,000 mcg PO DAILY 04/22/21 01/21/22 Cetirizine HCl [Zyrtec] 10 mg PO DAILY 04/22/21 01/21/22 Cholecalciferol [Vitamin D3 (25 50 mcg PO DAILY 01/21/22 01/21/22 Mcg = 1000 Iu)] DULoxetine HCL [Cymbalta] 20 mg PO BID 01/21/22 01/21/22 Fluticasone Nasal [place] [Flonase 1 spray EA NOSTRIL DAILY 01/21/22 01/21/22 Nasal [place]] Gabapentin 300 mg PO BID 01/21/22 01/21/22 Previous Rx's Medication Instructions Recorded Aspirin 81 mg PO DAILY #30 chew 10/04/20 Isosorbide Mononitrate ER [Imdur] 30 mg PO DAILY #30 tab.er.24h 10/04/20 Metoprolol Succinate (ER) [Toprol 25 mg PO DAILY #30 tab.er.24h 10/04/20 XL] Nitroglycerin Sl Tabs [Nitrostat] 0.4 mg SUBLINGUAL Q5M PRN #30 tab 10/04/20 Clopidogrel [Plavix] 75 mg PO DAILY 20 Days #20 tab 01/22/22 Allergies Allergy/AdvReac Type Severity Reaction Status Date / Time No Known Allergies Allergy Verified 01/21/22 18:21 Review of Systems ROS Statement: Those systems with pertinent positive or pertinent negative responses have been documented in the HPI. ROS Other: All systems not noted in ROS Statement are negative. Past Medical History Past Medical History: Cancer, Chest Pain / Angina, CVA/TIA, Fibromyalgia, GERD/Reflux, Hyperlipidemia, Pneumonia, Thyroid Disorder Additional Past Medical History / Comment(s): TIA Oct 2017, no residual effects. CERVICAL CA (1996). HX OF DIVERTICULITIS. Back, neck, shoulder and bilateral hip pain. Possibly some sleep apnea. Past hx of diabetes-currently just being monitored. Tremors. History of Any Multi-Drug Resistant Organisms: None Reported Past Surgical History: Bariatric Surgery, Section, Cholecystectomy, Hysterectomy, Tubal Ligation, Uterine Ablation Additional Past Surgical History / Comment(s): LAP BAND 2000 & REMOVED 2001., gastric sleeve 06/05/2019 Past Anesthesia/Blood Transfusion Reactions: Motion Sickness Past Psychological History: Anxiety, Depression Smoking Status: Never smoker Past Alcohol Use History: None Reported Past Drug Use History: None Reported - Past Family History Father Family Medical History: Cancer, Coronary Artery Disease (CAD), CVA/TIA, Myocardial Infarction (NM) Additional Family Medical History / Comment(s): Bone ca Mother Family Medical History: Myocardial Infarction (NM), Thyroid Disorder Sister(s) Family Medical History: Fibromyalgia Additional Family Medical History / Comment(s): MS General Exam Limitations: no limitations General appearance: alert, in no apparent distress Head exam: Present: atraumatic, normocephalic, normal inspection Eye exam: Present: normal appearance, PERRL, EOMI. Absent: scleral icterus, co njunctival injection, periorbital swelling ENT exam: Present: normal exam, mucous membranes moist Neck exam: Present: normal inspection. Absent: tenderness, meningismus, lymphadenopathy Respiratory exam: Present: normal lung sounds bilaterally. Absent: respiratory distress, wheezes, rales, rhonchi, stridor Cardiovascular Exam: Present: regular rate, normal rhythm, normal heart sounds. Absent: systolic murmur, diastolic murmur, rubs, gallop, clicks GI/Abdominal exam: Present: soft, normal bowel sounds. Absent: distended, tenderness, guarding, rebound, rigid Extremities exam: Present: normal inspection, full ROM, normal capillary refill. Absent: tenderness, pedal edema, joint swelling, calf tenderness Back exam: Present: normal inspection Neurological exam: Present: alert, oriented X3, CN II-XII intact, other (mild dysarthria. ) Psychiatric exam: Present: normal affect, normal mood Skin exam: Present: warm, dry, intact, normal color. Absent: rash Course Vital Signs 01/21/22 01/21/22 01/21/22 16:48 17:02 17:13 Temperature 97.8 F Pulse Rate 78 67 Pulse Rate [ Right Sitting Pulse Oximetery ] Respiratory 16 16 Rate Blood Pressure 141/68 141/68 136/80 Blood Pressure [Right Arm Sitting] O2 Sat by Pulse 99 97 Oximetry 01/21/22 01/21/22 01/21/22 17:26 17:30 18:00 Temperature Pulse Rate 69 67 64 Pulse Rate [ Right Sitting Pulse Oximetery ] Respiratory 15 7 L Rate Blood Pressure 119/81 119/81 117/78 Blood Pressure [Right Arm Sitting] O2 Sat by Pulse 95 95 96 Oximetry 01/21/22 01/21/22 01/21/22 18:30 19:00 19:20 Temperature 97.6 F Pulse Rate 61 Pulse Rate [ 66 Right Sitting Pulse Oximetery ] Respiratory 8 L 18 Rate Blood Pressure 109/74 114/80 Blood Pressure 117/70 [Right Arm Sitting] O2 Sat by Pulse 97 96 97 Oximetry 01/21/22 01/21/22 01/21/22 19:30 20:00 20:30 Temperature Pulse Rate 64 61 66 Pulse Rate [ 66 Right Sitting Pulse Oximetery ] Respiratory Rate Blood Pressure 115/68 102/62 117/70 Blood Pressure [Right Arm Sitting] O2 Sat by Pulse 94 L 95 94 L Oximetry - Reevaluation(s) Reevaluation #1: Spoke with Dr. Brandt - jacob SAPP due to risk vs benefit. NIH 2 with minimal deficits 01/21/22 17:11 EKG Findings - EKG Comments: EKG Findings:: EKG demonstrates sinus rhythm with a rate of 61. [place] interval 152. QRS 85. QTC 419. Some baseline artifact but no acute ST segment elevations or depressions Medical Decision Making - Medical Decision Making Upon arrival the patient is placed into room 1. A thorough history and physical exam was performed. NIH is assessed and the patient does score a 2 for sensory deficits of the right face and mild dysarthria. Code alteplase activated. Patient was over for CT. Laboratory studies conducted and reviewed. Patient has a negative CT at this time. I spoke with Dr. Brandt who does not recommend TPA at this time due to low NIH. This is discussed with the patient who additionally refuses tPA due to high risk versus benefit. Patient does have resolution of her symptoms without intervention. She is given an aspirin and a dose of atorvastatin. Recommended admission for neurology consultation. Spoke with Dr. Raza who agreed to admit the patient. Patient remained in stable condition and was transferred to the floor - Lab Data Result diagrams: 01/21/22 17:06 01/22/22 08:49 Lab Results 01/21/22 01/21/22 01/21/22 Range/Units 16:52 17:06 17:06 WBC 5.6 (3.8-10.6) k/uL RBC 4.45 (3.80-5.40) m/uL Hgb 12.5 (11.4-16.0) gm/dL Hct 37.3 (34.0-46.0) % MCV 83.7 (80.0-100.0) fL MCH 28.1 (25.0-35.0) pg MCHC 33.5 (31.0-37.0) g/dL RDW 14.5 (11.5-15.5) % Plt Count 179 (150-450) k/uL MPV 8.5 Neutrophils % 47 % Lymphocytes % 41 % Monocytes % 8 % Eosinophils % 2 % Basophils % 0 % Neutrophils # 2.6 (1.3-7.7) k/uL Lymphocytes # 2.3 (1.0-4.8) k/uL Monocytes # 0.5 (0-1.0) k/uL Eosinophils # 0.1 (0-0.7) k/uL Basophils # 0.0 (0-0.2) k/uL PT 11.1 (9.0-12.0) sec INR 1.0 (<1.2) APTT 25.4 (22.0-30.0) sec Sodium (137-145) mmol/L Potassium (3.5-5.1) mmol/L Chloride (98-107) mmol/L Carbon Dioxide (22-30) mmol/L Anion Gap mmol/L BUN (7-17) mg/dL Creatinine (0.52-1.04) mg/dL Est GFR (CKD-EPI)AfAm (>60 ml/min/1.73 sqM) Est GFR (CKD-EPI)NonAf (>60 ml/min/1.73 sqM) Glucose (74-99) mg/dL POC Glucose (mg/dL) 148 H (75-99) mg/dL POC Glu [employer] [address] Glu mg/dL Hemoglobin A1c (0.0-6.0) % Calcium (8.4-10.2) mg/dL Total Bilirubin (0.2-1.3) mg/dL AST (14-36) U/L ALT (4-34) U/L Alkaline Phosphatase (38-126) U/L Troponin I (0.000-0.034) ng/mL Total Protein (6.3-8.2) g/dL Albumin (3.5-5.0) g/dL 01/21/22 01/21/22 01/21/22 Range/Units 17:06 17:06 17:06 WBC (3.8-10.6) k/uL RBC (3.80-5.40) m/uL Hgb (11.4-16.0) gm/dL Hct (34.0-46.0) % MCV (80.0-100.0) fL MCH (25.0-35.0) pg MCHC (31.0-37.0) g/dL RDW (11.5-15.5) % Plt Count (150-450) k/uL MPV Neutrophils % % Lymphocytes % % Monocytes % % Eosinophils % % Basophils % % Neutrophils # (1.3-7.7) k/uL Lymphocytes # (1.0-4.8) k/uL Monocytes # (0-1.0) k/uL Eosinophils # (0-0.7) k/uL Basophils # (0-0.2) k/uL PT (9.0-12.0) sec INR (<1.2) APTT (22.0-30.0) sec Sodium 137 (137-145) mmol/L Potassium 3.4 L (3.5-5.1) mmol/L Chloride 105 (98-107) mmol/L Carbon Dioxide 26 (22-30) mmol/L Anion Gap 6 mmol/L BUN 23 H (7-17) mg/dL Creatinine 0.59 (0.52-1.04) mg/dL Est GFR (CKD-EPI)AfAm >90 (>60 ml/min/1.73 sqM) Est GFR (CKD-EPI)NonAf >90 (>60 ml/min/1.73 sqM) Glucose 136 H (74-99) mg/dL POC Glucose (mg/dL) (75-99) mg/dL POC Glu [employer] Teacher [place] [address] Glu mg/dL 143 Hemoglobin A1c 6.6 H (0.0-6.0) % Calcium 8.8 (8.4-10.2) mg/dL Total Bilirubin 0.4 (0.2-1.3) mg/dL AST 39 H (14-36) U/L ALT 22 (4-34) U/L Alkaline Phosphatase 76 (38-126) U/L Troponin I <0.012 (0.000-0.034) ng/mL Total Protein 7.0 (6.3-8.2) g/dL Albumin 4.2 (3.5-5.0) g/dL Critical Care Time Critical Care Time: Yes Critical Care Time: 35 minutes Disposition Clinical Impression: Dysarthria, Transient cerebral ischemia Disposition: ADMITTED IP TO THIS [facility] Condition: Stable Is patient prescribed a controlled substance at d/c from ED?: No Decision to Admit Reason: Admit from EC Decision Date: 01/21/22 Decision Time: 18:56
--- NOTE | 2022-01-21 17:19 | CT ---
EXAMINATION TYPE: CT brain wo con for TPA DATE OF EXAM: 01/21/2022 HISTORY: Neuro deficit, stroke suspected. Code alteplase. CT DLP: 1161.8 mGycm. Automated Exposure Control for Dose Reduction was Utilized. TECHNIQUE: CT scan of the head is performed without contrast. COMPARISON: None. FINDINGS: There is no acute intracranial hemorrhage or midline shift identified. There is diffuse v entricular and sulcal prominence consistent with diffuse age-related cerebral atrophy. There is low- attenuation in the periventricular white matter consistent with chronic small vessel ischemic change. The globes are intact and the visualized sinuses are clear. IMPRESSION: No acute intracranial hemorrhage or midline shift. There is diffuse age-related cerebra l atrophy and chronic small vessel ischemic change noted. Results discussed verbally with the andriy sesar physician 5:17 pm.
[2022-01-21 17:21] LABS: ALT 22 U/L (4-34); AST 39 U/L (14-36); African American GFR (CKD) >90 (>60 ml/min/1.73 sqM); Albumin 4.2 g/dL (3.5-5.0); Alkaline Phosphatase 76 U/L (38-126); Anion Gap 6 mmol/L; Blood Urea Nitrogen 23 mg/dL (7-17); Calcium 8.8 mg/dL (8.4-10.2); Carbon Dioxide 26 mmol/L (22-30); Chloride 105 mmol/L (98-107); Glucose 136 mg/dL (74-99); Non-African American GFR(CKD) >90 (>60 ml/min/1.73 sqM); Potassium 3.4 mmol/L (3.5-5.1); Sodium 137 mmol/L (137-145); Total Bilirubin 0.4 mg/dL (0.2-1.3)
[2022-01-21 17:37] LABS: Partial Thromboplastin Time 25.4 sec (22.0-30.0); Prothrombin Time 11.1 sec (9.0-12.0)
--- NOTE | 2022-01-21 17:48 | CT ---
EXAMINATION TYPE: CT angio head neck with contrast and with 3-D reconstruction renderings DATE OF EXAM: 01/21/2022 HISTORY: Neuro deficits, code alteplase called. COMPARISON: Same day brain CT without contrast CT DLP: 510.6 mGycm. Automated Exposure Control for Dose Reduction was Utilized. TECHNIQUE: CTA scan of the neck is performed with IV Contrast, patient injected with 65 mL of Isovue 370, axial images are obtained, coronal and sagittal reformatted images are reviewed. 3D reconstruct ed images are created on an independent workstation and reviewed. FINDINGS: CTA neck: Carotid/vertebral structures: The bilateral carotid and vertebral arterial systems are wide ly patent without evidence of filling defect or dissection or significant atherosclerotic stenosis. T he venous structures are unremarkable. The visualized extravascular structures are unremarkable. CT brain: The anterior and posterior arterial circulation is unremarkable, other than scattered nonhe modynamically significant atherosclerotic intimal calcifications. Specifically, there are no arterial filling defects. The dural venous sinuses are unremarkable. No incidental extravascular intracranial findings. IMPRESSION: No significant abnormality is seen. NASCET criteria was used in interpretation of this exam?
--- NOTE | 2022-01-21 17:59 | XR ---
EXAMINATION: XR chest 2V DATE AND TIME: 01/21/2022 5:26 PM CLINICAL INDICATION: PHH; altered mental status TECHNIQUE: Departmental protocol COMPARISON: 04/22/2021 FINDINGS: The lungs are clear. The pleural spaces are negative. The cardiac silhouette is not enlarged. The remainder of the mediastinal silhouette is unremarkable. The skeletal structures and soft tissues are negative for acute findings. IMPRESSION: NO ACUTE PROCESS.
[2022-01-21] MEDS ORDERED: ASPIRIN 325 MG TAB PO STA (18:54)
[2022-01-21] MEDS: ATORVASTATIN 40 MG TAB PO SCH (20:34)
[2022-01-21] MEDS: traMADol 50 MG TAB PO SCH (23:18)
[2022-01-21] MEDS: ALPRAZolam 1 MG TAB PO SCH (23:19)
[2022-01-21] MEDS ORDERED: ALPRAZolam 1 MG TAB PO PRN (23:32)
[2022-01-21] MEDS ORDERED: PANTOPRAZOLE 40 MG TABLET PO PRN (23:32)
[2022-01-22] MEDS: DULoxetine HCL 20 MG CAPSULE.DR PO SCH ×3 (06:29→21:17)
[2022-01-22] MEDS: GABAPENTIN 300 MG CAP PO SCH ×3 (06:30→21:16)
[2022-01-22] MEDS: PRIMIDONE 50 MG TAB PO SCH ×3 (06:30→21:17)
[2022-01-22] MEDS: METOPROLOL SUCCINATE (ER) 25 MG TAB.ER.24H PO SCH (08:18)
[2022-01-22] MEDS: CHOLECALCIFEROL 25 MCG (1000 IU) TABLET PO SCH (08:18)
[2022-01-22] MEDS: LORATADINE 10 MG TAB PO SCH (08:20)
[2022-01-22] MEDS: FLUTICASONE 50MCG/SPRAY NASAL 16GM EA NOSTRIL SCH (08:20)
[2022-01-22] MEDS: ATORVASTATIN 40 MG TAB PO SCH (08:20)
[2022-01-22] MEDS: ISOSORBIDE MONONITRATE ER 30 MG TAB.ER.24H PO SCH (08:20)
[2022-01-22] MEDS: MULTIVITAMINS, THERA 1 EACH TAB PO SCH (08:20)
[2022-01-22] MEDS: ALPRAZolam 1 MG TAB PO SCH (08:28)
[2022-01-22] MEDS ORDERED: FLUoxetine HCL 20 MG CAP PO SCH ×2 (09:00→21:00)
[2022-01-22] MEDS ORDERED: ASPIRIN 325 MG TAB PO SCH (09:00)
[2022-01-22] MEDS ORDERED: NON FORMULARY DRUG (Biotin [Biotin] 10,000 MCG Capsule) PO SCH (09:00)
[2022-01-22 09:37] LABS: African American GFR (CKD) >90 (>60 ml/min/1.73 sqM); Anion Gap 7 mmol/L; Blood Urea Nitrogen 13 mg/dL (7-17); Calcium 8.8 mg/dL (8.4-10.2); Carbon Dioxide 28 mmol/L (22-30); Chloride 104 mmol/L (98-107); Glucose 173 mg/dL (74-99); Non-African American GFR(CKD) >90 (>60 ml/min/1.73 sqM); Potassium 3.8 mmol/L (3.5-5.1); Sodium 139 mmol/L (137-145)
--- NOTE | 2022-01-22 10:34 | ECHOF ---
Referral Reason:Thrombus MEASUREMENTS -------- HEIGHT: 157.5 cm WEIGHT: 75.8 kg BP: RVIDd: 2.8 cm (< 3.3) IVSd: 1.1 cm (0.6 - 1.1) LVIDd: 4.4 cm (3.9 - 5.3) LVPWd: 1.4 cm (0.6 - 1.1) IVSs: 1.4 cm LVIDs: 3.5 cm LVPWs: 1.7 cm LA Diam: 3.6 cm (2.7 - 3.8) LAESV Index (A-L): 35.91 ml/m Ao Diam: 2.8 cm (2.0 - 3.7) AV Cusp: 1.6 cm (1.5 - 2.6) LA Diam: 4.1 cm (2.7 - 3.8) MV EXCURSION: 18.048 mm (> 18.000) MV EF SLOPE: 79 mm/s (70 - 150) EPSS: 0.6 cm MV E Navin: 0.82 m/s MV DecT: 194 ms MV A Navin: 0.82 m/s MV E/A Ratio: 1.00 RAP: 5.00 mmHg RVSP: 18.10 mmHg FINDINGS -------- Sinus rhythm. This was a technically adequate study. LV size, wall thickness and systolic function are normal, with an EF greater than 55%. The left shar tricular size is normal. The right ventricle is normal in size. LA is moderately dilated 34-39 ml/m2 The right atrial size is normal. Contrast study was performed with 2 iv injections of 8 ccs of agitated normal saline, at rest, and wi th cough. The aortic valve is trileaflet, and appears structurally normal. No aortic stenosis or regurgitation. The mitral valve is normal. Mild mitral regurgitation is present. The tricuspid valve appears structurally normal. Mild tricuspid regurgitation present. Right vent ricular systolic pressure is normal at < 35 mmHg. There is no pulmonic regurgitation present. The aortic root size is normal. There is no pericardial effusion. CONCLUSIONS -------- 1. LV size, wall thickness and systolic function are normal, with an EF greater than 55%. 2. LA is moderately dilated 34-39 ml/m2 3. Contrast study was performed with 2 iv injections of 8 ccs of agitated normal saline, at rest, and with cough. 4. The aortic valve is trileaflet, and appears structurally normal. No aortic stenosis or regurgitati on. 5. Mild mitral regurgitation is present. 6. Mild tricuspid regurgitation present. 7. There is no pericardial effusion. [employer] MANAGER: Jenniffer Figueroa RDCS
--- NOTE | 2022-01-22 11:08 | P.CNNES ---
History of Present Illness Consult date: 01/22/22 Requesting physician: Paula Babin Reason for Consult: Acute dysarthria, suspected CVA History of Present Illness: Patient is a 51-year-old right-handed female came to the hospital by ambulance yesterday at 4:48 PM for possible TIA. Patient states that yesterday at around 3 PM she was doing her usual housework, when she felt dizzy, weird feeling. Shortly after she noticed tip of the tongue became tingling and then became numb. Shortly after she notices tingling on her lips bilaterally, but the lower lip was more affected than the upper. The symptoms then extended to the right side of the chin and right lower jaw region. Then she noticed some tingling in the right arm, pointing to the upper forearm region and elbow, and certain spots in the right leg. She also had trouble speaking, difficulty getting words out. Patient denied any focal weakness, facial droop or problem with the vision. She did have a mild headache pointing to the occipital region. Patient has history of TIA in 2018 which affected also the right side of the body with similar symptoms, but was much more severe at that time. Patient also had an acute VA on 10/02/2020. She did not require any stenting, as the blockage was involving forward different places, but was not critical. Patient was placed on aspirin and Plavix which she continued until Plavix was discontinued a month ago because patient was planning for SI joint injection by her neurologist for chronic back pain. Patient also stopped her aspirin 81 mg daily 2 days prior to this event, as she was scheduled for SI joint injection on next Tuesday. As per EMS flow sheet when they arrived, patient's stroke scale was negative. Patient's blood glucose was 173. Patient's blood pressure at the scene was 126/76, pulse of 71, respirations 20, saturation 98%. CT head showed no acute intracranial hemorrhage or midline shift. There is diffuse age-related cerebral atrophy and chronic small vessel ischemic change. I personally reviewed computed tomography scan of the head and agree with the findings. CTA of head and neck reported no significant abnormality. EKG shows sinus rhythm, minimal voltage criteria for LVH. Chest x-ray showed no acute process. Blood test shows normal CBC, PT/PTT, sodium is normal potassium 3.4, BUN 23, creatinine 0.59. AST mildly elevated at 39, ALT 22. Troponin negative. Patient's last hemoglobin A1c 6.3 on 10/15/2020. B12 was normal more than 4000, B1 65, B6 17 and folate more than 24. Patient states her slurred speech and right sided paresthesias resolved by 7 PM yesterday and the last symptom to resolve was numbness of the lower lip, which resolved by 11 PM. At present she is completely symptom free. Patient's home medications include aspirin 81 mg (on hold for last 2 days), omeprazole, Prozac 80 mg, Lipitor 40 mg, primidone 50 mg twice a day, multivitamins, Xanax 0.5 mg at bedtime when necessary metoprolol 25 mg daily, biotin, gabapentin 300 mg twice a day Cymbalta 20 mg twice a day. Patient was given aspirin 325 mg in the ER. Patient denies any history of tobacco use or alcohol. She has borderline diabetes, but she is losing weight. He denies hypertension. She had TIA and MRI as described above. She has chronic back pain. Review of Systems As mentioned above in detail. All other 14 points of review of systems reviewed and unremarkable. No chest pain or shortness of breath. Past Medical History Past Medical History: Cancer, Chest Pain / Angina, CVA/TIA, Fibromyalgia, GERD/Reflux, Hyperlipidemia, Pneumonia, Thyroid Disorder Additional Past Medical History / Comment(s): TIA Oct 2017, no residual effects. CERVICAL CA (1996). HX OF DIVERTICULITIS. Back, neck, shoulder and bilateral hip pain. Possibly some sleep apnea. Past hx of diabetes-currently just being monitored. Tremors. Last Myocardial Infarction Date:: 2019 History of Any Multi-Drug Resistant Organisms: None Reported Past Surgical History: Bariatric Surgery, Section, Cholecystectomy, Hysterectomy, Tubal Ligation, Uterine Ablation Additional Past Surgical History / Comment(s): LAP BAND 2000 & REMOVED 2001., gastric sleeve 06/05/2019 Past Anesthesia/Blood Transfusion Reactions: Motion Sickness Past Psychological History: Anxiety, Depression Smoking Status: Never smoker Past Alcohol Use History: None Reported Past Drug Use History: None Reported - Past Family History Father Family Medical History: Cancer, Coronary Artery Disease (CAD), CVA/TIA, Myocardial Infarction ([place]) Additional Family Medical History / Comment(s): Bone ca Mother Family Medical History: Myocardial Infarction ([place]), Thyroid Disorder Sister(s) Family Medical History: Fibromyalgia Additional Family Medical History / Comment(s): MS Medications and Allergies Home Medications Medication Instructions Recorded Confirmed Type ALPRAZolam [Xanax] 1 mg PO HS PRN 02/18/17 01/21/22 History Multivitamins, Thera [Multivitamin 1 tab PO DAILY 08/21/19 01/21/22 History (formulary)] Atorvastatin [Lipitor] 40 mg PO HS 10/02/20 01/21/22 History FLUoxetine HCL 80 mg PO DAILY 10/02/20 01/21/22 History Omeprazole 40 mg PO HS PRN 10/02/20 01/21/22 History Primidone [Mysoline] 50 mg PO BID 10/02/20 01/21/22 History Aspirin 81 mg PO DAILY #30 chew 10/04/20 01/21/22 Rx Isosorbide Mononitrate ER [Imdur] 30 mg PO DAILY #30 tab.er.24h 10/04/20 01/21/22 Rx Metoprolol Succinate (ER) [Toprol 25 mg PO DAILY #30 tab.er.24h 10/04/20 01/21/22 Rx XL] Nitroglycerin Sl Tabs [Nitrostat] 0.4 mg SUBLINGUAL Q5M PRN #30 tab 10/04/20 01/21/22 Rx Biotin 10,000 mcg PO DAILY 04/22/21 01/21/22 History Cetirizine HCl [Zyrtec] 10 mg PO DAILY 04/22/21 01/21/22 History Cholecalciferol [Vitamin D3 (25 50 mcg PO DAILY 01/21/22 01/21/22 History Mcg = 1000 Iu)] DULoxetine HCL [Cymbalta] 20 mg PO BID 01/21/22 01/21/22 History Fluticasone Nasal [place] [Flonase 1 spray EA NOSTRIL DAILY 01/21/22 01/21/22 History Nasal [place]] Gabapentin 300 mg PO BID 01/21/22 01/21/22 History Allergies Allergy/AdvReac Type Severity Reaction Status Date / Time No Known Allergies Allergy Verified 01/21/22 18:21 Physical Examination - Vital Signs Vital Signs: Vital Signs Temp Pulse Pulse Resp BP BP Pulse Ox 01/22/22 08:20 98 F 73 16 114/74 96 01/22/22 04:00 97.7 F 64 18 133/69 98 01/22/22 02:00 77 18 01/22/22 00:00 98.1 F 77 18 139/83 98 01/21/22 20:30 66 117/70 94 L 01/21/22 20:00 61 66 102/62 95 01/21/22 19:30 64 115/68 94 L 01/21/22 19:20 97.6 F 66 18 117/70 97 01/21/22 19:00 114/80 96 01/21/22 18:30 61 8 L 109/74 97 01/21/22 18:00 64 117/78 96 01/21/22 17:30 67 7 L 119/81 95 01/21/22 17:26 69 15 119/81 95 01/21/22 17:13 67 16 136/80 97 01/21/22 17:02 141/68 01/21/22 16:48 97.8 F 78 16 141/68 99 Intake and Output 01/21/22 01/22/22 01/22/22 22:59 06:59 14:59 Intake Total 180 Balance 180 Intake: Oral 180 Other: Weight 76 kg Patient is a middle aged female, in no acute distress. Patient is alert awake oriented to time place and person. Speech and language functions are normal. Attention, concentration and fund of knowledge is adequ ate. On cranial examination, pupils are equal, round and reacting to light, visual nails are full on confrontation, with no neglect on double simultaneous stimulation. Her extraocular muscles are intact with no nystagmus. Face is symmetric, tongue protrudes to the midline. Palatal elevation and sensation normal, hearing and shoulder shrug normal, facial sensation normal. Shoulder shrug normal. On muscle strength testing, there is no pronator drift and the strength is normal in arms and legs distally and proximally. Right deltoid not checked because she has chronic pain in it. Deep tendon reflexes are 1+ in the upper limbs, 2+ at the knees, 2 ankles and plantars downgoing bilaterally. Sensory to touch is equal with no neglect. Cerebellar function showed no ataxia for [id number] testing. No dysdiadochokinesia. Tone and bulk of muscles normal. She does have mild tremors for phlgmm-[id number]-icty testing. Gait deferred. On general examination, there is no carotid bruit or murmur, S1-S2 audible. Abdomen is soft nontender. No organomegaly, bowel sounds present. Chest is claudia ar. Peripheral pulses are present. No edema. Results - Laboratory Findings CBC and BMP: 01/21/22 17:06 01/22/22 08:49 Abnormal Lab Findings: Abnormal Labs 01/21/22 01/21/22 16:52 17:06 Potassium 3.4 L BUN 23 H Glucose 136 H POC Glucose (mg/dL) 148 H AST 39 H Assessment and Plan Assessment: * TIA manifesting with transient speech difficulty, and right-sided paresthesias, which now has completely resolved. Current NIH stroke scale is 0. * History of TIA with similar symptoms in 2018 * Coronary artery disease, history of VA in 2019 * Diabetes * chronic back pain Plan: * Patient had a TIA, likely because of stopping her antiplatelet medications. She stopped Plavix a month ago and aspirin 2-3 days prior to this TIA. Patient will be resumed on dual antiplatelet medication for 21 days, then stop Plavix and continue aspirin 81 mg indefinitely. * Await lipid panel and hemoglobin A1c. Continue Lipitor 40 mg. * CTA of head and neck showed no significant stenosis. * 2-D echo revealed normal left-ventricular size, wall thickness and systolic function with EF greater than 55%. Left atrium is moderately dilated. Aortic valve is trileaflet and appears structurally normal. No aortic stenosis. Mild MR. Bubble study was negative for PFO. * Telemetric monitoring since admission showing sinus rhythm, with no other arrhythmia. * Neurologically clear for discharge. Recommend follow-up with her neurologist in 2-3 weeks.
[2022-01-22] MEDS: traMADol 50 MG TAB PO SCH ×2 (12:24→16:48)
[2022-01-22] MEDS: CLOPIDOGREL 75 MG TAB PO SCH (12:24)
[2022-01-22 12:28] LABS: Glucose,Whole Blood 90 mg/dL (75-99)
--- NOTE | 2022-01-22 12:36 | P.HPIM ---
History of Present Illness H&P Date: 01/22/22 Chief Complaint: paresthesia, dysarthia Patient is a very pleasant 51-year-old female that presented to the emergency room with TIA symptoms. Patient reports lip numbness and tingling, tongue numbness, paresthesia starting a chin up into neck, and difficulty with speech. Symptoms were present in the ER but resolved within a few hours. Patient has a pertinent medical history of previous TIA in 2018, [place], cervical cancer, diverticulitis, hypothyroidism, fibromyalgia, GERD, hyperlipidemia, chronic back and hip pain, anxiety and depression. Patient was scheduled to have injections with Dr. Rene in a week and was off aspirin and Plavix after being cleared by cardiology. Last dose of aspirin was [address] was negative for acute findings. Brain CTA was negative for stroke. Chest x-ray was negative for acute findings. Echo found normal wall thickness and systolic function with the ejection fraction greater than 55%. EKG showed sinus rhythm with a rate of 61 bpm. Troponin was negative, potassium was low at 3.4. Neurology was consulted. Review of Systems Patient denies all symptoms. Endorses resolution of all TIA symptoms, including lip and tongue numbness and paresthesia. Past Medical History Past Medical History: Cancer, Chest Pain / Angina, CVA/TIA, Fibromyalgia, BALDEMAR D/Reflux, Hyperlipidemia, Pneumonia, Thyroid Disorder Additional Past Medical History / Comment(s): TIA Oct 2017, no residual effects. CERVICAL CA (1996). HX OF DIVERTICULITIS. Back, neck, shoulder and bilateral hip pain. Possibly some sleep apnea. Past hx of diabetes-currently just being monitored. Tremors. Last Myocardial Infarction Date:: 2019 History of Any Multi-Drug Resistant Organisms: None Reported Past Surgical History: Bariatric Surgery, Section, Cholecystectomy, Hysterectomy, Tubal Ligation, Uterine Ablation Additional Past Surgical History / Comment(s): LAP BAND 2000 & REMOVED 2001., gastric sleeve 06/05/2019 Past Anesthesia/Blood Transfusion Reactions: Motion Sickness Past Psychological History: Anxiety, Depression Smoking Status: Never smoker Past Alcohol Use History: None Reported Past Drug Use History: None Reported - Past Family History Father Family Medical History: Cancer, Coronary Artery Disease (CAD), CVA/TIA, Myocardial Infarction ([place]) Additional Family Medical History / Comment(s): Bone ca Mother Family Medical History: Myocardial Infarction ([place]), Thyroid Disorder Sister(s) Family Medical History: Fibromyalgia Additional Family Medical History / Comment(s): MS Medications and Allergies Home Medications Medication Instructions Recorded Confirmed Type ALPRAZolam [Xanax] 1 mg PO HS PRN 02/18/17 01/21/22 History Multivitamins, Thera [Multivitamin 1 tab PO DAILY 08/21/19 01/21/22 History (formulary)] Atorvastatin [Lipitor] 40 mg PO HS 10/02/20 01/21/22 History FLUoxetine HCL 80 mg PO DAILY 10/02/20 01/21/22 History Omeprazole 40 mg PO HS PRN 10/02/20 01/21/22 History Primidone [Mysoline] 50 mg PO BID 10/02/20 01/21/22 History Aspirin 81 mg PO DAILY #30 chew 10/04/20 01/21/22 Rx Isosorbide Mononitrate ER [Imdur] 30 mg PO DAILY #30 tab.er.24h 10/04/2005/07 Rx Metoprolol Succinate (ER) [Toprol 25 mg PO DAILY #30 tab.er.24h 10/04/20 01/21/22 Rx XL] Nitroglycerin Sl Tabs [Nitrostat] 0.4 mg SUBLINGUAL Q5M PRN #30 tab 10/04/20 01/21/22 Rx Biotin 10,000 mcg PO DAILY 04/22/21 01/21/22 History Cetirizine HCl [Zyrtec] 10 mg PO DAILY 04/22/21 01/21/22 History Cholecalciferol [Vitamin D3 (25 50 mcg PO DAILY 01/21/22 01/21/22 History Mcg = 1000 Iu)] DULoxetine HCL [Cymbalta] 20 mg PO BID 01/21/22 01/21/22 History Fluticasone Nasal [place] [Flonase 1 spray EA NOSTRIL DAILY 01/21/22 01/21/22 History Nasal [place]] Gabapentin 300 mg PO BID 01/21/22 01/21/22 History Clopidogrel [Plavix] 75 mg PO DAILY 20 Days #20 tab 01/22/22 Rx Allergies Allergy/AdvReac Type Severity Reaction Status Date / Time No Known Allergies Allergy Verified 01/21/22 18:21 Physical Exam Vitals: Vital Signs Temp Pulse Pulse Resp BP BP Pulse Ox 01/22/22 08:20 98 F 73 16 114/74 96 01/22/22 04:00 97.7 F 64 18 133/69 98 01/22/22 02:00 77 18 01/22/22 00:00 98.1 F 77 18 139/83 98 01/21/22 20:30 66 117/70 94 L 01/21/22 20:00 61 66 102/62 95 01/21/22 19:30 64 115/68 94 L 01/21/22 19:20 97.6 F 66 18 117/70 97 01/21/22 19:00 114/80 96 01/21/22 18:30 61 8 L 109/74 97 01/21/22 18:00 64 117/78 96 01/21/22 17:30 67 7 L 119/81 95 01/21/22 17:26 69 15 119/81 95 01/21/22 17:13 67 16 136/80 97 01/21/22 17:02 141/68 01/21/22 16:48 97.8 F 78 16 141/68 99 Intake and Output 01/21/22 01/22/22 01/22/22 22:59 06:59 14:59 Intake Total 180 Balance 180 Intake: Oral 180 Other: Weight 76 kg - Constitutional General appearance: no acute distress, obese - EENT Eyes: EOMI, PERRLA ENT: normal oropharynx Ears: bilateral: normal - Respiratory Respiratory: bilateral: CTA - Cardiovascular Heart rate: 70 Rhythm: regular Heart sounds: normal: S1, S2 radial pulse Peripheral Pulses: bilateral: Normal - Gastrointestinal General gastrointestinal: normal bowel sounds, soft - Integumentary Integumentary: normal, normal turgor - Neurologic Neurologic: CNII-XII intact - Musculoskeletal Musculoskeletal: gait normal, strength equal bilaterally - Psychiatric Psychiatric: A&O x's 3, appropriate affect, intact judgment & insight Results CBC & Chem 7: 01/21/22 17:06 01/22/22 08:49 Labs: Abnormal Lab Results - Last 24 Hours (Table) 01/21/22 01/21/22 01/22/22 Range/Units 16:52 17:06 08:49 Potassium 3.4 L (3.5-5.1) mmol/L BUN 23 H (7-17) mg/dL Glucose 136 H 173 H (74-99) mg/dL POC Glucose (mg/dL) 148 H (75-99) mg/dL AST 39 H (14-36) U/L CT Scan - head: report reviewed Thrombosis Risk Factor Assmnt - DVT/VTE Prophylaxis DVT/VTE Prophylaxis: Low risk, early ambulation encouraged - Choose All That Apply Any of the Below Risk Factors Present?: Yes Each Factor Represents 1 point: Age 41-60 years Thrombosis Risk Factor Assessment Total Risk Factor Score: 1 Thrombosis Risk Factor Assessment Level: Low Risk Assessment and Plan Assessment: Transient ischemic attack, symptoms resolved Hypokalemia Coronary artery disease Hyperlipidemia fibromyalgia Anxiety Depression History of cervical cancer History of diverticulitis Plan: Follow up with neurology recommendations for TIA Monitor for changes in neurological symptoms Repeat potassium Continue monitoring vital signs Further recommendations to come based on patient's clinical course Time with Patient: Greater than 30
--- NOTE | 2022-01-22 12:42 | P.DS ---
Providers Date of admission: 01/21/22 18:15 Expected date of discharge: 01/22/22 Attending physician: Johnathan Raza Consults: 01/21/22 18:54 Consult Physician Urgent Consulting Provider: Betty Reed Consult Reason/Comments: acute dysarthria, suspected cva Do you want consulting provider notified?: Yes Primary care physician: Johnathan Raza Hospital Course: Patient is a very pleasant 51-year-old female that presented to the emergency room with TIA symptoms. Patient reports lip numbness and tingling, tongue numbness, paresthesia starting a chin up into neck, and difficulty with speech. Symptoms were present in the ER but resolved within a few hours. Patient has a pertinent medical history of previous TIA in 2018, [place], cervical cancer, diverticulitis, hypothyroidism, fibromyalgia, GERD, hyperlipidemia, chronic back and hip pain, anxiety and depression. Patient was scheduled to have injections with Dr. Rene in a week and was off aspirin and Plavix after being cleared by cardiology. Last dose of aspirin was [address] was negative for acute findings. Brain CTA was negative for stroke. Chest x-ray was negative for acute findings. Echo found normal wall thickness and systolic function with the ejection fraction greater than 55%. EKG showed sinus rhythm with a rate of 61 bpm. Troponin was negative, potassium was low at 3.4. Neurology was con sulted. Repeat potassium was 3.8. Spoke with neurology about recommendations for patient. Advised to use restart Plavix for 21 days and 81 mg aspirin indefinitely. Patient was cleared for discharge. Patient will follow-up with Dr. Rene in the office. Assessment: Transient ischemic attack, symptoms resolved Hypokalemia Coronary artery disease Hyperlipidemia fibromyalgia Anxiety Depression History of cervical cancer History of diverticulitis Health Concerns: Multiple comorbidities Pertinent Studies: Brain CT was negative Brain CTA was negative Chest x-ray was negative Echocardiogram found normal wall thickness and systolic function with an ejection fraction greater than 55% Patient Condition at Discharge: Stable Plan - Discharge Summary Discharge Rx Participant: No New Discharge Prescriptions: New Clopidogrel [Plavix] 75 mg PO DAILY 20 Days #20 tab Continue ALPRAZolam [Xanax] 1 mg PO HS PRN PRN Reason: Insomnia Multivitamins, Thera [Multivitamin (formulary)] 1 tab PO DAILY Primidone [Mysoline] 50 mg PO BID Omeprazole 40 mg PO HS PRN PRN Reason: ACID REFLUX Atorvastatin [Lipitor] 40 mg PO HS FLUoxetine HCL 80 mg PO DAILY Aspirin 81 mg PO DAILY #30 chew Isosorbide Mononitrate ER [Imdur] 30 mg PO DAILY #30 tab.er.24h Nitroglycerin Sl Tabs [Nitrostat] 0.4 mg SUBLINGUAL Q5M PRN #30 tab PRN Reason: Chest Pain Metoprolol Succinate (ER) [Toprol XL] 25 mg PO DAILY #30 tab.er.24h Cetirizine HCl [Zyrtec] 10 mg PO DAILY Gabapentin 300 mg PO BID Cholecalciferol [Vitamin D3 (25 Mcg = 1000 Iu)] 50 mcg PO DAILY Biotin 10,000 mcg PO DAILY Fluticasone Nasal [place] [Flonase Nasal [place]] 1 spray EA NOSTRIL DAILY DULoxetine HCL [Cymbalta] 20 mg PO BID Discharge Medication List ALPRAZolam [Xanax] 1 mg PO HS PRN 02/18/17 [History] Multivitamins, Thera [Multivitamin (formulary)] 1 tab PO DAILY 08/21/19 [History] Atorvastatin [Lipitor] 40 mg PO HS 10/02/20 [History] FLUoxetine HCL 80 mg PO DAILY 10/02/20 [History] Omeprazole 40 mg PO HS PRN 10/02/20 [History] Primidone [Mysoline] 50 mg PO BID 10/02/20 [History] Aspirin 81 mg PO DAILY #30 chew 10/04/20 [Rx] Isosorbide Mononitrate ER [Imdur] 30 mg PO DAILY #30 tab.er.24h 10/04/20 [Rx] Metoprolol Succinate (ER) [Toprol XL] 25 mg PO DAILY #30 tab.er.24h 10/04/20 [Rx] Nitroglycerin Sl Tabs [Nitrostat] 0.4 mg SUBLINGUAL Q5M PRN #30 tab 10/04/20 [R x] Biotin 10,000 mcg PO DAILY 04/22/21 [History] Cetirizine HCl [Zyrtec] 10 mg PO DAILY 04/22/21 [History] Cholecalciferol [Vitamin D3 (25 Mcg = 1000 Iu)] 50 mcg PO DAILY 01/21/22 [History] DULoxetine HCL [Cymbalta] 20 mg PO BID 01/21/22 [History] Fluticasone Nasal [place] [Flonase Nasal [place]] 1 spray EA NOSTRIL DAILY 01/21/22 [History] Gabapentin 300 mg PO BID 01/21/22 [History] Clopidogrel [Plavix] 75 mg PO DAILY 20 Days #20 tab 01/22/22 [Rx] Follow up Appointment(s)/Referral(s): Johnathan Raza MD [Primary Care Provider] - 1-2 days Kenroy Rnee MD [Medical Doctor] - 1 Week Patient Instructions/Handouts: Transient Ischemic Attack ([place]) Discharge Disposition: HOME SELF-CARE
[2022-01-22 15:04] LABS: Chol/HDL Ratio 2.11 Ratio; LDL Cholesterol,Calculated 65.9 mg/dL (0.0-131.0); VLDL Calculation 11.36 mg/dL (5.00-40.00)
[2022-01-22] MEDS ORDERED: CLOPIDOGREL 75 MG TAB PO STA (16:22)
--- NOTE | 2022-01-22 19:07 | MR ---
INDICATION: Patient age:Female; 51 years old; Reason for study: Recurrent TIA, rule out CVA; COMPARISON: CT head 01/21/2022. TECHNIQUE: Multi planar, multi sequence imaging was performed through the brain including: T1, T2, In version recovery, Diffusion weighted imaging, and gradient echo imaging. No gadolinium was given. FINDINGS: The nix-white junctions, ventricular system, and cisterns appear unremarkable. Scattered foci of hi gh T2 signal intensity are seen within the periventricular white matter. Midline structures show no a bnormality. Diffusion-weighted imaging shows no evidence of restricted diffusion. The susceptibility weighted images do not reveal any evidence for micro-hemorrhage. The bone marrow signal is within normal limits. The paranasal sinuses and globes are unremarkable. IMPRESSION: 1. No evidence of intracranial mass or acute/subacute infarct. 2. Nonspecific white matter changes, likely secondary to small vessel ischemic disease.
[2022-01-22] MEDS ORDERED: ALPRAZolam 1 MG TAB PO SCH (21:00)
[2022-01-23] MEDS: traMADol 50 MG TAB PO SCH ×2 (00:58→09:08)
[2022-01-23] MEDS ORDERED: ASPIRIN 81 MG PO SCH (09:00)
[2022-01-23 09:02] VITALS: RESP 17
[2022-01-23] MEDS: CHOLECALCIFEROL 25 MCG (1000 IU) TABLET PO SCH (09:06)
[2022-01-23] MEDS: CLOPIDOGREL 75 MG TAB PO SCH (09:06)
[2022-01-23] MEDS: ATORVASTATIN 40 MG TAB PO SCH (09:06)
[2022-01-23] MEDS: METOPROLOL SUCCINATE (ER) 25 MG TAB.ER.24H PO SCH (09:07)
[2022-01-23] MEDS: LORATADINE 10 MG TAB PO SCH (09:07)
[2022-01-23] MEDS: ISOSORBIDE MONONITRATE ER 30 MG TAB.ER.24H PO SCH (09:07)
[2022-01-23] MEDS: GABAPENTIN 300 MG CAP PO SCH (09:07)
[2022-01-23] MEDS: MULTIVITAMINS, THERA 1 EACH TAB PO SCH (09:08)
[2022-01-23] MEDS: PRIMIDONE 50 MG TAB PO SCH (09:08)
[2022-01-23] MEDS: FLUTICASONE 50MCG/SPRAY NASAL 16GM EA NOSTRIL SCH (12:21)
[2022-01-23] MEDS: DULoxetine HCL 20 MG CAPSULE.DR PO SCH (12:21)
--- NOTE | 2022-01-23 14:30 | P.DS ---
Providers Date of admission: 01/21/22 18:15 Expected date of discharge: 01/23/22 Attending physician: Johnathan Raza Consults: 01/21/22 18:54 Consult Physician Urgent Consulting Provider: Betty Reed Consult Reason/Comments: acute dysarthria, suspected cva Do you want consulting provider notified?: Yes Primary care physician: Johnathan Raza Hospital Course: 51-year-old female that presented to the emergency room with TIA symptoms. Patient reports lip numbness and tingling, tongue numbness, paresthesia starting a chin up into neck, and difficulty with speech. Symptoms were present in the ER but resolved within a few hours. Patient has a pertinent medical history of previous TIA in 2018, [place], cervical cancer, diverticulitis, hypothyroidism, fibromyalgia, GERD, hyperlipidemia, chronic back and hip pain, anxiety and depression. Patient was scheduled to have injections with Dr. Rene in a week and was off aspirin and Plavix after being cleared by cardiology. Last dose of aspirin was [address] was negative for acute findings. Brain CTA was negative for stroke. Chest x-ray was negative for acute findings. Echo found normal wall thickness and systolic function with the ejection fraction greater than 55%. EKG showed sinus rhythm with a rate of 61 bpm. Troponin was negative, potassium was low at 3.4. Neurology was consulted. Repeat potassium was 3.8. Spoke with neurology about recommendations for patient. Advised to use restart Plavix for 21 days and 81 mg aspirin indefinitely. Patient was cleared for discharge. Patient will follow-up with Dr. Rene in the office. Patient developed recurrent of symptoms in the mid afternoon; she suddenly felt dizzy, paresthesias involving her right facial region particularly involving the lower lip; numbness of the tip of the tongue. Patient was re-evaluated by Neuro and given extra tablet of Plavix 75 mg (as a loading dose), perform MRI of the brain. Patient was observed overnight. MRI is normal and symptoms resolved patient is stable for dc per Neuro Assessment: Transient ischemic attack, symptoms resolved Hypokalemia Coronary artery disease Hyperlipidemia fibromyalgia Anxiety Depression History of cervical cancer History of diverticulitis Health Concerns: Multiple comorbidities Patient Condition at Discharge: Stable Plan - Discharge Summary Discharge Rx Participant: No New Discharge Prescriptions: New Clopidogrel [Plavix] 75 mg PO DAILY 20 Days #20 tab Continue ALPRAZolam [Xanax] 1 mg PO HS PRN PRN Reason: Insomnia Multivitamins, Thera [Multivitamin (formulary)] 1 tab PO DAILY Primidone [Mysoline] 50 mg PO BID Omeprazole 40 mg PO HS PRN PRN Reason: ACID REFLUX Atorvastatin [Lipitor] 40 mg PO HS FLUoxetine HCL 80 mg PO DAILY Aspirin 81 mg PO DAILY #30 chew Isosorbide Mononitrate ER [Imdur] 30 mg PO DAILY #30 tab.er.24h Nitroglycerin Sl Tabs [Nitrostat] 0.4 mg SUBLINGUAL Q5M PRN #30 tab PRN Reason: Chest Pain Metoprolol Succinate (ER) [Toprol XL] 25 mg PO DAILY #30 tab.er.24h Cetirizine HCl [Zyrtec] 10 mg PO DAILY Gabapentin 300 mg PO BID Cholecalciferol [Vitamin D3 (25 Mcg = 1000 Iu)] 50 mcg PO DAILY Biotin 10,000 mcg PO DAILY Fluticasone Nasal [place]comb [Flonase Nasal Newcomb] 1 spray EA NOSTRIL DAILY DULoxetine HCL [Cymbalta] 20 mg PO BID Discharge Medication List ALPRAZolam [Xanax] 1 mg PO HS PRN 02/18/17 [History] Multivitamins, Thera [Multivitamin (formulary)] 1 tab PO DAILY 08/21/19 [History] Atorvastatin [Lipitor] 40 mg PO HS 10/02/20 [History] FLUoxetine HCL 80 mg PO DAILY 10/02/20 [History] Omeprazole 40 mg PO HS PRN 10/02/20 [History] Primidone [Mysoline] 50 mg PO BID 10/02/20 [History] Aspirin 81 mg PO DAILY #30 chew 10/04/20 [Rx] Isosorbide Mononitrate ER [Imdur] 30 mg PO DAILY #30 tab.er.24h 10/04/20 [Rx] Metoprolol Succinate (ER) [Toprol XL] 25 mg PO DAILY #30 tab.er.24h 10/04/20 [Rx] Nitroglycerin Sl Tabs [Nitrostat] 0.4 mg SUBLINGUAL Q5M PRN #30 tab 10/04/20 [Rx] Biotin 10,000 mcg PO DAILY 04/22/21 [History] Cetirizine HCl [Zyrtec] 10 mg PO DAILY 04/22/21 [History] Cholecalciferol [Vitamin D3 (25 Mcg = 1000 Iu)] 50 mcg PO DAILY 01/21/22 [History] DULoxetine HCL [Cymbalta] 20 mg PO BID 01/21/22 [History] Fluticasone Nasal [place]comb [Flonase Nasal Newcomb] 1 spray EA NOSTRIL DAILY 01/21/22 [History] Gabapentin 300 mg PO BID 01/21/22 [History] Clopidogrel [Plavix] 75 mg PO DAILY 20 Days #20 tab 01/22/22 [Rx] Follow up Appointment(s)/Referral(s): Johnathan Raza MD [Primary Care Provider] - 01/25/22 11:00 am Kenroy Rene MD [Medical Doctor] - 1 Week (Pt to schedule as the office was closed at time of discharge. Please ensure the office is aware this is an appointment following a hospital stay.) Patient Instructions/Handouts: Transient Ischemic Attack (DC) Discharge Disposition: HOME SELF-CARE
[2022-01-23 16:08] VITALS: BP 130/79; PULSE 74; TEMP 98.3
--- NOTE | 2022-01-24 09:14 | P.PN ---
Subjective Progress Note Date: 01/23/22 Patient was seen for a follow-up. Patient doing well. No further neurological symptoms. The numbness has resolved. Objective - Vital Signs Vital signs: Vital Signs Temp 98.3 F 01/23/22 12:00 Pulse 74 01/23/22 14:00 Resp 17 01/23/22 14:00 BP 130/79 01/23/22 12:00 Pulse Ox 97 01/23/22 12:00 Intake & Output 01/23/22 01/24/22 01/24/22 18:59 06:59 18:59 Other: # Voids 2 - Exam Nonfocal. Mental status normal. Speech and language functions normal. - Labs CBC & Chem 7: 01/21/22 17:06 01/22/22 08:49 Assessment and Plan Assessment: * Recurrent TIA TIA manifesting with transient speech difficulty, and right- sided paresthesias, which now has completely resolved. Current NIH stroke scale is 0. * History of TIA with similar symptoms in 2018 * Coronary artery disease, history of MT in 2019 * Diabetes * chronic back pain Plan: * MRI of the brain was normal. I personally reviewed MRI and agree with the findings. Her symptoms have resolved. * Patient had a TIA, likely because of stopping her antiplatelet medications. She stopped Plavix a month ago and aspirin 2-3 days prior to this TIA. Patient will be resumed on dual antiplatelet medication for 21 days, then stop Plavix and continue aspirin 81 mg indefinitely. * Await lipid panel and hemoglobin A1c. Continue Lipitor 40 mg. * CTA of head and neck showed no significant stenosis. * 2-D echo revealed normal left-ventricular size, wall thickness and systolic function with EF greater than 55%. Left atrium is moderately dilated. Aortic valve is trileaflet and appears structurally normal. No aortic stenosis. Mild MR. Bubble study was negative for PFO. * Telemetric monitoring since admission showing sinus rhythm, with no other arrhythmia. * Neurologically clear for discharge. Recommend follow-up with her neurologist in 2-3 weeks.
== END 2022-01-23 16:05 | disposition home or self-care (01) ==
LOC: EC 16:48 → 3SCARD 18:15
PROVIDERS: ADMIT Family Medicine; ATTEND Family Medicine
DX: G45.9 Transient cerebral ischemic attack, unspecified (principal); E87.6 Hypokalemia; I25.10 Atherosclerotic heart disease of native coronary artery without angina pectoris; I67.82 Cerebral ischemia; I08.1 Rheumatic disorders of both mitral and tricuspid valves; E78.5 Hyperlipidemia, unspecified; E03.9 Hypothyroidism, unspecified; I25.2 Old myocardial infarction; E11.9 Type 2 diabetes mellitus without complications; K57.90 Diverticulosis of intestine, part unspecified, without perforation or abscess without bleeding; K21.9 Gastro-esophageal reflux disease without esophagitis; G89.29 Other chronic pain; M54.9 Dorsalgia, unspecified; M79.7 Fibromyalgia; F41.9 Anxiety disorder, unspecified; F32.A Depression, unspecified; R25.1 Tremor, unspecified; M25.552 Pain in left hip; M25.551 Pain in right hip; Z79.82 Long term (current) use of aspirin; Z79.02 Long term (current) use of antithrombotics/antiplatelets; Z79.899 Other long term (current) drug therapy; Z85.41 Personal history of malignant neoplasm of cervix uteri; Z86.73 Personal history of transient ischemic attack (TIA), and cerebral infarction without residual deficits; Z87.01 Personal history of pneumonia (recurrent); Z98.84 Bariatric surgery status; Z98.891 History of uterine scar from previous surgery; Z90.49 Acquired absence of other specified parts of digestive tract; Z90.710 Acquired absence of both cervix and uterus; Z98.51 Tubal ligation status; Z86.39 Personal history of other endocrine, nutritional and metabolic disease; Z98.890 Other specified postprocedural states; Z82.49 Family history of ischemic heart disease and other diseases of the circulatory system; Z82.69 Family history of other diseases of the musculoskeletal system and connective tissue; Z82.0 Family history of epilepsy and other diseases of the nervous system; Z83.49 Family history of other endocrine, nutritional and metabolic diseases; Z82.3 Family history of stroke; Z80.8 Family history of malignant neoplasm of other organs or systems; E66.9 Obesity, unspecified; Z68.30 Body mass index [BMI] 30.0-30.9, adult
CPT/HCPCS: 99291; 36415; 93005; 93306; 80061; 80053; 80048; 84484; 85025; 85610; 85730; 83036; 71046; 70496; 70450; 70498; 70551; G0378 ×3; Q9967

== ENCOUNTER → 2022-03-29 | Outpatient (CLI) | payer OTHER ==
[2022-03-29 15:04] VITALS: BP 144/88; PULSE 73; TEMP 98; BMI 30.2
--- NOTE | 2022-03-29 15:26 | P.HPBAR ---
Bariatric H&P - History & Physicial H&P Date: 03/29/22 History & Physicial: Visit/CC: sleeve f/u Patient initial contact: Initial weight: 90.718 kg Initial weight in pounds: 200.00 Height: 5 ft 2 in Initial BMI: 36.6 Last weight: Current weight: 74.843 kg Current weight in pounds: 165.00 Current BMI: 30.2 [place] body weight (based on NIH guidelines): 49.895 kg Excess body weight loss: 38.8% The patient is a 51 year-old F who presents for Bariatric Assessment. Patient resents today for bariatric follow-up. She currently weighs 105 pounds. She has a well-formed panniculus. She's lost in excess of 80 pounds. She's had trouble with chronic skin irritation. Past Medical History Past Medical History: Cancer, Chest Pain / Angina, CVA/TIA, Fibromyalgia, GERD/Reflux, Hyperlipidemia, Pneumonia, Thyroid Disorder Additional Past Medical History / Comment(s): TIA Oct 2017, no residual effects. CERVICAL CA (1996). HX OF DIVERTICULITIS. Back, neck, shoulder and bilateral hip pain. Possibly some sleep apnea. Past hx of diabetes-currently just being monitored. Tremors. Last Myocardial Infarction Date:: 2019 History of Any Multi-Drug Resistant Organisms: None Reported Past Surgical History: Bariatric Surgery, Section, Cholecystectomy, Hysterectomy, Tubal Ligation, Uterine Ablation Additional Past Surgical History / Comment(s): LAP BAND 2000 & REMOVED 2001., gastric sleeve 06/05/2019 Past Anesthesia/Blood Transfusion Reactions: Motion Sickness Past Psychological History: Anxiety, Depression Smoking Status: Never smoker Past Alcohol Use History: None Reported Past Drug Use History: None Reported - Past Family History Father Family Medical History: Cancer, Coronary Artery Disease (CAD), CVA/TIA, Myocardial Infarction ([place]) Additional Family Medical History / Comment(s): Bone ca Mother Family Medical History: Myocardial Infarction ([place]), Thyroid Disorder Sister(s) Family Medical History: Fibromyalgia Additional Family Medical History / Comment(s): MS Surgical - Exam Vital Signs Temp Pulse BP 98 F 73 144/88 03/29/22 15:02 03/29/22 15:02 03/29/22 15:02 - General well developed, well nourished, no distress - Eyes PERRL - ENT normal pinna - Neck no masses - Respiratory normal expansion - Cardiovascular Rhythm: regular - Abdomen Well-formed panniculus Abdomen: soft, non tender Bariatric Assessment & Plan Plan: Patient has a well-formed panniculus. We will attempt to obtain insurance authorization for the panniculectomy. Bariatric Checklist Checklist: Plan: Checklist: EGD: 1. Hiatal hernia: 2. H. Pylori: HgbA1c: Vitamin D: Smoking: Never smoker Primary care physician referral: DR. MACIEL Psychiatry clearance: Cardiology clearance: Sleep study: Diet journal: VTE risk score: VTE risk level: Rehab needs at discharge:
== END ==
LOC: BARWHC3 14:35
PROVIDERS: ATTEND Surgery
DX: E65 Localized adiposity (principal); E78.5 Hyperlipidemia, unspecified; E11.9 Type 2 diabetes mellitus without complications; Z86.73 Personal history of transient ischemic attack (TIA), and cerebral infarction without residual deficits; Z98.84 Bariatric surgery status; F41.9 Anxiety disorder, unspecified; F32.A Depression, unspecified
CPT/HCPCS: 99211

== ENCOUNTER → 2023-01-20 | Outpatient (CLI) | payer OTHER ==
--- NOTE | 2023-01-21 07:54 | MM ---
Reason for Exam: Screening (asymptomatic). Last screening mammogram was performed 12 month(s) ago. Patient History: Menarche at age 14. First Full-Term at age 21. Hysterectomy at age 40. Postmenopausal. Endometrial cancer, age 27. Patient used Hormonal Contraceptives for 12 years. Risk Values: Nahomy 5 year model risk: 0.9%. NCI Lifetime model risk: 7.1%. Prior Study Comparison: 01/22/2008 Bilateral Screening Mammogram, [facility]. 06/29/2016 Bilateral Diagnostic Mammogram, [facility]. 01/19/2022 Bilateral Screening Mammogram, [facility]. Tissue Density: There are scattered fibroglandular densities. Findings: Analyzed By CAD. There is no suspicious group of microcalcifications or new suspicious mass in either breast. Overall Assessment: Negative, BI-RAD 1 Management: Screening Mammogram of both breasts in 1 year. A clinical breast exam by your physician is recommended on an annual basis and results should be correlated with mammographic findings. Electronically signed and approved by: Daryl Benedict D.O.
== END | disposition home or self-care (01) ==
LOC: RADMAMWWP 07:52
PROVIDERS: ATTEND Family Medicine
DX: Z12.31 Encounter for screening mammogram for malignant neoplasm of breast (principal); Z78.0 Asymptomatic menopausal state
CPT/HCPCS: 77063; 77067

== ENCOUNTER 2023-07-04 10:34 | Observation (INO) | payer MEDICARE, OTHER ==
--- NOTE | 2023-07-04 10:41 | ED ---
General Adult HPI - General Source: patient <Nayana White - Last Filed: 07/04/23 10:37> <Jim Aviles - Last Filed: 07/04/23 14:08> - General Stated complaint: Chest Pain Time Seen by Provider: 07/04/23 10:37 - History of Present Illness Initial comments: 52 year old female presents to the emergency department for chief complaint of chest pain. She reports that it is sharp in the center of her chest. Reports that it comes and goes. She admits to associated diaphoresis. History of GA in 2018. (CindyNayana) This is a 52-year-old female with a strong family history of heart disease. Patient herself has had a heart attack in the past. Patient states she's also borderline diabetic. Patient states she started to do something on the 10th is the last time she took was on the but she took it every day in between because she didn't know was a weekly not a daily medication. Patient comes in today stating she's had 2 days of chest pain started the other morning when she was doing some light housework. Patient states she was short of breath and the pain radiated to her back and she also became diaphoretic and nauseated. Patient states that lasted a few hours and then subsided. Patient states it occurred again yesterday and then again went away it occurred again today but no worsening or significant so she called her primary medical care doctor and he wanted to come to the emergency department to be evaluated. (Jim Aviles) - Related Data Home Medications Medication Instructions Recorded Confirmed ALPRAZolam [Xanax] 1 mg PO HS 02/18/17 11/25/22 Multivitamins, Thera [Multivitamin 1 tab PO DAILY 08/21/19 11/25/22 (formulary)] Atorvastatin [Lipitor] 40 mg PO HS 10/02/20 11/25/22 FLUoxetine HCL 80 mg PO DAILY 10/02/20 11/25/22 Omeprazole 40 mg PO HS PRN 10/02/20 11/25/22 Primidone [Mysoline] 50 mg PO BID 10/02/20 11/25/22 Biotin 10,000 mcg PO DAILY 04/22/21 11/25/22 Cetirizine HCl [Zyrtec] 10 mg PO DAILY 04/22/21 11/25/22 Cholecalciferol [Vitamin D3 (25 50 mcg PO DAILY 01/21/22 11/25/22 Mcg = 1000 Iu)] Fluticasone Nasal [place] [Flonase 1 spray EA NOSTRIL DAILY PRN 01/21/22 11/25/22 Nasal [place]] Gabapentin 300 mg PO BID 01/21/22 11/25/22 HYDROcodone/APAP 5-325MG [Embarrass 1 tab PO TID PRN 11/22/22 11/25/22 5-325] Amoxic-Pot Clav 875-125Mg 1 tab PO BID 11/25/22 11/25/22 [Augmentin 875-125] Estradiol Cream [Estrace Cream 1 gm VAGINAL Q72H PRN 11/25/22 11/25/22 0.01%] methylPREDNISolone Dose Pack See Taper PO DIRECTED 11/25/22 11/25/22 [Medrol Dose Pack] tiZANidine [Zanaflex] 4 mg PO BID PRN 11/25/22 11/25/22 Previous Rx's Medication Instructions Recorded Aspirin 81 mg PO DAILY #30 chew 10/04/20 Metoprolol Succinate (ER) [Toprol 25 mg PO DAILY #30 tab.er.24h 10/04/20 XL] Nitroglycerin Sl Tabs [Nitrostat] 0.4 mg SUBLINGUAL Q5M PRN #30 tab 10/04/20 Allergies Allergy/AdvReac Type Severity Reaction Status Date / Time No Known Allergies Allergy Verified 07/04/23 10:40 Review of Systems ROS Other: All systems not noted in ROS Statement are negative. <Nayana White - Last Filed: 07/04/23 10:37> ROS Other: All systems not noted in ROS Statement are negative. <Jim Aviles - Last Filed: 07/04/23 14:08> ROS Statement: Those systems with pertinent positive or pertinent negative responses have been documented in the HPI. Past Medical History Past Medical History: Cancer, Chest Pain / Angina, CVA/TIA, Fibromyalgia, GERD/Reflux, Hyperlipidemia, Pneumonia, Thyroid Disorder Additional Past Medical History / Comment(s): TIA Oct 2017, no residual effects. CERVICAL CA (1996). HX OF DIVERTICULITIS. Back, neck, shoulder and bilateral hip pain. Possibly some sleep apnea. Past hx of diabetes-currently just being monitored. Tremors. Last Myocardial Infarction Date:: 2019 History of Any Multi-Drug Resistant Organisms: None Reported Past Surgical History: Bariatric Surgery, Section, Cholecystectomy, Hysterectomy, Tubal Ligation, Uterine Ablation Additional Past Surgical History / Comment(s): LAP BAND 2000 & REMOVED 2001., gastric sleeve 06/05/2019 Past Anesthesia/Blood Transfusion Reactions: No Reported Reaction, Motion Sickness Past Psychological History: Anxiety, Depression Smoking Status: Never smoker Past Alcohol Use History: None Reported Past Drug Use History: None Reported - Past Family History Father Family Medical History: Cancer, Coronary Artery Disease (CAD), CVA/TIA, Myocardial Infarction ([place]) Additional Family Medical History / Comment(s): Bone ca Mother Family Medical History: Myocardial Infarction ([place]), Thyroid Disorder Sister(s) Family Medical History: Fibromyalgia Additional Family Medical History / Comment(s): MS <Nayana White - Last Filed: 07/04/23 10:37> General Exam <Nayana White - Last Filed: 07/04/23 10:37> <Jim Aviles - Last Filed: 07/04/23 14:08> - General Exam Comments Initial Comments: Visual Physical Exam Vital signs reviewed General: Well-appearing, nontoxic, no acute distress. Head: Normocephalic, atraumatic Eyes: PERRLA, EOMI ENT: Airway patent Chest: Nonlabored breathing Skin: No visual rash, normal skin tone Neuro: Alert and oriented 3 Musculoskeletal: No gross abnormalities (Nayana White) GENERAL: Patient is well-developed and well-nourished. Patient is nontoxic and well- hydrated and is in mild distress. ENT: Neck is soft and supple. No significant lymphadenopathy is noted. Oropharynx is clear. Moist mucous membranes. Neck has full range of motion without eliciting any pain. EYES: The sclera were anicteric and conjunctiva were pink and moist. Extraocular movements were intact and pupils were equal round and reactive to light. Eyelids were unremarkable. PULMONARY: Unlabored respirations. Good breath sounds bilaterally. No audible rales rhonchi or wheezing was noted. CARDIOVASCULAR: There is a regular rate and rhythm without any murmurs gallops or rubs. ABDOMEN: Soft and nontender with normal bowel sounds. No palpable organomegaly was noted. There is no palpable pulsatile mass. SKIN: Skin is clear with no lesions or rashes and otherwise unremarkable. NEUROLOGIC: Patient is alert and oriented x3. Cranial nerves II through XII are grossly intact. Motor and sensory are also intact. Normal speech, volume and content. Symmetrical smile. Cerebellar exam grossly intact. MUSCULOSKELETAL: Normal extremities with adequate strength and full range of motion. No lower extremity swelling or edema. No calf tenderness. LYMPHATICS: No significant lymphadenopathy is noted PSYCHIATRIC: Normal psychiatric evaluation. (Jim Aviles) Course Vital Signs 07/04/23 10:37 Temperature 98.3 F Pulse Rate 101 H Respiratory 20 Rate Blood Pressure 103/70 O2 Sat by Pulse 98 Oximetry Medical Decision Making <Nayana White - Last Filed: 07/04/23 10:37> - Lab Data Result diagrams: 07/04/23 11:45 07/04/23 11:45 <Jim Aviles - Last Filed: 07/04/23 14:08> - Medical Decision Making I preformed the quick note portion of this chart. Electronically signed by Eyal White PA-C (Nayana White) EKG was interpreted by myself. EKG shows a normal sinus rhythm at 87 bpm CO interval is 158 QRS is 66 QT interval 376 QTC is 452. There is no ST segment elevation or depression Was pt. sent in by a medical professional or institution ([facility], [facility] [employer], urgent care, hospital, or usp...) When possible be specific @ -Patient's physician sent her to the emergency department Did you speak to anyone other than the patient for history (EMS, parent, family, police, friend...)? What history was obtained from this source @ -No Did you review nursing and triage notes (agree or disagree)? Why? @ -I reviewed and agree with nursing and triage notes Were old charts reviewed (outside hosp., previous admission, EMS record, old EKG, old radiological studies, urgent care reports/EKG's, usp records)? Report findings @ -I reviewed prior charts in prior laboratory on this patient Differential Diagnosis (chest pain, altered mental status, abdominal pain women, abdominal pain men, vaginal bleeding, weakness, fever, dyspnea, syncope, headache, dizziness, GI bleed, back pain, seizure, CVA, palpatations, mental health, musculoskeletal)? @ -Differential Chest Pain: Stable Angina, Unstable Angina, STEMI, NSTEMI Aortic Dissection, Pneumothorax, Musculoskeletal, Esophageal Spasm GERD, Cholecystitis, Pancreatitis, Zoster, this is not meant to be an all-inclusive list. EKG interpreted by me (3pts min.). @ -As above X-rays interpreted by me (1pt min.). @ -Chest x-ray showed no acute abnormality CT interpreted by me (1pt min.). @ -None done U/S interpreted by me (1pt. min.). @ -None done What testing was considered but not performed or refused? (CT, X-rays, U/S, labs)? Why? @ -None What meds were considered but not given or refused? Why? @ -None Did you discuss the management of the patient with other professionals (professionals i.e. , PA, SHAKE FEEDER, lab, RT, psych nurse, social group worker, drug abuse resistance education officer, teacher, commanding officer traffic division, correctional case manager)? Give summary @ -I spoke with Dr. Martinez he agreed to admit the patient admitted the patient wrote admitting orders Was smoking cessation discussed for >3mins.? @ -No Was critical care preformed (if so, how long)? @ -No Were there social determinants of health that impacted care today? How? (Homelessness, low income, unemployed, alcoholism, drug addiction, transportation, low edu. Level, literacy, decrease access to med. care, skilled nursing, rehab)? @ -No Was there de-escalation of care discussed even if they declined (Discuss DNR or withdrawal of care, Hospice)? DNR status @ -No What co-morbidities impacted this encounter? (DM, HTN, Smoking, COPD, CAD, Cancer, CVA, ARF, Chemo, Hep., AIDS, mental health diagnosis, sleep apnea, morbid obesity)? @ -None Was patient admitted / discharged? Hospital course, mention meds given and route, prescriptions, significant lab abnormalities, going to OR and other pertinent info. @ -Patient's lab work was initially normal she still was having a little bit of chest pain. Chest x-ray was normal. I spoke with Dr. Martinez he agreed to admit the patient admitted the patient wrote admitting or psych consult cardiology Undiagnosed new problem with uncertain prognosis? @ -No Drug Therapy requiring intensive monitoring for toxicity (Heparin, Nitro, Insulin, Cardizem)? @ -No Were any procedures done? @ -No Diagnosis/symptom? @ -Chest pain Acute, or Chronic, or Acute on Chronic? @ -Acute Uncomplicated (without systemic symptoms) or Complicated (systemic symptoms)? @ -Complicated Side effects of treatment? @ -No Exacerbation, Progression, or Severe Exacerbation? @ -No Poses a threat to life or bodily function? How? (Chest pain, [place], GA, pneumonia, PE, COPD, DKA, ARF, appy, cholecystitis, CVA, Diverticulitis, Homicidal, Suicid al, threat to staff... and all critical care pts) @ -Yes this could lead to an GA and poor perfusion and end organ dysfunction (Jim Aviles) - Lab Data Lab Results 07/04/23 07/04/23 07/04/23 Range/Units 11:45 11:45 11:45 WBC 5.7 (3.8-10.6) k/uL RBC 5.45 H (3.80-5.40) m/uL Hgb 15.1 (11.4-16.0) gm/dL Hct 46.3 H (34.0-46.0) % MCV 85.1 (80.0-100.0) fL MCH 27.7 (25.0-35.0) pg MCHC 32.5 (31.0-37.0) g/dL RDW 13.6 (11.5-15.5) % Plt Count 166 (150-450) k/uL MPV 8.8 Neutrophils % 52 % Lymphocytes % 37 % Monocytes % 8 % Eosinophils % 1 % Basophils % 0 % Neutrophils # 3.0 (1.3-7.7) k/uL Lymphocytes # 2.1 (1.0-4.8) k/uL Monocytes # 0.4 (0-1.0) k/uL Eosinophils # 0.1 (0-0.7) k/uL Basophils # 0.0 (0-0.2) k/uL PT 11.3 (9.0-12.0) sec INR 1.1 (<1.2) APTT 24.8 (22.0-30.0) sec Sodium 137 (137-145) mmol/L Potassium 4.0 (3.5-5.1) mmol/L Chloride 100 (98-107) mmol/L Carbon Dioxide 27 (22-30) mmol/L Anion Gap 10 mmol/L BUN 14 (7-17) mg/dL Creatinine 0.76 (0.52-1.04) mg/dL Est GFR (CKD-EPI)AfAm >90 (>60 ml/min/1.73 sqM) Est GFR (CKD-EPI)NonAf >90 (>60 ml/min/1.73 sqM) Glucose 136 H (74-99) mg/dL Calcium 9.6 (8.4-10.2) mg/dL Magnesium 2.0 (1.6-2.3) mg/dL Total Bilirubin 0.4 (0.2-1.3) mg/dL AST 55 H (14-36) U/L ALT 39 H (4-34) U/L Alkaline Phosphatase 86 (38-126) U/L Troponin I (0.000-0.034) ng/mL Total Protein 7.7 (6.3-8.2) g/dL Albumin 4.6 (3.5-5.0) g/dL 07/04/23 Range/Units 11:45 WBC (3.8-10.6) k/uL RBC (3.80-5.40) m/uL Hgb (11.4-16.0) gm/dL Hct (34.0-46.0) % MCV (80.0-100.0) fL MCH (25.0-35.0) pg MCHC (31.0-37.0) g/dL RDW (11.5-15.5) % Plt Count (150-450) k/uL MPV Neutrophils % % Lymphocytes % % Monocytes % % Eosinophils % % Basophils % % Neutrophils # (1.3-7.7) k/uL Lymphocytes # (1.0-4.8) k/uL Monocytes # (0-1.0) k/uL Eosinophils # (0-0.7) k/uL Basophils # (0-0.2) k/uL PT (9.0-12.0) sec INR (<1.2) APTT (22.0-30.0) sec Sodium (137-145) mmol/L Potassium (3.5-5.1) mmol/L Chloride (98-107) mmol/L Carbon Dioxide (22-30) mmol/L Anion Gap mmol/L BUN (7-17) mg/dL Creatinine (0.52-1.04) mg/dL Est GFR (CKD-EPI)AfAm (>60 ml/min/1.73 sqM) Est GFR (CKD-EPI)NonAf (>60 ml/min/1.73 sqM) Glucose (74-99) mg/dL Calcium (8.4-10.2) mg/dL Magnesium (1.6-2.3) mg/dL Total Bilirubin (0.2-1.3) mg/dL AST (14-36) U/L ALT (4-34) U/L Alkaline Phosphatase (38-126) U/L Troponin I <0.012 (0.000-0.034) ng/mL Total Protein (6.3-8.2) g/dL Albumin (3.5-5.0) g/dL Disposition <Nayana White - Last Filed: 07/04/23 10:37> Time of Disposition: 14:08 <Jim Aviles - Last Filed: 07/04/23 14:08> Clinical Impression: Chest pain Disposition: ADMITTED IP TO THIS HOSP Referrals: Johnathan Raza MD [Primary Care Provider] - 1-2 days
[2023-07-04] MEDS ORDERED: ASPIRIN 81 MG PO STA (11:39)
[2023-07-04] MEDS ORDERED: NITROGLYCERIN OINT 1 INCH/GM PACKET TOPICAL STA (11:39)
--- NOTE | 2023-07-04 11:40 | XR ---
EXAMINATION TYPE: XR chest 2V DATE OF EXAM: 07/04/2023 COMPARISON: 11/25/2022 HISTORY: Shortness of breath TECHNIQUE: Frontal and lateral views of the chest are obtained. FINDINGS: Scattered senescent parenchymal changes noted. Hyperinflation compatible with COPD. No evidence for infiltrate. No evidence for atelectasis. Heart size is stable. Mediastinal structures are stable and grossly unremarkable. No evidence for hilar prominence. Degenerative changes dorsal spine. IMPRESSION: 1. No evidence for acute pulmonary disease.
[2023-07-04 12:07] LABS: INR 1.1 (<1.2); Partial Thromboplastin Time 24.8 sec (22.0-30.0); Prothrombin Time 11.3 sec (9.0-12.0)
[2023-07-04 12:09] LABS: ALT 39 U/L (4-34); AST 55 U/L (14-36); African American GFR (CKD) >90 (>60 ml/min/1.73 sqM); Albumin 4.6 g/dL (3.5-5.0); Alkaline Phosphatase 86 U/L (38-126); Anion Gap 10 mmol/L; Basophils % (A) 0 %; Blood Urea Nitrogen 14 mg/dL (7-17); Calcium 9.6 mg/dL (8.4-10.2); Carbon Dioxide 27 mmol/L (22-30); Chloride 100 mmol/L (98-107); Eosinophils # (A) 0.1 k/uL (0-0.7); Eosinophils % (A) 1 %; Glucose 136 mg/dL (74-99); HCT 46.3 % (34.0-46.0); HGB 15.1 gm/dL (11.4-16.0); Lymphocytes # (A) 2.1 k/uL (1.0-4.8); Lymphocytes % (A) 37 %; MCH 27.7 pg (25.0-35.0); MCHC 32.5 g/dL (31.0-37.0); MCV 85.1 fL (80.0-100.0); Mean Platelet Volume 8.8; Monocytes # (A) 0.4 k/uL (0-1.0); Monocytes % (A) 8 %; Neutrophils % (A) 52 %; Non-African American GFR(CKD) >90 (>60 ml/min/1.73 sqM); Platelet Count 166 k/uL (150-450); RBC 5.45 m/uL (3.80-5.40); RDW 13.6 % (11.5-15.5); Sodium 137 mmol/L (137-145); Total Bilirubin 0.4 mg/dL (0.2-1.3); Total Protein 7.7 g/dL (6.3-8.2); WBC 5.7 k/uL (3.8-10.6)
[2023-07-04] MEDS ORDERED: NITROGLYCERIN SL TABS 0.4 MG TAB SUBLINGUAL PRN (14:08)
[2023-07-04] MEDS: PANTOPRAZOLE 40 MG/10 ML VIAL IVP SCH ×2 (17:40→22:43)
[2023-07-04] MEDS: NITROGLYCERIN OINT 1 INCH/GM PACKET TOPICAL SCH ×2 (17:42→23:58)
[2023-07-04] MEDS ORDERED: ACETAMINOPHEN TAB 325 MG TAB PO PRN (18:36)
[2023-07-04] MEDS ORDERED: ATORVASTATIN 40 MG TAB PO SCH (21:00)
[2023-07-04] MEDS ORDERED: FLUoxetine HCL 20 MG CAP PO SCH (21:00)
[2023-07-04] MEDS ORDERED: ALPRAZolam 1 MG TAB PO SCH (21:00)
[2023-07-04] MEDS ORDERED: GABAPENTIN 400 MG CAP PO SCH (21:00)
[2023-07-04] MEDS ORDERED: tiZANidine 4 MG TAB PO SCH (21:00)
[2023-07-04] MEDS ORDERED: NON FORMULARY DRUG (Omeprazole [Omeprazole] 40 MG Capsule.Dr) PO SCH (21:00)
[2023-07-04] MEDS ORDERED: HYDROcodone/APAP 5-325MG 1 EACH TAB PO SCH (22:00)
--- NOTE | 2023-07-04 22:58 | HP ---
HISTORY AND PHYSICAL CHIEF COMPLAINT: Chest pain. HISTORY OF PRESENT ILLNESS: This 52-year-old woman, with a past medical history of multiple medical issues including fibromyalgia, GERD, was complaining of chest pain. The patient also has some nausea. The patient apparently took Ozempic for 4 days continuously. There is no history of any fever, rigors, chills at this time. PAST MEDICAL HISTORY: Reviewed and include chest pain, CVA, TIA. Rest of the history and rest of the chart are also reviewed. HOME MEDICATIONS: Reviewed and include gabapentin. Doses and rest of the medications noted. ALLERGIES: None. FAMILY HISTORY: History of CAD, CVA, TIA. Multiple histories in the family. SOCIAL HISTORY: No history of smoke or alcohol. REVIEW OF SYSTEMS: Fourteen-point review is negative as mentioned. PHYSICAL EXAMINATION: VITAL SIGNS: Pulse 101, blood pressure 103/70, respirations 20. HEENT: Conjunctivae are normal. NECK: No jugular venous distention. CARDIOVASCULAR: S1 and S2 muffled. RESPIRATORY: Breath sounds diminished at the bases. ABDOMEN: Soft and nontender. LEGS: No edema. NERVOUS SYSTEM: Nonfocal. SKIN: No ulcers or rashes. JOINTS: n LABORATORY DATA: Reviewed. ASSESSMENT: 1. Chest pain, possible unstable angina. 2. Nausea, possibly gastritis or related to Ozempic. 3. Fibromyalgia. 4. Hyperlipidemia. 5. History of angina. 6. Multiple medical issues. RECOMMENDATIONS AND DISCUSSION: This 52-year-old woman presented with multiple complex medical issues. We will monitor the patient closely. Recommend continue the current medications. Symptomatic treatment provided. IV Protonix. Cardiology consultation. Possible stress test. Resume the home medications once they are confirmed. Prognosis guarded because of multiple complex medical conditions. MMODL / IJN: [id number] / [facility]
[2023-07-05] MEDS: NITROGLYCERIN OINT 1 INCH/GM PACKET TOPICAL SCH (05:17)
[2023-07-05] MEDS ORDERED: DOBUTamine DRIP for NUC MED 500 MG in DEXTROSE/WATER 1 250ML.BAG IV PRN (08:18)
[2023-07-05 08:47] LABS: Basophils # (A) 0.03 X 10*3/uL (0.00-0.10); Basophils % (A) 0.5 %; Eosinophils # (A) 0.06 X 10*3/uL (0.04-0.35); HCT 42.4 % (37.2-46.3); HGB 14.1 d/dL (12.0-15.0); Immature Grans, Automated 0 %; Lymphocytes # (A) 3.13 X 10*3/uL (0.90-5.00); Lymphocytes % (A) 52.8 %; MCH 27.7 pg (27.0-32.0); MCHC 33.3 d/dL (32.0-37.0); MCV 83.3 FL (80.0-97.0); Mean Platelet Volume 11.8 FL (9.5-12.2); Monocytes # (A) 0.64 X 10*3/uL (0.20-1.00); Monocytes % (A) 10.8 %; NRBC Per 100 WBC 0 X 10*3/uL (0.00-0.01); Neutrophils # (A) 2.07 X 10*3/uL (1.80-7.70); Neutrophils % (A) 34.9 %; Platelet Count 183 X 10*3/uL (140-440); RBC 5.09 X 10*6/uL (4.10-5.20); RDW 13.4 % (11.5-14.5); WBC 5.93 X 10*3/uL (4.50-10.00)
[2023-07-05] MEDS ORDERED: MULTIVITAMINS, THERA 1 EACH TAB PO SCH (09:00)
[2023-07-05] MEDS ORDERED: NON FORMULARY DRUG (Biotin [Biotin] 10,000 MCG Capsule) PO SCH (09:00)
[2023-07-05] MEDS ORDERED: LORATADINE 10 MG TAB PO SCH (09:00)
[2023-07-05] MEDS ORDERED: METOPROLOL SUCCINATE (ER) 25 MG TAB.ER.24H PO SCH (09:00)
[2023-07-05] MEDS ORDERED: DOBUTamine DRIP for NUC MED 500 MG/250 ML BAG IV ONE (09:00)
[2023-07-05] MEDS ORDERED: ASPIRIN 325 MG TAB PO SCH (09:00)
[2023-07-05 10:02] LABS: BUN/Creat Ratio 14.56 Ratio (12.00-20.00); Blood Urea Nitrogen 13.1 mg/dL (9.0-27.0); Calcium 9.4 mg/dL (8.7-10.3); Carbon Dioxide 23.1 mmol/L (21.6-31.8); Chloride 103 mmol/L (96-109); Chol/HDL Ratio 2.39 Ratio; Glucose 95 mg/dL (70-110); LDL Cholesterol,Calculated 70.8 mg/dL (0.0-131.0); Potassium 4.4 mmol/L (3.5-5.5); Sodium 139 mmol/L (135-145); VLDL Calculation 11.84 mg/dL (5.00-40.00)
--- NOTE | 2023-07-05 12:53 | P.CRDCN ---
History of Present Illness Consult date: 07/05/23 Consult reason: chest pain History of present illness: History of present illness: This is a 52-year-old female patient who follows with Dr. Gold in the office. She is a history of previous diabetes mellitus and hypertension that has since improved, status post gastric bypass, hyperlipidemia, CAD without stenting, and September 2020 after presenting with complaints of chest and jaw pain as well as nausea, diaphoresis and shortness of breath she had an abnormal Cardiolite stress test and subsequent heart catheterization showed 40% RCA s tenosis, 50% circumflex stenosis, LAD 30% diagonal 60-70% with the diagonal lesion appearing somewhat ulcerated with suspected acute coronary syndrome. At that time she was treated with Plavix and aspirin. She then presented in Nov 2022 with complaints of chest discomfort, occurred at rest, radiated to the left shoulder area and into her back but no jaw involvement, no diaphoresis and no shortness of breath. Dobutamine stress test was negative at that time. She was last seen in the office on 06/22/2023 with recommendations to consider stopping Imdur but patient wished to continue for now, encourage weight loss, follow up in 6 months. Patient not presents with sharp sternal chest pain going through to her back to scapula area similar to pain that she has had in the past. She had one episode when she was getting dressed and felt lightheaded, weak, shaky, sweaty and lightheaded. She also had fluttering of her chest. She thought it was related to hot flashes. She also experienced nausea. The next day she was getting dressed for adventism and had the same symptoms and up laying down and called her PCP office on Tuesday was told to come into the hospital for further evaluation. Patient does state that she started with some panic on 06/26 and has been taking it every day for 5 days versus taking on a weekly basis. Last evening she took 2 nitroglycerin and 2 aspirin and she states that chest pain and all symptoms were a little bit better and seemed to not be happening as frequently. EKG normal sinus rhythm Chest x-ray: no acute process CBC within normal limits. Electrolytes normal. Creatinine 0.9. Troponin negative 3. Cholesterol 142, triglycerides 59, LDL 70, HDL 59. Home cardiac medications: Aspirin 81 mg daily, atorvastatin 40 mg at bedtime, Toprol-XL 25 mg daily, Imdur 30 mg daily Dobutamine stress echocardiogram 11/2022 revealed normal electrocardiographic response to dobutamine. No echocardiographic evidence of myocardial ischemia. Normal dobutamine stress echocardiogram. Echocardiogram 11/2022 reveals normal ventricular size and systolic function. Mild tricuspid regurgitation with no evidence of pulmonary hypertension. Review Of Systems: At the time of my evaluation: Constitutional: No fever, no chills. No weakness, fatigue or lethargy. EENT: No headache. No dizziness. Lungs: No shortness of breath, cough, no sputum production. No wheezing. Cardiovascular: + chest pain, no lower extremity edema. No palpitations. No paroxysmal nocturnal dyspnea. No orthopnea. No lightheadedness or dizziness. No syncopal episodes. Abdominal: No abdominal pain. No nausea, vomiting. No diarrhea. No constipation. No bloody or tarry stools. Musculoskeletal: No myalgias. No muscle weakness, no frequent falls. Integumentary: No wounds. No rash. No unusual bruising. Neurologic: No aphasia. No facial droop. No change in mentation. Physical examination: Gen: This is a 52-year-old female. She is resting in bed appears to be comfortable and in no acute distress. VS: reviewed HEENT: Head is atraumatic, normocephalic. Pupils equal, round. Sclerae is anicteric. NECK: Supple. No JVD. . LUNGS: Clear to auscultation. No wheezes or rhonchi. No intercostal retractions. HEART: Regular rate and rhythm. No murmur. ABDOMEN: Soft No tenderness. EXTREMITIES: No pedal edema. No calf tenderness. NEUROLOGICAL: Patient is awake, alert and oriented x3. Assessment: Chest pain, acute coronary syndrome ruled out Multiple symptoms of unclear etiology: Lightheadedness, weakness, shakiness, sweats, fluttering, nausea History of coronary artery disease on cath 2019 Diabetes mellitus Hypertension Hyperlipidemia Plan: Resume cardiac medications including Imdur which is not listed on her hospitalist the patient states she is still taking Obtain dobutamine stress test If stress test is within normal limits, patient is cleared for discharge and may follow-up in the office in 2 weeks. Thank you kindly for this consultation. Nurse practitioner note has been reviewed, I agree with documented findings and plan of care. Patient was seen and examined. Past Medical History Past Medical History: Cancer, Chest Pain / Angina, CVA/TIA, Fibromyalgia, GERD/Reflux, Hyperlipidemia, Pneumonia Additional Past Medical History / Comment(s): TIAX2 Oct 2017, January 2023 no residual effects. CERVICAL CA (1996). HX OF DIVERTICULITIS. Back, neck, shoulder and bilateral hip pain. Possibly some sleep apnea. Past hx of diabetes-currently just being monitored. Tremors. Last Myocardial Infarction Date:: 2019 History of Any Multi-Drug Resistant Organisms: None Reported Past Surgical History: Bariatric Surgery, Section, Cholecystectomy, Hysterectomy, Tubal Ligation, Uterine Ablation Additional Past Surgical History / Comment(s): LAP BAND 2000 & REMOVED 2001., gastric sleeve 06/05/[address] Mcdowell Past Anesthesia/Blood Transfusion Reactions: No Reported Reaction, Motion Sickness Past Psychological History: Anxiety, Depression Smoking Status: Never smoker Past Alcohol Use History: None Reported Past Drug Use History: None Reported - Past Family History Father Family Medical History: Cancer, Coronary Artery Disease (CAD), CVA/TIA, Myocardial Infarction ([place]) Additional Family Medical History / Comment(s): Bone ca Mother Family Medical History: Myocardial Infarction ([place]), Thyroid Disorder Sister(s) Family Medical History: Fibromyalgia Additional Family Medical History / Comment(s): MS Medications and Allergies Home Medications Medication Instructions Recorded Confirmed Type ALPRAZolam [Xanax] 1 mg PO HS 02/18/17 07/04/23 History Multivitamins, Thera [Multivitamin 1 tab PO DAILY 08/21/19 07/04/23 History (formulary)] Atorvastatin [Lipitor] 40 mg PO HS 10/02/20 07/04/23 History FLUoxetine HCL 80 mg PO HS 10/02/20 07/04/23 History Omeprazole 40 mg PO HS 10/02/20 07/04/23 History Primidone [Mysoline] 50 mg PO BID 10/02/20 07/04/23 History Aspirin 81 mg PO DAILY #30 chew 10/04/20 07/04/23 Rx Metoprolol Succinate (ER) [Toprol 25 mg PO DAILY #30 tab.er.24h 10/04/20 07/04/23 Rx XL] Biotin 10,000 mcg PO DAILY 04/22/21 07/04/23 History Cetirizine HCl [Zyrtec] 10 mg PO DAILY 04/22/21 07/04/23 History HYDROcodone/APAP 5-325MG [Rush 1 tab PO TID 11/22/22 07/04/23 History 5-325] tiZANidine [Zanaflex] 4 mg PO BID 11/25/22 07/04/23 History Gabapentin [Neurontin] 400 mg PO HS 07/04/23 07/04/23 History Semaglutide [Ozempic] 0.25 mg SQ SAVAGE 07/04/23 07/04/23 History Acetaminophen Tab [Tylenol] 650 mg PO Q6HR PRN tab 07/05/23 Rx Nitroglycerin Sl Tabs [Nitrostat] 0.4 mg SUBLINGUAL Q5M PRN #20 tab 07/05/23 Rx Allergies Allergy/AdvReac Type Severity Reaction Status Date / Time No Known Allergies Allergy Verified 07/04/23 14:41 Physical Exam Vitals: Vital Signs Temp Pulse Pulse Resp BP BP Pulse Ox 07/05/23 02:09 98.6 F 86 15 98/60 96 07/04/23 20:26 98.7 F 84 18 107/69 99 07/04/23 20:00 97.5 F L 90 18 122/86 94 L 07/04/23 10:37 98.3 F 101 H 20 103/70 98 Intake and Output 07/04/23 07/05/23 07/05/23 22:59 06:59 14:59 Other: # Voids 2 1 Results 07/05/23 05:45 07/05/23 05:45 Cardiac Enzymes 07/04/23 07/04/23 07/04/23 Range/Units 11:45 11:45 15:02 AST 55 H (14-36) U/L Troponin I <0.012 <0.012 (0.000-0.034) ng/mL 07/04/23 Range/Units 17:53 AST (14-36) U/L Troponin I <0.012 (0.000-0.034) ng/mL Coagulation 07/04/23 Range/Units 11:45 PT 11.3 (9.0-12.0) sec APTT 24.8 (22.0-30.0) sec CBC 07/04/23 Range/Units 11:45 WBC 5.7 (3.8-10.6) k/uL RBC 5.45 H (3.80-5.40) m/uL Hgb 15.1 (11.4-16.0) gm/dL Hct 46.3 H (34.0-46.0) % Plt Count 166 (150-450) k/uL Comprehensive Metabolic Panel 07/04/23 Range/Units 11:45 Sodium 137 (137-145) mmol/L Potassium 4.0 (3.5-5.1) mmol/L Chloride 100 (98-107) mmol/L Carbon Dioxide 27 (22-30) mmol/L BUN 14 (7-17) mg/dL Creatinine 0.76 (0.52-1.04) mg/dL Glucose 136 H (74-99) mg/dL Calcium 9.6 (8.4-10.2) mg/dL AST 55 H (14-36) U/L ALT 39 H (4-34) U/L Alkaline Phosphatase 86 (38-126) U/L Total Protein 7.7 (6.3-8.2) g/dL Albumin 4.6 (3.5-5.0) g/dL Current Medications Generic Name Dose Route Start Last Admin Trade Name Freq PRN Reason Stop Dose Admin Acetaminophen 650 mg 07/04/23 18:36 Acetaminophen Tab 325 Mg Tab PO Q6HR PRN Fever and/ or Pain Hydrocodone Bitart/Acetaminophen 1 each 07/04/23 22:00 07/04/23 20:14 Hydrocodone/Apap 5-325mg 1 Each Tab PO 1 each TID STACY Administration Alprazolam 1 mg 07/04/23 21:00 07/04/23 21:41 Alprazolam 1 Mg Tab PO 1 mg HS STACY Administration Aspirin 325 mg 07/05/23 09:00 Aspirin 325 Mg Tab PO DAILY STACY Atorvastatin Calcium 40 mg 07/04/23 21:00 07/04/23 21:41 Atorvastatin 40 Mg Tab PO 40 mg HS STACY Administration Fluoxetine HCl 80 mg 07/04/23 21:00 07/04/23 21:42 Fluoxetine Hcl 20 Mg Cap PO 80 mg HS STACY Administration Gabapentin 400 mg 07/04/23 21:00 07/04/23 21:41 Gabapentin 400 Mg Cap PO 400 mg HS STACY Administration Dobutamine HCl/Dextrose 500 mg 250 mls @ 21.364 mls/hr 07/05/23 08:18 / IV Solution IV 07/05/23 12:18 .[id number] PRN Per Protocol Protocol 10 MCG/KG/MIN Loratadine 10 mg 07/05/23 09:00 Loratadine 10 Mg Tab PO DAILY [facility] Metoprolol Succinate 25 mg 07/05/23 09:00 Metoprolol Succinate (Er) 25 Mg Tab.Er.24h PO DAILY [facility] Multivitamins 1 each 07/05/23 09:00 Multivitamins, Thera 1 Each Tab PO DAILY [facility] Nitroglycerin 0.4 mg 07/04/23 14:08 Nitroglycerin Sl Tabs 0.4 Mg Tab SUBLINGUAL Q5M PRN Chest Pain Nitroglycerin 1 inch 07/04/23 18:00 07/05/23 05:17 Nitroglycerin Oint 1 Inch/Gm Packet TOPICAL Not Given Q6HR [facility] Pantoprazole Sodium 40 mg 07/04/23 16:21 07/04/23 22:43 Pantoprazole 40 Mg/10 Ml Vial IVP Not Given BID [facility] Tizanidine HCl 4 mg 07/04/23 21:00 07/04/23 22:12 Tizanidine 4 Mg Tab PO 4 mg BID [facility] Administration Intake and Output 07/04/23 07/05/23 07/05/23 22:59 06:59 14:59 Other: # Voids 2 1 07/04/23 11:45 07/04/23 11:45
--- NOTE | 2023-07-05 15:19 | DS ---
DISCHARGE SUMMARY FINAL DIAGNOSES: 1. Chest pain, myocardial infarction ruled out. 2. Awaiting stress test. 3. Nausea, possible acute gastritis. 4. Fibromyalgia. 5. Hyperlipidemia. 6. Multiple medical issues. DISCHARGE DISPOSITION: The patient will be discharged in stable condition with guarded prognosis. HISTORY OF PRESENT ILLNESS: This is a 52-year-old woman, who was admitted with chest pain, myocardial infarction ruled out. Cardiology performed a stress test. If the stress test is negative, the patient will be discharged in stable condition with guarded prognosis. PHYSICAL EXAMINATION: VITAL SIGNS: Stable. CARDIOVASCULAR: S1 and S2. ABDOMEN: Soft. NERVOUS SYSTEM: No focal deficit. The patient will be discharged on nitroglycerin, Tylenol, and a course of Protonix as well and recommended to continue omeprazole as at home. MMODL / IJN: [id number] /
--- NOTE | 2023-07-05 15:21 | CA ---
Dobutamine Stress Echocardiogram Report Mai Calvin Age: 52 Gender: F : 1970 Exam Date: 07/05/2023 11:44 Exam Location: [facility] Ordering Physician: Soledad Camejo Referring Physician: [id number] Santiago Tank Maker Wood: Evelyn Caldwell RDCS Technologist: Ht (in): 62 Wt (lb): 157 Procedure CPT: Indication: CP ICD-9 Codes: Rhythm: Patient History: History of ASCAD Cardiac Medications: Medications in past 24 hours: Contrast: Total Dose (mL): Stress Results Protocol: Dobutamine Peak Dose (???g/kg/min): 30 Duration (min:sec): Atropine:(mg) Target HR: 143 Double Product: 23364 Resting HR: 73 Resting BP: 112 / 63 Peak HR: 148 Peak BP: 144 / 77 Max Predicted HR: 168 88 % Max Predicted HR Stress Summary: BP Response: Reason for Termination: Exceeded target heart rate (85% max predicted) Cardiac Symptoms: No symptoms ECG Analysis Resting EKG: Stress EKG: Arrhythmia: Echo Analysis Base Echo Analysis: Low Echo Anaylsis: Peak Echo Analysis: Recovery Echo: MEASUREMENTS (Male/Female) Normal Values CONCLUSIONS Patient underwent dobutamine stress echo with infusion of dobutamine into Stage 3 for a total of 11 minutes and 24 seconds. Patient's maximum heart rate was 148 which represented 88% age-predicted maximum heart rate. Stress EKG portion: At baseline patient's EKG showed normal sinus rhythm, normal axis, no significant ST or T wave abnormalities. At peak dobutamine infusion, EKG showed significant change from baseline. Stress echo portion: 2-D echocardiogram was performed in the parasternal long, personal short, apical 2 and apical four-chamber views at rest, low-dose, peak infusion and in recovery. At baseline, echocardiogram showed left ventricular ejection fraction 55% without wall motion abnormalities. With peak infusion, echocardiogram shows improvement in left ventricular ejection fraction, increase contractility, decrease in left ventricular end systolic dimension without wall motion abnormalities consistent with a normal response to dobutamine. Conclusions: 1. Normal stress EKG and echo response to dobutamine infusion without any evidence of inducible ischemia. Dr. Gallito Gold DO (Electronically Signed) Final Date: 05 July 2023 15:20
[2023-07-05 16:06] VITALS: BP 110/76; PULSE 80; RESP 16; TEMP 98.1
[2023-07-06] MEDS ORDERED: ISOSORBIDE MONONITRATE ER 30 MG TAB.ER.24H PO SCH (09:00)
== END 2023-07-05 17:15 | disposition home or self-care (01) ==
LOC: EC 10:34 → 6NMEDSUR 14:09
PROVIDERS: ADMIT Hospitalist; ATTEND Hospitalist
DX: R07.9 Chest pain, unspecified (principal); R42 Dizziness and giddiness; R53.1 Weakness; I49.8 Other specified cardiac arrhythmias; R11.0 Nausea; E11.9 Type 2 diabetes mellitus without complications; M79.7 Fibromyalgia; K21.9 Gastro-esophageal reflux disease without esophagitis; E78.5 Hyperlipidemia, unspecified; F32.A Depression, unspecified; F41.9 Anxiety disorder, unspecified; I10 Essential (primary) hypertension; I25.10 Atherosclerotic heart disease of native coronary artery without angina pectoris; I25.2 Old myocardial infarction; Z85.41 Personal history of malignant neoplasm of cervix uteri; Z86.73 Personal history of transient ischemic attack (TIA), and cerebral infarction without residual deficits; Z98.84 Bariatric surgery status; Z79.899 Other long term (current) drug therapy; Z79.51 Long term (current) use of inhaled steroids; Z79.82 Long term (current) use of aspirin; Z82.49 Family history of ischemic heart disease and other diseases of the circulatory system
CPT/HCPCS: 96374; 99285; 36415; 93005; 93351; 80188; 80061; 80053; 80048; 83735; 84484; 85025 ×2; 85610; 85730; 71046; G0378 ×2; J1250; C9113

== ENCOUNTER → 2023-10-31 | Outpatient (CLI) | payer MEDICARE, OTHER ==
[2023-10-31 08:51] VITALS: BP 122/77; PULSE 80; TEMP 97.7; BMI 27.6
--- NOTE | 2023-12-06 12:29 | P.HPBAR ---
Bariatric H&P - History & Physicial H&P Date: 10/31/23 History & Physicial: Visit/CC: F/U Patient initial contact: Initial weight: 90.718 kg Initial weight in pounds: 200.00 Height: 5 ft 2 in Initial BMI: 36.6 Last weight: Current weight: 68.492 kg Current weight in pounds: 151.00 Current BMI: 27.6 [place] body weight (based on NIH guidelines): 49.895 kg Excess body weight loss: 54.4% The patient is a 53 year-old F who presents for Bariatric Assessment. Patient presents today for [facility] follow-up. Patient developed a well-formed panniculus. She is lost approximately 100 pounds of weight since having very surgery several years ago. Patient has issues with chronic skin irritations. Past Medical History Past Medical History: Cancer, Chest Pain / Angina, CVA/TIA, Fibromyalgia, GERD/Reflux, Hyperlipidemia, Pneumonia Additional Past Medical History / Comment(s): TIAX2 Oct 2017, January 2023 no residual effects. CERVICAL CA (1996). HX OF DIVERTICULITIS. Back, neck, shoulder and bilateral hip pain. Possibly some sleep apnea. Past hx of diabetes-currently just being monitored. Tremors. Last Myocardial Infarction Date:: 2019 History of Any Multi-Drug Resistant Organisms: None Reported Past Surgical History: Bariatric Surgery, Section, Cholecystectomy, Hysterectomy, Tubal Ligation, Uterine Ablation Additional Past Surgical History / Comment(s): LAP BAND 2000 & REMOVED 2001., gastric sleeve 06/05/[address] Mcdowell Past Anesthesia/Blood Transfusion Reactions: No Reported Reaction, Motion Sickness Past Psychological History: Anxiety, Depression Smoking Status: Never smoker Past Alcohol Use History: None Reported Past Drug Use History: None Reported - Past Family History Father Family Medical History: Cancer, Coronary Artery Disease (CAD), CVA/TIA, Myocardial Infarction ([place]) Additional Family Medical History / Comment(s): Bone ca Mother Family Medical History: Myocardial Infarction ([place]), Thyroid Disorder Sister(s) Family Medical History: Fibromyalgia Additional Family Medical History / Comment(s): MS Surgical - Exam Vital Signs Temp Pulse BP 97.7 F 80 122/77 10/31/23 08:46 10/31/23 08:46 10/31/23 08:46 - General well developed, well nourished, no distress - Eyes PERRL - ENT normal pinna - Neck no masses - Abdomen Well-formed panniculus Abdomen: soft, non tender Bariatric Assessment & Plan Plan: 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 Patient will be scheduled for panniculectomy once her insurance authorization is approved. Patient or stands this is not a cosmetic procedure, procedure move redundant skin and fat. Patient with the risk of possible need for cosmetic surgery after panniculectomy. Bariatric Checklist Checklist: Plan: Checklist: EGD: 1. Hiatal hernia: 2. H. Pylori: HgbA1c: Vitamin D: Smoking: Never smoker Primary care physician referral: DR. MACIEL Psychiatry clearance: Cardiology clearance: Sleep study: Diet journal: VTE risk score: VTE risk level: Rehab needs at discharge:
== END ==
LOC: BARWHC3 08:23
PROVIDERS: ATTEND Surgery
DX: Z09 Encounter for follow-up examination after completed treatment for conditions other than malignant neoplasm (principal); K21.9 Gastro-esophageal reflux disease without esophagitis; E65 Localized adiposity; L98.8 Other specified disorders of the skin and subcutaneous tissue; E78.5 Hyperlipidemia, unspecified; F41.9 Anxiety disorder, unspecified; F32.A Depression, unspecified; E11.9 Type 2 diabetes mellitus without complications; Z86.73 Personal history of transient ischemic attack (TIA), and cerebral infarction without residual deficits; Z87.39 Personal history of other diseases of the musculoskeletal system and connective tissue; Z87.01 Personal history of pneumonia (recurrent); Z87.19 Personal history of other diseases of the digestive system; Z85.848 Personal history of malignant neoplasm of other parts of nervous tissue; Z98.84 Bariatric surgery status; Z79.85 Long-term (current) use of injectable non-insulin antidiabetic drugs; Z79.82 Long term (current) use of aspirin
CPT/HCPCS: 99211

== ENCOUNTER 2023-12-22 08:21 | Emergency (ER) | payer MEDICARE, OTHER ==
[2023-12-22 08:27] VITALS: RESP 18; TEMP 97.6
[2023-12-22] MEDS: SODIUM CHLORIDE 0.9% 1,000 ML IV STA (09:24)
[2023-12-22] MEDS: KETOROLAC 15 MG/ML 1 ML VIAL IVP STA (09:24)
[2023-12-22] MEDS: diphenhydrAMINE 50 MG/ML 1 ML VIAL IVP STA (09:26)
[2023-12-22] MEDS: DEXAMETHASONE SOD PHOSPHATE 10 MG/ML 1 ML VIAL IVP STA (09:28)
[2023-12-22] MEDS: METOCLOPRAMIDE 5 MG/ML 2 ML VIAL IVP STA (09:30)
[2023-12-22] MEDS: MAGNESIUM SULFATE-D5W PMX 1 GM in DEXTROSE/WATER 1 100ML.BAG IVPB ONE (09:31)
[2023-12-22 09:36] LABS: Basophils % (A) 1 %; Eosinophils # (A) 0.1 k/uL (0-0.7); Eosinophils % (A) 2 %; HCT 39.8 % (34.0-46.0); HGB 12.9 gm/dL (11.4-16.0); Lymphocytes # (A) 1.6 k/uL (1.0-4.8); Lymphocytes % (A) 32 %; MCH 28.1 pg (25.0-35.0); MCHC 32.4 g/dL (31.0-37.0); MCV 86.6 fL (80.0-100.0); Mean Platelet Volume 9.6; Monocytes # (A) 0.3 k/uL (0-1.0); Monocytes % (A) 6 %; Neutrophils # (A) 2.8 k/uL (1.3-7.7); Neutrophils % (A) 57 %; Platelet Count 153 k/uL (150-450); RBC 4.59 m/uL (3.80-5.40); RDW 14.3 % (11.5-15.5); WBC 4.8 k/uL (3.8-10.6)
[2023-12-22 09:43] LABS: ALT 34 U/L (4-34); AST 45 U/L (14-36); African American GFR (CKD) >90 (>60 ml/min/1.73 sqM); Albumin 4.2 g/dL (3.5-5.0); Alkaline Phosphatase 97 U/L (38-126); Anion Gap 8 mmol/L; Blood Urea Nitrogen 15 mg/dL (7-17); Carbon Dioxide 23 mmol/L (22-30); Chloride 111 mmol/L (98-107); Glucose 147 mg/dL (74-99); Non-African American GFR(CKD) 85 (>60 ml/min/1.73 sqM); Potassium 3.5 mmol/L (3.5-5.1); Sodium 142 mmol/L (137-145); Total Bilirubin 0.4 mg/dL (0.2-1.3); Total Protein 6.6 g/dL (6.3-8.2)
[2023-12-22] MEDS: HYDROmorphone 0.5 MG/0.5 ML SYRINGE IVP STA (10:37)
[2023-12-22 10:47] VITALS: BP 131/76; PULSE 80
--- NOTE | 2023-12-22 10:55 | ED ---
Headache HPI - General Chief Complaint: Headache Stated Complaint: Migraine Time Seen by Provider: 12/22/23 08:30 Mode of arrival: ambulatory Limitations: no limitations - History of Present Illness Initial Comments: 53-year-old female presents to the emergency department reporting headache. Patient has a history of migraines. States that the current migraine has been going on for 2 weeks. She follows with a neurologist. States that she saw them in office this week. She was prescribed 3 new medications. States she has been taking them as directed but continues to have pain. She denies any fevers. No head trauma. No ataxia. Denies slurred speech. No numbness, tingling or weakness in her extremities. Does admit to photophobia. No other alleviating, precipitating or modifying factors - Related Data Home Medications Medication Instructions Recorded Confirmed ALPRAZolam [Xanax] 1 mg PO HS 02/18/17 12/22/23 Multivitamins, Thera [Multivitamin 1 tab PO DAILY 08/21/19 12/22/23 (formulary)] FLUoxetine HCL 80 mg PO HS 10/02/20 12/22/23 Omeprazole 40 mg PO HS 10/02/20 12/22/23 Primidone [Mysoline] 50 mg PO BID 10/02/20 12/22/23 Biotin 10,000 mcg PO DAILY 04/22/21 12/22/23 Cetirizine HCl [Zyrtec] 10 mg PO DAILY 04/22/21 12/22/23 HYDROcodone/APAP 5-325MG [[place] 1 tab PO TID PRN 11/22/22 12/22/23 5-325] tiZANidine [Zanaflex] 4 mg PO BID 11/25/22 12/22/23 Gabapentin [Neurontin] 400 mg PO HS 07/04/23 12/22/23 Atorvastatin [Lipitor] 40 mg PO HS 12/22/23 12/22/23 Qwsyitsd-Rawuagirh-Uf Otic 4 drops BOTH EARS DIRECTED 12/22/23 12/22/23 [Cortisporin Otic Soln] Nitroglycerin Sl Tabs [Nitrostat] 0.4 mg SL Q5M PRN 12/22/23 12/22/23 Nystatin [Nystop] 1 applic TOPICAL BID PRN 12/22/23 12/22/23 SUMAtriptan succinate [Imitrex] 50 mg PO BID PRN 12/22/23 12/22/23 Topiramate [Topamax] 25 mg PO BID 12/22/23 12/22/23 Previous Rx's Medication Instructions Recorded Aspirin 81 mg PO DAILY #30 chew 10/04/20 Metoprolol Succinate (ER) [Toprol 25 mg PO DAILY #30 tab.er.24h 10/04/20 XL] Acetaminophen Tab [Tylenol] 650 mg PO Q6HR PRN tab 07/05/23 Allergies Allergy/AdvReac Type Severity Reaction Status Date / Time No Known Allergies Allergy Verified 12/22/23 13:54 Review of Systems ROS Statement: Those systems with pertinent positive or pertinent negative responses have been documented in the HPI. ROS Other: All systems not noted in ROS Statement are negative. Past Medical History Past Medical History: Cancer, Chest Pain / Angina, CVA/TIA, Fibromyalgia, GERD/Reflux, Hyperlipidemia, Pneumonia Additional Past Medical History / Comment(s): TIAX2 Oct 2017, January 2023 no res idual effects. CERVICAL CA (1996). HX OF DIVERTICULITIS. Back, neck, shoulder and bilateral hip pain. Possibly some sleep apnea. Past hx of diabetes- currently just being monitored. Tremors. Last Myocardial Infarction Date:: 2019 History of Any Multi-Drug Resistant Organisms: None Reported Past Surgical History: Bariatric Surgery, Section, Cholecystectomy, Hysterectomy, Tubal Ligation, Uterine Ablation Additional Past Surgical History / Comment(s): LAP BAND 2000 & REMOVED 2001., gastric sleeve 06/05/[address] Mcdowell Past Anesthesia/Blood Transfusion Reactions: No Reported Reaction, Motion Sickness Past Psychological History: Anxiety, Depression Smoking Status: Never smoker Past Alcohol Use History: None Reported Past Drug Use History: None Reported - Past Family History Father Family Medical History: Cancer, Coronary Artery Disease (CAD), CVA/TIA, Myocardial Infarction ([place]) Additional Family Medical History / Comment(s): Bone ca Mother Family Medical History: Myocardial Infarction ([place]), Thyroid Disorder Sister(s) Family Medical History: Fibromyalgia Additional Family Medical History / Comment(s): MS General Exam Limitations: no limitations General appearance: alert, in no apparent distress Head exam: Present: atraumatic, normocephalic, normal inspection Eye exam: Present: normal appearance, PERRL, EOMI. Absent: scleral icterus, conjunctival injection, periorbital swelling ENT exam: Present: normal exam, mucous membranes moist Neck exam: Present: normal inspection. Absent: tenderness, meningismus, lympha denopathy Respiratory exam: Present: normal lung sounds bilaterally. Absent: respiratory distress, wheezes, rales, rhonchi, stridor Cardiovascular Exam: Present: regular rate, normal rhythm, normal heart sounds. Absent: systolic murmur, diastolic murmur, rubs, gallop, clicks GI/Abdominal exam: Present: soft, normal bowel sounds. Absent: distended, tenderness, guarding, rebound, rigid Extremities exam: Present: normal inspection, full ROM, normal capillary refill. Absent: tenderness, pedal edema, joint swelling, calf tenderness Back exam: Present: normal inspection Neurological exam: Present: alert, oriented X3, CN II-XII intact Psychiatric exam: Present: normal affect, normal mood Skin exam: Present: warm, dry, intact, normal color. Absent: rash Course Vital Signs 12/22/23 12/22/23 12/22/23 08:22 09:34 10:39 Temperature 97.6 F Pulse Rate 79 78 80 Respiratory 18 18 18 Rate Blood Pressure 103/69 108/70 131/76 O2 Sat by Pulse 95 98 98 Oximetry Medical Decision Making - Medical Decision Making Was pt. sent in by a medical professional or institution ([facility], SOIL EXPERT, urgent care, hospital, or assisted...) When possible be specific @ -No Did you speak to anyone other than the patient for history (EMS, parent, family, police, friend...)? What history was obtained from this source @ -No Did you review nursing and triage notes (agree or disagree)? Why? @ -I reviewed and agree with nursing and triage notes Were old charts reviewed (outside hosp., previous admission, EMS record, old EKG, old radiological studies, urgent care reports/EKG's, assisted records)? Report findings @ -No old charts were reviewed Differential Diagnosis (chest pain, altered mental status, abdominal pain women, abdominal pain men, vaginal bleeding, weakness, fever, dyspnea, syncope, headache, dizziness, GI bleed, back pain, seizure, CVA, palpatations, mental health, musculoskeletal)? @ -Differential Headache: Migraine, tension, cluster, carbon monoxide, central venous thrombosis, pension karma temporal arteritis, acute closure glaucoma, intercranial hemorrhage, mastoiditis, sinusitis, head injury, this is not meant to be an all-inclusive list. EKG interpreted by me (3pts min.). @ -Not done X-rays interpreted by me (1pt min.). @ -None done CT interpreted by me (1pt min.). @ -None done U/S interpreted by me (1pt. min.). @ -None done What testing was considered but not performed or refused? (CT, X-rays, U/S, labs)? Why? @ -CT however patient has nonfocal exam What meds were considered but not given or refused? Why? @ -None Did you discuss the management of the patient with other professionals (professionals i.e. , PA, SOIL EXPERT, lab, RT, psych nurse, nephrology social worker, sign hanger supervisor, teacher, commanding officer garage, family independence case manager)? Give summary @ -No Was smoking cessation discussed for >3mins.? @ -No Was critical care preformed (if so, how long)? @ -No Were there social determinants of health that impacted care today? How? (Homelessness, low income, unemployed, alcoholism, drug addiction, transportation, low edu. Level, literacy, decrease access to med. care, group home, rehab)? @ -No Was there de-escalation of care discussed even if they declined (Discuss DNR or withdrawal of care, Hospice)? DNR status @ -No What co-morbidities impacted this encounter? (DM, HTN, Smoking, COPD, CAD, Cancer, CVA, ARF, Chemo, Hep., AIDS, mental health diagnosis, sleep apnea, morbid obesity)? @ -Migraines Was patient admitted / discharged? Hospital course, mention meds given and route, prescriptions, significant lab abnormalities, going to OR and other pertinent info. @ -Upon arrival patient was placed into room 5. Thorough history and physical exam was performed. IV is established. Laboratory studies are conducted. Patient was provided with a migraine cocktail. She is reevaluated and reports to some improvement in her pain. Requesting additional pain medications and therefore was given a dose of morphine. Patient reevaluated and states that her headache is almost gone. She will be discharged home at this time and needs to follow-up with her neurologist for further management of her headache. Continue taking all of her home medications as directed. Return for any new or worsening symptoms. Patient was agreeable to the plan she was discharged in stable condition Undiagnosed new problem with uncertain prognosis? @ -No Drug Therapy requiring intensive monitoring for toxicity (Heparin, Nitro, Insulin, Cardizem)? @ -No Were any procedures done? @ -No Diagnosis/symptom? @ -Acute migraine headache Acute, or Chronic, or Acute on Chronic? @ -Acute Uncomplicated (without systemic symptoms) or Complicated (systemic symptoms)? @ -Complicated Side effects of treatment? @ -No Exacerbation, Progression, or Severe Exacerbation? @ -No Poses a threat to life or bodily function? How? (Chest pain, [place], [place], pneumonia, PE, COPD, DKA, ARF, appy, cholecystitis, CVA, Diverticulitis, Homicidal, Suicidal, threat to staff... and all critical care pts) @ -No - Lab Data Result diagrams: 12/22/23 09:14 12/22/23 09:14 Lab Results 12/22/23 12/22/23 Range/Units 09:14 09:14 WBC 4.8 (3.8-10.6) k/uL RBC 4.59 (3.80-5.40) m/uL Hgb 12.9 (11.4-16.0) gm/dL Hct 39.8 (34.0-46.0) % MCV 86.6 (80.0-100.0) fL MCH 28.1 (25.0-35.0) pg MCHC 32.4 (31.0-37.0) g/dL RDW 14.3 (11.5-15.5) % Plt Count 153 (150-450) k/uL MPV 9.6 Neutrophils % 57 % Lymphocytes % 32 % Monocytes % 6 % Eosinophils % 2 % Basophils % 1 % Neutrophils # 2.8 (1.3-7.7) k/uL Lymphocytes # 1.6 (1.0-4.8) k/uL Monocytes # 0.3 (0-1.0) k/uL Eosinophils # 0.1 (0-0.7) k/uL Basophils # 0.0 (0-0.2) k/uL Sodium 142 (137-145) mmol/L Potassium 3.5 (3.5-5.1) mmol/L Chloride 111 H (98-107) mmol/L Carbon Dioxide 23 (22-30) mmol/L Anion Gap 8 mmol/L BUN 15 (7-17) mg/dL Creatinine 0.80 (0.52-1.04) mg/dL Est GFR (CKD-EPI)AfAm >90 (>60 ml/min/1.73 sqM) Est GFR (CKD-EPI)NonAf 85 (>60 ml/min/1.73 sqM) Glucose 147 H (74-99) mg/dL Calcium 9.0 (8.4-10.2) mg/dL Total Bilirubin 0.4 (0.2-1.3) mg/dL AST 45 H (14-36) U/L ALT 34 (4-34) U/L Alkaline Phosphatase 97 (38-126) U/L Total Protein 6.6 (6.3-8.2) g/dL Albumin 4.2 (3.5-5.0) g/dL Disposition Clinical Impression: Migraine Disposition: HOME SELF-CARE Condition: Stable Instructions (If sedation given, give patient instructions): Acute Headache (ED) Additional Instructions: Please take your migraine medications as they are directed. Follow-up with your neurologist for further treatment options Is patient prescribed a controlled substance at d/c from ED?: No Referrals: Johnathan Raza MD [Primary Care Provider] - 1-2 days Time of Disposition: 10:55
== END 2023-12-22 11:18 | disposition home or self-care (01) ==
LOC: EC 08:21
DX: G43.909 Migraine, unspecified, not intractable, without status migrainosus (principal); E11.9 Type 2 diabetes mellitus without complications; E78.5 Hyperlipidemia, unspecified; F32.A Depression, unspecified; F41.9 Anxiety disorder, unspecified; I25.2 Old myocardial infarction; K21.9 Gastro-esophageal reflux disease without esophagitis; Z79.899 Other long term (current) drug therapy; Z86.73 Personal history of transient ischemic attack (TIA), and cerebral infarction without residual deficits; Z90.49 Acquired absence of other specified parts of digestive tract
CPT/HCPCS: 36415; 80053; 85025; 99283; 96365; 96375 ×5; J1200; J1100; J2765; J3475; J1885; J1170

== ENCOUNTER 2023-12-22 11:26 | Observation (INO) | payer MEDICARE, OTHER ==
[2023-12-22 11:57] LABS: Basophils % (A) 0 %; Eosinophils # (A) 0.1 k/uL (0-0.7); Eosinophils % (A) 1 %; HCT 37.2 % (34.0-46.0); HGB 12.5 gm/dL (11.4-16.0); Lymphocytes # (A) 1.2 k/uL (1.0-4.8); Lymphocytes % (A) 20 %; MCH 28.7 pg (25.0-35.0); MCHC 33.5 g/dL (31.0-37.0); MCV 85.8 fL (80.0-100.0); Mean Platelet Volume 9.8; Monocytes # (A) 0.2 k/uL (0-1.0); Monocytes % (A) 4 %; Neutrophils # (A) 4.3 k/uL (1.3-7.7); Neutrophils % (A) 73 %; Platelet Count 145 k/uL (150-450); RBC 4.34 m/uL (3.80-5.40); RDW 14.3 % (11.5-15.5); WBC 5.8 k/uL (3.8-10.6)
--- NOTE | 2023-12-22 12:00 | ED ---
Chest Pain HPI - General Chief Complaint: Chest Pain Stated Complaint: Chest Pain Time Seen by Provider: 12/22/23 11:40 Source: patient Mode of arrival: wheelchair Limitations: no limitations - History of Present Illness Initial Comments: 53-year-old female presents to the emergency department reporting chest pain. Patient was just seen in our emergency department for migraine headache. She was feeling well. Patient was on her way to the waiting room when she began having sudden onset of substernal chest pain. Patient does have history of coronary disease without stent placement. She follows with Dr. Gold. States that she has nitro at home but does not have any on her. It made her feel short of breath. Patient states that the pain has come and gone in waves. No vomiting. Describes her discomfort as 5 out of 10. No other alleviating, precipitating or modifying factors - Related Data Home Medications Medication Instructions Recorded Confirmed ALPRAZolam [Xanax] 1 mg PO HS 02/18/17 12/22/23 Multivitamins, Thera [Multivitamin 1 tab PO DAILY 08/21/19 12/22/23 (formulary)] FLUoxetine HCL 80 mg PO HS 10/02/20 12/22/23 Omeprazole 40 mg PO HS 10/02/20 12/22/23 Primidone [Mysoline] 50 mg PO BID 10/02/20 12/22/23 Biotin 10,000 mcg PO DAILY 04/22/21 12/22/23 Cetirizine HCl [Zyrtec] 10 mg PO DAILY 04/22/21 12/22/23 HYDROcodone/APAP 5-325MG [[place] 1 tab PO TID PRN 11/22/22 12/22/23 5-325] tiZANidine [Zanaflex] 4 mg PO BID 11/25/22 12/22/23 Gabapentin [Neurontin] 400 mg PO HS 07/04/23 12/22/23 Atorvastatin [Lipitor] 40 mg PO HS 12/22/23 12/22/23 Qpycmojb-Wlsifjqld-Pz Otic 4 drops BOTH EARS DIRECTED 12/22/23 12/22/23 [Cortisporin Otic Soln] Nitroglycerin Sl Tabs [Nitrostat] 0.4 mg SL Q5M PRN 12/22/23 12/22/23 Nystatin [Nystop] 1 applic TOPICAL BID PRN 12/22/23 12/22/23 SUMAtriptan succinate [Imitrex] 50 mg PO BID PRN 12/22/23 12/22/23 Topiramate [Topamax] 25 mg PO BID 12/22/23 12/22/23 Previous Rx's Medication Instructions Recorded Aspirin 81 mg PO DAILY #30 chew 10/04/20 Metoprolol Succinate (ER) [Toprol 25 mg PO DAILY #30 tab.er.24h 10/04/20 XL] Acetaminophen Tab [Tylenol] 650 mg PO Q6HR PRN tab 07/05/23 Allergies Allergy/AdvReac Type Severity Reaction Status Date / Time No Known Allergies Allergy Verified 12/22/23 13:54 Review of Systems ROS Statement: Those systems with pertinent positive or pertinent negative responses have been documented in the HPI. ROS Other: All systems not noted in ROS Statement are negative. Past Medical History Past Medical History: Cancer, Chest Pain / Angina, CVA/TIA, Fibromyalgia, GERD/Reflux, Hyperlipidemia, Pneumonia Additional Past Medical History / Comment(s): TIAX2 Oct 2017, January 2023 no residual effects. CERVICAL CA (1996). HX OF DIVERTICULITIS. Back, neck, shoulder and bilateral hip pain. Possibly some sleep apnea. Past hx of diabetes-currently just being monitored. Tremors. Last Myocardial Infarction Date:: 2019 History of Any Multi-Drug Resistant Organisms: None Reported Past Surgical History: Bariatric Surgery, Section, Cholecystectomy, Hysterectomy, Tubal Ligation, Uterine Ablation Additional Past Surgical History / Comment(s): LAP BAND 2000 & REMOVED 2001., gastric sleeve 06/05/[address] Mcdowell Past Anesthesia/Blood Transfusion Reactions: No Reported Reaction, Motion Sickness Past Psychological History: Anxiety, Depression Smoking Status: Never smoker Past Alcohol Use History: None Reported Past Drug Use History: None Reported - Past Family History Father Family Medical History: Cancer, Coronary Artery Disease (CAD), CVA/TIA, Myocardial Infarction ([place]) Additional Family Medical History / Comment(s): Bone ca Mother Family Medical History: Myocardial Infarction ([place]), Thyroid Disorder Sister(s) Family Medical History: Fibromyalgia Additional Family Medical History / Comment(s): MS General Exam Limitations: no limitations General appearance: alert, in no apparent distress Head exam: Present: atraumatic, normocephalic, normal inspection Eye exam: Present: normal appearance, PERRL, EOMI. Absent: scleral icterus, conjunctival injection, periorbital swelling ENT exam: Present: normal exam, mucous membranes moist Neck exam: Present: normal inspection. Absent: tenderness, meningismus, lymphadenopathy Respiratory exam: Present: normal lung sounds bilaterally. Absent: respiratory distress, wheezes, rales, rhonchi, stridor Cardiovascular Exam: Present: regular rate, normal rhythm, normal heart sounds. Absent: systolic murmur, diastolic murmur, rubs, gallop, clicks GI/Abdominal exam: Present: soft, normal bowel sounds. Absent: distended, tenderness, guarding, rebound, rigid Extremities exam: Present: normal inspection, full ROM, normal capillary refill. Absent: tenderness, pedal edema, joint swelling, calf tenderness Back exam: Present: normal inspection Neurological exam: Present: alert, oriented X3, CN II-XII intact Psychiatric exam: Present: normal affect, normal mood Skin exam: Present: warm, dry, intact, normal color. Absent: rash Course Vital Signs 12/22/23 11:33 Pulse Rate 64 Respiratory 22 Rate Blood Pressure 168/82 O2 Sat by Pulse 98 Oximetry Chest Pain MDM - MDM Was pt. sent in by a medical professional or institution (, PA, LONG TERM ACUTE CARE REGISTERED NURSE, urgent care, hospital, or penitentiary...) When possible be specific @ -No Did you speak to anyone other than the patient for history (EMS, parent, family, police, friend...)? What history was obtained from this source @ -No Did you review nursing and triage notes (agree or disagree)? Why? @ -I reviewed and agree with nursing and triage notes Were old charts reviewed (outside hosp., previous admission, EMS record, old EKG, old radiological studies, urgent care reports/EKG's, penitentiary records)? Report findings @ -I reviewed patient's heart cath from 2019 Differential Diagnosis (chest pain, altered mental status, abdominal pain women, abdominal pain men, vaginal bleeding, weakness, fever, dyspnea, syncope, headache, dizziness, GI bleed, back pain, seizure, CVA, palpatations, mental health, musculoskeletal)? @ -Differential Chest Pain: Stable Angina, Unstable Angina, STEMI, NSTEMI Aortic Dissection, Pneumothorax, Musculoskeletal, Esophageal Spasm GERD, Cholecystitis, Pancreatitis, Zoster, this is not meant to be an all-inclusive list. EKG interpreted by me (3pts min.). @ -Yes and demonstrates sinus rhythm with a rate of 65. [place] interval 152. QRS 82. QTc 471. No acute ST segment elevations or depressions X-rays interpreted by me (1pt min.). @ -Yes and demonstrates no acute process CT interpreted by me (1pt min.). @ -None done U/S interpreted by me (1pt. min.). @ -None done What testing was considered but not performed or refused? (CT, X-rays, U/S, labs)? Why? @ -None What meds were considered but not given or refused? Why? @ -None Did you discuss the management of the patient with other professionals (professionals i.e. , PA, LONG TERM ACUTE CARE REGISTERED NURSE, lab, RT, psych nurse, social work lecturer, visual lead, teacher, real estate officer, registered nurse hh case manager)? Give summary @ -Spoke with Dr. Eugene who will admit the patient Was smoking cessation discussed for >3mins.? @ -No Was critical care preformed (if so, how long)? @ -No Were there social determinants of health that impacted care today? How? (Homelessness, low income, unemployed, alcoholism, drug addiction, transportation, low edu. Level, literacy, decrease access to med. care, usp, rehab)? @ -No Was there de-escalation of care discussed even if they declined (Discuss DNR or withdrawal of care, Hospice)? DNR status @ -No What co-morbidities impacted this encounter? (DM, HTN, Smoking, COPD, CAD, C ancer, CVA, ARF, Chemo, Hep., AIDS, mental health diagnosis, sleep apnea, morbid obesity)? @ -Atherosclerotic coronary artery disease, migraine headaches Was patient admitted / discharged? Hospital course, mention meds given and route, prescriptions, significant lab abnormalities, going to OR and other pertinent info. @ -Admitted. Upon arrival patient was placed into room 26. Thorough history and physical exam was performed. Patient placed on continuous pulse ox and cardiac monitoring. Twelve-lead EKG is obtained. Laboratory studies are conducted. Chest x-ray was performed. Patient has a negative troponin at this time. Has not been 3 hours since the patient had pain. Discussed admitting the patient due to her history of coronary disease with new onset chest pain [place] patient was agreeable. Spoke with Dr. Eugene who was agreeable to admit the patient. She was given an aspirin and nitro paste was applied to the chest. Patient was admitted in stable condition Undiagnosed new problem with uncertain prognosis? @ -Yes Drug Therapy requiring intensive monitoring for toxicity (Heparin, Nitro, Insulin, Cardizem)? @ -No Were any procedures done? @ -No Diagnosis/symptom? @ -Acute chest pain, history of atherosclerotic coronary artery disease Acute, or Chronic, or Acute on Chronic? @ -Acute Uncomplicated (without systemic symptoms) or Complicated (systemic symptoms)? @ -Complicated Side effects of treatment? @ -No Exacerbation, Progression, or Severe Exacerbation? @ -No Poses a threat to life or bodily function? How? (Chest pain, [place], [place], pneumonia, PE, COPD, DKA, ARF, appy, cholecystitis, CVA, Diverticulitis, Homicidal, Suicidal, threat to staff... and all critical care pts) @Yes as patient presents with possible ACS Disposition Clinical Impression: Chest pain Disposition: ADMITTED IP TO THIS [facility] Condition: Stable Is patient prescribed a controlled substance at d/c from ED?: No Time of Disposition: 13:44 Decision to Admit Reason: Admit from EC Decision Date: 12/22/23 Decision Time: 13:44
[2023-12-22 12:09] LABS: Prothrombin Time 10.9 sec (10.0-12.5)
[2023-12-22 12:11] LABS: ALT 82 U/L (4-34); AST 195 U/L (14-36); African American GFR (CKD) >90 (>60 ml/min/1.73 sqM); Albumin 3.9 g/dL (3.5-5.0); Alkaline Phosphatase 108 U/L (38-126); Anion Gap 6 mmol/L; Blood Urea Nitrogen 15 mg/dL (7-17); Calcium 8.4 mg/dL (8.4-10.2); Carbon Dioxide 22 mmol/L (22-30); Chloride 112 mmol/L (98-107); Glucose 145 mg/dL (74-99); Magnesium 2.3 mg/dL (1.6-2.3); Non-African American GFR(CKD) >90 (>60 ml/min/1.73 sqM); Potassium 4.4 mmol/L (3.5-5.1); Sodium 140 mmol/L (137-145); Total Bilirubin 0.2 mg/dL (0.2-1.3); Total Protein 6.2 g/dL (6.3-8.2)
--- NOTE | 2023-12-22 12:59 | XR ---
EXAMINATION TYPE: XR chest 2V DATE OF EXAM: 12/22/2023 COMPARISON: 07/04/2023. HISTORY: Chest pain. TECHNIQUE: Frontal and lateral views of the chest are obtained. FINDINGS: There is no focal air space opacity, pleural effusion, or pneumothorax seen. The cardiac silhouette size is within normal limits. The osseous structures are intact. IMPRESSION: No acute cardiopulmonary process.
[2023-12-22] MEDS ORDERED: NALOXONE 0.4 MG/ML 1 ML VIAL IV PRN (13:44)
[2023-12-22] MEDS ORDERED: ACETAMINOPHEN TAB 325 MG TAB PO PRN (14:09)
--- NOTE | 2023-12-22 14:09 | P.HPIM ---
History of Present Illness This is a pleasant 53 years old female with past medical history of multiple medical problems including migraine headache. She follow-up with a neurologist Dr. Fisher at [facility] here in [place] She has history of migraine for 20 years, usually her migraine headache on both temporal areas on frontal area lasts for 1 to 2 days. She has frequent and severe and she has brought Botox injection for her migraine headache 1 month ago. This time she is having a headache more than usual for about 2 weeks now. She contacted her neurologist on 12/13 who prescribed her 3 different medication but did not help her much so she decided to come to the emergency room today. While in the emergency room she received a migraine cocktail including Decadron 10 mg x 1, Benadryl 25 mg IV x 1, Dilaudid 0.5 mg IV x 1, Toradol 15 mg IV x 1, magnesium sulfate 1 g IV infusion and Reglan 10 mg IV x 1. After that patient was feeling better and on her way to the outside by the door she felt chest pain so she came back to the hospital again. Her chest pain in the middle nonradiating about 9/10 in severity not relieved by laying down and no precipitating factors. Later on started to ease down by itself She has history of cardiac cath with her liner machine operator Dr. Gold showing the blockages 30 to 70% but no stents. Because of this decision was to keep her and asked liner machine operator to evaluate her. By the time I saw the patient she was still complaining of a migraine headache but she is not in distress due to pain. Patient also reports some abdominal pain and nausea vomiting 2 days ago. She had abdominal pain about 3 to 4 days ago but resolved now. She has history of gastric sleeve surgery and cholecystectomy and her surgeon isDr. Mcdowell She denies smoking alcohol or illicit drugs She has diarrhea with irritable bowel syndrome. Currently no abdominal pain. She has some difficulty with urination but no dysuria. No dizziness weakness or numbness Hemodynamically she is stable Labs looks unremarkable CBC, INR, BMP She has mildly elevated liver enzymes Troponin x 1 is negative less than 0.012. EKG could not be located Chest x-ray showing no acute process Patient at home takes aspirin 81 mg he received 325 mg x 1 and admitted with cardiology evaluation Review of Systems Review of systems CONSTITUTIONAL: No fever, no malaise, no fatigue. HEENT: No recent visual problems or hearing problems. Denied any sore throat. CARDIOVASCULAR: No orthopnea, PND, no palpitations, no syncope. PULMONARY: No shortness of breath, no cough, no hemoptysis. GASTROINTESTINAL: No diarrhea, no nausea, no vomiting, no abdominal pain. Normoactive bowel sounds. NEUROLOGICAL: no weakness, no numbness. HEMATOLOGICAL: Denies any bleeding or petechiae. GENITOURINARY: Denies any burning micturition, frequency, or urgency. MUSCULOSKELETAL/RHEUMATOLOGICAL: Denies any joint pain, swelling, or any muscle pain. ENDOCRINE: Denies any polyuria or polydipsia. Past Medical History Past Medical History: Cancer, Chest Pain / Angina, CVA/TIA, Fibromyalgia, GERD/Reflux, Hyperlipidemia, Pneumonia Additional Past Medical History / Comment(s): TIAX2 Oct 2017, January 2023 no residual effects. CERVICAL CA (1996). HX OF DIVERTICULITIS. Back, neck, shoulder and bilateral hip pain. Possibly some sleep apnea. Past hx of diabetes -currently just being monitored. Tremors. Last Myocardial Infarction Date:: 2019 History of Any Multi-Drug Resistant Organisms: None Reported Past Surgical History: Bariatric Surgery, Section, Cholecystectomy, Hysterectomy, Tubal Ligation, Uterine Ablation Additional Past Surgical History / Comment(s): LAP BAND 2000 & REMOVED 2001., gastric sleeve 06/05/[address] Mcdowell Past Anesthesia/Blood Transfusion Reactions: No Reported Reaction, Motion Sickness Past Psychological History: Anxiety, Depression Smoking Status: Never smoker Past Alcohol Use History: None Reported Past Drug Use History: None Reported - Past Family History Father Family Medical History: Cancer, Coronary Artery Disease (CAD), CVA/TIA, My[place] Infarction ([place]) Additional Family Medical History / Comment(s): Bone ca Mother Family Medical History: Myocardial Infarction ([place]), Thyroid Disorder Sister(s) Family Medical History: Fibromyalgia Additional Family Medical History / Comment(s): MS Medications and Allergies Home Medications Medication Instructions Recorded Confirmed Type ALPRAZolam [Xanax] 1 mg PO HS 02/18/17 10/31/23 History Multivitamins, Thera [Multivitamin 1 tab PO DAILY 08/21/19 10/31/23 History (formulary)] FLUoxetine HCL 80 mg PO HS 10/02/20 10/31/23 History Omeprazole 40 mg PO HS 10/02/20 10/31/23 History Primidone [Mysoline] 50 mg PO BID 10/02/20 10/31/23 History Aspirin 81 mg PO DAILY #30 chew 10/04/20 10/31/23 Rx Metoprolol Succinate (ER) [Toprol 25 mg PO DAILY #30 tab.er.24h 10/04/20 10/31/23 Rx XL] Biotin 10,000 mcg PO DAILY 04/22/21 10/31/23 History Cetirizine HCl [Zyrtec] 10 mg PO DAILY 04/22/21 10/31/23 History HYDROcodone/APAP 5-325MG [[place] 1 tab PO TID PRN 11/22/22 10/31/23 History 5-325] tiZANidine [Zanaflex] 4 mg PO BID 11/25/22 10/31/23 History Gabapentin [Neurontin] 400 mg PO HS 07/04/23 10/31/23 History Semaglutide [Ozempic] 0.25 mg SQ SAVAGE 07/04/23 10/31/23 History Acetaminophen Tab [Tylenol] 650 mg PO Q6HR PRN tab 07/05/23 10/31/23 Rx Nitroglycerin Sl Tabs [Nitrostat] 0.4 mg SUBLINGUAL Q5M PRN #20 tab 07/05/23 10/31/23 Rx Allergies Allergy/AdvReac Type Severity Reaction Status Date / Time No Known Allergies Allergy Verified 12/22/23 13:54 Physical Exam Vitals: Vital Signs Pulse Resp BP Pulse Ox 12/22/23 11:33 64 22 168/82 98 Intake and Output 12/21/23 12/22/23 12/22/23 22:59 06:59 14:59 Other: Weight 68.946 kg GENERAL: The patient is alert and oriented x3, not in any acute distress. Well developed, well nourished. HEENT: Pupils are round and equally reacting to light. EOMI. No scleral icterus. No conjunctival pallor. Normocephalic, atraumatic. No pharyngeal erythema. No thyromegaly. CARDIOVASCULAR: S1 and S2 present. No murmurs, rubs, or gallops. PULMONARY: Chest is clear to auscultation, no wheezing , no crackles. ABDOMEN: Soft, nontender, nondistended, normoactive bowel sounds. No palpable organomegaly. MUSCULOSKELETAL: No joint swelling or deformity. EXTREMITIES: No cyanosis, clubbing, or pedal edema. -NEUROLOGICAL: Gross neurological examination did not reveal any focal deficits. Mild bilateral temporal area tenderness SKIN: No rashes. no petechiae. Results CBC & Chem 7: 12/22/23 11:48 12/22/23 11:48 Labs: Abnormal Lab Results - Last 24 Hours (Table) 12/22/23 12/22/23 Range/Units 11:48 11:48 Plt Count 145 L (150-450) k/uL Chloride 112 H (98-107) mmol/L Glucose 145 H (74-99) mg/dL AST 195 H (14-36) U/L ALT 82 H (4-34) U/L Total Protein 6.2 L (6.3-8.2) g/dL Assessment and Plan Assessment: Chest pain, rule out cardiac causes Migraine headache, recurrent and severe History of TIA x 3 on aspirin Irritable bowel syndrome Status post gastric sleeve surgery. S/p cholecystectomy Mild transaminitis History of coronary artery disease Some urine difficulty Plan: Will do serial troponin, echocardiogram and cardiology consult with telemetry Consult neurology and resume her migraine treatment Monitor liver enzymes Check urine analysis and bladder scan Labs and medication were reviewed.. Continue same treatment. Continue with symptomatic treatment. Resume home medication. Monitor labs and vitals. DVT and GI prophylaxis. Further recommendations as per clinical course of the patient DVT prophylaxis: Subcutaneous heparin GI Prophylaxis: Pepcid PT/OT: Pending Prognosis is guarded
[2023-12-22] MEDS: ASPIRIN 81 MG PO STA (14:15)
[2023-12-22] MEDS: NITROGLYCERIN OINT 1 INCH/GM PACKET TOPICAL STA (14:15)
[2023-12-22] MEDS: HYDROcodone/APAP 5-325MG 1 EACH TAB PO PRN (14:19)
[2023-12-22 17:10] LABS: Appearance,Urine Cloudy (Clear); Bilirubin,Urine Negative (Negative); Blood,Urine Negative (Negative); Color,Urine Colorless; Glucose,Urine (UA) 3+ (Negative); Ketones,Urine Negative (Negative); Leukocyte Esterase,Urine Trace (Negative); Mucus,Urine Rare /hpf; Nitrite,Urine Negative (Negative); Protein,Urine Negative (Negative); RBC,Urine 1 /hpf (0-5); Specific Gravity,Urine 1.017 (1.001-1.035); Squamous Epithelial Cell,Urine 3 /hpf (0-4); Urobilinogen,Urine <2.0 mg/dL (<2.0); WBC,Urine 2 /hpf (0-5)
[2023-12-22] MEDS: GABAPENTIN 400 MG CAP PO SCH (19:58)
[2023-12-22] MEDS: FLUoxetine HCL 20 MG CAP PO SCH (19:58)
[2023-12-22] MEDS: tiZANidine 4 MG TAB PO SCH (19:58)
[2023-12-22] MEDS: ATORVASTATIN 40 MG TAB PO SCH (19:58)
[2023-12-22] MEDS: PRIMIDONE 50 MG TAB PO SCH (19:58)
[2023-12-22] MEDS: TOPIRAMATE 25 MG TAB PO SCH (19:58)
[2023-12-22] MEDS: ALPRAZolam 0.5 MG TAB PO PRN (20:07)
[2023-12-23] MEDS: SUMAtriptan succinate 50 MG TAB PO PRN (05:00)
[2023-12-23] MEDS: PANTOPRAZOLE 40 MG TABLET PO SCH (05:00)
[2023-12-23] MEDS ORDERED: PANTOPRAZOLE 40 MG/10 ML VIAL IVP SCH (09:00)
[2023-12-23 09:51] LABS: BUN/Creat Ratio 12.71 Ratio (12.00-20.00); Blood Urea Nitrogen 8.9 mg/dL (9.0-27.0); Carbon Dioxide 17.8 mmol/L (21.6-31.8); Chloride 107 mmol/L (96-109); Glucose 108 mg/dL (70-110); Potassium 4.1 mmol/L (3.5-5.5); Sodium 140 mmol/L (135-145)
[2023-12-23 09:52] LABS: Calcium 9.5 mg/dL (8.7-10.3)
--- NOTE | 2023-12-23 10:24 | P.CRDCN ---
History of Present Illness Consult date: 12/23/23 Consult reason: chest pain (Possible acute coronary syndrome) History of present illness: This is a 53-year-old female patient who follows with Dr. Gold in the office. She has a history of diabetes mellitus, hypertension that has since improved, status post gastric bypass, hyperlipidemia, CAD without stenting. We have been asked to evaluate the patient for chest pain possible acute coronary syndrome. Patient denies having any chest pain at this time. She states she did have Nitropaste on which did not seem to make any difference and this was removed at 2 in the morning. She does complain of a headache. She has been on Imdur in the past which she states did not cause headache. No chest pain at this time. EKG normal sinus rhythm Chest x-ray: no acute process WBC 5.8, hemoglobin 12.5, platelet count 145, INR 1. Sodium 140, potassium 4.1, BUN 8, creatinine 0.7. Troponin negative x 3. Total bilirubin 0.2, AST 195, ALT 82, alkaline phosphatase 108. Glucose 145. Magnesium 2.3. Urinalysis trace leukoesterase 3+ glucose. Home cardiac medications: Aspirin 81 mg daily, atorvastatin 40 mg at bedtime, Toprol-XL 25 mg daily. Dobutamine stress echocardiogram 07/05/2023 revealed normal stress EKG and echo response to dobutamine infusion without evidence of inducible ischemia. Echocardiogram 11/2022 reveals normal ventricular size and systolic function. Mild tricuspid regurgitation with no evidence of pulmonary hypertension. Cardiac catheterization September 2020 showed 40% RCA stenosis, 50% circumflex stenosis, LAD 30% diagonal 60-70% with the diagonal lesion appearing somewhat ulcerated with suspected acute coronary syndrome. Review Of Systems: At the time of my evaluation: Constitutional: No fever, no chills. No weakness, fatigue or lethargy. EENT: No headache. No dizziness. Lungs: No shortness of breath, cough, no sputum production. No wheezing. Cardiovascular: No chest pain, no lower extremity edema. No palpitations. No paroxysmal nocturnal dyspnea. No orthopnea. No lightheadedness or dizziness. No syncopal episodes. Abdominal: No abdominal pain. No nausea, vomiting. Musculoskeletal: No myalgias. No muscle weakness, no frequent falls. Integumentary: No wounds. No rash. No unusual bruising. Neurologic: No aphasia. No facial droop. No change in mentation. Physical examination: Gen: This is a 53-year-old female. She is resting in bed appears to be comfortable and in no acute distress. VS: reviewed HEENT: Head is atraumatic, normocephalic. Pupils equal, round. Sclerae is anicteric. NECK: Supple. No JVD. . LUNGS: Clear to auscultation. No wheezes or rhonchi. No intercostal retractions. HEART: Regular rate and rhythm. No murmur. ABDOMEN: Soft No tenderness. EXTREMITIES: No pedal edema. No calf tenderness. NEUROLOGICAL: Patient is awake, alert and oriented x3. Assessment: Chest pain, acute coronary syndrome ruled out History of coronary artery disease on cath 2019 Normal stress dobutamine echocardiogram on 07/05/2023 Diabetes mellitus Hypertension Hyperlipidemia Plan: Resume cardiac medications Start patient on Imdur 30 mg daily Patient is cleared for discharge and may follow-up with Dr. Gold for outpatient stress test Thank you kindly for this consultation. Nurse practitioner note has been reviewed, I agree with documented findings and plan of care. Patient was seen and examined. Past Medical History Past Medical History: Cancer, Chest Pain / Angina, CVA/TIA, Fibromyalgia, GERD/Reflux, Hyperlipidemia, Pneumonia Additional Past Medical History / Comment(s): TIAX2 Oct 2017, January 2023 no residual effects. CERVICAL CA (1996). HX OF DIVERTICULITIS. Back, neck, shoulder and bilateral hip pain. Possibly some sleep apnea. Past hx of diabetes-currently just being monitored. Tremors. Last Myocardial Infarction Date:: 2019 History of Any Multi-Drug Resistant Organisms: None Reported Past Surgical History: Bariatric Surgery, Section, Cholecystectomy, Hysterectomy, Tubal Ligation, Uterine Ablation Additional Past Surgical History / Comment(s): LAP BAND 2000 & REMOVED 2001., gastric sleeve 06/05/[address] Mcdowell Past Anesthesia/Blood Transfusion Reactions: No Reported Reaction, Motion Sickness Past Psychological History: Anxiety, Depression Smoking Status: Never smoker Past Alcohol Use History: None Reported Past Drug Use History: None Reported - Past Family History Father Family Medical History: Cancer, Coronary Artery Disease (CAD), CVA/TIA, Myocardial Infarction ([place]) Additional Family Medical History / Comment(s): Bone ca Mother Family Medical History: Myocardial Infarction ([place]), Thyroid Disorder Sister(s) Family Medical History: Fibromyalgia Additional Family Medical History / Comment(s): MS Medications and Allergies Home Medications Medication Instructions Recorded Confirmed Type ALPRAZolam [Xanax] 1 mg PO HS 02/18/17 12/22/23 History Multivitamins, Thera [Multivitamin 1 tab PO DAILY 08/21/19 12/22/23 History (formulary)] FLUoxetine HCL 80 mg PO HS 10/02/20 12/22/23 History Omeprazole 40 mg PO HS 10/02/20 12/22/23 History Primidone [Mysoline] 50 mg PO BID 10/02/20 12/22/23 History Aspirin 81 mg PO DAILY #30 chew 10/04/20 12/22/23 Rx Metoprolol Succinate (ER) [Toprol 25 mg PO DAILY #30 tab.er.24h 10/04/20 12/22/23 Rx XL] Biotin 10,000 mcg PO DAILY 04/22/21 12/22/23 History Cetirizine HCl [Zyrtec] 10 mg PO DAILY 04/22/21 12/22/23 History HYDROcodone/APAP 5-325MG [[place] 1 tab PO TID PRN 11/22/22 12/22/23 History 5-325] tiZANidine [Zanaflex] 4 mg PO BID 11/25/22 12/22/23 History Gabapentin [Neurontin] 400 mg PO HS 07/04/23 12/22/23 History Acetaminophen Tab [Tylenol] 650 mg PO Q6HR PRN tab 07/05/23 12/22/23 Rx Atorvastatin [Lipitor] 40 mg PO HS 12/22/23 12/22/23 History Moinubqr-Kudpighnt-Yu Otic 4 drops BOTH EARS DIRECTED 12/22/23 12/22/23 History [Cortisporin Otic Soln] Nitroglycerin Sl Tabs [Nitrostat] 0.4 mg SL Q5M PRN 12/22/23 12/22/23 History Nystatin [Nystop] 1 applic TOPICAL BID PRN 12/22/23 12/22/23 History SUMAtriptan succinate [Imitrex] 50 mg PO BID PRN 12/22/23 12/22/23 History Topiramate [Topamax] 25 mg PO BID 12/22/23 12/22/23 History Allergies Allergy/AdvReac Type Severity Reaction Status Date / Time No Known Allergies Allergy Verified 12/22/23 13:54 Physical Exam Vitals: Vital Signs Temp Pulse Pulse Resp BP BP Pulse Ox 12/23/23 02:25 69 16 12/23/23 01:34 98.0 F 69 16 114/74 98 12/22/23 21:48 78 16 12/22/23 19:11 97.6 F 78 16 114/70 96 12/22/23 18:15 89 20 126/77 95 12/22/23 16:21 86 20 118/76 96 12/22/23 11:33 64 22 168/82 98 Intake and Output 12/22/23 12/23/23 12/23/23 22:59 06:59 14:59 Output Total 49 Balance -49 Output: Post Void Residual 49 Other: Voiding Method Toilet Toilet # Voids 2 1 Results 12/22/23 11:48 12/23/23 05:40 Cardiac Enzymes 12/22/23 12/22/23 12/22/23 Range/Units 11:48 11:48 15:10 AST 195 H (14-36) U/L Troponin I <0.012 <0.012 (0.000-0.034) ng/mL 12/22/23 Range/Units 16:20 AST (14-36) U/L Troponin I <0.012 (0.000-0.034) ng/mL Coagulation 12/22/23 Range/Units 11:48 PT 10.9 (10.0-12.5) sec APTT 25.0 (22.0-30.0) sec CBC 12/22/23 Range/Units 11:48 WBC 5.8 (3.8-10.6) k/uL RBC 4.34 (3.80-5.40) m/uL Hgb 12.5 (11.4-16.0) gm/dL Hct 37.2 (34.0-46.0) % Plt Count 145 L (150-450) k/uL Comprehensive Metabolic Panel 12/22/23 Range/Units 11:48 Sodium 140 (137-145) mmol/L Potassium 4.4 (3.5-5.1) mmol/L Chloride 112 H (98-107) mmol/L Carbon Dioxide 22 (22-30) mmol/L BUN 15 (7-17) mg/dL Creatinine 0.70 (0.52-1.04) mg/dL Glucose 145 H (74-99) mg/dL Calcium 8.4 (8.4-10.2) mg/dL AST 195 H (14-36) U/L ALT 82 H (4-34) U/L Alkaline Phosphatase 108 (38-126) U/L Total Protein 6.2 L (6.3-8.2) g/dL Albumin 3.9 (3.5-5.0) g/dL Current Medications Generic Name Dose Route Start Last Admin Trade Name Freq PRN Reason Stop Dose Admin Acetaminophen 650 mg 12/22/23 14:09 Acetaminophen Tab 325 Mg Tab PO Q6HR PRN Fever and/ or Pain Hydrocodone Bitart/Acetaminophen 1 each 12/22/23 14:09 12/23/23 05:01 Hydrocodone/Apap 5-325mg 1 Each Tab PO 1 each TID PRN Administration Pain Alprazolam 0.5 mg 12/22/23 14:09 12/22/23 20:07 Alprazolam 0.5 Mg Tab PO 0.5 mg HS PRN Administration Anxiety Atorvastatin Calcium 40 mg 12/22/23 21:00 12/22/23 19:58 Atorvastatin 40 Mg Tab PO 40 mg HS STACY Administration Fluoxetine HCl 80 mg 12/22/23 21:00 12/22/23 19:58 Fluoxetine Hcl 20 Mg Cap PO 80 mg HS STACY Administration Gabapentin 400 mg 12/22/23 21:00 12/22/23 19:58 Gabapentin 400 Mg Cap PO 400 mg HS STACY Administration Metoprolol Succinate 25 mg 12/23/23 09:00 Metoprolol Succinate (Er) 25 Mg Tab.Er.24h PO DAILY STACY Naloxone HCl 0.2 mg 12/22/23 13:44 Naloxone 0.4 Mg/Ml 1 Ml Vial IV Q2M PRN Opioid Reversal Pantoprazole Sodium 40 mg 12/23/23 07:30 12/23/23 05:00 Pantoprazole 40 Mg Tablet PO 40 mg [id number] STACY Administration Primidone 50 mg 12/22/23 21:00 12/22/23 19:58 Primidone 50 Mg Tab PO 50 mg BID STACY Administration Sumatriptan Succinate 50 mg 12/22/23 14:09 12/23/23 05:00 Sumatriptan Succinate 50 Mg Tab PO 50 mg BID PRN Administration Migraine Headache Tizanidine HCl 4 mg 12/22/23 21:00 12/22/23 19:58 Tizanidine 4 Mg Tab PO 4 mg BID STACY Administration Topiramate 25 mg 12/22/23 21:00 12/22/23 19:58 Topiramate 25 Mg Tab PO 25 mg BID STACY Administration Intake and Output 12/22/23 12/23/23 12/23/23 22:59 06:59 14:59 Output Total 49 Balance -49 Output: Post Void Residual 49 Other: Voiding Method Toilet Toilet # Voids 2 1 12/22/23 11:48 12/22/23 11:48
--- NOTE | 2023-12-23 10:48 | CA ---
Transthoracic Echo Report Name: Mai Calvin Age: 53 Gender: F : 1970 Exam Date: 12/23/2023 10:16 Exam Location: [facility] Ht (in): 62 Wt (lb): 152 Ordering Physician: Soledad Camejo Attending/Referring Phys: [id number], Nell Panman Evelyn Caldwell RDCS Procedure CPT: Indications: LVF Cardiac Hx: Technical Quality: Good Contrast 1: Total Dose (mL): Contrast 2: Total Dose (mL): MEASUREMENTS (Male / Female) Normal Values 2D ECHO LV Diastolic Diameter PLAX 4.8 cm 4.2 - 5.9 / 3.9 - 5.3 cm LV Systolic Diameter PLAX 3.1 cm IVS Diastolic Thickness 1.2 cm 0.6 - 1.0 / 0.6 - 0.9 cm LVPW Diastolic Thickness 1.0 cm 0.6 - 1.0 / 0.6 - 0.9 cm LV Relative Wall Thickness 0.5 RV Internal Dim ED PLAX 3.1 cm LA Systolic Diameter LX 3.9 cm 3.0 - 4.0 / 2.7 - 3.8 cm LV Diastolic Volume MOD BP 73.3 cm??? 67 - 155 / 56 - 104 cm??? LV Systolic Volume MOD BP 28.3 cm??? - 58 / 19 - 49 cm??? LV Ejection Fraction MOD BP 61.3 % >= 55 % LV Cardiac Index MOD BP 1919.4 cm???/min???m??? LV Diastolic Volume MOD 4C 79.0 cm??? LV Systolic Volume MOD 4C 28.1 cm??? LV Ejection Fraction MOD 4C 64.4 % LV Cardiac Index MOD 4C 2171.7 cm???/min???m??? LV Diastolic Length 4C 8.0 cm LV Systolic Length 4C 6.8 cm LV Diastolic Volume MOD 2C 67.9 cm??? LV Systolic Volume MOD 2C 23.5 cm??? LV Ejection Fraction MOD 2C 65.4 % LV Cardiac Index MOD 2C 1895.1 cm???/min???m??? LV Diastolic Length 2C 8.0 cm LV Systolic Length 2C 5.6 cm LA Volume 56.3 cm??? 18 - 58 / 22 - 52 cm??? LA Volume Index 32.1 cm???/m??? 16 - 28 cm???/m??? M-MODE Aortic Root Diameter MM 2.6 cm MV E Point Septal Separation 0.5 cm AV Cusp Separation MM 2.0 cm DOPPLER AV Peak Velocity 159.9 cm/s AV Peak Gradient 10.2 mmHg MV Area PHT 3.0 cm??? Mitral E Point Velocity 113.9 cm/s Mitral A Point Velocity 105.4 cm/s Mitral E to A Ratio 1.1 MV Deceleration Time 255.2 ms TR Peak Velocity 227.4 cm/s TR Peak Gradient 20.7 mmHg Right Ventricular Systolic Press 25.0 mmHg FINDINGS Left Ventricle Left ventricular ejection fraction is estimated at 60-65 %. Mildly increased septal wall thickness. Mildly increased posterior wall thickness. Left ventricular cavity size normal. Normal left ventricular wall motion. Right Ventricle Normal right ventricular size. Right ventricular systolic pressure within normal limits. Right Atrium Normal right atrial size. Left Atrium Mildly increased left atrial volume. Mitral Valve Structurally normal mitral valve. No mitral stenosis. No evidence for mitral valve prolapse. Trace mitral regurgitation. Aortic Valve Trileaflet aortic valve. No aortic valve stenosis or regurgitation. Tricuspid Valve Structurally normal tricuspid valve. Mild tricuspid regurgitation. Pulmonic Valve Structurally normal pulmonic valve. Trace pulmonic regurgitation. Pericardium No pericardial effusion. Aorta Normal size aortic root and proximal ascending aorta. CONCLUSIONS Normal LV function Mild tricuspid regurgitation Previewed by: Dr. Bereket Oleary MD (Electronically Signed) Final Date: 23 December 2023 10:47
[2023-12-23 11:14] LABS: Basophils # (A) 0.02 X 10*3/uL (0.00-0.10); Basophils % (A) 0.2 %; Eosinophils # (A) 0.01 X 10*3/uL (0.04-0.35); Eosinophils % (A) 0.1 %; HCT 38.4 % (37.2-46.3); HGB 12.5 g/dL (12.0-15.0); Lymphocytes # (A) 2.44 X 10*3/uL (0.90-5.00); Lymphocytes % (A) 25.1 %; MCH 27.6 pg (27.0-32.0); MCHC 32.6 g/dL (32.0-37.0); MCV 84.8 FL (80.0-97.0); Mean Platelet Volume 12.2 FL (9.5-12.2); Monocytes % (A) 9.3 %; NRBC Per 100 WBC 0 X 10*3/uL (0.00-0.01); Neutrophils # (A) 6.32 X 10*3/uL (1.80-7.70); Platelet Count 165 X 10*3/uL (140-440); RBC 4.53 X 10*6/uL (4.10-5.20); RDW 14.1 % (11.5-14.5); WBC 9.72 X 10*3/uL (4.50-10.00)
[2023-12-23] MEDS: ISOSORBIDE MONONITRATE ER 30 MG TAB.ER.24H PO SCH (11:21)
[2023-12-23] MEDS: METOPROLOL SUCCINATE (ER) 25 MG TAB.ER.24H PO SCH (11:21)
[2023-12-23] MEDS: TOPIRAMATE 25 MG TAB PO ONE (21:12)
--- NOTE | 2023-12-23 22:08 | P.PN ---
Subjective This is a pleasant 53 years old female with past medical history of multiple medical problems including migraine headache. She follow-up with a neurologist Dr. Fisher at [place] [facility] here in [place] She has history of migraine for 20 years, usually her migraine headache on both temporal areas on frontal area lasts for 1 to 2 days. She has frequent and severe and she has brought Botox injection for her migraine headache 1 month ago. This time she is having a headache more than usual for about 2 weeks now. She contacted her neurologist on 12/13 who prescribed her 3 different medication but did not help her much so she decided to come to the emergency room today. While in the emergency room she received a migraine cocktail including Decadron 10 mg x 1, Benadryl 25 mg IV x 1, Dilaudid 0.5 mg IV x 1, Toradol 15 mg IV x 1, magnesium sulfate 1 g IV infusion and Reglan 10 mg IV x 1. After that patient was feeling better and on her way to the outside by the door she felt chest pain so she came back to the hospital again. Her chest pain in the middle nonradiating about 9/10 in severity not relieved by laying down and no precipitating factors. Later on started to ease down by itself She has history of cardiac cath with her freight service inspector Dr. Gold showing the blockages 30 to 70% but no stents. Because of this decision was to keep her and asked freight service inspector to evaluate her. By the time I saw the patient she was still complaining of a migraine headache but she is not in distress due to pain. Patient also reports some abdominal pain and nausea vomiting 2 days ago. She had abdominal pain about 3 to 4 days ago but resolved now. She has history of gastric sleeve surgery and cholecystectomy and her surgeon isDr. Mcdowell She denies smoking alcohol or illicit drugs She has diarrhea with irritable bowel syndrome. Currently no abdominal pain. She has some difficulty with urination but no dysuria. No dizziness weakness or numbness Hemodynamically she is stable Labs looks unremarkable CBC, INR, BMP She has mildly elevated liver enzymes Troponin x 1 is negative less than 0.012. EKG could not be located Chest x-ray showing no acute process Patient at home takes aspirin 81 mg he received 325 mg x 1 and admitted with cardiology evaluation 12/23/2023 Patient is awake alert walking in the room freely No chest pain. Headache is feeling better Cardiology cleared the patient to follow-up with Dr. Rodriguez referred for outpatient surgery stressed Neurology also evaluated the patient increased dose of Topamax and Fioricet as needed Possible discharge in 24 to 48 hours Objective - Vital Signs Vital signs: Vital Signs Temp 97.9 F 12/23/23 19:15 Pulse 76 12/23/23 20:28 Resp 16 12/23/23 20:28 BP 106/63 12/23/23 19:15 Pulse Ox 97 12/23/23 19:15 FiO2 Intake & Output 12/23/23 12/23/23 12/24/23 06:59 18:59 06:59 Intake Total 560 Balance 560 Intake: Oral 560 Other: Voiding Method Toilet Toilet # Voids 1 1 - Exam GENERAL: The patient is alert and oriented x3, not in any acute distress. Well developed, well nourished. HEENT: Pupils are round and equally reacting to light. EOMI. No scleral icterus. No conjunctival pallor. Normocephalic, atraumatic. No pharyngeal erythema. No thyromegaly. CARDIOVASCULAR: S1 and S2 present. No murmurs, rubs, or gallops. PULMONARY: Chest is clear to auscultation, no wheezing , no crackles. ABDOMEN: Soft, nontender, nondistended, normoactive bowel sounds. No palpable organomegaly. MUSCULOSKELETAL: No joint swelling or deformity. EXTREMITIES: No cyanosis, clubbing, or pedal edema. NEUROLOGICAL: Gross neurological examination did not reveal any focal deficits. SKIN: No rashes. no petechiae. - Labs CBC & Chem 7: 12/23/23 05:40 12/23/23 05:40 Labs: Abnormal Lab Results - Last 24 Hours (Table) 12/23/23 12/23/23 Range/Units 05:40 05:40 Eosinophils # 0.01 L (0.04-0.35) X 10*3/uL Carbon Dioxide 17.8 L (21.6-31.8) mmol/L Anion Gap 15.20 H (4.00-12.00) mmol/L BUN 8.9 L (9.0-27.0) mg/dL Assessment and Plan Assessment: Chest pain, rule out cardiac causes Migraine headache, recurrent and severe History of TIA x 3 on aspirin Irritable bowel syndrome Status post gastric sleeve surgery. S/p cholecystectomy Mild transaminitis History of coronary artery disease Some urine difficulty Plan: Cardiology cleared the patient for outpatient stress test Consult neurology and resume her migraine treatment. Increase Topamax Monitor liver enzymes Labs and medication were reviewed.. Continue same treatment. Continue with symptomatic treatment. Resume home medication. Monitor labs and vitals. DVT and GI prophylaxis. Further recommendations as per clinical course of the patient DVT prophylaxis: Subcutaneous heparin GI Prophylaxis: Pepcid
[2023-12-23] MEDS: TOPIRAMATE 25 MG TAB PO SCH (22:16)
--- NOTE | 2023-12-23 23:26 | P.CNNES ---
History of Present Illness Consult date: 12/23/23 Requesting physician: Tejas E Sheet Reason for Consult: Severe migraine headache History of Present Illness: Patient is a 53-year-old right-handed female with history of migraine headaches since . She had undergone occipital nerve injection and her migraines went in remission and was fine for 25 years. The migraines came back about 1 and half months ago. She was seen by Dr. Calderon office with Dr. Fisher, who gave her occipital injection, which helped for a month but then the headache came back. She has migraine for the last 2 weeks. It involves the left temporal frontal region, sometimes the back of the head as well. Patient was started on Topamax 25 mg nightly on 12/12/2023, and was recommended to take 1 tablet at bedtime for 1 week and then twice daily. She has been on Topamax 25 mg twice daily for about 5 days. Patient was also given Nurtec samples to be taken every other day, which is helping her only marginally. She has taken 5 tablets of Nurtec so far. Also was given prescription of Imitrex 50 mg. Patient has been scheduled for MRI at [facility], coming Tuesday on 12/26/2023. Patient came to the hospital yesterday because of persistent headache. She has received some cocktail including Dilaudid in the ER, which helped for a while. She was starting having some chest pain. Patient states that she has history of 3 TIA, history of angina. Blood test shows normal CBC, PT PTT, normal Chem-7. AST is elevated 195, ALT 82. Troponin negative. UA negative. Chest x-ray is normal. EKG shows sinus rhythm. 2D echo revealed normal left ventricular function with EF 60 to 65%. Mildly increased septal wall thickness. Left ventricular cavity size is normal. Mildly increased left atrial volume. Patient had a brain MRI performed 01/22/2022 which was normal. Nonspecific white matter changes, likely secondary to small vessel ischemic disease. Patient had a CTA of head and neck performed 01/21/2022, which was normal. Patient had multiple times MRI of the brain perform ed in the past, all were normal. Vital signs on arrival blood pressure 168/82, pulse rate 64, temperature 97.6. Subsequent blood pressures are normal. Review of Systems Constitutional: Denies chills, Denies fever Eyes: denies blurred vision, denies diplopia, denies pain Ears: deny: decreased hearing, ear discharge Ears, nose, mouth and throat: Reports headache, Denies vertigo Cardiovascular: Reports chest pain, Reports shortness of breath (With SOB) Respiratory: Denies cough, Denies excessive sputum Gastrointestinal: Reports diarrhea, Reports nausea, Reports vomiting, Denies abdominal pain Genitourinary: Denies dysuria, Denies urge incontinence Musculoskeletal: Reports low back pain, Reports neck pain Integumentary: Denies pruritus, Denies rash Neurological: Reports as per HPI Psychiatric: Reports anxiety, Reports depression Past Medical History Past Medical History: Cancer, Chest Pain / Angina, CVA/TIA, Fibromyalgia, GERD/Reflux, Hyperlipidemia, Pneumonia Additional Past Medical History / Comment(s): TIAX2 Oct 2017, January 2023 no residual effects. CERVICAL CA (1996). HX OF DIVERTICULITIS. Back, neck, shoulder and bilateral hip pain. Possibly some sleep apnea. Past hx of diabetes-currently just being monitored. Tremors. Last Myocardial Infarction Date:: 2019 History of Any Multi-Drug Resistant Organisms: None Reported Past Surgical History: Bariatric Surgery, Section, Cholecystectomy, Hysterectomy, Tubal Ligation, Uterine Ablation Additional Past Surgical History / Comment(s): LAP BAND 2000 & REMOVED 2001., gastric sleeve 06/05/[address] Mcdowell Past Anesthesia/Blood Transfusion Reactions: No Reported Reaction, Motion Sickness Past Psychological History: Anxiety, Depression Smoking Status: Never smoker Past Alcohol Use History: None Reported Past Drug Use History: None Reported - Past Family History Father Family Medical History: Cancer, Coronary Artery Disease (CAD), CVA/TIA, Myocardial Infarction (ME) Additional Family Medical History / Comment(s): Bone ca Mother Family Medical History: Myocardial Infarction (ME), Thyroid Disorder Sister(s) Family Medical History: Fibromyalgia Additional Family Medical History / Comment(s): MS Medications and Allergies Home Medications Medication Instructions Recorded Confirmed Type ALPRAZolam [Xanax] 1 mg PO HS 02/18/17 12/22/23 History Multivitamins, Thera [Multivitamin 1 tab PO DAILY 08/21/19 12/22/23 History (formulary)] FLUoxetine HCL 80 mg PO HS 10/02/20 12/22/23 History Omeprazole 40 mg PO HS 10/02/20 12/22/23 History Primidone [Mysoline] 50 mg PO BID 10/02/20 12/22/23 History Aspirin 81 mg PO DAILY #30 chew 10/04/20 12/22/23 Rx Metoprolol Succinate (ER) [Toprol 25 mg PO DAILY #30 tab.er.24h 10/04/20 12/22/23 Rx XL] Biotin 10,000 mcg PO DAILY 04/22/21 12/22/23 History Cetirizine HCl [Zyrtec] 10 mg PO DAILY 04/22/21 12/22/23 History HYDROcodone/APAP 5-325MG [Biggers 1 tab PO TID PRN 11/22/22 12/22/23 History 5-325] tiZANidine [Zanaflex] 4 mg PO BID 11/25/22 12/22/23 History Gabapentin [Neurontin] 400 mg PO HS 07/04/23 12/22/23 History Acetaminophen Tab [Tylenol] 650 mg PO Q6HR PRN tab 07/05/23 12/22/23 Rx Atorvastatin [Lipitor] 40 mg PO HS 12/22/23 12/22/23 History [id number]-[id number] Otic 4 drops BOTH EARS DIRECTED 12/22/23 12/22/23 History [Cortisporin Otic Soln] Nitroglycerin Sl Tabs [Nitrostat] 0.4 mg SL Q5M PRN 12/22/23 12/22/23 History Nystatin [Nystop] 1 applic TOPICAL BID PRN 12/22/23 12/22/23 History SUMAtriptan succinate [Imitrex] 50 mg PO BID PRN 12/22/23 12/22/23 History Topiramate [Topamax] 25 mg PO BID 12/22/23 12/22/23 History Allergies Allergy/AdvReac Type Severity Reaction Status Date / Time No Known Allergies Allergy Verified 12/22/23 13:54 Physical Examination - Vital Signs Vital Signs: Vital Signs Temp Pulse Resp BP Pulse Ox 12/23/23 20:28 76 16 12/23/23 19:15 97.9 F 76 16 106/63 97 12/23/23 15:00 97.6 F 66 16 105/62 98 12/23/23 11:10 68 126/85 12/23/23 07:00 98.3 F 62 16 173/100 98 12/23/23 02:25 69 16 12/23/23 01:34 98.0 F 69 16 114/74 98 12/22/23 21:48 78 16 Intake and Output 12/23/23 12/23/23 12/23/23 06:59 14:59 22:59 Intake Total 118 442 Balance 118 442 Intake: Oral 118 442 Other: Voiding Method Toilet Toilet # Voids 1 1 Patient is a middle aged female, very pleasant, in no acute distress. Patient is alert awake oriented to time place and person. Speech and language functions are normal. Patient can name and repeat very well. No aphasia or dysarthria. Attention, concentration and fund of knowledge is adequate. On cranial nerve examination, pupils are equal, round and reacting to light, visual nails are full on confrontation, with no neglect on double simultaneous stimulation. Extraocular muscles are intact with no nystagmus. Face is symmetric, tongue protrudes to the midline. Palatal elevation and sensation normal, hearing and shoulder shrug normal, facial sensation normal. On muscle strength testing, there is no pronator drift and the strength is normal in arms and legs distally and proximally. Deep tendon reflexes are symmetric 2 at the biceps, 2 brachioradialis, 2+ at the knees, 2+ ankles and plantars downgoing bilaterally. Sensory to touch is equal with no neglect on double simultaneous stimulation. Cerebellar function showed no ataxia for [id number] testing. No dysdiadochokinesia. No ataxia for [id number] testing on either side. Tone and bulk of muscles normal. Gait deferred.. On general examination, there is no carotid bruit or murmur, S1-S2 audible. Chest is clear on consultation. Abdomen is soft nontender. No organomegaly, bowel sounds present. Peripheral pulses are present. No peripheral edema. Results - Laboratory Findings CBC and BMP: 12/23/23 05:40 12/23/23 05:40 Abnormal Lab Findings: Abnormal Labs 12/22/23 12/22/23 12/22/23 11:48 11:48 14:11 Plt Count 145 L Eosinophils # Chloride 112 H Carbon Dioxide Anion Gap BUN Glucose 145 H AST 195 H ALT 82 H Total Protein 6.2 L Urine Appearance Cloudy H Urine Glucose (UA) 3+ H Ur Leukocyte Esterase Trace H Urine Mucus Rare H 12/23/23 12/23/23 05:40 05:40 Plt Count Eosinophils # 0.01 L Chloride Carbon Dioxide 17.8 L Anion Gap 15.20 H BUN 8.9 L Glucose AST ALT Total Protein Urine Appearance Urine Glucose (UA) Ur Leukocyte Esterase Urine Mucus Assessment and Plan Assessment: * Migraine headaches, with recent worsening. * Hyperlipidemia * Anxiety, depression * Chronic chest pain/angina. Plan: * Increase Topamax to 50 mg twice daily. Patient so far tolerating Topamax very well. No side effects. * Stop Imitrex because of her cardiac history/chest pain. * Try Fioricet as needed. * Continue Nurtec 75 mg every other day as needed for migraines. * Patient was recommended to try vitamin B2 200 mg, and Mag-Ox 200 mg daily for migraine prophylaxis. * Patient's examination is normal, I do not see need for brain imaging. If the headache persists, suggest CT head. * If the headache resolves in the morning, will be clear for discharge in the morning. * Dr. Simon will be covering neurology service in the morning. Please call neurology if any concerns. * Thank you for the consult.
[2023-12-24 02:38] LABS: ALT 81 U/L (8-44); AST 67 U/L (13-35); Albumin 4.5 g/dL (3.8-4.9); Alkaline Phosphatase 116 U/L (41-126); Bilirubin, Conjugated <0.20 mg/dL (0.20-0.40); Globulin 2.5 g/dL (1.6-3.3); Total Bilirubin <0.2 mg/dL (0.3-1.2)
[2023-12-24 05:32] LABS: Albumin 3.8 g/dL (3.5-5.0); Albumin/Globulin Ratio 1.7; Bilirubin,Unconjugated 0.2 mg/dL (0.0-1.1); Globulin 2.3 g/dL; Total Bilirubin 0.4 mg/dL (0.2-1.3); Total Protein 6.1 g/dL (6.3-8.2)
[2023-12-24] MEDS: BUTALB/APAP/CAFF 50-325-40MG TAB PO PRN (05:42)
[2023-12-24] MEDS: TOPIRAMATE 25 MG TAB PO SCH (08:34)
--- NOTE | 2023-12-24 10:55 | P.PN ---
Subjective Progress Note Date: 12/24/23 This is a 53-year-old female patient who follows with Dr. Gold in the office. She has a history of diabetes mellitus, hypertension that has since improved, status post gastric bypass, hyperlipidemia, CAD without stenting. We have been asked to evaluate the patient for chest pain possible acute coronary syndrome. Patient denies having any chest pain at this time. She states she did have Nitropaste on which did not seem to make any difference and this was removed at 2 in the morning. She does complain of a headache. She has been on Imdur in the past which she states did not cause headache. No chest pain at this time. EKG normal sinus rhythm Chest x-ray: no acute process WBC 5.8, hemoglobin 12.5, platelet count 145, INR 1. Sodium 140, potassium 4.1, BUN 8, creatinine 0.7. Troponin negative x 3. Total bilirubin 0.2, AST 195, ALT 82, alkaline phosphatase 108. Glucose 145. Magnesium 2.3. Urinalysis trace leukoesterase 3+ glucose. Home cardiac medications: Aspirin 81 mg daily, atorvastatin 40 mg at bedtime, Toprol-XL 25 mg daily. Dobutamine stress echocardiogram 07/05/2023 revealed normal stress EKG and echo response to dobutamine infusion without evidence of inducible ischemia. Echocardiogram 11/2022 reveals normal ventricular size and systolic function. Mild tricuspid regurgitation with no evidence of pulmonary hypertension. Cardiac catheterization September 2020 showed 40% RCA stenosis, 50% circumflex stenosis, LAD 30% diagonal 60-70% with the diagonal lesion appearing somewhat ulcerated with suspected acute coronary syndrome. Progress note 12/24/2023 Patient is doing well from cardiovascular standpoint. She reports her chest pain has gotten better. She is tolerating Imdur with no worsening of headaches. Physical examination: Gen: This is a 53-year-old female. She is resting in bed appears to be comfortable and in no acute distress. VS: reviewed HEENT: Head is atraumatic, normocephalic. Pupils equal, round. Sclerae is anicteric. NECK: Supple. No JVD. . LUNGS: Clear to auscultation. No wheezes or rhonchi. No intercostal retractions. HEART: Regular rate and rhythm. No murmur. ABDOMEN: Soft No tenderness. EXTREMITIES: No pedal edema. No calf tenderness. NEUROLOGICAL: Patient is awake, alert and oriented x3. Assessment: Chest pain, acute coronary syndrome ruled out History of coronary artery disease on cath 2019 Normal stress dobutamine echocardiogram on 07/05/2023 Diabetes mellitus Hypertension Hyperlipidemia Chronic migraine headaches on sumatriptan Plan: Continue aspirin atorvastatin metoprolol succinate 25 mg daily. On this a dmission we added Imdur 30 mg daily which patient is tolerating so far. She has problems with migraine headaches and has had migraine headache for last 2 weeks without any resolution or pain-free.. She has been started on sumatriptan for this. Sumatriptan can cause coronary vasospasms and Imdur can cause headaches. Try the combination of these medications I would like to follow-up as an outpatient. Commend patient to follow-up with Dr. Gold in next 1 to 2 weeks. He might need an outpatient stress test to evaluate her moderate disease in the diagonal territory. Patient is cleared to be discharged from cardiovascular standpoint. Cardiology team will sign off. Objective - Vital Signs Vital signs: Vital Signs Temp 98 F 12/24/23 07:00 Pulse 98 12/24/23 08:00 Resp 18 12/24/23 08:00 BP 137/81 12/24/23 07:00 Pulse Ox 96 12/24/23 07:00 FiO2 Intake & Output 12/23/23 12/24/23 12/24/23 18:59 06:59 18:59 Intake Total 560 Balance 560 Intake: Oral 560 Other: Voiding Method Toilet Toilet # Voids 1 1 - Labs CBC & Chem 7: 12/23/23 05:40 12/23/23 05:40 Labs: Abnormal Lab Results - Last 24 Hours (Table) 12/23/23 12/23/23 12/24/23 Range/Units 05:40 05:40 04:37 Eosinophils # 0.01 L (0.04-0.35) X 10*3/uL Total Bilirubin <0.2 L (0.3-1.2) mg/dL AST 67 H 49 H (13-35) U/L ALT 81 H 65 H (8-44) U/L Total Protein 6.1 L (6.3-8.2) g/dL
--- NOTE | 2023-12-24 13:47 | P.PN ---
Subjective Progress Note Date: 12/24/23 The patient is a 53-year-old female who was seen in neurologic follow-up, in cross coverage for Dr. Reed, in collaboration with [facility], via teleneurology. The patient's chart has been reviewed. Patient reports that when she initially came into the hospital her migraine severity was at least a 10 out of 10. Medications have been adjusted. Topamax dosing has been increased to 50 mg twice daily. Patient reports that she took her first dose of this, this morning. As an outpatient, the patient has been taking Nurtec for her migraines. She reports minimal relief. She says it "takes the edge off". In regards to her current flareup of migraines, the patient is not quite sure why they have been so severe. We did discuss her elevated stress level. The patient reports that her mother recently had coronary artery bypass grafting and patient was very concerned, she was afraid that her mother would . She says this is when her migraine started and continued. The patient also reports that she is under constant stress, because of constant pain. She also would reportedly had a recent myocardial infarction. Patient reports that she is scheduled to have an MRI of her brain, this Tuesday. She is also scheduled to follow-up with her neurologist. Patient was advised to keep this appointment on Tuesday. She says that her headache this morning is down to a 3/10. The patient reports that her current headache is not a migraine headache. She says that it is different from her usual migraines. Objective - Vital Signs Vital signs: Vital Signs Temp 98 F 12/24/23 07:00 Pulse 98 12/24/23 08:00 Resp 18 12/24/23 08:00 BP 137/81 12/24/23 07:00 Pulse Ox 96 12/24/23 07:00 FiO2 Intake & Output 12/23/23 12/24/23 12/24/23 18:59 06:59 18:59 Intake Total 560 Balance 560 Intake: Oral 560 Other: Voiding Method Toilet Toilet # Voids 1 1 - Exam General: The patient is seated in bed. She is in no acute distress. She is well-nourished. HEENT: Head is atraumatic, normocephalic. Fundus not visualized. There is no scleral icterus. Mucous membranes are moist. Neurological examination Mental status: The patient is awake, alert and oriented x 3. Her speech is clear. There is no dysarthria or aphasia. Cranial nerves: Pupils are equal at 3 mm and reactive. Other cranial nerves are intact. - Labs CBC & Chem 7: 12/23/23 05:40 12/23/23 05:40 Labs: Abnormal Lab Results - Last 24 Hours (Table) 12/23/23 12/24/23 Range/Units 05:40 04:37 Total Bilirubin <0.2 L (0.3-1.2) mg/dL AST 67 H 49 H (13-35) U/L ALT 81 H 65 H (8-44) U/L Total Protein 6.1 L (6.3-8.2) g/dL Assessment and Plan Assessment: Migraine headaches, with recent worsening. * Hyperlipidemia * Anxiety, depression * Chronic chest pain/angina. Plan: 1. The patient is advised to continue taking Topamax 50 mg twice daily. 2. She is advised to continue taking Nurtec, for breakthrough pain however is also advised to speak with her neurologist regarding possibly trying a different medication for her migraines 3. The patient is advised against sumatriptan hand in light of her recent myocardial infarction as well as history of reported stroke 4. I am not in favor of Fioricet for headache and/or migraine pain, as this is likely to produce rebound headaches 5. I believe the patient is neurologically stable for discharge Time with Patient: Greater than 30 (35 minutes were spent caring for this patient today including, obtaining history, examining the patient, reviewing imaging and chart documentation)
[2023-12-24 14:51] VITALS: BP 93/56; PULSE 72; RESP 19; TEMP 98.3
--- NOTE | 2023-12-25 06:18 | P.DS ---
Providers Date of admission: 12/22/23 13:47 Attending physician: Tejas Eugene MD Consults: 12/22/23 14:09 Consult Physician Routine Consulting Provider: Betty Reed Consult Reason/Comments: Severe migraine headache Do you want consulting provider notified?: Yes Primary care physician: Johnathan Raza Hospital Course: Diagnoses: Migraine headache, recurrent and severe Chest pain, cardiac causes ruled out. Most likely musculoskeletal. Chest pain resolved History of TIA x 3 on aspirin Irritable bowel syndrome Status post gastric sleeve surgery. S/p cholecystectomy Mild transaminitis History of coronary artery disease Some urine difficulty Hospital course: This is a pleasant 53 years old female with past medical history of multiple medical problems including migraine headache. She follow-up with a neurologist Dr. Fisher at [place] [facility]. [place] she follows up with Dr. Allen She has history of migraine for 20 years, usually her migraine headache on both temporal areas on frontal area lasts for 1 to 2 days. She has frequent and severe and she has brought Botox injection for her migraine headache 1 month ago. This time she is having a headache more than usual for about 2 weeks now. She contacted her neurologist on 12/13 who prescribed her 3 different medication but did not help her much so she decided to come to the emergency room at this time. Patient evaluated by neurologist who increased her Topamax 25 mg up to 50 mg. Stopped her sumatriptan because of potential side effects on her heart given her history of coronary artery disease. And they added Fioricet as needed. Although there was some concerns from Dr. Kaplan regarding rebound headache however the patient like to Fioricet stating that helped her and she wants it to be prescribed for her upon discharge. Other than that her headache improved significantly that patient's wants to be discharged today. Also patient denies any other new symptoms and she walking freely and normally in her room with no difficulty. Although she came mainly for migraine headache, patient was found to have some chest pain in the emergency room so she was admitted for extractor operator evaluation who recommended to continue with conservative treatment for now. And to follow- up as an outpatient. Imdur is added by extractor operator Upon discharge patient has no chest pain. No dyspnea. No other new complaints Patient was cleared for discharge by neurologist and extractor operator Problems and management plan were discussed with the patient and he verbalized understanding and acceptance Patient was found stable and can be discharged home in guarded prognosis however he needs follow-up as an outpatient. Patient was instructed to follow up with PCP Dr. Raza within one week and patient agrees Patient was instructed to follow-up with her neurologist Dr. Allen in 1 to 2 weeks after discharge and she agrees Physical exam Gen: patient is a AAOx3, no distress CVS: S1-S2, RRR, no murmur Lungs: B/L CTA, no wheezing Abdomen: soft, no distention, no tenderness, positive bowel sounds Extremity: no leg edema or induration Neuro: Cranial nerves are grossly intact. Motor 5/5. Sensation intact. Gait is normal. Meningeal signs absent Time spent more than 35 minutes Patient Condition at Discharge: Stable Plan - Discharge Summary Discharge Rx Participant: No New Discharge Prescriptions: New Butalb/APAP/Caff 50-325-40Mg [Fioricet 50-325-40] 1 each PO Q4HR PRN 5 Days #20 tab PRN Reason: Headache Isosorbide Mononitrate ER [Imdur] 30 mg PO DAILY #30 tab Topiramate [Topamax] 50 mg PO BID #60 tab Continue ALPRAZolam [Xanax] 1 mg PO HS Multivitamins, Thera [Multivitamin (formulary)] 1 tab PO DAILY Primidone [Mysoline] 50 mg PO BID Omeprazole 40 mg PO HS FLUoxetine HCL 80 mg PO HS Aspirin 81 mg PO DAILY #30 chew Metoprolol Succinate (ER) [Toprol XL] 25 mg PO DAILY #30 tab.er.24h Cetirizine HCl [Zyrtec] 10 mg PO DAILY Gabapentin [Neurontin] 400 mg PO HS Acetaminophen Tab [Tylenol] 650 mg PO Q6HR PRN tab PRN Reason: Fever And/ Or Pain Atorvastatin [Lipitor] 40 mg PO HS Nitroglycerin Sl Tabs [Nitrostat] 0.4 mg SL Q5M PRN PRN Reason: Chest Pain Biotin 10,000 mcg PO DAILY HYDROcodone/APAP 5-325MG [Mcdaniel 5-325] 1 tab PO TID PRN PRN Reason: Pain Nystatin [Nystop] 1 applic TOPICAL BID PRN PRN Reason: Skin Irritation Htgsdjfd-Zioavanln-Rv Otic [Cortisporin Otic Soln] 4 drops BOTH EARS DIRECTED Discontinued tiZANidine [Zanaflex] 4 mg PO BID Topiramate [Topamax] 25 mg PO BID SUMAtriptan succinate [Imitrex] 50 mg PO BID PRN PRN Reason: Migraine Headache Discharge Medication List ALPRAZolam [Xanax] 1 mg PO HS 02/18/17 [History] Multivitamins, Thera [Multivitamin (formulary)] 1 tab PO DAILY 08/21/19 [History] FLUoxetine HCL 80 mg PO HS 10/02/20 [History] Omeprazole 40 mg PO HS 10/02/20 [History] Primidone [Mysoline] 50 mg PO BID 10/02/20 [History] Aspirin 81 mg PO DAILY #30 chew 10/04/20 [Rx] Metoprolol Succinate (ER) [Toprol XL] 25 mg PO DAILY #30 tab.er.24h 10/04/20 [Rx] Biotin 10,000 mcg PO DAILY 04/22/21 [History] Cetirizine HCl [Zyrtec] 10 mg PO DAILY 04/22/21 [History] HYDROcodone/APAP 5-325MG [Mcdaniel 5-325] 1 tab PO TID PRN 11/22/22 [History] Gabapentin [Neurontin] 400 mg PO HS 07/04/23 [History] Acetaminophen Tab [Tylenol] 650 mg PO Q6HR PRN tab 07/05/23 [Rx] Atorvastatin [Lipitor] 40 mg PO HS 12/22/23 [History] Cvtabrpw-Zsupidgoy-My Otic [Cortisporin Otic Soln] 4 drops BOTH EARS DIRECTED 12/22/23 [History] Nitroglycerin Sl Tabs [Nitrostat] 0.4 mg SL Q5M PRN 12/22/23 [History] Nystatin [Nystop] 1 applic TOPICAL BID PRN 12/22/23 [History] Butalb/APAP/Caff 50-325-40Mg [Fioricet 50-325-40] 1 each PO Q4HR PRN 5 Days #20 tab 12/24/23 [Rx] Isosorbide Mononitrate ER [Imdur] 30 mg PO DAILY #30 tab 12/24/23 [Rx] Topiramate [Topamax] 50 mg PO BID #60 tab 12/24/23 [Rx] Follow up Appointment(s)/Referral(s): Johnathan Raza MD [Primary Care Provider] - 1-2 days Gallito Gold DO [STAFF PHYSICIAN] - 1 Week (for outpatient stress test) Kenroy Rene MD [Medical Doctor] - 2 Weeks (neurologist ) Activity/Diet/Wound Care/Special Instructions: heart healthy diet activity is restricted till you see your doctor Discharge Disposition: HOME SELF-CARE
== END 2023-12-24 15:29 | disposition home or self-care (01) ==
LOC: EC 11:26 → 6NMEDSUR 13:47
PROVIDERS: ADMIT Internal Medicine; ATTEND Internal Medicine
DX: R07.89 Other chest pain (principal); G43.909 Migraine, unspecified, not intractable, without status migrainosus; K58.9 Irritable bowel syndrome, unspecified; R74.01 Elevation of levels of liver transaminase levels; I25.10 Atherosclerotic heart disease of native coronary artery without angina pectoris; I07.1 Rheumatic tricuspid insufficiency; R39.198 Other difficulties with micturition; E78.5 Hyperlipidemia, unspecified; I10 Essential (primary) hypertension; F41.9 Anxiety disorder, unspecified; F32.A Depression, unspecified; G89.29 Other chronic pain; R07.9 Chest pain, unspecified; Z98.84 Bariatric surgery status; Z86.73 Personal history of transient ischemic attack (TIA), and cerebral infarction without residual deficits; Z79.82 Long term (current) use of aspirin; Z79.899 Other long term (current) drug therapy; Z85.41 Personal history of malignant neoplasm of cervix uteri
CPT/HCPCS: 99285; 51798; 36415; 93005; 93306; 80053; 80048; 80076 ×2; 83735; 84484; 85025 ×2; 85610; 85730; 81001; 71046; G0378 ×3

== ENCOUNTER → 2024-02-23 | Outpatient (CLI) | payer MEDICARE, OTHER ==
[2024-02-23 18:53] LABS: ALT 22 U/L (8-44); AST 28 U/L (13-35); Albumin 4.5 g/dL (3.8-4.9); Albumin/Globulin Ratio 2.05 Ratio (1.60-3.17); Alkaline Phosphatase 119 U/L (41-126); BUN/Creat Ratio 14.75 Ratio (12.00-20.00); Blood Urea Nitrogen 11.8 mg/dL (9.0-27.0); Calcium 9.2 mg/dL (8.7-10.3); Carbon Dioxide 24.3 mmol/L (21.6-31.8); Chloride 107 mmol/L (96-109); Globulin 2.2 g/dL (1.6-3.3); Glucose 185 mg/dL (70-110); Potassium 4.4 mmol/L (3.5-5.5); Sodium 142 mmol/L (135-145); Total Bilirubin <0.2 mg/dL (0.3-1.2); Total Protein 6.7 g/dL (6.2-8.2)
[2024-02-23 19:20] LABS: Basophils # (A) 0.03 X 10*3/uL (0.00-0.10); Basophils % (A) 0.5 %; Eosinophils # (A) 0.13 X 10*3/uL (0.04-0.35); Eosinophils % (A) 2.1 %; HGB 13.1 g/dL (12.0-15.0); Lymphocytes # (A) 2.57 X 10*3/uL (0.90-5.00); Lymphocytes % (A) 41.8 %; MCH 27.3 pg (27.0-32.0); MCHC 30.5 g/dL (32.0-37.0); MCV 89.8 FL (80.0-97.0); Mean Platelet Volume 12.8 FL (9.5-12.2); Monocytes # (A) 0.55 X 10*3/uL (0.20-1.00); Monocytes % (A) 8.9 %; NRBC Per 100 WBC 0 X 10*3/uL (0.00-0.01); Neutrophils # (A) 2.86 X 10*3/uL (1.80-7.70); Neutrophils % (A) 46.5 %; Platelet Count 194 X 10*3/uL (140-440); RBC 4.79 X 10*6/uL (4.10-5.20); RDW 14.3 % (11.5-14.5); WBC 6.15 X 10*3/uL (4.50-10.00)
== END | disposition home or self-care (01) ==
LOC: LABPAT 15:41
PROVIDERS: ATTEND Surgery
DX: Z01.812 Encounter for preprocedural laboratory examination (principal)
CPT/HCPCS: 80053; 85025

== ENCOUNTER 2024-02-27 06:50 | Observation (INO) | payer MEDICARE, OTHER ==
[2024-02-23 15:55] VITALS: BMI 27.8
[~2024-02-27 06:50] MED LIST changes: +HYDROmorphone 0.5 MG/0.5 ML SYRINGE IVP PRN; +LIDOCAINE 1% (10MG/ML) FOR IV START INTRADERMA PRN; -SODIUM CHLORIDE 0.9% 1,000 ML IV ONE; +droPERidol 5 MG/2 ML VIAL IVP PRN
[2024-02-27 07:43] LABS: Glucose,Whole Blood 106 mg/dL (70-110)
[2024-02-27] MEDS: LACTATED RINGERS 1,000 ML IV ONE ×3 (07:45→13:52)
[2024-02-27] MEDS: MIDAZOLAM 2 MG/2 ML VIAL IVP ONE (08:06)
[2024-02-27] MEDS: SCOPOLAMINE 1 MG/72 HR PATCH TRANSDERM ONE (08:10)
[2024-02-27] MEDS: DEXAMETHASONE SOD PHOSPHATE 4 MG/ML 1 ML VIAL IV ONE (08:10)
[2024-02-27] MEDS: ONDANSETRON 4 MG/2 ML VIAL IVP ONE ×2 (08:10→13:22)
[2024-02-27] MEDS: FAMOTIDINE 20 MG/2 ML VIAL IVP ONE (08:10)
--- NOTE | 2024-02-27 08:22 | P.ANPRN ---
Procedure Note - Anesthesia - Nerve Block Performed Bilateral Erector Spinae Single Time Out Performed: Yes Date of Procedure: 02/27/24 Procedure Start Time: : Procedure Stop Time: 08:12 Location of Patient: PreOp Indication: Acute Post-Operative Pain, Analgesia, Requested by Surgeon Sedation Type: Sedate with meaningful contact maintained Preparation: Sterile Prep Position: Prone Catheter: None Needle Types: Pajunk Needle Gauge: 21 Ultrasound used to visualize needle placement: Yes Ultrasound used to observe medication spread: Yes Injectate: 0.5% Ropivacaine (see comment for volume) (rOPIV 15ML+DECADRON 4MG ---eACH SIDE) Blood Aspirated: No Pain Paresthesia on Injection Noted: No Resistance on Injection: Normal Image Stored and Saved: Yes Events: Uneventful and Well Tolerated
[2024-02-27] MEDS ORDERED: MIDAZOLAM 2 MG/2 ML VIAL ONE (08:23)
[2024-02-27] MEDS ORDERED: GLYCOPYRROLATE 0.2 MG/ML 2 ML VIAL ONE (08:23)
[2024-02-27] MEDS ORDERED: KETAMINE HCL IN 0.9 % NACL 50 MG/5 ML SYRINGE ONE (08:23)
[2024-02-27] MEDS ORDERED: fentaNYL (PF) 50 MCG/ML 2 ML AMP ONE (08:23)
[2024-02-27] MEDS ORDERED: SUCCINYLCHOLINE CHLORIDE 200 MG/10 ML VIAL IV ONE (08:23)
[2024-02-27] MEDS ORDERED: DEXAMETHASONE SOD PHOSPHATE 4 MG/ML 1 ML VIAL ONE (08:23)
[2024-02-27] MEDS ORDERED: diphenhydrAMINE 50 MG/ML 1 ML VIAL ONE (08:23)
[2024-02-27] MEDS ORDERED: KETOROLAC 15 MG/ML 1 ML VIAL ONE (08:23)
[2024-02-27] MEDS ORDERED: ROPIVACAINE 5 MG/ML 30 ML VIAL ONE (08:23)
[2024-02-27] MEDS ORDERED: LIDOCAINE 1% INJ 10MG/ML (20 ML MDV) ONE (08:23)
[2024-02-27] MEDS ORDERED: HYDROmorphone (PF) 1 MG/ML ONE (08:23)
[2024-02-27] MEDS ORDERED: PROPOFOL 10 MG/ML 20 ML VIAL IV ONE (08:23)
--- NOTE | 2024-02-27 08:30 | P.GSHP ---
History of Present Illness H&P Date: 02/27/24 Chief Complaint: panniculus this is a 53-year-old female who presents today for panniculus. Patient's had issues with chronic skin irritation. Patient resents is not a cosmetic procedure however procedure remove redundant skin and fat. Understands the risks for possible cosmetic surgery after panniculus. Past Medical History Past Medical History: Cancer, Chest Pain / Angina, CVA/TIA, Fibromyalgia, GERD/Reflux, Hyperlipidemia, Pneumonia Additional Past Medical History / Comment(s): TIAX2 Oct 2017, January 2023 no residual effects. CERVICAL CA (1996). HX OF DIVERTICULITIS. Back, neck, shoulder and bilateral hip pain. Possibly some sleep apnea. Past hx of diabetes-currently just being monitored. Tremors. Last Myocardial Infarction Date:: 2019 History of Any Multi-Drug Resistant Organisms: None Reported Past Surgical History: Bariatric Surgery, Section, Cholecystectomy, Hysterectomy, Tubal Ligation, Uterine Ablation Additional Past Surgical History / Comment(s): LAP BAND 2000 & REMOVED 2001., gastric sleeve 06/05/[address] Mcdowell Past Anesthesia/Blood Transfusion Reactions: No Reported Reaction, Motion Sickness Smoking Status: Never smoker - Past Family History Father Family Medical History: Cancer, Coronary Artery Disease (CAD), CVA/TIA, Myocardial Infarction (MD) Additional Family Medical History / Comment(s): Bone ca Mother Family Medical History: Myocardial Infarction (MD), Thyroid Disorder Sister(s) Family Medical History: Fibromyalgia Additional Family Medical History / Comment(s): MS Medications and Allergies Home Medications Medication Instructions Recorded Confirmed Type ALPRAZolam [Xanax] 1 mg PO HS 02/18/17 02/23/24 History Multivitamins, Thera [Multivitamin 1 tab PO DAILY 08/21/19 02/23/24 History (formulary)] FLUoxetine HCL 80 mg PO HS 10/02/20 02/27/24 History Omeprazole 40 mg PO HS 10/02/20 02/27/24 History Aspirin 81 mg PO DAILY #30 chew 10/04/20 02/23/24 Rx Metoprolol Succinate (ER) [Toprol 25 mg PO DAILY #30 tab.er.24h 10/04/20 02/27/24 Rx XL] Biotin 10,000 mcg PO DAILY 04/22/21 02/27/24 History Acetaminophen Tab [Tylenol] 650 mg PO Q6HR PRN tab 07/05/23 02/23/24 Rx Atorvastatin [Lipitor] 40 mg PO HS 12/22/23 02/23/24 History Nitroglycerin Sl Tabs [Nitrostat] 0.4 mg SL Q5M PRN 12/22/23 02/27/24 History Nystatin [Nystop] 1 applic TOPICAL BID PRN 12/22/23 02/23/24 History Isosorbide Mononitrate ER [Imdur] 30 mg PO DAILY #30 tab 12/24/23 02/27/24 Rx Topiramate [Topamax] 50 mg PO BID #60 tab 12/24/23 02/27/24 Rx Magnesium Oxide [Magox 400] 400 mg PO DAILY 02/23/24 02/27/24 History Riboflavin (Vitamin B2) [Vitamin 100 mg PO DAILY 02/23/24 02/27/24 History B-2] ALPRAZolam [Xanax] 1 mg PO HS 02/27/24 02/27/24 History Amitriptyline HCl 25 mg PO HS 02/27/24 02/27/24 History Cyanocobalamin [Vitamin B-12 See Rx Instructions .ROUTE .COMPLEX 02/27/24 History Injection] Dapagliflozin Propanediol [Farxiga] 10 mg PO HS 02/27/24 02/27/24 History Galcanezumab-Gnlm [Emgality Pen] 120 mg SQ 02/27/24 History HYDROcodone/APAP 5-325MG [[place] 1 tab PO Q6HR PRN 02/27/24 02/27/24 History 5-325] Allergies Allergy/AdvReac Type Severity Reaction Status Date / Time No Known Allergies Allergy Verified 02/23/24 15:03 Surgical - Exam Vital Signs Temp Pulse Resp BP Pulse Ox 97.8 F 74 14 109/64 97 02/27/24 07:45 02/27/24 07:45 02/27/24 07:45 02/27/24 07:45 02/27/24 07:45 - General well developed, well nourished, no distress - Eyes PERRL - ENT normal pinna - Neck no masses - Respiratory normal expansion - Cardiovascular Rhythm: regular - Abdomen large well-formed panniculus Abdomen: soft, non tender Assessment and Plan Assessment: panniculus. We'll perform the colectomy.the patient's aware the risk of bleeding, seroma, wound infection.
[2024-02-27] MEDS ORDERED: ONDANSETRON 4 MG/2 ML VIAL IVP PRN (10:38)
[2024-02-27] MEDS: MEPERIDINE 50 MG/ML SYRINGE IVP ONE ×2 (10:48→11:07)
[2024-02-27 11:09] LABS: Glucose,Whole Blood 107 mg/dL (70-110)
[2024-02-27] MEDS: HYDROmorphone 1 MG/ML 1 ML SYRINGE IVP PRN (14:45)
[2024-02-27] MEDS: LACTATED RINGERS 1,000 ML IV SCH (15:09)
--- NOTE | 2024-02-27 17:17 | P.OP ---
Date of Procedure: 02/27/24 Preoperative Diagnosis: panniculus Postoperative Diagnosis: panniculus Procedure(s) Performed: panniculectomy Anesthesia: LYNNE Surgeon: Tenzin Mcdowell Estimated Blood Loss (ml): 25 Pathology: none sent Condition: stable Disposition: PACU Operative Findings: 5.5 pound panniculus excised Description of Procedure: PROCEDURE: The patient was placed on the operating table in supine position and received general anesthetic. The abdomen was prepped and draped in the usual sterile fashion. The lower skin incision was then made after the skin was marked with a marker. The incision ran from the pubic area to the level of the anterosuperior iliac spine. Using blunt and sharp dissection and electrocautery the subcutaneous tissues were then dissected down to the level of the fascia external oblique. Next, a beverly shaped incision was made around the umbilicus and the umbilicus was then dissected down to the level of the fascia external oblique. Care was taken to ensure that the umbilical stalk was wide enough in order to maintain viability of the umbilicus. After the umbilicus was dissected a 0 Vicryl suture was used to orientate the umbilicus. The suture was placed at the 12 o'clock position of the umbilicus. Following this the diss ection was then made from the inferior pannicular incision cephalad. The xiphoid and costal margins were the limits of the dissection. Several small perforating vessels were ligated and cautery was used to maintain hemostasis. Once the dissection was performed the panniculus was then divided in the midline from the level of the umbilicus towards the pubic area. Downward and lateral traction was then placed on the abdominal wall and the skin was suitably marked for transection of the umbilicus. The skin was then incised and the Bovie was used for dissection of the pannicular flap. Next, three 10-Bangl[place]hi ELSY drains were placed in the wound and brought out through separate stab incisions at the level of the pubic area. The drains were secured to the skin using 3-0 nylon. After the ELSY drains were secured, Malena's fascia was closed with interrupted 0 Vicryl sutures and then the skin was closed with running 3-0 Monocryl sutures. Prior to closure of the abdominal wall care was taken to ensure that both the abdominal wall and the abdominal wall flap were hemostatic. Next, the umbilicus was reattached to the abdominal wall. A marking line was made across the top of the iliac crest and this line intercepted with the midline abdominal wall line that had been previously made in the preoperative hold area. A small semicircular U-shaped incision was created at the intersec tion of the two lines and the umbilicus was brought up through this incision. The umbilicus was then trimmed and secured to the skin using 3-0 Monocryl sutures. At this point the drains were placed to suction. The abdomen was cleaned and then sterile tape was placed over top of the incisions. Abdominal binder was then placed. The patient tolerated the procedure well. The patient was sent to recovery room in stable condition.
[2024-02-27] MEDS: DEXTROSE 5%-0.9% NACL 1,000 ML IV SCH (19:55)
[2024-02-27] MEDS: DAPAGLIFLOZIN PROPANEDIOL 10 MG TABLET PO SCH (20:45)
[2024-02-27] MEDS: AMITRIPTYLINE HCL 25 MG TAB PO SCH (20:45)
[2024-02-27] MEDS: FLUoxetine HCL 20 MG CAP PO SCH (20:45)
[2024-02-27] MEDS: ALPRAZolam 1 MG TAB PO SCH (20:45)
[2024-02-27] MEDS: ATORVASTATIN 40 MG TAB PO SCH (20:45)
[2024-02-27] MEDS: TOPIRAMATE 25 MG TAB PO SCH (20:46)
[2024-02-27] MEDS: PANTOPRAZOLE 40 MG TABLET PO SCH (20:46)
--- NOTE | 2024-02-28 01:44 | CONS ---
CONSULTATION REASON FOR CONSULTATION: Advice regarding fibromyalgia, CVAT, and other medical issues requested by surgery. HISTORY OF PRESENT ILLNESS: This is a 53-year-old woman with a past medical history of fibromyalgia, GERD, multiple medical problems, being followed by Dr. Jordan in the outpatient setting, was admitted after panniculectomy. There is no history of any fever, rigors, or chills. Pulse ox 90% while resting. PAST MEDICAL HISTORY: Reviewed include CVA, TIA, fibromyalgia, GERD, rest of the history and rest of the chart is also reviewed. HOME MEDICATIONS: Reviewed include amitriptyline, doses and rest of medications reviewed. ALLERGIES: None. FAMILY HISTORY: History of CAD, CVA, TIA, myocardial infarction. SOCIAL HISTORY: No history of smoking or alcohol. REVIEW OF SYSTEMS: A 14-point review is negative except as mentioned earlier. PHYSICAL EXAMINATION: VITAL SIGNS: Pulse 91, blood pressure 133/82, respirations 20. HEENT: Conjunctivae normal. NECK: No jugular venous distention. CARDIOVASCULAR: S1, S2. RESPIRATIONS: Diminished at the bases. No rhonchi, no crackles. ABDOMEN: Soft, nontender. LEGS: No edema, no swelling. NERVOUS SYSTEM: No focal deficit. LABORATORY DATA: Glucose 107. ASSESSMENT: 1. Status post panniculectomy. 2. Mild hypoxia, possibly postoperative atelectasis. 3. CVA TIA. 4. Fibromyalgia. 5. Hyperlipidemia. 6. History of pneumonia. 7. History of GERD. RECOMMENDATIONS AND DISCUSSION: Recommended to continue current management, continue symptomatic treatment. Resume the home medications. DVT prophylaxis. I would also recommend incentive spirometry. Ensure oxygenation. We will follow the patient closely with you. Further recommendations to follow. MMODL / IJN: [id number] /
[2024-02-28] MEDS: METOPROLOL SUCCINATE (ER) 25 MG TAB.ER.24H PO SCH (08:08)
[2024-02-28] MEDS: MAGNESIUM OXIDE 400 MG TAB PO SCH (08:08)
[2024-02-28] MEDS: MULTIVITAMINS, THERA 1 EACH TAB PO SCH (08:08)
[2024-02-28] MEDS: ASPIRIN 81 MG PO SCH (08:08)
[2024-02-28] MEDS: ISOSORBIDE MONONITRATE ER 30 MG TAB.ER.24H PO SCH (08:08)
[2024-02-28 08:24] VITALS: RESP 18
[2024-02-28] MEDS ORDERED: NON FORMULARY DRUG (Riboflavin (Vitamin B2) [Vitamin B-2] 100 MG Tablet) PO SCH (09:00)
[2024-02-28] MEDS ORDERED: NON FORMULARY DRUG (Biotin [Biotin] 10,000 MCG Capsule) PO SCH (09:00)
[2024-02-28] MEDS: HYDROcodone/APAP 5-325MG 1 EACH TAB PO PRN (11:27)
--- NOTE | 2024-02-28 14:49 | P.DS ---
Providers Date of admission: 02/27/24 10:26 Expected date of discharge: 02/28/24 Attending physician: Tenzin Mcdowell Consults: 02/27/24 10:38 Consult Physician Routine Consulting Provider: Steven Martinez Consult Reason/Comments: medical management Do you want consulting provider notified?: Yes Primary care physician: Elliott Jordan Hospital Course: Discharge diagnosis 1. Panniculitis status post panniculectomy Hospital course This is a 53-year-old female who is status post panniculectomy. Patient tolerated surgery well. Her pain is controlled. She is afebrile. She is tolerating diet. She has been up and ambulating. She is having flatus. She had mild oozing of blood from the umbilicus that has clotted. Incision sites clean dry and intact. Patient is stable for discharge. Please refer to chart for any further details. Physician Loom Setter note has been reviewed by physician. Signing provider agrees with the documented findings, assessment, and plan of care. Patient Condition at Discharge: Stable Plan - Discharge Summary Discharge Rx Participant: Yes New Discharge Prescriptions: Continue ALPRAZolam [Xanax] 1 mg PO HS Multivitamins, Thera [Multivitamin (formulary)] 1 tab PO DAILY Omeprazole 40 mg PO HS FLUoxetine HCL 80 mg PO HS Aspirin 81 mg PO DAILY #30 chew Metoprolol Succinate (ER) [Toprol XL] 25 mg PO DAILY #30 tab.er.24h Acetaminophen Tab [Tylenol] 650 mg PO Q6HR PRN tab PRN Reason: Fever And/ Or Pain Atorvastatin [Lipitor] 40 mg PO HS Nitroglycerin Sl Tabs [Nitrostat] 0.4 mg SL Q5M PRN PRN Reason: Chest Pain Isosorbide Mononitrate ER [Imdur] 30 mg PO DAILY #30 tab Riboflavin (Vitamin B2) [Vitamin B-2] 100 mg PO DAILY HYDROcodone/APAP 5-325MG [Fred 5-325] 1 tab PO Q6HR PRN PRN Reason: Pain Amitriptyline HCl 25 mg PO HS Cyanocobalamin [Vitamin B-12 Injection] See Rx Instructions .ROUTE .COMPLEX Biotin 10,000 mcg PO DAILY Topiramate [Topamax] 50 mg PO BID #60 tab Magnesium Oxide [Magox 400] 400 mg PO DAILY Dapagliflozin Propanediol [Farxiga] 10 mg PO HS Galcanezumab-Gnlm [Emgality Pen] 120 mg SQ ALPRAZolam [Xanax] 1 mg PO HS Discontinued Nystatin [Nystop] 1 applic TOPICAL BID PRN PRN Reason: Skin Irritation Discharge Medication List ALPRAZolam [Xanax] 1 mg PO HS 02/18/17 [History] Multivitamins, Thera [Multivitamin (formulary)] 1 tab PO DAILY 08/21/19 [History] FLUoxetine HCL 80 mg PO HS 10/02/20 [History] Omeprazole 40 mg PO HS 10/02/20 [History] Aspirin 81 mg PO DAILY #30 chew 10/04/20 [Rx] Metoprolol Succinate (ER) [Toprol XL] 25 mg PO DAILY #30 tab.er.24h 10/04/20 [Rx] Biotin 10,000 mcg PO DAILY 04/22/21 [History] Acetaminophen Tab [Tylenol] 650 mg PO Q6HR PRN tab 07/05/23 [Rx] Atorvastatin [Lipitor] 40 mg PO HS 12/22/23 [History] Nitroglycerin Sl Tabs [Nitrostat] 0.4 mg SL Q5M PRN 12/22/23 [History] Isosorbide Mononitrate ER [Imdur] 30 mg PO DAILY #30 tab 12/24/23 [Rx] Topiramate [Topamax] 50 mg PO BID #60 tab 12/24/23 [Rx] Magnesium Oxide [Magox 400] 400 mg PO DAILY 02/23/24 [History] Riboflavin (Vitamin B2) [Vitamin B-2] 100 mg PO DAILY 02/23/24 [History] ALPRAZolam [Xanax] 1 mg PO HS 02/27/24 [History] Amitriptyline HCl 25 mg PO HS 02/27/24 [History] Cyanocobalamin [Vitamin B-12 Injection] See Rx Instructions .ROUTE .COMPLEX 02/27/24 [History] Dapagliflozin Propanediol [Farxiga] 10 mg PO HS 02/27/24 [History] Galcanezumab-Gnlm [Emgality Pen] 120 mg SQ 02/27/24 [History] HYDROcodone/APAP 5-325MG [Fred 5-325] 1 tab PO Q6HR PRN 02/27/24 [History] Follow up Appointment(s)/Referral(s): Tenzin Mcdowell MD [STAFF PHYSICIAN] - 1 Week Activity/Diet/Wound Care/Special Instructions: No driving while taking Fred No lifting over 10 pounds Shower daily. No soaking or tub baths for 2 weeks Change surgical dressing daily Very light activity until you are reevaluated at your follow up appointment with your surgeon Wear Abdominal binder at all times Keep a log of ELSY drain output and bring with you to your follow-up appointment Milk/strip drains 2-3 times a day Discharge Disposition: HOME SELF-CARE
[2024-02-28 15:49] VITALS: BP 109/69; PULSE 86; TEMP 97.8
--- NOTE | 2024-02-29 01:48 | PN ---
PROGRESS NOTE DATE OF SERVICE: 02/28/2024 SUBJECTIVE: This is a 53-year-old woman who was admitted after panniculectomy. Monitored closely. No chest pain, no palpitations, no fever. OBJECTIVE: VITAL SIGNS: Pulse 97, blood pressure 131/74, and respirations 18. CHEST: Clear to auscultation. CARDIOVASCULAR: S1, S2. ABDOMEN: Soft. NERVOUS SYSTEM: Nonfocal. LABORATORY DATA: Reviewed. ASSESSMENT: 1. Status post panniculectomy. 2. Mild hypoxia, possible atelectasis, improved. 3. CVA, TIA. 4. Fibromyalgia. 5. Hyperlipidemia. 6. History of pneumonia. 7. History of GERD. RECOMMENDATIONS: Recommended to continue current management, continue symptomatic treatment. Otherwise at this time, I recommended incentive spirometry to be continued and resume the home medications. Follow up with the primary physician, rest of the recommendations per surgery. MMODL / IJN: [id number] /
== END 2024-02-28 15:32 | disposition home or self-care (01) ==
LOC: OR 06:50 → 4SSUR 10:26
PROVIDERS: ADMIT Surgery; ATTEND Surgery
DX: M79.3 Panniculitis, unspecified (principal); R21 Rash and other nonspecific skin eruption; E65 Localized adiposity; L98.8 Other specified disorders of the skin and subcutaneous tissue; Z98.84 Bariatric surgery status; Z86.73 Personal history of transient ischemic attack (TIA), and cerebral infarction without residual deficits; M79.7 Fibromyalgia; K21.9 Gastro-esophageal reflux disease without esophagitis; E78.5 Hyperlipidemia, unspecified; I25.2 Old myocardial infarction; Z90.710 Acquired absence of both cervix and uterus; Z90.49 Acquired absence of other specified parts of digestive tract; E11.9 Type 2 diabetes mellitus without complications; Z79.82 Long term (current) use of aspirin; Z79.899 Other long term (current) drug therapy; Z82.3 Family history of stroke; Z82.49 Family history of ischemic heart disease and other diseases of the circulatory system; Z85.41 Personal history of malignant neoplasm of cervix uteri; Z87.01 Personal history of pneumonia (recurrent); G89.18 Other acute postprocedural pain
CPT/HCPCS: 15830; 96374; 64999; G0378 ×2; J2250; J1100; J2175; J0690 ×2; J2405; J3490; J1170 ×2

== ENCOUNTER → 2024-03-05 | Outpatient (CLI) | payer MEDICARE, OTHER ==
[2024-03-05 10:13] VITALS: BP 138/85; PULSE 99; TEMP 98.1; BMI 27.6
--- NOTE | 2024-05-03 12:51 | P.HPBAR ---
Bariatric H&P - History & Physicial H&P Date: 03/05/24 History & Physicial: Visit/CC: keithni follow up Patient initial contact: Initial weight: 90.718 kg Initial weight in pounds: 200.00 Height: 5 ft 2 in Initial BMI: 36.6 Last weight: Current weight: 68.492 kg Current weight in pounds: 151.00 Current BMI: 27.6 [place] body weight (based on NIH guidelines): 49.895 kg Excess body weight loss: 54.4% The patient is a 53 year-old F who presents for Bariatric Assessment. Patient presents today for panniculectomy follow-up. She is doing quite well. She has minimal complaints of pain. Her incision is healing. Past Medical History Past Medical History: Cancer, Chest Pain / Angina, CVA/TIA, Fibromyalgia, GERD/Reflux, Hyperlipidemia, Pneumonia Additional Past Medical History / Comment(s): TIAX2 Oct 2017, January 2023 no residual effects. CERVICAL CA (1996). HX OF DIVERTICULITIS. Back, neck, shoulder and bilateral hip pain. Possibly some sleep apnea. Past hx of diabetes-currently just being monitored. Tremors. Last Myocardial Infarction Date:: 2019 History of Any Multi-Drug Resistant Organisms: None Reported Past Surgical History: Bariatric Surgery, Section, Cholecystectomy, Hysterectomy, Tubal Ligation, Uterine Ablation Additional Past Surgical History / Comment(s): LAP BAND 2000 & REMOVED 2001., gastric sleeve 06/05/[address] Mcdowell. panniculectomy 02-27-24 Past Anesthesia/Blood Transfusion Reactions: Motion Sickness Past Psychological History: Anxiety, Depression Smoking Status: Never smoker Past Alcohol Use History: None Reported Past Drug Use History: None Reported - Past Family History Father Family Medical History: Cancer, Coronary Artery Disease (CAD), CVA/TIA, Myocardial Infarction ([place]) Additional Family Medical History / Comment(s): Bone ca Mother Family Medical History: Myocardial Infarction ([place]), Thyroid Disorder Sister(s) Family Medical History: Fibromyalgia Additional Family Medical History / Comment(s): MS Surgical - Exam Vital Signs Temp Pulse BP 98.1 F 99 138/85 03/05/24 09:30 03/05/24 09:30 03/05/24 09:30 Abdomen soft nontender. Vision is well-healed. Bariatric Assessment & Plan Plan: Patient doing well. She will follow-up in 4 weeks. Bariatric Checklist Checklist: Plan: Checklist: EGD: 1. Hiatal hernia: 2. H. Pylori: HgbA1c: Vitamin D: Smoking: Never smoker Primary care physician referral: DR. MACIEL Psychiatry clearance: Cardiology clearance: Sleep study: Diet journal: VTE risk score: VTE risk level: Rehab needs at discharge:
== END | disposition home or self-care (01) ==
LOC: BARWHC3 08:57
PROVIDERS: ATTEND Surgery
DX: Z09 Encounter for follow-up examination after completed treatment for conditions other than malignant neoplasm (principal); Z98.890 Other specified postprocedural states
CPT/HCPCS: 99212

== ENCOUNTER → 2024-03-06 | Outpatient (CLI) | payer MEDICARE, OTHER ==
[2024-03-06 15:24] VITALS: BMI 27.6
== END ==
LOC: BARWHC3 14:38
PROVIDERS: ATTEND Surgery
DX: Z09 Encounter for follow-up examination after completed treatment for conditions other than malignant neoplasm (principal); Z68.27 Body mass index [BMI] 27.0-27.9, adult; Z98.890 Other specified postprocedural states
CPT/HCPCS: 99212

== ENCOUNTER → 2024-03-19 | Outpatient (CLI) | payer MEDICARE, OTHER ==
[2024-03-19 13:30] VITALS: BP 101/68; PULSE 87; RESP 14; TEMP 97.8; BMI 27.8
--- NOTE | 2024-03-20 09:35 | P.HPBAR ---
Bariatric H&P - History & Physicial H&P Date: 03/19/24 History & Physicial: Visit/CC: follow up with dr. pereira post raad Patient initial contact: Initial weight: 90.718 kg Initial weight in pounds: 200.00 Height: 5 ft 2 in Initial BMI: 36.6 Last weight: Current weight: 69.082 kg Current weight in pounds: 152.30 Current BMI: 27.8 [place] body weight (based on NIH guidelines): 49.895 kg Excess body weight loss: 52.9% The patient is a 53 year-old F who presents for Bariatric Assessment.patient resents today for bariatric follow-up. She has been doing well. Patient's ELSY drains abdomen wall. Past Medical History Past Medical History: Cancer, Chest Pain / Angina, CVA/TIA, Fibromyalgia, GERD/Reflux, Hyperlipidemia, Pneumonia Additional Past Medical History / Comment(s): TIAX2 Oct 2017, January 2023 no residual effects. CERVICAL CA (1996). HX OF DIVERTICULITIS. Back, neck, shoulder and bilateral hip pain. Possibly some sleep apnea. Past hx of diabetes-currently just being monitored. Tremors. Last Myocardial Infarction Date:: 2019 History of Any Multi-Drug Resistant Organisms: None Reported Past Surgical History: Bariatric Surgery, Section, Cholecystectomy, Hysterectomy, Tubal Ligation, Uterine Ablation Additional Past Surgical History / Comment(s): LAP BAND 2000 & REMOVED 2001., gastric sleeve 06/05/[address] Pereira. panniculectomy 02-27-24 Past Anesthesia/Blood Transfusion Reactions: Motion Sickness Past Psychological History: Anxiety, Depression Smoking Status: Never smoker Past Alcohol Use History: None Reported Past Drug Use History: None Reported - Past Family History Father Family Medical History: Cancer, Coronary Artery Disease (CAD), CVA/TIA, Myocardial Infarction (CA) Additional Family Medical History / Comment(s): Bone ca Mother Family Medical History: Myocardial Infarction (CA), Thyroid Disorder Sister(s) Family Medical History: Fibromyalgia Additional Family Medical History / Comment(s): MS Surgical - Exam Vital Signs Temp Pulse Resp BP 97.8 F 87 14 101/68 03/19/24 12:02 03/19/24 12:02 03/19/24 12:02 03/19/24 12:02 - General well developed, well nourished, no distress - Eyes PERRL - ENT normal pinna - Neck no masses - Respiratory normal expansion - Cardiovascular Rhythm: regular - Abdomen incision is well-healed. Abdomen: soft, non tender Bariatric Assessment & Plan Plan: the patient's ELSY drains removed in the office today. She'll follow-up in 4 weeks. Bariatric Checklist Checklist: Plan: Checklist: EGD: 1. Hiatal hernia: 2. H. Pylori: HgbA1c: Vitamin D: Smoking: Never smoker Primary care physician referral: DR. MACIEL Psychiatry clearance: Cardiology clearance: Sleep study: Diet journal: VTE risk score: VTE risk level: Rehab needs at discharge:
== END ==
LOC: BARWHC3 08:31
PROVIDERS: ATTEND Surgery
DX: E66.01 Morbid (severe) obesity due to excess calories (principal); Z46.51 Encounter for fitting and adjustment of gastric lap band; Z98.84 Bariatric surgery status; Z90.3 Acquired absence of stomach [part of]; Z68.27 Body mass index [BMI] 27.0-27.9, adult
CPT/HCPCS: 99212

== ENCOUNTER → 2024-03-26 | Outpatient (CLI) | payer MEDICARE, OTHER ==
[2024-03-26 13:01] VITALS: BP 116/81; PULSE 94; RESP 14; TEMP 97.6; BMI 27.4
--- NOTE | 2024-03-26 17:19 | P.HPBAR ---
Bariatric H&P - History & Physicial H&P Date: 03/26/24 History & Physicial: Visit/CC: raad follow up Patient initial contact: Initial weight: 90.718 kg Initial weight in pounds: 200.00 Height: 5 ft 2 in Initial BMI: 36.6 Last weight: Current weight: 68.039 kg Current weight in pounds: 150.00 Current BMI: 27.4 [place] body weight (based on NIH guidelines): 49.895 kg Excess body weight loss: 55.5% The patient is a 53 year-old F who presents for Bariatric Assessment.patient presents today for bariatric follow-up. Papatient is minimal complaints of GERD. She is undergoing on recently. She is healing from her panniculus 3. She has no complaints. Past Medical History Past Medical History: Cancer, Chest Pain / Angina, CVA/TIA, Fibromyalgia, GERD/Reflux, Hyperlipidemia, Pneumonia Additional Past Medical History / Comment(s): TIAX2 Oct 2017, January 2023 no residual effects. CERVICAL CA (1996). HX OF DIVERTICULITIS. Back, neck, shoulder and bilateral hip pain. Possibly some sleep apnea. Past hx of diabetes-currently just being monitored. Tremors. Last Myocardial Infarction Date:: 2019 History of Any Multi-Drug Resistant Organisms: None Reported Past Surgical History: Bariatric Surgery, Section, Cholecystectomy, Hysterectomy, Tubal Ligation, Uterine Ablation Additional Past Surgical History / Comment(s): LAP BAND 2000 & REMOVED 2001., gastric sleeve 06/05/[address] Mcdowell. panniculectomy 02-27-24 Past Anesthesia/Blood Transfusion Reactions: Motion Sickness Past Psychological History: Anxiety, Depression Smoking Status: Never smoker Past Alcohol Use History: None Reported Past Drug Use History: None Reported - Past Family History Father Family Medical History: Cancer, Coronary Artery Disease (CAD), CVA/TIA, Myocardial Infarction ([place]) Additional Family Medical History / Comment(s): Bone ca Mother Family Medical History: Myocardial Infarction ([place]), Thyroid Disorder Sister(s) Family Medical History: Fibromyalgia Additional Family Medical History / Comment(s): MS Surgical - Exam Vital Signs Temp Pulse Resp BP 97.6 F 94 14 116/81 03/26/24 12:10 03/26/24 12:10 03/26/24 12:10 03/26/24 12:10 - General well developed, well nourished, no distress - Eyes PERRL - ENT normal pinna - Neck no bruits - Abdomen Abdomen: soft, non tender Bariatric Assessment & Plan Plan: resolving morbid obesity. Patient's BMI is 27. Her GERD is minimal will be ob served. She'll follow-up in 4 weeks. Bariatric Checklist Checklist: Plan: Checklist: EGD: 1. Hiatal hernia: 2. H. Pylori: HgbA1c: Vitamin D: Smoking: Never smoker Primary care physician referral: DR. MACIEL Psychiatry clearance: Cardiology clearance: Sleep study: Diet journal: VTE risk score: VTE risk level: Rehab needs at discharge:
== END ==
LOC: BARWHC3 09:40
PROVIDERS: ATTEND Surgery
DX: K21.9 Gastro-esophageal reflux disease without esophagitis (principal); E66.01 Morbid (severe) obesity due to excess calories; Z98.84 Bariatric surgery status; Z68.27 Body mass index [BMI] 27.0-27.9, adult; Z90.3 Acquired absence of stomach [part of]
CPT/HCPCS: 99212

== ENCOUNTER 2025-03-15 16:35 | Emergency (ER) | payer MEDICARE, OTHER ==
[2025-03-15 16:44] VITALS: PULSE 100
--- NOTE | 2025-03-15 17:22 | ED ---
Female Urogenital HPI - General Source: patient, RN notes reviewed Mode of arrival: ambulatory Limitations: no limitations <Marissa Eldridge - Last Filed: 03/15/25 17:21> <Nayana White - Last Filed: 03/19/25 10:16> - General Chief complaint: Urogenital Stated complaint: Abd/back pain Time Seen by Provider: 03/15/25 17:21 - History of Present Illness Initial comments: Quick [id number] female presenting for left flank pain x 1 day with associated hematuria and suprapubic pain. Denies history of kidney stones. Surgical history includes bariatric surgery, cholecystectomy, and hysterectomy. (Marissa Eldridge) 54-year-old female presents to the emergency department for evaluation of left flank pain and lower abdomen/suprapubic pain. Patient states that this started yesterday. She reports that the pain is constant stabbing pain which increases at times. She also notes blood in the urine. She denies any pain with urination or urinary frequency. She denies any fever, chills, nausea, vomiting. (Nayana White) - Related Data Home Medications Medication Instructions Recorded Confirmed ALPRAZolam [Xanax] 0.5 mg PO HS 02/18/17 11/19/24 Multivitamins, Thera [Multivitamin 1 tab PO DAILY 08/21/19 11/19/24 (formulary)] FLUoxetine HCL 80 mg PO HS 10/02/20 11/19/24 Omeprazole 40 mg PO HS 10/02/20 11/19/24 Biotin 10,000 mcg PO DAILY 04/22/21 11/19/24 Atorvastatin [Lipitor] 40 mg PO HS 12/22/23 11/19/24 Nitroglycerin Sl Tabs [Nitrostat] 0.4 mg SL Q5M PRN 12/22/23 11/19/24 Magnesium Oxide [Magox 400] 400 mg PO DAILY 02/23/24 11/19/24 Riboflavin (Vitamin B2) [Vitamin 100 mg PO DAILY 02/23/24 11/19/24 B-2] Dapagliflozin Propanediol [Farxiga] 10 mg PO HS 02/27/24 11/19/24 HYDROcodone/APAP 5-325MG [[place] 1 tab PO Q6HR PRN 02/27/24 11/19/24 5-325] Topiramate [Topamax] 50 mg PO BID PRN 07/02/24 11/19/24 Previous Rx's Medication Instructions Recorded Aspirin 81 mg PO DAILY #30 chew 10/04/20 Metoprolol Succinate (ER) [Toprol 25 mg PO DAILY #30 tab.er.24h 10/04/20 XL] Acetaminophen Tab [Tylenol] 650 mg PO Q6HR PRN tab 07/05/23 Isosorbide Mononitrate ER [Imdur] 30 mg PO DAILY #30 tab 12/24/23 HYDROcodone/APAP 5-325MG [[place] 1 tab PO Q6HR PRN 3 Days #12 tab 03/15/25 5-325] Ondansetron Odt [Zofran Odt] 4 mg PO Q8HR PRN #10 tab 03/15/25 Tamsulosin [Flomax] 0.4 mg PO DAILY #7 cap 03/15/25 Allergies Allergy/AdvReac Type Severity Reaction Status Date / Time No Known Allergies Allergy Verified 03/15/25 16:44 Review of Systems ROS Other: All systems not noted in ROS Statement are negative. <Marissa Eldridge - Last Filed: 03/15/25 17:21> ROS Other: All systems not noted in ROS Statement are negative. <Nayana White - Last Filed: 03/19/25 10:16> ROS Statement: Those systems with pertinent positive or pertinent negative responses have been documented in the HPI. Past Medical History Past Medical History: Cancer, Chest Pain / Angina, CVA/TIA, Diabetes Mellitus, Fibromyalgia, GERD/Reflux, Hyperlipidemia, Pneumonia Additional Past Medical History / Comment(s): TIAX2 Oct 2017, January 2023 no residual effects. CERVICAL CA (1996). HX OF DIVERTICULITIS. Back, neck, shoulder and bilateral hip pain. Possibly some sleep apnea. Past hx of diabetes-currently just being monitored. Tremors. Last Myocardial Infarction Date:: 2019 History of Any Multi-Drug Resistant Organisms: None Reported Past Surgical History: Bariatric Surgery, Section, Cholecystectomy, Hysterectomy, Tubal Ligation, Uterine Ablation Additional Past Surgical History / Comment(s): LAP BAND 2000 & REMOVED 2001., gastric sleeve 06/05/[address] Mcdowell. panniculectomy 02-27-24, Diverticulitis flare up-07/02/24 Past Anesthesia/Blood Transfusion Reactions: Motion Sickness Past Psychological History: Anxiety, Depression Smoking Status: Never smoker Past Alcohol Use History: None Reported Past Drug Use History: None Reported - Past Family History Father Family Medical History: Cancer, Coronary Artery Disease (CAD), CVA/TIA, Myocardial Infarction ([place]) Additional Family Medical History / Comment(s): Bone ca Mother Family Medical History: Myocardial Infarction ([place]), Thyroid Disorder Sister(s) Family Medical History: Fibromyalgia Additional Family Medical History / Comment(s): MS <ChenteMarissa - Last Filed: 03/15/25 17:21> General Exam Limitations: no limitations <Marissa Eldridge - Last Filed: 03/15/25 17:21> Limitations: no limitations General appearance: alert, in no apparent distress Head exam: Present: atraumatic, normocephalic, normal inspection Eye exam: Present: normal appearance, PERRL, EOMI. Absent: scleral icterus, conjunctival injection, periorbital swelling ENT exam: Present: normal exam, mucous membranes moist Respiratory exam: Present: normal lung sounds bilaterally. Absent: respiratory distress, wheezes, rales, rhonchi, stridor Cardiovascular Exam: Present: regular rate, normal rhythm, normal heart sounds. Absent: systolic murmur, diastolic murmur, rubs, gallop, clicks GI/Abdominal exam: Present: soft, normal bowel sounds. Absent: distended, tenderness, guarding, rebound, rigid Extremities exam: Present: normal inspection, full ROM, normal capillary refill. Absent: tenderness, pedal edema, joint swelling, calf tenderness Back exam: Present: normal inspection. Absent: CVA tenderness (R), CVA tenderness (L) Neurological exam: Present: alert, oriented X3 Psychiatric exam: Present: normal affect, normal mood Skin exam: Present: warm, dry, intact, normal color. Absent: rash <Nayana White - Last Filed: 03/19/25 10:16> - General Exam Comments Initial Comments: Visual Physical Exam Vital signs reviewed General: Well-appearing, nontoxic, no acute distress. Head: Normocephalic, atraumatic Eyes: PERRLA, EOMI ENT: Airway patent Chest: Nonlabored breathing Skin: No visual rash, normal skin tone Neuro: Alert and oriented 3 Musculoskeletal: No gross abnormalities (ChenteMarissa) Course Vital Signs 03/15/25 03/15/25 16:41 20:31 Temperature 97.8 F 98.7 F Pulse Rate 100 100 Respiratory 22 16 Rate Blood Pressure 138/84 144/93 O2 Sat by Pulse 98 99 Oximetry Medical Decision Making <ChenteMarissa - Last Filed: 03/15/25 17:21> - Lab Data Result diagrams: 03/15/25 18:08 03/15/25 18:08 <Nayana White - Last Filed: 03/19/25 10:16> - Medical Decision Making I completed the quick note portion of this chart signed Marissa Eldridge PA-C (Marissa Eldridge) Was pt. sent in by a medical professional or institution ([facility], PROGRAMMER DEVELOPER, urgent care, hospital, or group home...) When possible be specific @ -No Did you speak to anyone other than the patient for history (EMS, parent, family, police, friend...)? What history was obtained from this source @ -No Did you review nursing and triage notes (agree or disagree)? Why? @ -I reviewed and agree with nursing and triage notes Were old charts reviewed (outside hosp., previous admission, EMS record, old EKG, old radiological studies, urgent care reports/EKG's, group home records)? Report findings @ -No old charts were reviewed Differential Diagnosis (chest pain, altered mental status, abdominal pain women, abdominal pain men, vaginal bleeding, weakness, fever, dyspnea, syncope, headache, dizziness, GI bleed, back pain, seizure, CVA, palpatations, mental health, musculoskeletal)? @ -Differential Back Pain: Strain, zoster, cauda equina syndrome, epidural abscess, vertebral osteomyelitis, discitis, fracture, subluxation, disc herniation, DJD, spinal stenosis, dissection, AAA, pancreatitis, peptic ulcer disease, pyelonephritis, kidney stone, this is not meant to be an all-inclusive list. EKG interpreted by me (3pts min.). @ -None X-rays interpreted by me (1pt min.). @ -None done CT interpreted by me (1pt min.). @ -CT of the abdomen pelvis reveals mild left hydronephrosis secondary to 3 mm calculus at the UVJ U/S interpreted by me (1pt. min.). @ -None done What testing was considered but not performed or refused? (CT, X-rays, U/S, labs)? Why? @ -None What meds were considered but not given or refused? Why? @ -None Did you discuss the management of the patient with other professionals (professionals i.e. , PA, PROGRAMMER DEVELOPER, lab, RT, psych nurse, mental health social worker, dynamometer repairer, teacher, aoc director combat operations officer, case checker)? Give summary @ -No Was smoking cessation discussed for >3mins.? @ -No Was critical care preformed (if so, how long)? @ -No Were there social determinants of health that impacted care today? How? (Homelessness, low income, unemployed, alcoholism, drug addiction, transportation, low edu. Level, literacy, decrease access to med. care, residential, rehab)? @ -No Was there de-escalation of care discussed even if they declined (Discuss DNR or withdrawal of care, Hospice)? DNR status @ -No What co-morbidities impacted this encounter? (DM, HTN, Smoking, COPD, CAD, Cancer, CVA, ARF, Chemo, Hep., AIDS, mental health diagnosis, sleep apnea, morbid obesity)? @ -None Was patient admitted / discharged? Hospital course, mention meds given and route, prescriptions, significant lab abnormalities, going to OR and other pertinent info. @ -Discharge. Patient presented emergency department for evaluation of left flank pain. Laboratory studies were obtained while patient was in the waiting room.There is no significant leukocytosis, hemoglobin 12.2; CMP is nonactionable at this time UA shows large blood, greater than 182 RBCs, small leukocyte Estrace but no significant evidence of infection. This CT of the abdomen pelvis reveals a left sided 3 mm stone at the UVJ with mild hydronephrosis patient's pain is well-controlled in the emergency department. She will be discharged home with advised follow-up to urology. She is understanding and agreeable with this plan. Patient stable at time of discharge. Case discussed with Dr. Chris Undiagnosed new problem with uncertain prognosis? @ -No Drug Therapy requiring intensive monitoring for toxicity (Heparin, Nitro, Insulin, Cardizem)? @ -No Were any procedures done? @ -No Diagnosis/symptom? @ -Urolithiasis Acute, or Chronic, or Acute on Chronic? @ -Acute Uncomplicated (without systemic symptoms) or Complicated (systemic symptoms)? @ -Uncomplicated Side effects of treatment? @ -No Exacerbation, Progression, or Severe Exacerbation? @ -No Poses a threat to life or bodily function? How? (Chest pain, [place], [place], pneumonia, PE, COPD, DKA, ARF, appy, cholecystitis, CVA, Diverticulitis, Homicidal, Suicidal, threat to staff... and all critical care pts) @ -Low risk (Nayana White) - Lab Data Lab Results 03/15/25 03/15/25 03/15/25 Range/Units 18:08 18:08 18:08 WBC 7.52 (4.50-10.00) 10*3/uL RBC 4.80 (4.10-5.20) 10*6/uL Hgb 12.2 (12.0-15.0) g/dL Hct 38.5 (37.2-46.3) % MCV 80.2 (80.0-97.0) fL MCH 25.4 L (27.0-32.0) pg MCHC 31.7 L (32.0-37.0) g/dL Plt Count 244 (140-440) 10*3/uL MPV 11.3 (9.5-12.2) fL Immature Gran % (Auto) 0.1 % Neutrophils % 52.5 % Lymphocytes % 36.7 % Monocytes % 9.0 % Eosinophils % 1.2 % Basophils % 0.5 % Immature Gran # 0.01 (0.00-0.04) 10*3/uL Neutrophils # 3.94 (1.80-7.70) 10*3/uL Lymphocytes # 2.76 (0.90-5.00) 10*3/uL Monocytes # 0.68 (0.20-1.00) 10*3/uL Eosinophils # 0.09 (0.04-0.35) 10*3/uL Basophils # 0.04 (0.00-0.10) 10*3/uL Sodium 141 (137-145) mmol/L Potassium 4.3 (3.5-5.1) mmol/L Chloride 106 (98-107) mmol/L Carbon Dioxide 27 (22-30) mmol/L Anion Gap 8 mmol/L BUN 7 (7-17) mg/dL Creatinine 0.66 (0.52-1.04) mg/dL Est GFR (CKD-EPI)AfAm >90 (>60 ml/min/1.73 sqM) Est GFR (CKD-EPI)NonAf >90 (>60 ml/min/1.73 sqM) Glucose 130 H (74-99) mg/dL Plasma Lactic Acid Yusef 1.0 (0.7-2.0) mmol/L Calcium 9.8 (8.4-10.2) mg/dL Total Bilirubin 0.3 (0.2-1.3) mg/dL AST 30 (14-36) U/L ALT 21 (4-34) U/L Alkaline Phosphatase 133 H (38-126) U/L Total Protein 7.3 (6.3-8.2) g/dL Albumin 4.5 (3.5-5.0) g/dL Lipase 80 (23-300) U/L Urine Color Urine Appearance (Clear) Urine pH (5.0-8.0) Ur Specific [place] (1.001-1.035) Urine Protein (Negative) Urine Glucose (UA) (Negative) Urine Ketones (Negative) Urine Blood (Negative) Urine Nitrite (Negative) Urine Bilirubin (Negative) Urine Urobilinogen (<2.0) mg/dL Ur Leukocyte Esterase (Negative) Urine RBC (0-5) /hpf Urine WBC (0-5) /hpf Ur Squamous Epith Cells (0-4) /hpf Urine Mucus (None) /hpf 05/30/25 Range/Units 18:09 WBC (4.50-10.00) 10*3/uL RBC (4.10-5.20) 10*6/uL Hgb (12.0-15.0) g/dL Hct (37.2-46.3) % MCV (80.0-97.0) fL MCH (27.0-32.0) pg MCHC (32.0-37.0) g/dL Plt Count (140-440) 10*3/uL MPV (9.5-12.2) fL Immature Gran % (Auto) % Neutrophils % % Lymphocytes % % Monocytes % % Eosinophils % % Basophils % % Immature Gran # (0.00-0.04) 10*3/uL Neutrophils # (1.80-7.70) 10*3/uL Lymphocytes # (0.90-5.00) 10*3/uL Monocytes # (0.20-1.00) 10*3/uL Eosinophils # (0.04-0.35) 10*3/uL Basophils # (0.00-0.10) 10*3/uL Sodium (137-145) mmol/L Potassium (3.5-5.1) mmol/L Chloride (98-107) mmol/L Carbon Dioxide (22-30) mmol/L Anion Gap mmol/L BUN (7-17) mg/dL Creatinine (0.52-1.04) mg/dL Est GFR (CKD-EPI)AfAm (>60 ml/min/1.73 sqM) Est GFR (CKD-EPI)NonAf (>60 ml/min/1.73 sqM) Glucose (74-99) mg/dL Plasma Lactic Acid Yusef (0.7-2.0) mmol/L Calcium (8.4-10.2) mg/dL Total Bilirubin (0.2-1.3) mg/dL AST (14-36) U/L ALT (4-34) U/L Alkaline Phosphatase (38-126) U/L Total Protein (6.3-8.2) g/dL Albumin (3.5-5.0) g/dL Lipase (23-300) U/L Urine Color Red Urine Appearance Turbid H (Clear) Urine pH 6.0 (5.0-8.0) Ur Specific [place] 1.022 (1.001-1.035) Urine Protein 1+ H (Negative) Urine Glucose (UA) Negative (Negative) Urine Ketones Trace H (Negative) Urine Blood Large H (Negative) Urine Nitrite Negative (Negative) Urine Bilirubin Negative (Negative) Urine Urobilinogen <2.0 (<2.0) mg/dL Ur Leukocyte Esterase Small H (Negative) Urine RBC >182 H (0-5) /hpf Urine WBC 8 H (0-5) /hpf Ur Squamous Epith Cells 10 H (0-4) /hpf Urine Mucus Moderate H (None) /hpf Disposition <Marissa Eldridge - Last Filed: 03/15/25 17:21> Is patient prescribed a controlled substance at d/c from ED?: Yes When asked, does pt state using other controlled substances?: No If prescribed controlled substance>3 days was MAPS reviewed?: Prescribed <3 Days <Nayana White - Last Filed: 03/19/25 10:16> Clinical Impression: Kidney stone Disposition: HOME SELF-CARE Condition: Stable Instructions (If sedation given, give patient instructions): Kidney Stones (ED) Additional Instructions: Please follow up with urology. Return to the emergency department for new or worsening symptoms. Prescriptions: Tamsulosin [Flomax] 0.4 mg PO DAILY #7 cap HYDROcodone/APAP 5-325MG [[place] 5-325] 1 tab PO Q6HR PRN 3 Days #12 tab PRN Reason: Pain Ondansetron Odt [Zofran Odt] 4 mg PO Q8HR PRN #10 tab PRN Reason: Nausea Referrals: Elliott Jordan MD [Primary Care Provider] - 1-2 days Gabino Momin MD [STAFF PHYSICIAN] - 1-2 days
[2025-03-15 18:17] LABS: Basophils # (A) 0.04 10*3/uL (0.00-0.10); Basophils % (A) 0.5 %; Eosinophils # (A) 0.09 10*3/uL (0.04-0.35); Eosinophils % (A) 1.2 %; HCT 38.5 % (37.2-46.3); HGB 12.2 g/dL (12.0-15.0); Lymphocytes # (A) 2.76 10*3/uL (0.90-5.00); Lymphocytes % (A) 36.7 %; MCH 25.4 pg (27.0-32.0); MCHC 31.7 g/dL (32.0-37.0); MCV 80.2 fL (80.0-97.0); Mean Platelet Volume 11.3 fL (9.5-12.2); Monocytes # (A) 0.68 10*3/uL (0.20-1.00); Neutrophils # (A) 3.94 10*3/uL (1.80-7.70); Neutrophils % (A) 52.5 %; Platelet Count 244 10*3/uL (140-440); RDW 15.8 % (11.5-14.5); WBC 7.52 10*3/uL (4.50-10.00)
--- NOTE | 2025-03-15 18:21 | CT ---
EXAMINATION TYPE: CT abdomen pelvis wo con DATE OF EXAM: 03/15/2025 6:01 PM COMPARISON: CT abdomen pelvis most recent from 04/22/2021 CLINICAL INDICATION: Female, 54 years old with history of Left flank pain, hematuria; left flank pain and hematuria TECHNIQUE: Axial CT abdomen pelvis wo con;Sagittal and coronal reformats were created on a separate workstation. Contrast used: mL of , (none if empty) Oral contrast used: without Oral Contrast (none if empty) CT DLP: 467.4 mGycm, Automated exposure control for dose reduction was used. FINDINGS: LOWER CHEST: Unremarkable ABDOMEN LIVER: Unremarkable GALLBLADDER AND BILE DUCTS: The gallbladder is surgically absent. PANCREAS: Unremarkable. SPLEEN: Unremarkable. ADRENAL GLANDS: Unremarkable. KIDNEYS AND URETERS: Mild left hydronephrosis secondary to 3 mm calculus at the ureterovesicular junc tion. No right hydronephrosis. Nonobstructing right renal 3 mm calculus. PELVIS BLADDER: No evidence for wall thickening or mass given limitations of exam. REPRODUCTIVE: The uterus is surgically absent. ABDOMEN & PELVIS STOMACH AND BOWEL: Small hiatal hernia present. No evidence of bowel obstruction. Postsurgical change s to the gastric lumen. Scattered colonic diverticula. The appendix is normal. PERITONEUM/RETROPERITONEUM: No evidence of pneumoperitoneum or free fluid. VASCULATURE: Mild atherosclerotic calcifications are present throughout the abdominal aorta and its b ranches. No evidence of aortic aneurysm. MUSCULOSKELETAL: No acute osseous abnormalities. Mild disc degeneration changes are present throughou t the thoracolumbar spine. LYMPH NODES: No gross evidence for lymphadenopathy. SOFT TISSUE/ABDOMINAL WALL: Fat-containing umbilical hernia. IMPRESSION: 1. Mild left hydronephrosis secondary to 3 mm calculus at the ureterovesicular junction. 2. Nonobstructing right renal 3 mm calculus. 3. Colonic diverticulosis. 4. Small hiatal hernia 5. Normal appendix. 6. Postsurgical changes to the gallbladder and gastric lumen. [facility], , 03/15/2025 6:19 PM
[2025-03-15 18:24] LABS: Appearance,Urine Turbid (Clear); Bilirubin,Urine Negative (Negative); Blood,Urine Large (Negative); Color,Urine Red; Glucose,Urine (UA) Negative (Negative); Ketones,Urine Trace (Negative); Leukocyte Esterase,Urine Small (Negative); Mucus,Urine Moderate /hpf; Nitrite,Urine Negative (Negative); Protein,Urine 1+ (Negative); RBC,Urine >182 /hpf (0-5); Specific Gravity,Urine 1.022 (1.001-1.035); Squamous Epithelial Cell,Urine 10 /hpf (0-4); Urobilinogen,Urine <2.0 mg/dL (<2.0); WBC,Urine 8 /hpf (0-5)
[2025-03-15 18:47] LABS: ALT 21 U/L (4-34); AST 30 U/L (14-36); African American GFR (CKD) >90 (>60 ml/min/1.73 sqM); Albumin 4.5 g/dL (3.5-5.0); Alkaline Phosphatase 133 U/L (38-126); Anion Gap 8 mmol/L; Blood Urea Nitrogen 7 mg/dL (7-17); Calcium 9.8 mg/dL (8.4-10.2); Carbon Dioxide 27 mmol/L (22-30); Chloride 106 mmol/L (98-107); Glucose 130 mg/dL (74-99); Lipase 80 U/L (23-300); Non-African American GFR(CKD) >90 (>60 ml/min/1.73 sqM); Potassium 4.3 mmol/L (3.5-5.1); Sodium 141 mmol/L (137-145); Total Bilirubin 0.3 mg/dL (0.2-1.3); Total Protein 7.3 g/dL (6.3-8.2)
[2025-03-15] MEDS: KETOROLAC 15 MG/ML 1 ML VIAL IVP STA (20:19)
[2025-03-15] MEDS: MORPHINE SULFATE 4 MG/ML SYRINGE IVP STA (20:20)
[2025-03-15 20:32] VITALS: BP 144/93; RESP 16; TEMP 98.7
== END 2025-03-15 20:32 | disposition home or self-care (01) ==
LOC: EC 16:35
DX: N13.2 Hydronephrosis with renal and ureteral calculous obstruction (principal)
CPT/HCPCS: 36415; 80053; 83605; 83690; 85025; 81001; 74176; 99284; 96374; 96375; J2270; J1885